=== PATIENT | male | born 1945 | race Caucasian/White ===

== ENCOUNTER 2017-04-02 19:22 | Emergency (ER) | payer MEDICARE, MEDICAID ==
--- NOTE | 2017-04-02 19:41 | ER Document Report ---
ED Medical Screen (RME) - General Chief Complaint: Leg Pain Stated Complaint: LEG PAIN Time Seen by Provider: 04/02/17 19:28 Mode of Arrival: Medic Information source: Patient Notes: 72-year-old male presents to ED via EMS for shortness of breath and increased swelling to both legs coarse lung sounds increase in pain for his chronic pain in his back. He is a alf patient. He states that he has a history of CHF but that is not listed on his diagnosis is he does have a history of chronic kidney disease COPD and chronic back pain. I have greeted and performed a rapid initial assessment of this patient. A comprehensive ED assessment and evaluation of the patient, analysis of test results and completion of medical decision making process will be conducted by an additional ED providers. - Related Data Allergies/Adverse Reactions: No Known Allergies Allergy (Unverified 04/02/17 19:37)
--- NOTE | 2017-04-02 20:17 | RADIOLOGY REPORT (SQ) ---
EXAM DESCRIPTION: CHEST PA/LAT COMPLETED DATE/TIME: 04/02/2017 8:05 pm REASON FOR STUDY: bilateral pedal edema COMPARISON: None. NUMBER OF VIEWS: Two views. TECHNIQUE: Frontal and lateral radiographic views of the chest acquired. LIMITATIONS: None. FINDINGS: LUNGS AND PLEURA: No opacities, masses or pneumothorax. No pleural effusion. Mildly incr eased interstitial markings. MEDIASTINUM AND HILAR STRUCTURES: No masses or contour abnormality. HEART AND VASCULAR STRUCTURES: Normal cardiac silhouette. Normal vasculature. BONES: No acute findings. HARDWARE: None in the chest. OTHER: Incidental note is made of a rounded metallic foreign body which localizes to the extrathoraci c right posterior lateral soft tissues. IMPRESSION: Given reported bilateral lower extremity edema, mildly increased interstitial markings m ay represent early CHF pattern despite normal cardiac silhouette. TECHNICAL DOCUMENTATION: JOB ID: [id number] [employer]- All Rights Reserved
[2017-04-02 20:43] LABS: ABSOLUTE BASOPHILS # (AUTO) 0.1 10^3/uL (0.0-0.2); ABSOLUTE EOSINOPHILS # (AUTO) 0.6 10^3/uL (0.0-0.6); ABSOLUTE LYMPHOCYTES (AUTO) 2.4 10^3/uL (0.5-4.7); ABSOLUTE MONOCYTES (AUTO) 1.1 10^3/uL (0.1-1.4); ABSOLUTE NEUT (AUTO) 3.8 10^3/uL (1.7-8.2); BASOPHILS % (AUTO) 1.1 % (0-2); HEMATOCRIT 36.4 % (37.9-51.0); HGB HCT DIFFERENCE -0.4; LYMPHOCYTES % (AUTO) 30.3 % (13-45); MEAN CORPUSCULAR HEMOGLOBIN 28.1 pg (27.0-33.4); MEAN CORPUSCULAR HGB CONC 32.9 g/dL (32.0-36.0); MEAN CORPUSCULAR VOLUME 85 fl (80-97); MONOCYTES % (AUTO) 14.1 % (3-13); RED BLOOD COUNT 4.26 10^6/uL (4.35-5.55); RED CELL DISTRIBUTION WIDTH 15.6 % (11.5-14.0); SEGMENTED NEUTROPHILS % (AUTO) 47.5 % (42-78); WHITE BLOOD COUNT 8.1 10^3/uL (4.0-10.5)
[2017-04-02 20:54] LABS: ALANINE AMINOTRANSFERASE 30 U/L (21-72); ALBUMIN 3.4 g/dL (3.5-5.0); ALKALINE PHOSPHATASE 65 U/L (38-126); ANION GAP 9 (5-19); ASPARTATE AMINO TRANSFERASE 21 U/L (17-59); BILIRUBIN,DIRECT 0.3 mg/dL (0.0-0.4); BILIRUBIN,TOTAL 0.4 mg/dL (0.2-1.3); BLOOD UREA NITROGEN 23 mg/dL (7-20); CALCIUM 8.8 mg/dL (8.4-10.2); CARBON DIOXIDE 23 mmol/L (22-30); CHLORIDE 110 mmol/L (98-107); CREATINE KINASE 370 U/L (55-170); CREATININE RESULT 1.81 mg/dL (0.52-1.25); GLUCOSE 99 mg/dL (75-110); POTASSIUM 4.8 mmol/L (3.6-5.0); SODIUM 142.2 mmol/L (137-145); TOTAL PROTEIN 6.4 g/dL (6.3-8.2)
[2017-04-02 20:55] LABS: APPEARANCE,URINE CLEAR; BILIRUBIN,URINE NEGATIVE (NEGATIVE); GLUCOSE, URINE NEGATIVE (NEGATIVE); KETONES,URINE NEGATIVE (NEGATIVE); LEUKOCYTE ESTERASE,URINE NEGATIVE (NEGATIVE); NITRITE,URINE NEGATIVE (NEGATIVE); PROTEIN,URINE 100 mg/dL (NEGATIVE); URINE SPECIFIC GRAVITY 1.019; UROBILINOGEN,URINE NEGATIVE mg/dL (<2.0)
[2017-04-02 21:02] LABS: CREATINE KINASE MB 2.51 ng/mL (<4.55)
[2017-04-02] MEDS ORDERED: IPRATROPIUM/ALBUTEROL 0.5-2.5 MG/3 ML AMPUL NEB ONE (21:46)
[2017-04-02] MEDS ORDERED: FUROSEMIDE INJ/PF 20 MG/2 ML SDV IV ONE (21:51)
[2017-04-02] MEDS ORDERED: LIDOCAINE 5% (700 MG) TRANSDERMAL ADH..PATCH TP ONE (21:52)
[2017-04-02] MEDS ORDERED: ACETAMINOPHEN 325 MG TABLET PO ONE (21:52)
--- NOTE | 2017-04-02 21:52 | ER Document Report ---
ED General - General Chief Complaint: Leg Pain Stated Complaint: LEG PAIN Time Seen by Provider: 04/02/17 19:28 Mode of Arrival: Medic Notes: Patient is a 72-year-old male with past medical history of hypertension or hyperlipidemia, morbid obesity who presents with concerns of 4-5 days of progressively worsening pain and swelling of his bilateral lower extremities. Notes that this is equal on both sides. Does describe a dull, constant, aching pain to the area. Nothing improves or worsens the pain. States he has had similar symptoms in the past but he has discontinued using compression stockings for the past several years. He has not seen his primary care doctor regarding today's concerns. He denies any orthopnea, shortness of breath or chest pain. Denies any fever or constitutional symptoms. - Related Data Allergies/Adverse Reactions: No Known Allergies Allergy (Unverified 04/02/17 19:37) Home Medications: Current Home Medications Acetaminophen [Non-Aspirin Pain Relief] 650 mg PO PRN PRN 04/02/17 [History] Albuterol Sulfate [Albuterol Sulfate 2.5mg/3 mL] 2.5 mg IH PRN PRN 04/02/17 [ History] Aspirin [Aspirin EC] 81 mg PO DAILY 04/02/17 [History] Atorvastatin Calcium 40 mg PO QHS 04/02/17 [History] Calcium Carbonate [Calcium Antacid] 500 mg PO Q4H PRN 04/02/17 [History] Divalproex Sodium [Depakote] 750 mg PO QHS 04/02/17 [History] Donepezil HCl [Donepezil HCl] 5 mg PO QHS 04/02/17 [History] Esomeprazole Magnesium 20 mg PO QAM 04/02/17 [History] Fluticasone/Salmeterol [Advair 250-50 Diskus] 1 puff IH BID 04/02/17 [History] Gabapentin [Gabapentin] 200 mg PO TID 04/02/17 [History] Lisinopril [Lisinopril] 10 mg PO DAILY 04/02/17 [History] Memantine HCl [Memantine HCl] 5 mg PO DAILY 04/02/17 [History] Tamsulosin HCl 0.4 mg PO QHS 04/02/17 [History] Tiotropium [place] [Spiriva Handihaler 18 mcg/dose (30 Dose)] 1 cap IH DAILY 05/12 [History] Past Medical History - General Information source: Patient - Social History Smoking Status: Current Every Day Smoker Chew tobacco use (# tins/day): No Frequency of alcohol use: None Drug Abuse: None Lives with: Spouse/Significant other Family History: Reviewed & Not Pertinent - Past Medical History Cardiac Medical History: Reports: Hx Congestive Heart Failure, Hx Hypercholesterolemia, Hx Hypertension Pulmonary Medical History: Reports: Hx COPD Renal/ Medical History: Reports: Hx End Stage Renal Disease GI Medical History: Reports: Hx Gastroesophageal Reflux Disease Review of Systems - Review of Systems Notes: Constitutional: Negative for fever. HENT: Negative for sore throat. Eyes: Negative for visual changes. Cardiovascular: Negative for chest pain. Respiratory: Negative for shortness of breath. Gastrointestinal: Negative for abdominal pain, vomiting or diarrhea. Genitourinary: Negative for dysuria. Musculoskeletal: Negative for back pain. Skin: Positive for bilateral lower extremity edema Neurological: Negative for headaches, weakness or numbness. 10 point ROS negative except as marked above and in HPI. Physical Exam - Vital signs Vitals: Temp Pulse Resp BP Pulse Ox 98.9 F 81 16 153/80 H 93 04/02/17 19:35 04/02/17 19:35 04/02/17 19:35 04/02/17 19:35 04/02/17 19:35 Interpretation: Hypertensive Notes: PHYSICAL EXAMINATION: GENERAL: Well-appearing, well-nourished and in no acute distress. HEAD: Atraumatic, normocephalic. EYES: Pupils equal round and reactive to light, extraocular movements intact, sclera anicteric, conjunctiva are normal. ENT: nares patent, oropharynx clear without exudates. Moist mucous membranes. NECK: Normal range of motion, supple without lymphadenopathy LUNGS: Breath sounds clear to auscultation bilaterally and equal. No wheezes rales or rhonchi. HEART: Regular rate and rhythm without murmurs ABDOMEN: Soft, nontender, normoactive bowel sounds. No guarding, no rebound. No masses appreciated. EXTREMITIES: Normal range of motion, 4+ pitting edema in the bilateral lower extremities is equal and symmetric. Associated erythema to the affected areas. NEUROLOGICAL: No focal neurological deficits. Moves all extremities spontaneously and on command. PSYCH: Normal mood, normal affect. SKIN: Warm, Dry, normal turgor, no rashes or lesions noted. Course - Re-evaluation Re-evalutation: 04/02/17 21:48 Patient presents with bilateral lower extremity edema and erythema consistent with stasis dermatitis that has been present for the past 2 weeks worsened today. He denies any shortness of breath, orthopnea or chest pain. Chest x- ray shows no significant pulmonary edema or cardiac enlargement. Patient reports a history of similar symptoms in the past. Laboratories are notable only for a mild creatinine elevation at 1.8 although I do not know patient's baseline does report a history of chronic kidney disease. Patient will be placed in compression stockings, given a single dose of Lasix, and encouraged to follow very closely with his primary care doctor regarding today's concerns. At this time will discharge with return precautions and follow-up recommendations. Verbal discharge instructions given a the bedside and opportunity for questions given. Medication warnings reviewed. Patient is in agreement with this plan and has verbalized understanding of return precautions and the need for primary care follow-up in the next 24-72 hours. - Vital Signs Vital signs: Temp Pulse Resp BP Pulse Ox 98.9 F 81 21 H 171/93 H 95 04/02/17 19:35 04/02/17 19:35 04/02/17 22:01 04/02/17 22:01 04/02/17 22:01 - Laboratory Result Diagrams: 04/02/17 20:25 04/02/17 20:25 Laboratory results interpreted by me: 04/02/17 04/02/17 04/02/17 20:25 20:25 20:40 RBC 4.26 L Hgb 12.0 L Hct 36.4 L RDW 15.6 H Monocytes % 14.1 H Eosinophils % 7.0 H Chloride 110 H BUN 23 H Creatinine 1.81 H Est GFR ( Amer) 45 L Est GFR (Non-Af Amer) 37 L Creatine Kinase 370 H Albumin 3.4 L Urine Protein 100 H - Diagnostic Test Radiology reviewed: Image reviewed, Reports reviewed Radiology results interpreted by me: 04/02/17 21:49 Chest x-ray: No cardiac enlargement or significant pulmonary edema - EKG Interpretation by Me Additional EKG results interpreted by me: 04/02/17 21:49 Normal sinus rhythm. Rate 78. No ST elevations or depressions. QTC is 465. Discharge - Discharge Clinical Impression: Stasis dermatitis Qualifiers: Laterality: bilateral Qualified Code(s): I87.2 - Venous insufficiency (chronic ) (peripheral) Condition: Good Disposition: HOME, SELF-CARE Additional Instructions: Please wear compression stockings on both your legs throughout the day to help reduce the swelling in your legs. Return if you develop worsening pain on one side, fever greater than 101F, vomiting, weakness, numbness or any other symptoms that are concerning to you. You need to follow-up with your primary care doctor regarding today's concerns and have a recheck of your labs to ensure that her kidney function, which was mildly abnormal today normalizes.
[2017-04-02 22:11] VITALS: BP 171/93
--- NOTE | 2017-04-03 08:03 | EKG REPORT ---
SEVERITY:- NORMAL ECG - SINUS RHYTHM : Confirmed by: Jerome Lyn MD 03-Apr-2017 08:03:11
== END 2017-04-02 22:46 | disposition home or self-care (01) ==
LOC: ER 19:22
DX: I87.2 Venous insufficiency (chronic) (peripheral) (principal); M79.604 Pain in right leg; M79.605 Pain in left leg; I12.0 Hypertensive chronic kidney disease with stage 5 chronic kidney disease or end stage renal disease; N18.6 End stage renal disease; R60.0 Localized edema; J44.9 Chronic obstructive pulmonary disease, unspecified; F17.200 Nicotine dependence, unspecified, uncomplicated
CPT/HCPCS: 93005; 94640; 99284; 36415; 82553; 82550; 85025; 80053; 81001; 83880; 71020; 93010; A9270 ×2; J7620

== ENCOUNTER 2017-04-20 12:01 | Inpatient (IN) | payer MEDICARE, MEDICAID ==
[2017-04-20 13:33] LABS: ABSOLUTE BASOPHILS # (AUTO) 0.1 10^3/uL (0.0-0.2); ABSOLUTE EOSINOPHILS # (AUTO) 0.4 10^3/uL (0.0-0.6); ABSOLUTE LYMPHOCYTES (AUTO) 1.8 10^3/uL (0.5-4.7); ABSOLUTE MONOCYTES (AUTO) 0.8 10^3/uL (0.1-1.4); ABSOLUTE NEUT (AUTO) 3.7 10^3/uL (1.7-8.2); BASOPHILS % (AUTO) 1.1 % (0-2); EOSINOPHILS % (AUTO) 5.9 % (0-6); HEMATOCRIT 36.9 % (37.9-51.0); HEMOGLOBIN 12.3 g/dL (13.5-17.0); LYMPHOCYTES % (AUTO) 26.5 % (13-45); MEAN CORPUSCULAR HGB CONC 33.5 g/dL (32.0-36.0); MEAN CORPUSCULAR VOLUME 84 fl (80-97); MONOCYTES % (AUTO) 12.1 % (3-13); RED BLOOD COUNT 4.41 10^6/uL (4.35-5.55); RED CELL DISTRIBUTION WIDTH 15.4 % (11.5-14.0); SEGMENTED NEUTROPHILS % (AUTO) 54.4 % (42-78); WHITE BLOOD COUNT 6.8 10^3/uL (4.0-10.5)
[2017-04-20 13:42] LABS: PARTIAL THROMBOPLASTIN TIME 29.9 SEC (23.5-35.8)
[2017-04-20 13:44] LABS: D-DIMER 1.13 ug/mL (0.00-0.50)
[2017-04-20 13:49] LABS: ALANINE AMINOTRANSFERASE 23 U/L (21-72); ALBUMIN 3.7 g/dL (3.5-5.0); ALKALINE PHOSPHATASE 71 U/L (38-126); ANION GAP 8 (5-19); ASPARTATE AMINO TRANSFERASE 20 U/L (17-59); BILIRUBIN,DIRECT 0.3 mg/dL (0.0-0.4); BILIRUBIN,TOTAL 0.3 mg/dL (0.2-1.3); BLOOD UREA NITROGEN 22 mg/dL (7-20); CARBON DIOXIDE 25 mmol/L (22-30); CHLORIDE 109 mmol/L (98-107); CREATININE RESULT 1.98 mg/dL (0.52-1.25); GLUCOSE 84 mg/dL (75-110); POTASSIUM 4.9 mmol/L (3.6-5.0); TOTAL PROTEIN 6.7 g/dL (6.3-8.2)
[2017-04-20] MEDS ORDERED: VANCOMYCIN HCL 0 MG in DEXTROSE 5%-WATER 250 ML IV NR (14:45)
[2017-04-20 15:00] LABS: APPEARANCE,URINE CLEAR; BILIRUBIN,URINE NEGATIVE (NEGATIVE); GLUCOSE, URINE NEGATIVE (NEGATIVE); KETONES,URINE NEGATIVE (NEGATIVE); LEUKOCYTE ESTERASE,URINE NEGATIVE (NEGATIVE); NITRITE,URINE NEGATIVE (NEGATIVE); PROTEIN,URINE 100 mg/dL (NEGATIVE); URINE SPECIFIC GRAVITY 1.013; UROBILINOGEN,URINE NEGATIVE mg/dL (<2.0)
[2017-04-20] MEDS ORDERED: NICOTINE 21 MG/24 HR PATCH.TD24 TD ONE (16:00)
[2017-04-20] MEDS: PIPERACILLIN SODIUM/TAZOBACTAM 3.375 GM in NORMAL SALINE 100 ML IV SCH ×2 (17:12→20:43)
[2017-04-20] MEDS: HEPARIN SOD (PORCINE) 5,000 UNIT/ML 1 ML SYRINGE SUBCUT SCH ×2 (17:13→22:08)
--- NOTE | 2017-04-20 18:09 | RADIOLOGY REPORT (SQ) ---
EXAM DESCRIPTION: VENOUS BILATERAL LOWER COMPLETED DATE/TIME: 04/20/2017 5:26 pm REASON FOR STUDY: CELLULITIS COMPARISON: None. TECHNIQUE: Dynamic and static matt scale and color images acquired of both lower extremity venous sy stems. Selected spectral images acquired with additional compression and augmentation maneuvers. Imag es stored on PACS. LIMITATIONS: None. FINDINGS: RIGHT LEG COMMON FEMORAL AND FEMORAL: Normal phasicity, compression and augmentation. No visualized echogenic m aterial on matt scale. No defects on color images. POPLITEAL: Normal compression and augmentation. No visualized echogenic material on matt scale. No de fects on color images. CALF VESSELS: Normal compression and augmentation. No visualized echogenic material on matt scale. No defects on color image. GSV AND SSV: Normal compression. No visualized echogenic material on matt scale. No defects on color images. ANY DEEP VENOUS INSUFFICIENCY: Not evaluated. ANY EVIDENCE OF POPLITEAL CYST: No. OTHER: No other significant finding. LEFT LEG COMMON FEMORAL AND FEMORAL: Normal phasicity, compression and augmentation. No visualized echogenic m aterial on matt scale. No defects on color images. POPLITEAL: Normal compression and augmentation. No visualized echogenic material on matt scale. No de fects on color images. CALF VESSELS: Normal compression and augmentation. No visualized echogenic material on matt scale. No defects on color images. GSV AND SSV: Normal compression. No visualized echogenic material on matt scale. No defects on color images. ANY DEEP VENOUS INSUFFICIENCY: Not evaluated. ANY EVIDENCE POPLITEAL CYST: No. OTHER: No other significant finding. IMPRESSION: NO EVIDENCE DVT OR SVT IN EITHER LEG. TECHNICAL DOCUMENTATION: JOB ID: [id number] [employer]- All Rights Reserved
[2017-04-20] MEDS: ACETAMINOPHEN 325 MG TABLET PO PRN (18:11)
[2017-04-20] MEDS: VANCOMYCIN HCL 1,250 MG in DEXTROSE 5%-WATER 250 ML IV SCH (18:46)
--- NOTE | 2017-04-20 19:17 | RADIOLOGY REPORT (SQ) ---
EXAM DESCRIPTION: U/S RETROPERITON LTD COMPLETED DATE/TIME: 04/20/2017 7:05 pm REASON FOR STUDY: PULMONARY HTN COMPARISON: None. TECHNIQUE: Dynamic and static grayscale images acquired of the kidneys and bladder and recorded on P ACS. Additional selected color Doppler and spectral images recorded. LIMITATIONS: Study is limited due to the patient's body habitus. FINDINGS: RIGHT KIDNEY: 8.1 cm in length. Normal echogenicity. No solid or suspicious masses. No hydronephrosis. No calcifications. LEFT KIDNEY: 8.9 cm in length. Normal echogenicity. No solid or suspicious masses. No hydronep hrosis. No calcifications. BLADDER: Bladder was not well evaluated due to the patient's body habitus and is non distended state. OTHER FINDINGS: No other significant finding. IMPRESSION: Somewhat limited study as noted above. No significant renal abnormalities were identifi ed. Other findings as noted above TECHNICAL DOCUMENTATION: JOB ID: [id number] [facility]- All Rights Reserved
[2017-04-20] MEDS: IPRATROPIUM/ALBUTEROL 0.5-2.5 MG/3 ML AMPUL NEB PRN (19:38)
[2017-04-20 20:25] LABS: URINE CREATININE 88.8 mg/dL (22-328); URINE PROTEIN 61.4 mg/dL (<12)
--- NOTE | 2017-04-20 20:29 | PDOC H&P ---
History of Present Illness Admission Date/PCP: 04/20/17 12:01 History of Present Illness: PRINCE PALMA is a 72 year old male, He is a resident of [facility] assisted living facility, he is new to our office he was seen in the office for the first time about 2-3 3 weeks ago when he came to establish with us, He came to the office today because of increasing swelling of both lower extremities with erythema extending from the feet to the inner thigh suspicious for ascending cellulitis. When he was seen in the office few weeks ago there was redness of the leg there was no involvement of the thigh at the time I suspected venostasis because he is overweight, in fact he is obese since the last time I saw him there has been progressive worsening of the redness suggesting ascending cellulitis of the lower extremities. He was admitted directly from the office into the hospital for management ,a stat venous Doppler of the lower extremity was done because of concern for deep vein thrombosis the venous Doppler was negative for DVT. A 2D echo was done , it showed preserved ejection fraction of the left ventricle, the right ventricular function was also normal Past Medical History Cardiac Medical History: Reports: Hyperlipidema, Hypertension Pulmonary Medical History: Reports: Chronic Obstructive Pulmonary Disease (COPD) Renal/ Medical History: Reports: Chronic Kidney Disease - Chronic kidney disease stage III GI Medical History: Reports: Gastroesophageal Reflux Disease Social History Smoking Status: Current Every Day Smoker Cigarettes Packs Per Day: 20 Number of Years Smokin Last Time Smoked: 04/20/17 Frequency of Alcohol Use: None Hx Prescription Drug Abuse: No Family History Family History: Reviewed & Not Pertinent Parental Family History Reviewed: Yes Children Family History Reviewed: Yes Sibling(s) Family History Reviewed.: Yes Medication/Allergy Home Medications: Acetaminophen [Tylenol 325 mg Tablet] 650 mg PO Q6HP PRN 04/20/17 Albuterol Sulfate [Albuterol Sulfate 2.5mg/3 mL] 2.5 mg IH Q6HP PRN 04/20/17 Aspirin [Ecotrin 81 mg EC Tablet] 81 mg PO DAILY 04/20/17 Atorvastatin Calcium [Lipitor 40 mg Tablet] 40 mg PO QHS 04/20/17 Calcium Carbonate [Tums Chewable 500 mg Tab.chew] 500 mg PO Q4HP PRN 04/20/17 Cetirizine HCl/Pseudoephedrine [Zyrtec-D 12 Hour Tablet] 1 tab.sr PO DAILYP PRN 04/20/17 Diclofenac Sodium [Voltaren] 100 gm TP QID 04/20/17 Divalproex Sodium 750 mg PO QHS 04/20/17 Docusate Sodium [Colace 100 mg Capsule] 200 mg PO DAILYP PRN 04/20/17 Donepezil HCl [Aricept] 10 mg PO QHS 04/20/17 Esomeprazole Magnesium [Nexium] 20 mg PO DAILY 04/20/17 Fluticasone/Salmeterol [Advair 250-50 Diskus 28 dose] 1 inh IH Q12H 04/20/17 Gabapentin [Neurontin 100 mg Capsule] 200 mg PO Q8 04/20/17 Hydroxyzine HCl [Atarax 50 mg Tablet] 50 mg PO Q6HP PRN 04/20/17 Lidocaine [Lidoderm 5% (700 mg) Transdermal Patch] 1 patch TP DAILY 04/20/17 Lisinopril [Prinivil 10 mg Tablet] 10 mg PO DAILY 04/20/17 Loperamide HCl [Loperamide] 2 mg PO QIDP PRN 04/20/17 Memantine HCl [Namenda] 5 mg PO DAILY 04/20/17 Sennosides/Docusate Sodium [Senna-S Tablet] 1 each PO BIDP PRN 04/20/17 Tamsulosin HCl [Flomax 0.4 mg Cap.sr] 0.4 mg PO DAILY 04/20/17 Tiotropium [place] [Spiriva Handihaler 18 mcg/dose (30 Dose)] 1 cap IH DAILY Tramadol HCl [Ultram 50 mg Tablet] 50 mg PO Q6HP PRN 04/20/17 Allergies/Adverse Reactions: No Known Allergies Allergy (Unverified 04/02/17 19:37) Review of Systems Constitutional: PRESENT: headache(s) Eyes: ABSENT: visual disturbances Ears: ABSENT: hearing changes Cardiovascular: PRESENT: edema Respiratory: PRESENT: dyspnea Gastrointestinal: ABSENT: as per HPI, abdominal pain, bloating, coffee ground emesis, constipation, diarrhea, dysphagia, heartburn, hematemesis, hematochezia , melena, nausea, vomiting, other Genitourinary: ABSENT: dysuria, hematuria Musculoskeletal: PRESENT: back pain Integumentary: ABSENT: rash, wounds Neurological: PRESENT: abnormal gait, frequent falls Endocrine: ABSENT: cold intolerance, heat intolerance, menstrual abnormalities, polydipsia, polyuria Hematologic/Lymphatic: ABSENT: easy bleeding, easy bruising, lymphadenopathy Physical Exam Vital Signs: Temp Pulse Resp BP Pulse Ox 97.7 F 88 18 153/85 H 97 04/20/17 12:20 04/20/17 19:54 04/20/17 19:54 04/20/17 12:20 04/20/17 19:54 Intake & Output 04/19/17 04/20/17 04/21/17 06:59 06:59 06:59 Intake Total 510 Output Total 500 Balance 10 Weight 98.4 kg General appearance: PRESENT: mild distress Head exam: PRESENT: atraumatic, normocephalic Eye exam: PRESENT: PERRLA Mouth exam: PRESENT: moist, tongue midline Neck exam: PRESENT: full ROM Respiratory exam: PRESENT: wheezes Cardiovascular exam: PRESENT: +S1, +S2 Vascular exam: PRESENT: normal capillary refill GI/Abdominal exam: PRESENT: normal bowel sounds, soft Rectal exam: PRESENT: deferred Extremities exam: PRESENT: pedal edema, other - There is swelling of both lower extremities extending from the feet to the inner thigh with associated erythema suggestive of cellulitis Neurological exam: PRESENT: alert, CN II-XII grossly intact Psychiatric exam: PRESENT: appropriate affect, normal mood Skin exam: PRESENT: dry, intact, warm Results Laboratory Results: 04/20/17 13:22 04/20/17 13:22 04/20/17 04/20/17 04/20/17 13:22 13:22 14:21 WBC 6.8 RBC 4.41 Hgb 12.3 L Hct 36.9 L MCV 84 MCH 28.0 MCHC 33.5 RDW 15.4 H Plt Count 213 Seg Neutrophils % 54.4 Lymphocytes % 26.5 Monocytes % 12.1 Eosinophils % 5.9 Basophils % 1.1 Absolute Neutrophils 3.7 Absolute Lymphocytes 1.8 Absolute Monocytes 0.8 Absolute Eosinophils 0.4 Absolute Basophils 0.1 Sodium 142.0 Potassium 4.9 Chloride 109 H Carbon Dioxide 25 Anion Gap 8 BUN 22 H Creatinine 1.98 H Est GFR ( Amer) 40 L Est GFR (Non-Af Amer) 33 L Glucose 84 Calcium 9.0 Total Bilirubin 0.3 AST 20 ALT 23 Alkaline Phosphatase 71 Total Protein 6.7 Albumin 3.7 Urine Color YELLOW Urine Appearance CLEAR Urine pH 7.0 Ur Specific [place] 1.013 Urine Protein 100 H Urine Glucose (UA) NEGATIVE Urine Ketones NEGATIVE Urine Blood NEGATIVE Urine Nitrite NEGATIVE Ur Leukocyte Esterase NEGATIVE Urine WBC (Auto) 0 Impressions: Renal Ultrasound 04/20/17 00:00 IMPRESSION: Somewhat limited study as noted above. No significant renal abnormalities were identified. Other findings as noted above Venous Doppler Study 04/20/17 00:00 IMPRESSION: NO EVIDENCE DVT OR SVT IN EITHER LEG. Assessment & Plan - Diagnosis (1) Cellulitis of both lower extremities Is this a current diagnosis for this admission?: YesPlan: He be treated with IV antibiotic to cover MRSA, gram-negative organisms, he is a resident of assisted living facility, health care facility (2) COPD with acute exacerbation Plan: He will be treated with bronchodilators, he may need intravenous Solu-Medrol if there is no improvement in 24 hours
[2017-04-20] MEDS ORDERED: FLUTICASONE/SALMETEROL DISKUS 250-50 MCG/DOSE IH SCH (20:30)
[2017-04-20] MEDS ORDERED: (PENDING PHARMACY ID) (Esomeprazole Magnesium [Nexium] 20 MG) PO SCH (20:30)
[2017-04-20] MEDS ORDERED: ASPIRIN 81 MG TABLET, ENT COATED PO SCH (21:00)
[2017-04-20] MEDS ORDERED: VALPROIC ACID 750 MG PO SCH (22:00)
[2017-04-20] MEDS: ATORVASTATIN CALCIUM 40 MG TABLET PO SCH (22:08)
[2017-04-20] MEDS: DIVALPROEX SODIUM 250 MG TABLET.DR PO SCH (22:08)
[2017-04-20] MEDS: FLUTICASONE/SALMETEROL DISKUS 250-50 MCG/DOSE IH SCH (22:12)
[2017-04-21] MEDS: ACETAMINOPHEN 325 MG TABLET PO PRN ×4 (00:43→20:09)
[2017-04-21] MEDS: PIPERACILLIN SODIUM/TAZOBACTAM 3.375 GM in NORMAL SALINE 100 ML IV SCH ×4 (02:04→21:19)
[2017-04-21] MEDS: HEPARIN SOD (PORCINE) 5,000 UNIT/ML 1 ML SYRINGE SUBCUT SCH ×3 (05:21→21:19)
[2017-04-21] MEDS: IPRATROPIUM/ALBUTEROL 0.5-2.5 MG/3 ML AMPUL NEB PRN ×3 (06:44→20:24)
[2017-04-21] MEDS: LANSOPRAZOLE 15 MG TAB.RAP.DR PO SCH (08:04)
[2017-04-21] MEDS ORDERED: ACETAMINOPHEN 325 MG TABLET PO PRN (08:44)
[2017-04-21] MEDS ORDERED: [UNRECOGNIZED DRUG - OTHER] PO PRN (08:44)
[2017-04-21] MEDS ORDERED: PSEUDOEPHEDRINE PO PRN (08:44)
[2017-04-21] MEDS ORDERED: SENNOSIDES/DOCUSATE 8.6-50 MG 1 EACH TABLET PO PRN (08:44)
[2017-04-21] MEDS ORDERED: CETIRIZINE HCL PO PRN (08:44)
[2017-04-21] MEDS ORDERED: DOCUSATE SODIUM 100 MG CAPSULE PO PRN (08:44)
[2017-04-21] MEDS ORDERED: LOPERAMIDE HCL 2 MG CAPSULE PO PRN (08:44)
[2017-04-21] MEDS ORDERED: HYDROXYZINE HCL 10 MG TABLET PO PRN (08:44)
[2017-04-21] MEDS ORDERED: LORATADINE/PSEUDOEPHEDRINE SUL 10-240 MG TAB.SR.24H PO PRN (08:51)
--- NOTE | 2017-04-21 09:18 | XCELERA REPORT ---
[address] [address] Transthoracic Echocardiogram Report Name: PRINCE PALMA Age: 72 yrs Gender: Male : 1945 Patient Status: Inpatient Patient Location: [id number]\427\[id number]\A Study Date: 04/20/2017 02:16 PM Height: 70 in Weight: 216 lb BSA: 2.2 m2 Procedure: A complete two-dimensional transthoracic echocardiogram was performed (2D, M-mode, spectral and color flow Doppler). The study was technically adequate with some images being suboptimal in quality. Reason For Study: PULMONARY HTN Ordering Physician: JONATHAN WHITESIDE Performed By: Kevin Vidal Interpretation Summary The left ventricular ejection fraction is normal. Doppler measurements suggest pseudonormalized left ventricular relaxation, which is associated with grade II/IV or mild to moderate diastolic dysfunction There is mild concentric left ventricular hypertrophy. The left ventricle is grossly normal size. Wall motion cannot be accurately commented on, but no definite regional wall motion abnormalities noted. The right ventricular systolic function is normal. The right atrium is normal in size The left atrial size is normal. There is a trace amount of mitral regurgitation There is no mitral valve stenosis. No aortic regurgitation is present. There is no aortic valve stenosis There is a mild amount of tricuspid regurgitation There is mild to moderate pulmonary hypertension by echo Right ventricular systolic pressure is estimated to be elevated at 40- 50mmHg. The aortic root is not well visualized but is probably normal size. The inferior vena cava appeared normal and decreased > 50% with respiration (RAP 5-10 mmHg) There is no pericardial effusion. MMode/2D Measurements \T\ Calculations RVDd: 2.7 cm LVIDd: 4.9 cm FS: 31.1 % Ao root diam: 3.9 cm IVSd: 1.1 cm LVIDs: 3.4 cm EDV(Teich): 113.0 ml LVPWd: 1.1 cm ESV(Teich): 46.7 ml Ao root area: 12.1 cm2 EF(Teich): 58.7 % Doppler Measurements \T\ Calculations MV E max jose luis: MV dec slope: Ao V2 max: LV V1 max P.1 cm/sec 139.9 cm/sec 4.1 mmHg MV A max jose luis: 307.7 cm/sec2 Ao max PG: LV V1 max: 78.6 cm/sec MV dec time: 7.8 mmHg 101.1 cm/sec MV E/A: 0.84 0.21 sec PA V2 max: PI end-d jose luis: TR max jose luis: RAP systole: 99.4 cm/sec 112.0 cm/sec 296.5 cm/sec 5.0 mmHg PA max PG: TR max P.9 mmHg 35.2 mmHg RVSP(TR): 40.2 mmHg Left Ventricle The left ventricle is grossly normal size. There is mild concentric left ventricular hypertrophy. The left ventricular ejection fraction is normal. Doppler measurements suggest pseudonormalized left ventricular relaxation, which is associated with grade II/IV or mild to moderate diastolic dysfunction. Wall motion cannot be accurately commented on, but no definite regional wall motion abnormalities noted. Right Ventricle The right ventricle is grossly normal size. There is normal right ventricular wall thickness. The right ventricular systolic function is normal. Atria The right atrium is normal in size. The left atrial size is normal. Interarterial septum not well visualized and not well dopplered. Cannot comment on ASD/PFO presence. Mitral Valve The mitral valve is grossly normal. There is no mitral valve stenosis. There is a trace amount of mitral regurgitation. Aortic Valve The aortic valve is sclerotic, but shows no functional abnormality. There is no aortic valve stenosis. No aortic regurgitation is present. Tricuspid Valve The tricuspid valve is not well visualized, but is grossly normal. There is no tricuspid stenosis. There is a mild amount of tricuspid regurgitation. There is mild to moderate pulmonary hypertension by echo. Right ventricular systolic pressure is estimated to be elevated at 40-50mmHg. Pulmonic Valve The pulmonic valve is not well visualized. Great Vessels The aortic root is not well visualized but is probably normal size. The inferior vena cava appeared normal and decreased > 50% with respiration (RAP 5-10 mmHg). Effusions There is no pericardial effusion. : JONATHAN WHITESIDE > Belén Kohli
[2017-04-21] MEDS: MEMANTINE HCL 10 MG TABLET PO SCH (09:32)
[2017-04-21] MEDS: ASPIRIN 81 MG TABLET, ENT COATED PO SCH (09:34)
[2017-04-21] MEDS: TAMSULOSIN HCL 0.4 MG CAP.SR.24H PO SCH (09:34)
[2017-04-21] MEDS: LISINOPRIL 10 MG TABLET PO SCH (09:35)
[2017-04-21] MEDS: NICOTINE 21 MG/24 HR PATCH.TD24 TD SCH (09:36)
[2017-04-21] MEDS: TRAMADOL HCL 50 MG TABLET PO PRN ×2 (09:36→18:25)
[2017-04-21] MEDS: TIOTROPIUM BROMIDE DPI 5 CAP/KIT (18 MCG/CAP) IH SCH (09:37)
[2017-04-21] MEDS: FLUTICASONE/SALMETEROL DISKUS 250-50 MCG/DOSE IH SCH ×2 (09:37→21:19)
[2017-04-21] MEDS: LIDOCAINE 5% (700 MG) TRANSDERMAL ADH..PATCH TP SCH (09:38)
[2017-04-21] MEDS ORDERED: (PENDING PHARMACY ID) (Diclofenac Sodium [Voltaren] 100 GM) TP SCH (10:00)
[2017-04-21] MEDS ORDERED: HYDROXYZINE PAMOATE 50 MG CAPSULE PO PRN (10:14)
--- NOTE | 2017-04-21 11:16 | RADIOLOGY REPORT (SQ) ---
EXAM DESCRIPTION: MRI LUMBAR SPINE WITHOUT COMPLETED DATE/TIME: 04/21/2017 10:57 am REASON FOR STUDY: lower back pain COMPARISON: None. TECHNIQUE: Sagittal and Axial imaging includes T1, T2, STIR and gradient echo sequences. Coronal T2/ HASTE imaging. LIMITATIONS: Motion. FINDINGS: VISUALIZED UPPER ABDOMEN: Limited evaluation. No acute or suspicious findings suggested. SEGMENTATION: No transitional anatomy. The lowest well-developed disc space is labeled L5-S1. ALIGNMENT: Moderate convex right scoliosis. VERTEBRAE: Intact. BONE MARROW: No significant marrow abnormality. DISC SIGNAL: Desiccation multiple levels. POSTERIOR ELEMENTS: Intact. HARDWARE: None in the spine. CORD AND CONUS: Normal in size and signal intensity. Conus at the appropriate level. SOFT TISSUES: No aortic aneurysm seen. No bulky retroperitoneal adenopathy or mass. No paraspinal mas s or fluid. L1-L2: Chronic endplate change. Ventral impression on the thecal sac due to disc osteophyte complex. Mild neural foraminal narrowing bilaterally. L2-L3: Ventral impression on the thecal sac due to disc osteophyte complex. L3-L4: Chronic endplate change. Ventral nerve root contact due to disc osteophyte complex. Facet ar thropathy. Moderate right and mild left neural foraminal narrowing. L4-L5: Chronic endplate change. Ventral nerve root contact due to disc osteophyte complex. Lateral recess stenosis. Facet arthropathy. Mild neural foraminal narrowing. L5-S1: Chronic endplate change. Ventral impression on the thecal sac due to disc osteophyte complex. Facet arthropathy. Mild neural foraminal narrowing bilaterally. LOWER THORACIC: Incompletely imaged. No stenosis seen. SACRUM: Visualized upper sacrum intact. OTHER: No other significant findings. IMPRESSION: Spondylosis and scoliosis. Mild spinal stenosis and lateral recess stenosis at multiple levels. TECHNICAL DOCUMENTATION: JOB ID: [id number]- All Rights Reserved
[2017-04-21] MEDS: GABAPENTIN 100 MG CAPSULE PO SCH ×2 (13:52→21:19)
[2017-04-21] MEDS: CALCIUM CARBONATE 500 MG TAB.CHEW PO PRN (14:19)
[2017-04-21 18:11] LABS: ABSOLUTE BASOPHILS # (AUTO) 0.1 10^3/uL (0.0-0.2); ABSOLUTE EOSINOPHILS # (AUTO) 0.4 10^3/uL (0.0-0.6); ABSOLUTE LYMPHOCYTES (AUTO) 1.9 10^3/uL (0.5-4.7); BASOPHILS % (AUTO) 1.1 % (0-2); EOSINOPHILS % (AUTO) 5.7 % (0-6); HEMATOCRIT 37.8 % (37.9-51.0); HEMOGLOBIN 12.6 g/dL (13.5-17.0); LYMPHOCYTES % (AUTO) 26.1 % (13-45); MEAN CORPUSCULAR HEMOGLOBIN 27.8 pg (27.0-33.4); MEAN CORPUSCULAR HGB CONC 33.3 g/dL (32.0-36.0); MEAN CORPUSCULAR VOLUME 84 fl (80-97); MONOCYTES % (AUTO) 13.5 % (3-13); RED BLOOD COUNT 4.53 10^6/uL (4.35-5.55); SEGMENTED NEUTROPHILS % (AUTO) 53.6 % (42-78); WHITE BLOOD COUNT 7.4 10^3/uL (4.0-10.5)
[2017-04-21] MEDS: VANCOMYCIN HCL 1,250 MG in DEXTROSE 5%-WATER 250 ML IV SCH (18:15)
[2017-04-21 18:29] LABS: ALANINE AMINOTRANSFERASE 22 U/L (21-72); ALBUMIN 3.8 g/dL (3.5-5.0); ALKALINE PHOSPHATASE 70 U/L (38-126); ANION GAP 12 (5-19); ASPARTATE AMINO TRANSFERASE 21 U/L (17-59); BILIRUBIN,DIRECT 0.3 mg/dL (0.0-0.4); BILIRUBIN,TOTAL 0.4 mg/dL (0.2-1.3); BLOOD UREA NITROGEN 21 mg/dL (7-20); CALCIUM 8.9 mg/dL (8.4-10.2); CARBON DIOXIDE 22 mmol/L (22-30); CHLORIDE 105 mmol/L (98-107); GLUCOSE 99 mg/dL (75-110); POTASSIUM 4.2 mmol/L (3.6-5.0); SODIUM 138.6 mmol/L (137-145); TOTAL PROTEIN 6.9 g/dL (6.3-8.2)
--- NOTE | 2017-04-21 20:12 | PDOC PROGRESS REPORT ---
Subjective Progress Note for:: 04/21/17 Subjective:: Patient was admitted yesterday for evaluation and management of severe extensive cellulitis affecting both lower extremities, lower extremity edema and acute COPD exacerbation. He was seen today by the bedside he continues to wheeze despite 24 hours of active bronchodilators treatment, Solu-Medrol will be added to her regimen. MRI of the lumbar spine was done there is no significant spinal stenosis that was found. Physical Exam Vital Signs: Temp Pulse Resp BP Pulse Ox 97.6 F 97 16 164/83 H 95 04/21/17 16:00 04/21/17 19:00 04/21/17 16:00 04/21/17 16:00 04/21/17 16:00 Intake & Output 04/20/17 04/21/17 04/22/17 06:59 06:59 06:59 Intake Total 1510 800 Output Total 1600 1000 Balance -90 -200 Weight 98.4 kg General appearance: PRESENT: mild distress Eye exam: PRESENT: PERRLA Respiratory exam: PRESENT: wheezes Cardiovascular exam: PRESENT: +S1, +S2 GI/Abdominal exam: PRESENT: soft Extremities exam: PRESENT: pedal edema, other - There is cellulitis of both lower extremities Neurological exam: PRESENT: alert Results Laboratory Results: 04/21/17 17:48 04/21/17 17:48 04/21/17 04/21/17 04/21/17 06:20 17:48 17:48 WBC 7.4 RBC 4.53 Hgb 12.6 L Hct 37.8 L MCV 84 MCH 27.8 MCHC 33.3 RDW 15.0 H Plt Count 220 Seg Neutrophils % 53.6 Lymphocytes % 26.1 Monocytes % 13.5 H Eosinophils % 5.7 Basophils % 1.1 Absolute Neutrophils 4.0 Absolute Lymphocytes 1.9 Absolute Monocytes 1.0 Absolute Eosinophils 0.4 Absolute Basophils 0.1 Sodium 138.6 Potassium 4.2 Chloride 105 Carbon Dioxide 22 Anion Gap 12 BUN 21 H Creatinine 1.80 H Est GFR ( Amer) 45 L Est GFR (Non-Af Amer) 37 L Glucose 99 Calcium 8.9 Total Bilirubin 0.4 AST 21 ALT 22 Alkaline Phosphatase 70 Total Protein 6.9 Albumin 3.8 Stool Occult Blood NEGATIVE Impressions: Renal Ultrasound 04/20/17 00:00 IMPRESSION: Somewhat limited study as noted above. No significant renal abnormalities were identified. Other findings as noted above Venous Doppler Study 04/20/17 00:00 IMPRESSION: NO EVIDENCE DVT OR SVT IN EITHER LEG. Lumbar Spine MRI 04/21/17 00:00 IMPRESSION: Spondylosis and scoliosis. Mild spinal stenosis and lateral recess stenosis at multiple levels. Assessment & Plan - Diagnosis (1) Cellulitis of both lower extremities Is this a current diagnosis for this admission?: YesPlan: Continue IV antibiotic (2) COPD with acute exacerbation Is this a current diagnosis for this admission?: YesPlan: Start IV Solu-Medrol, continue bronchodilators (3) Chronic kidney disease, stage III (moderate) Is this a current diagnosis for this admission?: Yes (4) Lower extremity edema Is this a current diagnosis for this admission?: YesPlan: Start furosemide infusion
[2017-04-21] MEDS: METHYLPREDNISOLONE INJ 125 MG/2 ML SDV IV SCH (21:19)
[2017-04-21] MEDS: DIVALPROEX SODIUM 250 MG TABLET.DR PO SCH (21:19)
[2017-04-21] MEDS: DONEPEZIL HCL 5 MG TABLET PO SCH (21:19)
[2017-04-21] MEDS: ATORVASTATIN CALCIUM 40 MG TABLET PO SCH (21:20)
[2017-04-21] MEDS: PHARMACY COMMUNICATION ORDER MC SCH (21:42)
[2017-04-21] MEDS ORDERED: DIVALPROEX SODIUM 250 MG TABLET.DR PO SCH (22:00)
[2017-04-21] MEDS: NORMAL SALINE 250 ML with FUROSEMIDE 250 MG IV PRN ×2 (22:09)
[2017-04-21] MEDS: ALBUTEROL SULFATE 0.083% NEB 2.5 MG/3 ML AMPUL NEB PRN (23:36)
[2017-04-22] MEDS: PIPERACILLIN SODIUM/TAZOBACTAM 3.375 GM in NORMAL SALINE 100 ML IV SCH ×4 (02:08→20:36)
[2017-04-22] MEDS: TRAMADOL HCL 50 MG TABLET PO PRN ×4 (02:08→20:36)
[2017-04-22] MEDS: CALCIUM CARBONATE 500 MG TAB.CHEW PO PRN ×2 (02:59→18:28)
[2017-04-22] MEDS: ACETAMINOPHEN 325 MG TABLET PO PRN ×3 (03:03→18:29)
[2017-04-22 04:37] LABS: HEMATOCRIT 38.9 % (37.9-51.0); HEMOGLOBIN 13.1 g/dL (13.5-17.0); HGB HCT DIFFERENCE 0.4; MEAN CORPUSCULAR HEMOGLOBIN 27.9 pg (27.0-33.4); MEAN CORPUSCULAR HGB CONC 33.5 g/dL (32.0-36.0); MEAN CORPUSCULAR VOLUME 83 fl (80-97); RED BLOOD COUNT 4.67 10^6/uL (4.35-5.55); RED CELL DISTRIBUTION WIDTH 15.3 % (11.5-14.0); WHITE BLOOD COUNT 7.4 10^3/uL (4.0-10.5)
[2017-04-22 04:54] LABS: ALANINE AMINOTRANSFERASE 23 U/L (21-72); ALBUMIN 4.1 g/dL (3.5-5.0); ALKALINE PHOSPHATASE 73 U/L (38-126); ANION GAP 19 (5-19); ASPARTATE AMINO TRANSFERASE 24 U/L (17-59); BILIRUBIN,DIRECT 0.3 mg/dL (0.0-0.4); BILIRUBIN,TOTAL 0.5 mg/dL (0.2-1.3); BLOOD UREA NITROGEN 22 mg/dL (7-20); CALCIUM 9.2 mg/dL (8.4-10.2); CARBON DIOXIDE 18 mmol/L (22-30); CHLORIDE 103 mmol/L (98-107); CREATININE RESULT 2.05 mg/dL (0.52-1.25); GLUCOSE 185 mg/dL (75-110); POTASSIUM 4.5 mmol/L (3.6-5.0); SODIUM 139.9 mmol/L (137-145); TOTAL PROTEIN 7.2 g/dL (6.3-8.2)
[2017-04-22] MEDS: GABAPENTIN 100 MG CAPSULE PO SCH ×3 (05:20→21:36)
[2017-04-22] MEDS: METHYLPREDNISOLONE INJ 125 MG/2 ML SDV IV SCH ×3 (05:20→21:35)
[2017-04-22] MEDS: HEPARIN SOD (PORCINE) 5,000 UNIT/ML 1 ML SYRINGE SUBCUT SCH ×3 (05:20→21:35)
[2017-04-22 05:46] LABS: APPEARANCE,URINE CLEAR; BILIRUBIN,URINE NEGATIVE (NEGATIVE); GLUCOSE, URINE NEGATIVE (NEGATIVE); KETONES,URINE NEGATIVE (NEGATIVE); LEUKOCYTE ESTERASE,URINE NEGATIVE (NEGATIVE); NITRITE,URINE NEGATIVE (NEGATIVE); PROTEIN,URINE 30 mg/dL (NEGATIVE); URINE SPECIFIC GRAVITY 1.004; UROBILINOGEN,URINE NEGATIVE mg/dL (<2.0)
[2017-04-22] MEDS: LANSOPRAZOLE 15 MG TAB.RAP.DR PO SCH (07:53)
[2017-04-22] MEDS: LIDOCAINE 5% (700 MG) TRANSDERMAL ADH..PATCH TP SCH (09:47)
[2017-04-22] MEDS: TIOTROPIUM BROMIDE DPI 5 CAP/KIT (18 MCG/CAP) IH SCH (09:47)
[2017-04-22] MEDS: LISINOPRIL 10 MG TABLET PO SCH (09:48)
[2017-04-22] MEDS: TAMSULOSIN HCL 0.4 MG CAP.SR.24H PO SCH (09:48)
[2017-04-22] MEDS: MEMANTINE HCL 10 MG TABLET PO SCH (09:48)
[2017-04-22] MEDS: ASPIRIN 81 MG TABLET, ENT COATED PO SCH (09:49)
[2017-04-22] MEDS: FLUTICASONE/SALMETEROL DISKUS 250-50 MCG/DOSE IH SCH ×2 (09:50→21:59)
[2017-04-22] MEDS: NICOTINE 21 MG/24 HR PATCH.TD24 TD SCH (09:50)
[2017-04-22] MEDS: ALBUTEROL SULFATE 0.083% NEB 2.5 MG/3 ML AMPUL NEB PRN (10:02)
[2017-04-22] MEDS: IPRATROPIUM/ALBUTEROL 0.5-2.5 MG/3 ML AMPUL NEB PRN (16:09)
[2017-04-22] MEDS: VANCOMYCIN HCL 1,250 MG in DEXTROSE 5%-WATER 250 ML IV SCH (17:04)
[2017-04-22] MEDS ORDERED: ONDANSETRON HCL INJ/PF 4 MG/2 ML SDV IV PRN (20:35)
--- NOTE | 2017-04-22 21:25 | PDOC TRANSFER SUMMARY ---
General - Admit/Disc Date/PCP Admission Date/Primary Care Provider: 04/20/17 12:01 Discharge Date: 04/22/17 - Discharge Diagnosis (1) Cellulitis of both lower extremities Is this a current diagnosis for this admission?: Yes (2) COPD with acute exacerbation Is this a current diagnosis for this admission?: Yes (3) Chronic kidney disease, stage III (moderate) Is this a current diagnosis for this admission?: Yes (4) Lower extremity edema Is this a current diagnosis for this admission?: Yes - Additional Information Home Medications: Acetaminophen [Tylenol 325 mg Tablet] 650 mg PO Q6HP PRN 04/20/17 Albuterol Sulfate [Albuterol Sulfate 2.5mg/3 mL] 2.5 mg IH Q6HP PRN 04/20/17 Aspirin [Ecotrin 81 mg EC Tablet] 81 mg PO DAILY 04/20/17 Atorvastatin Calcium [Lipitor 40 mg Tablet] 40 mg PO QHS 04/20/17 Calcium Carbonate [Tums Chewable 500 mg Tab.chew] 500 mg PO Q4HP PRN 04/20/17 Cetirizine HCl/Pseudoephedrine [Zyrtec-D 12 Hour Tablet] 1 tab.sr PO DAILYP PRN 04/20/17 Diclofenac Sodium [Voltaren] 100 gm TP QID 04/20/17 Divalproex Sodium 750 mg PO QHS 04/20/17 Docusate Sodium [Colace 100 mg Capsule] 200 mg PO DAILYP PRN 04/20/17 Donepezil HCl [Aricept] 10 mg PO QHS 04/20/17 Esomeprazole Magnesium [Nexium] 20 mg PO DAILY 04/20/17 Fluticasone/Salmeterol [Advair 250-50 Diskus 28 dose] 1 inh IH Q12H 04/20/17 Gabapentin [Neurontin 100 mg Capsule] 200 mg PO Q8 04/20/17 Hydroxyzine HCl [Atarax 50 mg Tablet] 50 mg PO Q6HP PRN 04/20/17 Lidocaine [Lidoderm 5% (700 mg) Transdermal Patch] 1 patch TP DAILY 04/20/17 Lisinopril [Prinivil 10 mg Tablet] 10 mg PO DAILY 04/20/17 Loperamide HCl [Loperamide] 2 mg PO QIDP PRN 04/20/17 Memantine HCl [Namenda] 5 mg PO DAILY 04/20/17 Sennosides/Docusate Sodium [Senna-S Tablet] 1 each PO BIDP PRN 04/20/17 Tamsulosin HCl [Flomax 0.4 mg Cap.sr] 0.4 mg PO DAILY 04/20/17 Tiotropium Higgins [Spiriva Handihaler 18 mcg/dose (30 Dose)] 1 cap IH DAILY Clindamycin HCl 300 mg PO Q8H #21 capsule 04/22/17 Fluticasone/Salmeterol [Advair 250-50 Diskus 14 Dose/Diskus] 1 inh IH Q12 #0 inhaler 04/22/17 History of Present Illness Admission Date/PCP: 04/20/17 12:01 History of Present Illness: PRINCE PALMA is a 72 year old male, He is a resident of [facility], he is new to our office he was seen in the office for the first time about 2-3 3 weeks ago when he came to establish with us, He came to the office today because of increasing swelling of both lower extremities with erythema extending from the feet to the inner thigh suspicious for ascending cellulitis. When he was seen in the office few weeks ago there was redness of the leg there was no involvement of the thigh at the time I suspected venostasis because he is overweight, in fact he is obese since the last time I saw him there has been progressive worsening of the redness suggesting ascending cellulitis of the lower extremities. He was admitted directly from the office into the hospital for management ,a stat venous Doppler of the lower extremity was done because of concern for deep vein thrombosis the venous Doppler was negative for DVT. A 2D echo was done , it showed preserved ejection fraction of the left ventricle, the right ventricular function was also normal Hospital Course Hospital Course: Patient was admitted for the management of extensive cellulitis of both legs, COPD exacerbation, fluid retention, he was treated with IV antibiotic, Zosyn and vancomycin, Solu-Medrol for his COPD and also Lasix drip there was significant improvement in patient's symptoms he wants to go home today. I thought he needed to stay through the weekend up until Tuesday but patient refused. He is from assisted living facility to be transferred back to continue his medication Physical Exam Vital Signs: Temp Pulse Resp BP Pulse Ox 98.0 F 106 H 20 141/77 H 93 04/22/17 16:06 04/22/17 19:00 04/22/17 16:09 04/22/17 16:06 04/22/17 16:09 Intake & Output 04/21/17 04/22/17 04/23/17 06:59 06:59 06:59 Intake Total 1510 3339 1328 Output Total 1600 4000 490 Balance -90 -661 838 Weight 98.4 kg 98.4 kg General appearance: PRESENT: no acute distress Eye exam: PRESENT: PERRLA Respiratory exam: PRESENT: clear to auscultation mariia Cardiovascular exam: PRESENT: +S1, +S2 GI/Abdominal exam: PRESENT: soft Neurological exam: PRESENT: alert, CN II-XII grossly intact Results Laboratory Results: 04/22/17 04:01 04/22/17 04:01 04/22/17 04/22/17 04/22/17 04:01 04:01 05:25 WBC 7.4 RBC 4.67 Hgb 13.1 L Hct 38.9 MCV 83 MCH 27.9 MCHC 33.5 RDW 15.3 H Plt Count 206 Sodium 139.9 Potassium 4.5 Chloride 103 Carbon Dioxide 18 L Anion Gap 19 BUN 22 H Creatinine 2.05 H Est GFR ( Amer) 39 L Est GFR (Non-Af Amer) 32 L Glucose 185 H Calcium 9.2 Total Bilirubin 0.5 AST 24 ALT 23 Alkaline Phosphatase 73 Total Protein 7.2 Albumin 4.1 Urine Color COLORLESS Urine Appearance CLEAR Urine pH 5.0 Ur Specific Buckner 1.004 Urine Protein 30 H Urine Glucose (UA) NEGATIVE Urine Ketones NEGATIVE Urine Blood NEGATIVE Urine Nitrite NEGATIVE Ur Leukocyte Esterase NEGATIVE Urine RBC (Auto) 0 04/20/17 14:21 Clean Catch Midstream Urine Culture - Final Mixed Urogenital Chyna Impressions: Renal Ultrasound 04/20/17 00:00 IMPRESSION: Somewhat limited study as noted above. No significant renal abnormalities were identified. Other findings as noted above Venous Doppler Study 04/20/17 00:00 IMPRESSION: NO EVIDENCE DVT OR SVT IN EITHER LEG. Lumbar Spine MRI 04/21/17 00:00 IMPRESSION: Spondylosis and scoliosis. Mild spinal stenosis and lateral recess stenosis at multiple levels.
[2017-04-22] MEDS: ATORVASTATIN CALCIUM 40 MG TABLET PO SCH (21:35)
[2017-04-22] MEDS: DONEPEZIL HCL 5 MG TABLET PO SCH (21:35)
[2017-04-22] MEDS: DIVALPROEX SODIUM 250 MG TABLET.DR PO SCH (21:36)
[2017-04-22] MEDS: PHARMACY COMMUNICATION ORDER MC SCH (23:15)
[2017-04-23] MEDS: PIPERACILLIN SODIUM/TAZOBACTAM 3.375 GM in NORMAL SALINE 100 ML IV SCH ×2 (02:06→08:54)
[2017-04-23] MEDS: ACETAMINOPHEN 325 MG TABLET PO PRN ×2 (02:07→07:55)
[2017-04-23] MEDS: HEPARIN SOD (PORCINE) 5,000 UNIT/ML 1 ML SYRINGE SUBCUT SCH (05:19)
[2017-04-23] MEDS: CALCIUM CARBONATE 500 MG TAB.CHEW PO PRN (05:19)
[2017-04-23] MEDS: GABAPENTIN 100 MG CAPSULE PO SCH (05:19)
[2017-04-23] MEDS: TRAMADOL HCL 50 MG TABLET PO PRN ×2 (05:19→11:23)
[2017-04-23] MEDS: METHYLPREDNISOLONE INJ 125 MG/2 ML SDV IV SCH (05:19)
[2017-04-23] MEDS: NORMAL SALINE 250 ML with FUROSEMIDE 250 MG IV PRN ×2 (05:50)
[2017-04-23] MEDS: LANSOPRAZOLE 15 MG TAB.RAP.DR PO SCH (07:55)
[2017-04-23] MEDS: MEMANTINE HCL 10 MG TABLET PO SCH (09:37)
[2017-04-23] MEDS: ASPIRIN 81 MG TABLET, ENT COATED PO SCH (09:37)
[2017-04-23] MEDS: LISINOPRIL 10 MG TABLET PO SCH (09:38)
[2017-04-23] MEDS: TIOTROPIUM BROMIDE DPI 5 CAP/KIT (18 MCG/CAP) IH SCH (09:39)
[2017-04-23] MEDS: TAMSULOSIN HCL 0.4 MG CAP.SR.24H PO SCH (09:39)
[2017-04-23] MEDS: FLUTICASONE/SALMETEROL DISKUS 250-50 MCG/DOSE IH SCH (09:40)
[2017-04-23] MEDS: LIDOCAINE 5% (700 MG) TRANSDERMAL ADH..PATCH TP SCH (09:41)
[2017-04-23] MEDS: NICOTINE 21 MG/24 HR PATCH.TD24 TD SCH (09:45)
[2017-04-23] MEDS: IPRATROPIUM/ALBUTEROL 0.5-2.5 MG/3 ML AMPUL NEB PRN (11:32)
[2017-04-23 11:48] VITALS: BP 138/78
== END 2017-04-23 13:52 | disposition home health service (06) | DRG 191 ==
LOC: 4S 12:01
PROVIDERS: ADMIT Internal Medicine; ATTEND Internal Medicine
DX: J44.1 Chronic obstructive pulmonary disease with (acute) exacerbation (principal); L03.116 Cellulitis of left lower limb; L03.115 Cellulitis of right lower limb; I12.9 Hypertensive chronic kidney disease with stage 1 through stage 4 chronic kidney disease, or unspecified chronic kidney disease; N18.3 Chronic kidney disease, stage 3 (moderate); F17.210 Nicotine dependence, cigarettes, uncomplicated; E78.5 Hyperlipidemia, unspecified; K21.9 Gastro-esophageal reflux disease without esophagitis; Z79.82 Long term (current) use of aspirin; Z79.899 Other long term (current) drug therapy
CPT/HCPCS: 36415; 72148; 76775; 80048; 80053; 80076; 81001; 82272; 82570; 84156; 85025; 85027; 85379; 85610; 85730; 87040; 87086; 93306; 93970; 94640; J1644; J1940; J2405; J2543; J2930; J3370; J3490; J7050; J7060; J7620

== ENCOUNTER 2017-05-11 00:22 | Emergency (ER) | payer MEDICARE, MEDICAID ==
--- NOTE | 2017-05-11 00:36 | ER Document Report ---
ED Extremity Problem, Lower - General Chief Complaint: Leg Pain Stated Complaint: LEG SWELLING Time Seen by Provider: 05/11/17 00:27 Notes: Patient is a 72 year old male who presents to the ED complaining of lower extremity swelling and pain that has been present since the beginning of March. He was admitted and treated for bilateral lower extremity cellulitis to above the knee 2/2 venous stasis on 04/20/2017. He received IV abx, Lasix and then was transferred back to [facility] per the patients request. He states his swelling and redness has become worse over the past 7 days with associated itching. Denies fevers, chills, drainage. 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 IN LAST 30 DAYS: No - Related Data Allergies/Adverse Reactions: No Known Allergies Allergy (Unverified 04/02/17 19:37) Past Medical History - Social History Smoking Status: Current Every Day Smoker Family History: Reviewed & Not Pertinent - Past Medical History Cardiac Medical History: Reports: Hx Hypercholesterolemia, Hx Hypertension Pulmonary Medical History: Reports: Hx COPD GI Medical History: Reports: Hx Gastroesophageal Reflux Disease Review of Systems - Review of Systems Constitutional: No symptoms reported Cardiovascular: No symptoms reported Respiratory: No symptoms reported Gastrointestinal: No symptoms reported Skin: See HPI -: Yes All other systems reviewed and negative Physical Exam - Vital signs Vitals: Temp Pulse Resp BP Pulse Ox 97.7 F 85 18 172/78 H 94 05/11/17 00:34 05/11/17 00:34 05/11/17 00:34 05/11/17 00:34 05/11/17 00:34 - Notes Notes: PHYSICAL EXAM GENERAL: Alert, interacts well. HEAD: Normocephalic, atraumatic. EYES: Pupils equal, round, and reactive to light. Extraocular movements intact. ENT: Oral mucosa moist, tongue midline. NECK: Full range of motion. Supple. Trachea midline. LUNGS: Clear to auscultation bilaterally, no wheezes, rales, or rhonchi. No respiratory distress. HEART: Regular rate and rhythm. No murmurs, gallops, or rubs. ABDOMEN: Soft, nondistended, nontender. No guarding, rebound, or rigidity.. Bowel sounds present in all 4 quadrants. EXTREMITIES: Moves all 4 extremities spontaneously. 3+ pitting edema bilaterally with tenderness to palpation, radial and dorsalis pedis pulses 2/4 bilaterally. No cyanosis. NEUROLOGICAL: Alert and oriented x4. Normal speech. PSYCH: Normal affect, normal mood. SKIN: Warm, dry, normal turgor. Erythema circumferential b/l LE's to middle of both lower legs Course - Re-evaluation Re-evalutation: 05/11/17 02:30 Patient presents with bilateral lower extremity edema and erythema consistent with stasis dermatitis that has been present for the past 6 weeks and has been stable. He denies any shortness of breath, orthopnea or chest pain. Chest x- ray shows no significant pulmonary edema or cardiac enlargement. Patient reports a history of similar symptoms in the past. Laboratories are notable only for a mild creatinine elevation at 1.92 which appears to be consistent with patients history of chronic kidney disease. Patient will be placed in compression stockings, and encouraged to follow very closely with his primary care doctor regarding today's concerns. At this time will discharge with return precautions and follow-up recommendations. Verbal discharge instructions given a the bedside and opportunity for questions given. Medication warnings reviewed. Patient is in agreement with this plan and has verbalized understanding of return precautions and the need for primary care follow-up in the next 24-72 hours. - Vital Signs Vital signs: Temp Pulse Resp BP Pulse Ox 97.7 F 85 18 128/117 H 97 05/11/17 00:34 05/11/17 00:34 05/11/17 00:34 05/11/17 03:01 05/11/17 02:55 - Laboratory Result Diagrams: 05/11/17 01:10 05/11/17 01:10 Laboratory results interpreted by me: 05/11/17 05/11/17 01:10 01:10 RBC 4.24 L Hgb 11.8 L Hct 36.0 L RDW 15.3 H Monocytes % 13.9 H Eosinophils % 6.5 H Chloride 111 H Carbon Dioxide 21 L Creatinine 1.92 H Est GFR ( Amer) 42 L Est GFR (Non-Af Amer) 35 L Glucose 115 H Creatine Kinase 321 H Discharge - Discharge Clinical Impression: Cellulitis of both lower extremities, Lower extremity edema Condition: Good Disposition: HOME, SELF-CARE Additional Instructions: Please wear compression stockings on both your legs throughout the day to help reduce the swelling in your legs. Return if you develop worsening pain on one side, fever greater than 101F, vomiting, weakness, numbness or any other symptoms that are concerning to you. You need to follow-up with your primary care doctor regarding today's concerns and have a recheck of your labs to ensure that your kidney function, which was mildly abnormal today normalizes. Prescriptions: Clindamycin HCl 450 mg PO TID 10 Days Forms: Smoking Cessation Education Referrals: JONATHAN WHITESIDE MD [ACTIVE STAFF] - Follow up in 3-5 days (Please call Dr. Whiteside's office to set up an appointment with one of his partners for a follow up visit)
[2017-05-11 01:30] LABS: ABSOLUTE BASOPHILS # (AUTO) 0.1 10^3/uL (0.0-0.2); ABSOLUTE EOSINOPHILS # (AUTO) 0.5 10^3/uL (0.0-0.6); ABSOLUTE LYMPHOCYTES (AUTO) 2.1 10^3/uL (0.5-4.7); ABSOLUTE NEUT (AUTO) 3.7 10^3/uL (1.7-8.2); BASOPHILS % (AUTO) 1.1 % (0-2); EOSINOPHILS % (AUTO) 6.5 % (0-6); HEMOGLOBIN 11.8 g/dL (13.5-17.0); HGB HCT DIFFERENCE -0.6; LYMPHOCYTES % (AUTO) 28.9 % (13-45); MEAN CORPUSCULAR HEMOGLOBIN 27.7 pg (27.0-33.4); MEAN CORPUSCULAR HGB CONC 32.7 g/dL (32.0-36.0); MEAN CORPUSCULAR VOLUME 85 fl (80-97); MONOCYTES % (AUTO) 13.9 % (3-13); RED BLOOD COUNT 4.24 10^6/uL (4.35-5.55); RED CELL DISTRIBUTION WIDTH 15.3 % (11.5-14.0); SEGMENTED NEUTROPHILS % (AUTO) 49.6 % (42-78); WHITE BLOOD COUNT 7.4 10^3/uL (4.0-10.5)
[2017-05-11 02:08] LABS: ALANINE AMINOTRANSFERASE 26 U/L (21-72); ALBUMIN 3.7 g/dL (3.5-5.0); ALKALINE PHOSPHATASE 66 U/L (38-126); ANION GAP 10 (5-19); ASPARTATE AMINO TRANSFERASE 20 U/L (17-59); BILIRUBIN,DIRECT 0.4 mg/dL (0.0-0.4); BILIRUBIN,TOTAL 0.4 mg/dL (0.2-1.3); BLOOD UREA NITROGEN 19 mg/dL (7-20); CALCIUM 9.2 mg/dL (8.4-10.2); CARBON DIOXIDE 21 mmol/L (22-30); CHLORIDE 111 mmol/L (98-107); CREATINE KINASE 321 U/L (55-170); CREATININE RESULT 1.92 mg/dL (0.52-1.25); GLUCOSE 115 mg/dL (75-110); POTASSIUM 4.5 mmol/L (3.6-5.0); SODIUM 142.2 mmol/L (137-145); TOTAL PROTEIN 6.6 g/dL (6.3-8.2)
[2017-05-11 02:21] LABS: CREATINE KINASE MB 2.67 ng/mL (<4.55); TROPONIN I < 0.012 ng/mL
[2017-05-11] MEDS ORDERED: IPRATROPIUM/ALBUTEROL 0.5-2.5 MG/3 ML AMPUL NEB ONE (02:31)
[2017-05-11] MEDS ORDERED: CLINDAMYCIN HCL 150 MG CAPSULE PO ONE (02:32)
--- NOTE | 2017-05-11 02:39 | RADIOLOGY REPORT (SQ) ---
EXAM DESCRIPTION: CHEST SINGLE VIEW COMPLETED DATE/TIME: 05/11/2017 2:16 am REASON FOR STUDY: wheezing, COPD COMPARISON: 04/02/2017. EXAM PARAMETERS: NUMBER OF VIEWS: One view. TECHNIQUE: Single frontal radiographic view of the chest acquired. RADIATION DOSE: NA LIMITATIONS: None. FINDINGS: LUNGS AND PLEURA: Mild interstitial markings. Mild hyperinflation. MEDIASTINUM AND HILAR STRUCTURES: Opacity overlying the lower mediastinum may indicate a with moderat e hiatal hernia ; cannot exclude other neoplasm. Contour normal. HEART AND VASCULAR STRUCTURES: Heart normal in size. Normal vasculature. BONES: No acute findings. HARDWARE: None in the chest. OTHER: No other significant finding. IMPRESSION: 1. Likely moderate hiatal hernia ; cannot exclude other neoplasm. Recommend further ev aluation with contrast CT of the chest. 2. No acute cardiopulmonary findings. TECHNICAL DOCUMENTATION: JOB ID: [id number]
[2017-05-11] MEDS ORDERED: ACETAMINOPHEN 325 MG TABLET PO ONE (02:41)
[2017-05-11 03:03] VITALS: BP 128/117
--- NOTE | 2017-05-11 08:16 | EKG REPORT ---
SEVERITY:- NORMAL ECG - SINUS RHYTHM : Confirmed by: Jerome Lyn MD 11-May-2017 08:16:21
== END 2017-05-11 03:18 | disposition home or self-care (01) ==
LOC: ER 00:22
DX: L03.116 Cellulitis of left lower limb (principal); L03.115 Cellulitis of right lower limb; R60.0 Localized edema; I10 Essential (primary) hypertension; J44.9 Chronic obstructive pulmonary disease, unspecified; F17.200 Nicotine dependence, unspecified, uncomplicated
CPT/HCPCS: 93005; 94640; 99284; 36415; 82553; 82550; 85025; 80053; 84484; 83880; 71010; 93010; A9270 ×3; J7620

== ENCOUNTER 2017-06-05 09:41 | Inpatient (IN) | payer MEDICARE, MEDICAID ==
[2017-06-05 10:07] LABS: ABSOLUTE BASOPHILS # (AUTO) 0.1 10^3/uL (0.0-0.2); ABSOLUTE EOSINOPHILS # (AUTO) 0.5 10^3/uL (0.0-0.6); ABSOLUTE LYMPHOCYTES (AUTO) 1.6 10^3/uL (0.5-4.7); ABSOLUTE MONOCYTES (AUTO) 1.4 10^3/uL (0.1-1.4); BASOPHILS % (AUTO) 0.9 % (0-2); EOSINOPHILS % (AUTO) 6.2 % (0-6); HEMATOCRIT 32.1 % (37.9-51.0); HEMOGLOBIN 10.7 g/dL (13.5-17.0); LYMPHOCYTES % (AUTO) 20.8 % (13-45); MEAN CORPUSCULAR HEMOGLOBIN 28.9 pg (27.0-33.4); MEAN CORPUSCULAR HGB CONC 33.5 g/dL (32.0-36.0); MEAN CORPUSCULAR VOLUME 86 fl (80-97); MONOCYTES % (AUTO) 18.7 % (3-13); RED BLOOD COUNT 3.72 10^6/uL (4.35-5.55); RED CELL DISTRIBUTION WIDTH 15.7 % (11.5-14.0); SEGMENTED NEUTROPHILS % (AUTO) 53.4 % (42-78); WHITE BLOOD COUNT 7.6 10^3/uL (4.0-10.5)
[2017-06-05 10:22] LABS: ALANINE AMINOTRANSFERASE 21 U/L (21-72); ALBUMIN 3.3 g/dL (3.5-5.0); ALKALINE PHOSPHATASE 53 U/L (38-126); ANION GAP 12 (5-19); ASPARTATE AMINO TRANSFERASE 31 U/L (17-59); BILIRUBIN,DIRECT 0.5 mg/dL (0.0-0.4); BILIRUBIN,TOTAL 0.7 mg/dL (0.2-1.3); BLOOD UREA NITROGEN 17 mg/dL (7-20); CALCIUM 8.6 mg/dL (8.4-10.2); CARBON DIOXIDE 22 mmol/L (22-30); CHLORIDE 109 mmol/L (98-107); CREATINE KINASE 566 U/L (55-170); CREATININE RESULT 1.97 mg/dL (0.52-1.25); GLUCOSE 115 mg/dL (75-110); LIPASE 64.1 U/L (23-300); MAGNESIUM 1.9 mg/dL (1.6-2.3); POTASSIUM 4.7 mmol/L (3.6-5.0); SODIUM 142.6 mmol/L (137-145); TOTAL PROTEIN 6.1 g/dL (6.3-8.2)
[2017-06-05 10:33] LABS: CREATINE KINASE MB 3.13 ng/mL (<4.55)
[2017-06-05 10:34] LABS: TROPONIN I < 0.012 ng/mL
--- NOTE | 2017-06-05 10:39 | RADIOLOGY REPORT (SQ) ---
EXAM DESCRIPTION: CHEST SINGLE VIEW COMPLETED DATE/TIME: 06/05/2017 10:16 am REASON FOR STUDY: sob COMPARISON: 05/11/2017. NUMBER OF VIEWS: One view. TECHNIQUE: Single frontal radiographic view of the chest acquired. LIMITATIONS: None. FINDINGS: LUNGS AND PLEURA: Suspect mild interstitial disease and scarring. Similar appearance to p rior without developing acute infiltrate, nodules or masses. No significant pleural effusion. Proba ble COPD. MEDIASTINUM AND HILAR STRUCTURES: Grossly stable contours. Presumed hiatal hernia. HEART AND VASCULAR STRUCTURES: Normal heart size. Doubt acute failure. BONES: Osteopenic. Likely chronic posterior right rib fractures. HARDWARE: None in the chest. OTHER: No other significant finding. IMPRESSION: 1. No acute findings are suggested. Probable chronic right rib fractures. Other change s as above. TECHNICAL DOCUMENTATION: JOB ID: [id number] [employer]- All Rights Reserved
[2017-06-05] MEDS ORDERED: MAGNESIUM SULFATE/D5W 1 GM/100 ML RTUPB IV ONE (11:26)
[2017-06-05] MEDS ORDERED: ALBUTEROL SULFATE 0.083% NEB 2.5 MG/3 ML AMPUL NEB ONE (11:26)
[2017-06-05] MEDS ORDERED: IPRATROPIUM/ALBUTEROL 0.5-2.5 MG/3 ML AMPUL NEB ONE (11:26)
[2017-06-05] MEDS ORDERED: DOXYCYCLINE HYCLATE INJ 100 MG VIAL IV ONE (11:26)
--- NOTE | 2017-06-05 13:13 | ER Document Report ---
ED General - General Chief Complaint: Shortness Of Breath Stated Complaint: RESPIRATORY DISTRESS Time Seen by Provider: 06/05/17 09:48 TRAVEL OUTSIDE OF THE [place] IN LAST 30 DAYS: No - HPI Patient complains to provider of: Difficulty breathing Notes: Patient coming in today from local [facility] for shortness of breath. Patient has history of COPD patient was recently treated for bilateral cellulitis. Patient states his cellulitis has improved and his breathing had improved values on antibiotics however once he stopped the antibiotics for cellulitis to negative breathing worsen patient does state he is now having green sputum. Upon EMS evaluation patient was found to be slightly hypoxic breathing treatment was given along with Solu-Medrol patient no longer requiring oxygen upon his initial evaluation here. Patient states no chest pain no fevers no chills no diarrhea nausea and vomiting. Patient denies any abdominal pain. - Related Data Allergies/Adverse Reactions: No Known Allergies Allergy (Verified 06/05/17 10:03) Past Medical History - Social History Smoking Status: Current Every Day Smoker Family History: Reviewed & Not Pertinent - Past Medical History Cardiac Medical History: Reports: Hx Hypercholesterolemia, Hx Hypertension Pulmonary Medical History: Reports: Hx Asthma, Hx COPD GI Medical History: Reports: Hx Gastroesophageal Reflux Disease Musculoskeltal Medical History: Reports Hx Arthritis Review of Systems - Review of Systems Constitutional: No symptoms reported EENT: No symptoms reported Cardiovascular: No symptoms reported Respiratory: Short of breath, Wheezing Gastrointestinal: No symptoms reported Genitourinary: No symptoms reported Male Genitourinary: No symptoms reported Musculoskeletal: No symptoms reported Skin: No symptoms reported Hematologic/Lymphatic: No symptoms reported Neurological/Psychological: No symptoms reported -: Yes All other systems reviewed and negative Physical Exam - Vital signs Vitals: Temp Pulse Resp BP Pulse Ox 98.3 F 90 20 132/80 H 94 06/05/17 09:57 06/05/17 09:57 06/05/17 09:57 06/05/17 09:57 06/05/17 09:57 Interpretation: Normal - General General appearance: Appears well, Alert - HEENT Head: Normocephalic, Atraumatic Eyes: Normal Pupils: PERRL - Respiratory Respiratory status: No respiratory distress Chest status: Nontender Breath sounds: Rhonchi, Wheezing Chest palpation: Normal - Cardiovascular Rhythm: Regular Heart sounds: Normal auscultation Murmur: No - Abdominal Inspection: Normal Distension: No distension Bowel sounds: Normal Tenderness: Nontender Organomegaly: No organomegaly - Back Back: Normal, Nontender - Extremities General upper extremity: Normal inspection, Nontender, Normal color, Normal ROM , Normal temperature General lower extremity: Normal inspection, Nontender, Normal color, Normal ROM , Normal temperature, Normal weight bearing, Other - Bilateral swelling to the lower legs with chronic venous stasis changes. No: Amy's sign - Neurological Neuro grossly intact: Yes Cognition: Normal Orientation: AAOx4 Martina Coma Scale Eye Opening: Spontaneous Martina Coma Scale Verbal: Oriented Martina Coma Scale Motor: Obeys Commands Martina Coma Scale Total: 15 Speech: Normal Motor strength normal: LUE, RUE, LLE, RLE Sensory: Normal - Psychological Associated symptoms: Normal affect, Normal mood - Skin Skin Temperature: Warm Skin Moisture: Dry Skin Color: Normal Course - Re-evaluation Re-evalutation: 06/05/17 14:12 Patient coming in for evaluation of shortness of breath. Patient did become hypoxic with an SPO2 in the lower 80s 83-84 while resting patient was given more bronchodilators and magnesium however still were required oxygen. Otherwise laboratory studies not show any significant pathology patient has chronic renal insufficiency. Patient was started on doxycycline due to the sputum change will admit the patient to his PCP Dr. Cronin to the [facility]. - Vital Signs Vital signs: Temp Pulse Resp BP Pulse Ox 98.3 F 90 20 132/80 H 94 06/05/17 09:57 06/05/17 09:57 06/05/17 09:57 06/05/17 09:57 06/05/17 09:57 - Laboratory Result Diagrams: 06/05/17 09:50 06/05/17 09:50 Laboratory results interpreted by me: 06/05/17 06/05/17 09:50 09:50 RBC 3.72 L Hgb 10.7 L Hct 32.1 L RDW 15.7 H Monocytes % 18.7 H Eosinophils % 6.2 H Chloride 109 H Creatinine 1.97 H Est GFR ( Amer) 41 L Est GFR (Non-Af Amer) 34 L Glucose 115 H Direct Bilirubin 0.5 H Creatine Kinase 566 H Total Protein 6.1 L Albumin 3.3 L Discharge - Discharge Clinical Impression: COPD with acute exacerbation, Hypoxia Condition: Good Disposition: ADMITTED INPATIENT Admitting Provider: Roseanne Unit Admitted: HANY
[2017-06-05] MEDS ORDERED: ALBUTEROL SULFATE HFA (90 MCG/PUFF) 8 GM MDI (1 MDI/ER DISP) IH PRN (15:58)
[2017-06-05] MEDS ORDERED: NA PHOS,M-B/NA PHOS,DI-BA (ADULT) 133 ML ENEMA PR PRN (15:58)
[2017-06-05] MEDS ORDERED: DOCUSATE SODIUM 100 MG CAPSULE PO PRN (15:58)
[2017-06-05] MEDS ORDERED: LOPERAMIDE HCL 2 MG CAPSULE PO PRN (15:58)
[2017-06-05] MEDS ORDERED: (PENDING PHARMACY ID) (Sennosides [Senokot] 17.2 MG) PO PRN (15:58)
[2017-06-05] MEDS ORDERED: MAGNESIUM HYDROXIDE SUSP 30 ML UDCUP PO PRN (15:58)
[2017-06-05] MEDS ORDERED: CETIRIZINE HCL PO PRN (15:58)
[2017-06-05] MEDS ORDERED: PSEUDOEPHEDRINE PO PRN (15:58)
[2017-06-05] MEDS ORDERED: ASPIRIN 81 MG TABLET, ENT COATED PO SCH (16:00)
[2017-06-05] MEDS ORDERED: (PENDING PHARMACY ID) (Esomeprazole Magnesium [Nexium] 20 MG) PO SCH (16:00)
--- NOTE | 2017-06-05 16:03 | EKG REPORT ---
SEVERITY:- ABNORMAL ECG - SINUS RHYTHM MULTIPLE VENTRICULAR PREMATURE COMPLEXES BORDERLINE PROLONGED QT INTERVAL : Confirmed by: Jerome Lyn MD 05-Jun-2017 16:02:33
--- NOTE | 2017-06-05 16:03 | EKG REPORT ---
SEVERITY:- NORMAL ECG - SINUS RHYTHM : Confirmed by: Jerome Lyn MD 05-Jun-2017 16:02:42
[2017-06-05] MEDS ORDERED: CALCIUM CARBONATE 250 MG/VITAMIN D3 125 UNIT TABLET PO PRN ×2 (16:43→16:45)
[2017-06-05] MEDS ORDERED: HYDROXYZINE PAMOATE 25 MG CAPSULE PO PRN (16:45)
[2017-06-05] MEDS ORDERED: LISINOPRIL 10 MG TABLET PO ONE (17:00)
[2017-06-05] MEDS: OXYCODONE-ACETAMINOPHEN 5-325 MG TABLET PO PRN ×2 (17:24→21:51)
[2017-06-05] MEDS: LEVOFLOXACIN 750 MG/D5W RTU 750 MG/150 ML RTUPB IV SCH (17:25)
[2017-06-05] MEDS: TAMSULOSIN HCL 0.4 MG CAP.SR.24H PO SCH (17:25)
[2017-06-05] MEDS: GABAPENTIN 300 MG CAPSULE PO SCH (17:25)
[2017-06-05] MEDS: ALBUTEROL SULFATE HFA (90 MCG/PUFF) 200 PUFF/8.5 GM MDI IH PRN (18:00)
[2017-06-05] MEDS: ALBUTEROL SULFATE 0.083% NEB 2.5 MG/3 ML AMPUL NEB PRN ×2 (18:13→23:20)
[2017-06-05] MEDS ORDERED: LANSOPRAZOLE 15 MG TAB.RAP.DR PO ONE (18:30)
[2017-06-05] MEDS: ATORVASTATIN CALCIUM 40 MG TABLET PO SCH (21:52)
[2017-06-05] MEDS: DONEPEZIL HCL 5 MG TABLET PO SCH (21:52)
[2017-06-05] MEDS: DIVALPROEX SODIUM 250 MG TAB.SR.24H PO SCH (22:00)
[2017-06-05] MEDS ORDERED: FLUTICASONE/SALMETEROL DISKUS 250-50 MCG/DOSE IH ONE (23:16)
[2017-06-05] MEDS: FLUTICASONE/SALMETEROL DISKUS 250-50 MCG/DOSE IH SCH (23:19)
[2017-06-06] MEDS: GABAPENTIN 300 MG CAPSULE PO SCH ×4 (00:17→17:42)
[2017-06-06] MEDS: OXYCODONE-ACETAMINOPHEN 5-325 MG TABLET PO PRN ×3 (04:43→21:59)
[2017-06-06] MEDS ORDERED: ALBUTEROL SULFATE HFA (90 MCG/PUFF) 200 PUFF/8.5 GM MDI IH ONE (04:57)
[2017-06-06] MEDS: ALBUTEROL SULFATE 0.083% NEB 2.5 MG/3 ML AMPUL NEB PRN ×4 (06:00→19:08)
[2017-06-06] MEDS ORDERED: CALCIUM CARBONATE 500 MG TAB.CHEW PO PRN (07:45)
[2017-06-06] MEDS ORDERED: LORATADINE/PSEUDOEPHEDRINE SUL 10-240 MG TAB.SR.24H PO PRN (07:48)
[2017-06-06] MEDS ORDERED: SENNOSIDES/DOCUSATE 8.6-50 MG 1 EACH TABLET PO PRN (07:51)
[2017-06-06] MEDS: FLUTICASONE/SALMETEROL DISKUS 250-50 MCG/DOSE IH SCH ×2 (09:26→21:58)
[2017-06-06] MEDS: TIOTROPIUM BROMIDE DPI 5 CAP/KIT (18 MCG/CAP) IH SCH (09:26)
[2017-06-06] MEDS: LANSOPRAZOLE 15 MG TAB.RAP.DR PO SCH (09:30)
[2017-06-06] MEDS: ALBUTEROL SULFATE HFA (90 MCG/PUFF) 200 PUFF/8.5 GM MDI IH PRN (09:30)
[2017-06-06] MEDS: ASPIRIN 81 MG TABLET, ENT COATED PO SCH (09:31)
[2017-06-06] MEDS: MEMANTINE HCL 10 MG TABLET PO SCH (09:31)
[2017-06-06] MEDS: ACETAMINOPHEN 325 MG TABLET PO PRN ×2 (09:32→15:58)
[2017-06-06] MEDS: LISINOPRIL 10 MG TABLET PO SCH (09:34)
--- NOTE | 2017-06-06 12:14 | Physician Advisory Note ---
Physician Advisor ProgressNote .: Pursuant to the plan for [facility], I have reviewed the medical record for this patient. Physician Advisor Statement: H&P not yet available. Please consider documenting, if you agree: 1. ? "Acute exacerbation of COPD with suspected Acute Bronchitis"? - or what is being tx'd by Levaquin? 2. ? "Acute Hypoxemic Respiratory Failure with ____" (signs/sx: any labored breathing or accessory muscle use initially? ...) - Has attending ordered O2 & O2 monitoring? (If given by nurses without order, it doesn't count.) Sputum cx ? 3. Medical necessity: "Patient is not yet back to baseline respiratory status ", or "I am concerned about ", ... - Need to explicitly state why pt can' t leave hospital on 06/06 & just f/u in office. This is especially true when H& P was not done on day pt came in - notes on 06/06 must therefore clearly document the reasons for 06/05's night as well as 06/06 night. Status: 72yo [employer] pt w/CKD stage 3, COPD - not requiring O2 at baseline so no chronic hypoxemic resp failure, mild Interstitial Lung Dz/scarring of lungs, ongoing tobacco abuse, usually on nebs q4h at SNF (per triage note), with HTN, HLD, recent BLE cellulitis tx'd with abx - presented with SOB worse than baseline, cough productive of greenish sputum, hypoxemia for EMS (who gave neb & Solumedrol), improved enough to not need O2 on arrival but then again showed hypoxemia as low as 83% with rhonchi & wheezing , needing more O2, bronchodilator tx.s, IV doxy & IV Mag in ED. Attending ordered Albuterol nebs q6h prn on 06/05, but on 06/06 AM, changed this to q4h prn - which indicates a strong likelihood that pt is not adequately improved & needs ongoing, more aggressive, tx in hospital with close monitoring . He continues IV Levaquin, Spiriva, & Advair. O2 sats as low as 91% on 2L (P/F ratio of 214) on 06/05, and still as low as 93% on 3L O2 on 06/06 (P/F ratio 213) in this patient who doesn't need O2 at baseline. Still with recurrent tachycardia as high as 109 and tachypnea 22 after 1 night of aggressive care in hospital. Appropriate for Inpt status with clear documentation of issues above. Thanks! CK
--- NOTE | 2017-06-06 17:29 | PDOC H&P ---
History of Present Illness Admission Date/PCP: 06/05/17 15:58 History of Present Illness: PRINCE PALMA is a 72 year old male, he has a history of very severe chronic obstructive pulmonary disease, chronic venous hypertension of both lower extremities he was transferred from [facility] assisted living facility to the emergency room for the evaluation of respiratory distress. Patient is a recalcitrant smoker, he continues to smoke cigarettes despite very severe chronic obstructive lung disease he was recently admitted in this hospital about 2 months ago which was 04/20/2017, a 2D echo was done at the time ,it showed pulmonary hypertension and grade 2 diastolic dysfunction of left ventricle. In the emergency room he was evaluated, he was managed with bronchodilators, steroids Solu-Medrol and oxygen nasal cannula despite this intervention patient remains symptomatic and in distress with flaring of the nares ,the emergency room physician wanted him admitted for the management of acute hypoxemic respiratory failure due to COPD exacerbation. Past Medical History Cardiac Medical History: Reports: Hyperlipidema, Hypertension Pulmonary Medical History: Reports: Asthma, Chronic Obstructive Pulmonary Disease (COPD) GI Medical History: Reports: Gastroesophageal Reflux Disease Musculoskeltal Medical History: Reports: Arthritis Social History Smoking Status: Current Every Day Smoker Cigarettes Packs Per Day: 1 Frequency of Alcohol Use: None Hx Recreational Drug Use: No Drugs: None Hx Prescription Drug Abuse: No Family History Family History: Reviewed & Not Pertinent Parental Family History Reviewed: Yes Children Family History Reviewed: Yes Sibling(s) Family History Reviewed.: Yes Medication/Allergy Home Medications: Acetaminophen [Tylenol] 650 mg PO Q6HP PRN 06/05/17 Albuterol Sulfate [Ventolin 0.083% Neb 2.5 mg/3 ml Ampul] 1 vial NEB Q6HP PRN Albuterol Sulfate [Ventolin Hfa] 2 puff IH Q4HP PRN 06/05/17 Aspirin [Aspirin EC] 81 mg PO DAILY 06/05/17 Atorvastatin Calcium [Lipitor 40 mg Tablet] 40 mg PO QHS 06/05/17 Calcium Carbonate/Vitamin D3 [Calcium 500 mg Chewable Tablet] 500 mg PO Q4HP PRN 06/05/17 Cetirizine HCl/Pseudoephedrine [Zyrtec-D Tablet] 1 each PO DAILYP PRN 06/05/17 Divalproex Sodium [Depakote Er 250 Mg Tablet] 750 mg PO QHS 06/05/17 Docusate Sodium [Colace 100 mg Capsule] 200 mg PO DAILYP PRN 06/05/17 Donepezil HCl [Aricept 5 mg Tablet] 5 mg PO QHS 06/05/17 Esomeprazole Magnesium [Nexium] 20 mg PO DAILY 06/05/17 Fluticasone/Salmeterol [Advair 250-50 Diskus 14 Dose/Diskus] 1 puff IH Q12 06/05 Gabapentin [Neurontin 300 mg Capsule] 300 mg PO Q6 06/05/17 Hydroxyzine HCl [Atarax 50 mg Tablet] 50 mg PO Q6HP PRN 06/05/17 Lisinopril [Prinivil 10 mg Tablet] 10 mg PO DAILY 06/05/17 Loperamide HCl [Loperamide] 2 mg PO Q4HP PRN 06/05/17 Magnesium Hydroxide [Milk of Magnesia 30 ml Udcup] 30 ml PO DAILYP PRN 06/05/17 Memantine HCl [Namenda] 5 mg PO DAILY 06/05/17 Na Phos,M-B/Na Phos,Di-Ba [Fleet Enema (Adult) 133 ml] [address] DAILYP PRN Oxycodone HCl/Acetaminophen [Percocet 5-325 mg Tablet] 1 tab PO Q4HP PRN Sennosides [Senokotxtra] 17.2 mg PO BIDP PRN 06/05/17 Tamsulosin HCl [Flomax] 0.4 mg PO DAILY 06/05/17 Tiotropium [place] [Spiriva Handihaler 5 Cap/Kit (18 Mcg/Cap)] 1 cap IH DAILY Allergies/Adverse Reactions: No Known Allergies Allergy (Verified 06/05/17 10:03) Review of Systems Constitutional: PRESENT: fatigue Eyes: ABSENT: visual disturbances Ears: ABSENT: hearing changes Cardiovascular: ABSENT: chest pain, dyspnea on exertion, edema, orthropnea, palpitations Respiratory: PRESENT: cough, dyspnea, sputum Gastrointestinal: ABSENT: abdominal pain, constipation, diarrhea, hematemesis, hematochezia, nausea, vomiting Genitourinary: ABSENT: dysuria, hematuria Musculoskeletal: ABSENT: joint swelling Integumentary: ABSENT: rash, wounds Neurological: ABSENT: abnormal gait, abnormal speech, confusion, dizziness, focal weakness, syncope Psychiatric: ABSENT: anxiety, depression, homidical ideation, suicidal ideation Endocrine: ABSENT: cold intolerance, heat intolerance, menstrual abnormalities, polydipsia, polyuria Hematologic/Lymphatic: ABSENT: easy bleeding, easy bruising, lymphadenopathy Physical Exam Vital Signs: Temp Pulse Resp BP Pulse Ox 98.2 F 96 22 H 150/87 H 98 06/06/17 15:53 06/06/17 15:53 06/06/17 15:53 06/06/17 15:53 06/06/17 15:53 Intake & Output 06/05/17 06/06/17 06/07/17 06:59 06:59 06:59 Intake Total 967 Output Total 700 Balance 267 Weight 103.9 kg General appearance: PRESENT: severe distress Head exam: PRESENT: atraumatic, normocephalic Eye exam: PRESENT: PERRLA Neck exam: PRESENT: full ROM Respiratory exam: PRESENT: wheezes Cardiovascular exam: PRESENT: RRR, +S1, +S2 Vascular exam: PRESENT: normal capillary refill GI/Abdominal exam: PRESENT: normal bowel sounds, soft Rectal exam: PRESENT: deferred Extremities exam: PRESENT: other - Bilateral lower extremity swelling with inflammation Neurological exam: PRESENT: alert, awake, oriented to person, oriented to place , oriented to time, oriented to situation, CN II-XII grossly intact Psychiatric exam: PRESENT: appropriate affect, normal mood Skin exam: PRESENT: dry, intact, warm Results Impressions: Chest X-Ray 06/05/17 09:53 IMPRESSION: 1. No acute findings are suggested. Probable chronic right rib fractures. Other changes as above. Assessment & Plan - Diagnosis (1) Acute hypoxemic respiratory failure Is this a current diagnosis for this admission?: Yes Plan: Patient is not presently requiring noninvasive positive pressure ventilation, is able to maintain adequate oxygenation on nasal cannula 3 L (2) COPD with acute exacerbation Is this a current diagnosis for this admission?: Yes Plan: Start patient on intravenous Solu-Medrol, antibiotic, bronchodilators (3) Chronic kidney disease, stage III (moderate) Is this a current diagnosis for this admission?: Yes (4) Chronic diastolic (congestive) heart failure Is this a current diagnosis for this admission?: Yes (5) Chronic venous hypertension (idiopathic) with inflammation of bilateral lower extremity Is this a current diagnosis for this admission?: Yes Plan: Patient may need a Unna boot consultation will be requested from surgery
[2017-06-06] MEDS: TAMSULOSIN HCL 0.4 MG CAP.SR.24H PO SCH (17:42)
--- NOTE | 2017-06-06 17:44 | PDOC PROGRESS REPORT ---
Subjective Progress Note for:: 06/06/17 Subjective:: Patient was seen by the bedside he continues to require bronchodilators very frequently every 2-3 hours still very short of breath, he was admitted yesterday for evaluation of respiratory distress due to acute COPD exacerbation. Patient is not safe at this time for discharge ,he will need to continue IV Solu-Medrol for 3 days continuously without interruption. Physical Exam Vital Signs: Temp Pulse Resp BP Pulse Ox 98.2 F 96 22 H 150/87 H 98 06/06/17 15:53 06/06/17 15:53 06/06/17 15:53 06/06/17 15:53 06/06/17 15:53 Intake & Output 06/05/17 06/06/17 06/07/17 06:59 06:59 06:59 Intake Total 967 Output Total 700 Balance 267 Weight 103.9 kg General appearance: PRESENT: severe distress Head exam: PRESENT: atraumatic, normocephalic Eye exam: PRESENT: PERRLA Ear exam: PRESENT: normal external ear exam Respiratory exam: PRESENT: wheezes Cardiovascular exam: PRESENT: +S1, +S2 Vascular exam: PRESENT: normal capillary refill GI/Abdominal exam: PRESENT: soft Rectal exam: PRESENT: deferred Extremities exam: PRESENT: joint swelling, other - lower extremity swelling with redness Neurological exam: PRESENT: alert, CN II-XII grossly intact Psychiatric exam: PRESENT: appropriate affect, normal mood Skin exam: PRESENT: dry, intact, warm Results Impressions: Chest X-Ray 06/05/17 09:53 IMPRESSION: 1. No acute findings are suggested. Probable chronic right rib fractures. Other changes as above. Assessment & Plan - Diagnosis (1) Acute hypoxemic respiratory failure Is this a current diagnosis for this admission?: Yes (2) COPD with acute exacerbation Is this a current diagnosis for this admission?: Yes Plan: Continue IV antibiotic and Solu-Medrol (3) Chronic kidney disease, stage III (moderate) Is this a current diagnosis for this admission?: Yes (4) Chronic diastolic (congestive) heart failure Is this a current diagnosis for this admission?: Yes (5) Chronic venous hypertension (idiopathic) with inflammation of bilateral lower extremity Is this a current diagnosis for this admission?: Yes
[2017-06-06] MEDS: DIVALPROEX SODIUM 250 MG TAB.SR.24H PO SCH (21:58)
[2017-06-06] MEDS: ATORVASTATIN CALCIUM 40 MG TABLET PO SCH (21:59)
[2017-06-06] MEDS: DONEPEZIL HCL 5 MG TABLET PO SCH (21:59)
[2017-06-07] MEDS: GABAPENTIN 300 MG CAPSULE PO SCH ×4 (00:31→18:52)
[2017-06-07] MEDS: ALBUTEROL SULFATE 0.083% NEB 2.5 MG/3 ML AMPUL NEB PRN ×6 (01:46→21:36)
[2017-06-07] MEDS: ACETAMINOPHEN 325 MG TABLET PO PRN ×2 (03:06→21:44)
[2017-06-07] MEDS: HYDROXYZINE PAMOATE 50 MG CAPSULE PO PRN ×2 (03:11→20:39)
[2017-06-07] MEDS: OXYCODONE-ACETAMINOPHEN 5-325 MG TABLET PO PRN ×3 (07:01→20:38)
[2017-06-07] MEDS: LANSOPRAZOLE 15 MG TAB.RAP.DR PO SCH (10:16)
[2017-06-07] MEDS: LISINOPRIL 10 MG TABLET PO SCH (10:17)
[2017-06-07] MEDS: ASPIRIN 81 MG TABLET, ENT COATED PO SCH (10:17)
[2017-06-07] MEDS: FLUTICASONE/SALMETEROL DISKUS 250-50 MCG/DOSE IH SCH ×2 (10:17→21:44)
[2017-06-07] MEDS: MEMANTINE HCL 10 MG TABLET PO SCH (10:18)
[2017-06-07] MEDS: TIOTROPIUM BROMIDE DPI 5 CAP/KIT (18 MCG/CAP) IH SCH (10:21)
[2017-06-07 13:02] LABS: ABSOLUTE EOSINOPHILS # (AUTO) 0.3 10^3/uL (0.0-0.6); ABSOLUTE LYMPHOCYTES (AUTO) 1.8 10^3/uL (0.5-4.7); ABSOLUTE MONOCYTES (AUTO) 1.1 10^3/uL (0.1-1.4); ABSOLUTE NEUT (AUTO) 3.9 10^3/uL (1.7-8.2); BASOPHILS % (AUTO) 0.6 % (0-2); EOSINOPHILS % (AUTO) 3.9 % (0-6); HEMATOCRIT 33.3 % (37.9-51.0); HEMOGLOBIN 10.9 g/dL (13.5-17.0); HGB HCT DIFFERENCE -0.6; LYMPHOCYTES % (AUTO) 25.1 % (13-45); MEAN CORPUSCULAR HEMOGLOBIN 28.1 pg (27.0-33.4); MEAN CORPUSCULAR HGB CONC 32.7 g/dL (32.0-36.0); MEAN CORPUSCULAR VOLUME 86 fl (80-97); MONOCYTES % (AUTO) 14.9 % (3-13); RED BLOOD COUNT 3.88 10^6/uL (4.35-5.55); SEGMENTED NEUTROPHILS % (AUTO) 55.5 % (42-78); WHITE BLOOD COUNT 7.1 10^3/uL (4.0-10.5)
[2017-06-07 13:22] LABS: ALANINE AMINOTRANSFERASE 24 U/L (21-72); ALBUMIN 3.4 g/dL (3.5-5.0); ALKALINE PHOSPHATASE 57 U/L (38-126); ANION GAP 9 (5-19); ASPARTATE AMINO TRANSFERASE 23 U/L (17-59); BILIRUBIN,DIRECT 0.3 mg/dL (0.0-0.4); BILIRUBIN,TOTAL 0.3 mg/dL (0.2-1.3); BLOOD UREA NITROGEN 30 mg/dL (7-20); CALCIUM 9.2 mg/dL (8.4-10.2); CARBON DIOXIDE 28 mmol/L (22-30); CHLORIDE 104 mmol/L (98-107); CREATININE RESULT 1.69 mg/dL (0.52-1.25); GLUCOSE 106 mg/dL (75-110); POTASSIUM 4.7 mmol/L (3.6-5.0); SODIUM 140.7 mmol/L (137-145); TOTAL PROTEIN 6.1 g/dL (6.3-8.2)
[2017-06-07] MEDS: TAMSULOSIN HCL 0.4 MG CAP.SR.24H PO SCH (18:52)
[2017-06-07] MEDS: METHYLPREDNISOLONE INJ 125 MG/2 ML SDV IV SCH (18:52)
[2017-06-07] MEDS: LEVOFLOXACIN 750 MG/D5W RTU 750 MG/150 ML RTUPB IV SCH (18:53)
--- NOTE | 2017-06-07 20:07 | PDOC PROGRESS REPORT ---
Subjective Progress Note for:: 06/07/17 Subjective:: Patient continues to be short of breath, he is wheezing, Physical Exam Vital Signs: Temp Pulse Resp BP Pulse Ox 97.8 F 89 20 164/68 H 96 06/07/17 16:04 06/07/17 17:04 06/07/17 17:04 06/07/17 16:04 06/07/17 16:04 Intake & Output 06/06/17 06/07/17 06/08/17 06:59 06:59 06:59 Intake Total 967 2141 1821 Output Total 700 1775 300 Balance 705 600 5151 Weight 103.9 kg 107.1 kg General appearance: PRESENT: severe distress Eye exam: PRESENT: PERRLA Respiratory exam: PRESENT: wheezes Cardiovascular exam: PRESENT: +S1, +S2 GI/Abdominal exam: PRESENT: soft Extremities exam: PRESENT: other - There is lower extremity edema Neurological exam: PRESENT: alert Results Laboratory Results: 06/07/17 12:52 06/07/17 12:52 06/07/17 06/07/17 12:52 12:52 WBC 7.1 RBC 3.88 L Hgb 10.9 L Hct 33.3 L MCV 86 MCH 28.1 MCHC 32.7 RDW 16.0 H Plt Count 244 Seg Neutrophils % 55.5 Lymphocytes % 25.1 Monocytes % 14.9 H Eosinophils % 3.9 Basophils % 0.6 Absolute Neutrophils 3.9 Absolute Lymphocytes 1.8 Absolute Monocytes 1.1 Absolute Eosinophils 0.3 Absolute Basophils 0.0 Sodium 140.7 Potassium 4.7 Chloride 104 Carbon Dioxide 28 Anion Gap 9 BUN 30 H Creatinine 1.69 H Est GFR ( Amer) 49 L Est GFR (Non-Af Amer) 40 L Glucose 106 Calcium 9.2 Total Bilirubin 0.3 AST 23 ALT 24 Alkaline Phosphatase 57 Total Protein 6.1 L Albumin 3.4 L Impressions: Chest X-Ray 06/05/17 09:53 IMPRESSION: 1. No acute findings are suggested. Probable chronic right rib fractures. Other changes as above. Assessment & Plan - Diagnosis (1) Acute hypoxemic respiratory failure Is this a current diagnosis for this admission?: Yes (2) COPD with acute exacerbation Is this a current diagnosis for this admission?: Yes Plan: Continue Solu-Medrol 125 IV every 8 hours (3) Chronic kidney disease, stage III (moderate) Is this a current diagnosis for this admission?: Yes (4) Chronic diastolic (congestive) heart failure Is this a current diagnosis for this admission?: Yes (5) Chronic venous hypertension (idiopathic) with inflammation of bilateral lower extremity Is this a current diagnosis for this admission?: Yes
[2017-06-07] MEDS: DONEPEZIL HCL 5 MG TABLET PO SCH (21:44)
[2017-06-07] MEDS: DIVALPROEX SODIUM 250 MG TAB.SR.24H PO SCH (21:44)
[2017-06-07] MEDS: ATORVASTATIN CALCIUM 40 MG TABLET PO SCH (21:44)
[2017-06-08] MEDS: GABAPENTIN 300 MG CAPSULE PO SCH ×5 (00:31→23:54)
[2017-06-08] MEDS: METHYLPREDNISOLONE INJ 125 MG/2 ML SDV IV SCH ×3 (01:53→19:06)
[2017-06-08] MEDS: LANSOPRAZOLE 15 MG TAB.RAP.DR PO SCH (07:52)
[2017-06-08] MEDS: ALBUTEROL SULFATE 0.083% NEB 2.5 MG/3 ML AMPUL NEB PRN ×4 (08:07→19:55)
[2017-06-08] MEDS: FLUTICASONE/SALMETEROL DISKUS 250-50 MCG/DOSE IH SCH ×2 (10:21→21:33)
[2017-06-08] MEDS: ASPIRIN 81 MG TABLET, ENT COATED PO SCH (10:21)
[2017-06-08] MEDS: LISINOPRIL 10 MG TABLET PO SCH (10:22)
[2017-06-08] MEDS: MEMANTINE HCL 10 MG TABLET PO SCH (10:23)
[2017-06-08] MEDS: ACETAMINOPHEN 325 MG TABLET PO PRN ×3 (10:24→23:55)
[2017-06-08] MEDS: TIOTROPIUM BROMIDE DPI 5 CAP/KIT (18 MCG/CAP) IH SCH (10:24)
[2017-06-08] MEDS ORDERED: ENOXAPARIN SODIUM INJ 40 MG/0.4 ML DISP.SYRIN SUBCUT ONE (14:30)
[2017-06-08 15:26] LABS: PARTIAL THROMBOPLASTIN TIME 28.6 SEC (23.5-35.8); PROTHROMBIN TIME 13.7 SEC (11.4-15.4)
[2017-06-08 15:29] LABS: HEMATOCRIT 33.1 % (37.9-51.0); HEMOGLOBIN 11.3 g/dL (13.5-17.0); HGB HCT DIFFERENCE 0.8; MEAN CORPUSCULAR HEMOGLOBIN 28.4 pg (27.0-33.4); MEAN CORPUSCULAR HGB CONC 34.1 g/dL (32.0-36.0); MEAN CORPUSCULAR VOLUME 83 fl (80-97); RED BLOOD COUNT 3.98 10^6/uL (4.35-5.55); RED CELL DISTRIBUTION WIDTH 15.4 % (11.5-14.0); WHITE BLOOD COUNT 10.8 10^3/uL (4.0-10.5)
[2017-06-08 15:46] LABS: CREATININE RESULT 1.67 mg/dL (0.52-1.25)
--- NOTE | 2017-06-08 17:41 | PDOC PROGRESS REPORT ---
Subjective Progress Note for:: 06/08/17 Subjective:: Patient was seen by the bedside he is improving on the IV Solu-Medrol, he has less wheezing on auscultation of his chest. Physical Exam Vital Signs: Temp Pulse Resp BP Pulse Ox 98.2 F 79 16 157/82 H 97 06/08/17 15:26 06/08/17 15:47 06/08/17 15:47 06/08/17 15:26 06/08/17 15:47 Intake & Output 06/07/17 06/08/17 06/09/17 06:59 06:59 06:59 Intake Total 2141 3459 Output Total 1775 2500 Balance 366 959 Weight 107.1 kg General appearance: PRESENT: mild distress Eye exam: PRESENT: PERRLA Respiratory exam: PRESENT: wheezes Cardiovascular exam: PRESENT: +S1, +S2 GI/Abdominal exam: PRESENT: soft Neurological exam: PRESENT: alert Results Laboratory Results: 06/08/17 15:01 06/08/17 15:01 06/08/17 06/08/17 15:01 15:01 WBC 10.8 H RBC 3.98 L Hgb 11.3 L Hct 33.1 L MCV 83 MCH 28.4 MCHC 34.1 RDW 15.4 H Plt Count 248 Creatinine 1.67 H Est GFR ( Amer) 49 L Est GFR (Non-Af Amer) 41 L Impressions: Chest X-Ray 06/05/17 09:53 IMPRESSION: 1. No acute findings are suggested. Probable chronic right rib fractures. Other changes as above. Assessment & Plan - Diagnosis (1) Acute hypoxemic respiratory failure Is this a current diagnosis for this admission?: Yes (2) COPD with acute exacerbation Is this a current diagnosis for this admission?: Yes (3) Chronic kidney disease, stage III (moderate) Is this a current diagnosis for this admission?: Yes (4) Chronic diastolic (congestive) heart failure Is this a current diagnosis for this admission?: Yes (5) Chronic venous hypertension (idiopathic) with inflammation of bilateral lower extremity Is this a current diagnosis for this admission?: Yes - Plan Summary Plan Summary: He will continue IV Solu-Medrol bronchodilators antibiotic
[2017-06-08] MEDS ORDERED: FUROSEMIDE INJ/PF 40 MG/4 ML SDV IV ONE (19:00)
[2017-06-08] MEDS: TAMSULOSIN HCL 0.4 MG CAP.SR.24H PO SCH (19:06)
[2017-06-08] MEDS: OXYCODONE-ACETAMINOPHEN 5-325 MG TABLET PO PRN (20:44)
[2017-06-08] MEDS: DONEPEZIL HCL 5 MG TABLET PO SCH (21:32)
[2017-06-08] MEDS: HYDROXYZINE PAMOATE 50 MG CAPSULE PO PRN (21:32)
[2017-06-08] MEDS: ATORVASTATIN CALCIUM 40 MG TABLET PO SCH (21:32)
[2017-06-08] MEDS: DIVALPROEX SODIUM 250 MG TAB.SR.24H PO SCH (21:32)
[2017-06-09] MEDS: OXYCODONE-ACETAMINOPHEN 5-325 MG TABLET PO PRN ×5 (01:57→22:02)
[2017-06-09] MEDS: METHYLPREDNISOLONE INJ 125 MG/2 ML SDV IV SCH ×3 (01:57→18:05)
[2017-06-09] MEDS: ALBUTEROL SULFATE 0.083% NEB 2.5 MG/3 ML AMPUL NEB PRN ×4 (03:44→23:09)
[2017-06-09] MEDS: GABAPENTIN 300 MG CAPSULE PO SCH ×3 (05:57→18:05)
[2017-06-09] MEDS: HYDROXYZINE PAMOATE 50 MG CAPSULE PO PRN ×2 (05:57→22:12)
[2017-06-09] MEDS: ACETAMINOPHEN 325 MG TABLET PO PRN (05:57)
[2017-06-09 09:08] LABS: ABSOLUTE LYMPHOCYTES (AUTO) 1.4 10^3/uL (0.5-4.7); ABSOLUTE MONOCYTES (AUTO) 1.1 10^3/uL (0.1-1.4); ABSOLUTE NEUT (AUTO) 11.6 10^3/uL (1.7-8.2); BASOPHILS % (AUTO) 0.1 % (0-2); HEMATOCRIT 35.6 % (37.9-51.0); HEMOGLOBIN 11.8 g/dL (13.5-17.0); HGB HCT DIFFERENCE -0.2; LYMPHOCYTES % (AUTO) 9.9 % (13-45); MEAN CORPUSCULAR HEMOGLOBIN 27.8 pg (27.0-33.4); MEAN CORPUSCULAR HGB CONC 33.2 g/dL (32.0-36.0); MEAN CORPUSCULAR VOLUME 84 fl (80-97); MONOCYTES % (AUTO) 7.5 % (3-13); RED BLOOD COUNT 4.26 10^6/uL (4.35-5.55); RED CELL DISTRIBUTION WIDTH 15.6 % (11.5-14.0); SEGMENTED NEUTROPHILS % (AUTO) 82.5 % (42-78)
[2017-06-09 09:31] LABS: ALANINE AMINOTRANSFERASE 19 U/L (21-72); ALKALINE PHOSPHATASE 63 U/L (38-126); ANION GAP 15 (5-19); ASPARTATE AMINO TRANSFERASE 19 U/L (17-59); BILIRUBIN,DIRECT 0.4 mg/dL (0.0-0.4); BILIRUBIN,TOTAL 0.4 mg/dL (0.2-1.3); BLOOD UREA NITROGEN 38 mg/dL (7-20); CALCIUM 9.6 mg/dL (8.4-10.2); CARBON DIOXIDE 25 mmol/L (22-30); CHLORIDE 100 mmol/L (98-107); CREATININE RESULT 1.71 mg/dL (0.52-1.25); GLUCOSE 224 mg/dL (75-110); POTASSIUM 4.5 mmol/L (3.6-5.0); SODIUM 139.7 mmol/L (137-145); TOTAL PROTEIN 6.9 g/dL (6.3-8.2)
[2017-06-09] MEDS: MEMANTINE HCL 10 MG TABLET PO SCH (11:34)
[2017-06-09] MEDS: ENOXAPARIN SODIUM INJ 40 MG/0.4 ML DISP.SYRIN SUBCUT SCH (11:34)
[2017-06-09] MEDS: LANSOPRAZOLE 15 MG TAB.RAP.DR PO SCH (11:35)
[2017-06-09] MEDS: ASPIRIN 81 MG TABLET, ENT COATED PO SCH (11:35)
[2017-06-09] MEDS: LISINOPRIL 10 MG TABLET PO SCH (11:35)
[2017-06-09] MEDS: FLUTICASONE/SALMETEROL DISKUS 250-50 MCG/DOSE IH SCH ×2 (11:36→22:03)
[2017-06-09] MEDS: TIOTROPIUM BROMIDE DPI 5 CAP/KIT (18 MCG/CAP) IH SCH (11:36)
[2017-06-09] MEDS ORDERED: LEVOFLOXACIN 750 MG TABLET PO SCH (18:00)
[2017-06-09] MEDS: TAMSULOSIN HCL 0.4 MG CAP.SR.24H PO SCH (18:05)
--- NOTE | 2017-06-09 20:25 | PDOC PROGRESS REPORT ---
Subjective Progress Note for:: 06/09/17 Subjective:: Patient was seen by the bedside, there is improvement in his symptoms, or fully to be discharged home tomorrow Physical Exam Vital Signs: Temp Pulse Resp BP Pulse Ox 98.9 F 81 18 167/87 H 90 L 06/09/17 20:06 06/09/17 20:06 06/09/17 20:06 06/09/17 20:06 06/09/17 20:06 Intake & Output 06/08/17 06/09/17 06/10/17 06:59 06:59 06:59 Intake Total 3459 2568 1710 Output Total 2500 3950 2200 Balance 025 -2928 -598 Weight 107.1 kg General appearance: PRESENT: no acute distress Head exam: PRESENT: atraumatic, normocephalic Eye exam: PRESENT: conjunctiva pink, EOMI, PERRLA Neck exam: PRESENT: full ROM Respiratory exam: PRESENT: rhonchi Cardiovascular exam: PRESENT: RRR, +S1, +S2 Vascular exam: PRESENT: normal capillary refill GI/Abdominal exam: PRESENT: normal bowel sounds, soft Rectal exam: PRESENT: deferred Neurological exam: PRESENT: alert, awake, oriented to person, oriented to place , oriented to time, oriented to situation, CN II-XII grossly intact Psychiatric exam: PRESENT: appropriate affect, normal mood Skin exam: PRESENT: dry, intact, warm Results Laboratory Results: 06/09/17 08:33 06/09/17 08:33 06/09/17 06/09/17 08:33 08:33 WBC 14.0 H RBC 4.26 L Hgb 11.8 L Hct 35.6 L MCV 84 MCH 27.8 MCHC 33.2 RDW 15.6 H Plt Count 287 Seg Neutrophils % 82.5 H Lymphocytes % 9.9 L Monocytes % 7.5 Eosinophils % 0.0 Basophils % 0.1 Absolute Neutrophils 11.6 H Absolute Lymphocytes 1.4 Absolute Monocytes 1.1 Absolute Eosinophils 0.0 Absolute Basophils 0.0 Sodium 139.7 Potassium 4.5 Chloride 100 Carbon Dioxide 25 Anion Gap 15 BUN 38 H Creatinine 1.71 H Est GFR ( Amer) 48 L Est GFR (Non-Af Amer) 40 L Glucose 224 H Calcium 9.6 Total Bilirubin 0.4 AST 19 ALT 19 L Alkaline Phosphatase 63 Total Protein 6.9 Albumin 4.0 Impressions: Chest X-Ray 06/05/17 09:53 IMPRESSION: 1. No acute findings are suggested. Probable chronic right rib fractures. Other changes as above. Assessment & Plan - Diagnosis (1) Acute hypoxemic respiratory failure Is this a current diagnosis for this admission?: Yes (2) COPD with acute exacerbation Is this a current diagnosis for this admission?: Yes (3) Chronic kidney disease, stage III (moderate) Is this a current diagnosis for this admission?: Yes (4) Chronic diastolic (congestive) heart failure Is this a current diagnosis for this admission?: Yes (5) Chronic venous hypertension (idiopathic) with inflammation of bilateral lower extremity Is this a current diagnosis for this admission?: Yes
[2017-06-09] MEDS: DIVALPROEX SODIUM 250 MG TAB.SR.24H PO SCH (22:02)
[2017-06-09] MEDS: DONEPEZIL HCL 5 MG TABLET PO SCH (22:02)
[2017-06-09] MEDS: ATORVASTATIN CALCIUM 40 MG TABLET PO SCH (22:02)
[2017-06-10] MEDS: ACETAMINOPHEN 325 MG TABLET PO PRN ×3 (00:04→13:30)
[2017-06-10] MEDS: GABAPENTIN 300 MG CAPSULE PO SCH ×4 (00:04→17:15)
[2017-06-10] MEDS: METHYLPREDNISOLONE INJ 125 MG/2 ML SDV IV SCH ×3 (03:11→17:16)
[2017-06-10] MEDS: ALBUTEROL SULFATE 0.083% NEB 2.5 MG/3 ML AMPUL NEB PRN ×2 (06:13→17:56)
[2017-06-10] MEDS: ENOXAPARIN SODIUM INJ 40 MG/0.4 ML DISP.SYRIN SUBCUT SCH (09:10)
[2017-06-10] MEDS: LANSOPRAZOLE 15 MG TAB.RAP.DR PO SCH (09:10)
[2017-06-10] MEDS: ASPIRIN 81 MG TABLET, ENT COATED PO SCH (09:11)
[2017-06-10] MEDS: LISINOPRIL 10 MG TABLET PO SCH (09:11)
[2017-06-10] MEDS: MEMANTINE HCL 10 MG TABLET PO SCH (09:12)
[2017-06-10] MEDS: TIOTROPIUM BROMIDE DPI 5 CAP/KIT (18 MCG/CAP) IH SCH (09:12)
[2017-06-10] MEDS: FLUTICASONE/SALMETEROL DISKUS 250-50 MCG/DOSE IH SCH (09:12)
[2017-06-10] MEDS: OXYCODONE-ACETAMINOPHEN 5-325 MG TABLET PO PRN ×2 (09:25→15:29)
[2017-06-10] MEDS: TAMSULOSIN HCL 0.4 MG CAP.SR.24H PO SCH (17:16)
[2017-06-10 18:16] VITALS: BP 156/80
--- NOTE | 2017-06-10 18:24 | PDOC TRANSFER SUMMARY ---
General - Admit/Disc Date/PCP Admission Date/Primary Care Provider: 06/05/17 15:58 Discharge Date: 06/10/17 - Discharge Diagnosis (1) Acute hypoxemic respiratory failure Is this a current diagnosis for this admission?: Yes (2) COPD with acute exacerbation Is this a current diagnosis for this admission?: Yes (3) Chronic kidney disease, stage III (moderate) Is this a current diagnosis for this admission?: Yes (4) Chronic diastolic (congestive) heart failure Is this a current diagnosis for this admission?: Yes (5) Chronic venous hypertension (idiopathic) with inflammation of bilateral lower extremity Is this a current diagnosis for this admission?: Yes - Additional Information Discharge Diet: Cardiac Discharge Activity: Activity As Tolerated Home Medications: Cetirizine HCl/Pseudoephedrine [Zyrtec-D Tablet] 1 each PO DAILYP PRN 06/05/17 Docusate Sodium [Colace 100 mg Capsule] 200 mg PO DAILYP PRN 06/05/17 RX: Acetaminophen [Tylenol] 650 mg PO Q6HP PRN 06/05/17 RX: Albuterol Sulfate [Ventolin 0.083% Neb 2.5 mg/3 mL Ampul] 1 vial NEB Q6HP PRN 06/05/17 RX: Albuterol Sulfate [Ventolin Hfa] 2 puff IH Q4HP PRN 06/05/17 RX: Aspirin [Aspirin EC] 81 mg PO DAILY 06/05/17 RX: Atorvastatin Calcium [Lipitor 40 mg Tablet] 40 mg PO QHS 06/05/17 RX: Calcium Carbonate/Vitamin D3 [Calcium 500 mg Chewable Tablet] 500 mg PO Q4HP PRN 06/05/17 RX: Divalproex Sodium [Depakote ER 250 mg Tablet] 750 mg PO QHS 06/05/17 RX: Donepezil HCl [Aricept 5 mg Tablet] 5 mg PO QHS 06/05/17 RX: Esomeprazole Magnesium [Nexium] 20 mg PO DAILY 06/05/17 RX: Fluticasone/Salmeterol [Advair 250-50 Diskus 14 Dose/Diskus] 1 puff IH Q12 06/05/17 RX: Hydroxyzine HCl [Atarax 50 mg Tablet] 50 mg PO Q6HP PRN 06/05/17 RX: Lisinopril [Prinivil 10 mg Tablet] 10 mg PO DAILY 06/05/17 RX: Loperamide HCl [Loperamide] 2 mg PO Q4HP PRN 06/05/17 RX: Magnesium Hydroxide [Milk of Magnesia 30 ml Udcup] 30 ml PO DAILYP PRN 06/05 RX: Memantine HCl [Namenda] 5 mg PO DAILY 06/05/17 RX: Na Phos,M-B/Na Phos,Di-Ba [Fleet Enema (Adult) 133 ml] 1 applic SD DAILYP PRN 06/05/17 RX: Oxycodone HCl/Acetaminophen [Percocet 5-325 mg Tablet] 1 tab PO Q4HP PRN 07/12 RX: Sennosides [Senokot] 17.2 mg PO BIDP PRN 06/05/17 RX: Tamsulosin HCl [Flomax] 0.4 mg PO DAILY 06/05/17 RX: Tiotropium [place] [Spiriva Handihaler 5 Cap/Kit (18 Mcg/Cap)] 1 cap IH DAILY 06/05/17 RX: Prednisone 20 mg PO DAILY #40 tablet 06/10/17 History of Present Illness Admission Date/PCP: 06/05/17 15:58 History of Present Illness: PRINCE PALMA is a 72 year old male, he has a history of very severe chronic obstructive pulmonary disease, chronic venous hypertension of both lower extremities he was transferred from [facility] assisted [facility] to the emergency room for the evaluation of respiratory distress. Patient is a recalcitrant smoker, he continues to smoke cigarettes despite very severe chronic obstructive lung disease he was recently admitted in this hospital about 2 months ago which was 04/20/2017, a 2D echo was done at the time ,it showed pulmonary hypertension and grade 2 diastolic dysfunction of left ventricle. In the emergency room he was evaluated, he was managed with bronchodilators, steroids Solu-Medrol and oxygen nasal cannula despite this intervention patient remains symptomatic and in distress with flaring of the nares ,the emergency room physician wanted him admitted for the management of acute hypoxemic respiratory failure due to COPD exacerbation. Hospital Course Hospital Course: Patient was admitted for the management of acute COPD exacerbation, he was treated with intravenous Solu-Medrol, bronchodilators, IV antibiotic. He also had chronic venous hypertension of the lower extremities due to pulmonary hypertension, acute kidney injury secondary to prerenal dehydration. The chronic venous hypertension of the lower extremity was treated with compression stockings, he was also seen by the surgeon to be considered for Unaboot placement, outpatient was recommended for that. The acute kidney injury was treated with fluids with improvement in kidney function. Patient is improved significantly, he was to be discharged back to the restroom today. He was advised to stop the gabapentin because that could be contributing to the lower extremity swelling. Physical Exam Vital Signs: Temp Pulse Resp BP Pulse Ox 97.8 F 80 18 156/80 H 93 06/10/17 18:09 06/10/17 18:09 06/10/17 18:09 06/10/17 18:09 06/10/17 18:09 Intake & Output 06/09/17 06/10/17 06/11/17 06:59 06:59 06:59 Intake Total 2568 2430 910 Output Total 3950 3700 1200 Balance -1382 -1270 -290 Weight 103.5 kg General appearance: PRESENT: no acute distress, well-developed, well-nourished Head exam: PRESENT: atraumatic, normocephalic Eye exam: PRESENT: conjunctiva pink, EOMI, PERRLA Ear exam: PRESENT: normal external ear exam Mouth exam: PRESENT: moist, tongue midline Respiratory exam: PRESENT: clear to auscultation mariia Cardiovascular exam: PRESENT: RRR, +S1, +S2 Vascular exam: PRESENT: normal capillary refill GI/Abdominal exam: PRESENT: normal bowel sounds, soft Rectal exam: PRESENT: deferred Extremities exam: PRESENT: full ROM Neurological exam: PRESENT: alert, awake, oriented to person, oriented to place , oriented to time, oriented to situation, CN II-XII grossly intact Psychiatric exam: PRESENT: appropriate affect, normal mood Skin exam: PRESENT: dry, intact, warm Results Laboratory Results: 06/09/17 08:33 06/09/17 08:33 Impressions: Chest X-Ray 06/05/17 09:53 IMPRESSION: 1. No acute findings are suggested. Probable chronic right rib fractures. Other changes as above.
== END 2017-06-10 19:42 | DRG 189 ==
LOC: ER 09:41 → EH 13:20 → UNDOADMIN 13:20 → 3N 14:48 → EH 14:48 → 3N 15:58
PROVIDERS: ADMIT Internal Medicine; ATTEND Internal Medicine
DX: J96.01 Acute respiratory failure with hypoxia (principal); J44.1 Chronic obstructive pulmonary disease with (acute) exacerbation; I13.0 Hypertensive heart and chronic kidney disease with heart failure and stage 1 through stage 4 chronic kidney disease, or unspecified chronic kidney disease; I50.32 Chronic diastolic (congestive) heart failure; N17.9 Acute kidney failure, unspecified; N18.3 Chronic kidney disease, stage 3 (moderate); E86.0 Dehydration; I87.323 Chronic venous hypertension (idiopathic) with inflammation of bilateral lower extremity; Z66 Do not resuscitate; E78.5 Hyperlipidemia, unspecified; K21.9 Gastro-esophageal reflux disease without esophagitis; M19.90 Unspecified osteoarthritis, unspecified site; F17.210 Nicotine dependence, cigarettes, uncomplicated; Z79.82 Long term (current) use of aspirin; Z79.899 Other long term (current) drug therapy
CPT/HCPCS: 36415; 71010; 80053; 82550; 82553; 82565; 83690; 83735; 84484; 85025; 85027; 85610; 85730; 87040; 93005; 93010; 94640; 96365; 96368; 99285; J1650; J1940; J1956; J2930; J3475; J3490; J7620

== ENCOUNTER 2017-07-26 03:47 | Inpatient (IN) | payer MEDICARE, MEDICAID ==
--- NOTE | 2017-07-26 03:56 | ER Document Report ---
ED General - General Stated Complaint: BREATHING DIFFICULTY Time Seen by Provider: 07/26/17 03:53 Notes: Patient is a 72-year-old male who presents with complaint of difficulty breathing. Started approximately an hour prior to arrival. He does have history of COPD. He also has increased edema in his lower extremities which she says has been worsening. When asked him if he supposed to take fluid pills he says "I do not know". Patient denies any chest pain. No fevers. He quit smoking 2 weeks ago. No vomiting. In the ambulance patient received a DuoNeb treatment. He received Solu-Medrol. He has no other complaints at this time. TRAVEL OUTSIDE OF THE [place] IN LAST 30 DAYS: No - Related Data Allergies/Adverse Reactions: No Known Allergies Allergy (Verified 06/05/17 10:03) Past Medical History - Social History Smoking Status: Former Smoker Frequency of alcohol use: None Drug Abuse: None Family History: Reviewed & Not Pertinent - Past Medical History Cardiac Medical History: Reports: Hx Hypercholesterolemia, Hx Hypertension Pulmonary Medical History: Reports: Hx Asthma, Hx COPD GI Medical History: Reports: Hx Gastroesophageal Reflux Disease Musculoskeltal Medical History: Reports Hx Arthritis Review of Systems - Review of Systems Notes: My Normal Review Basic REVIEW OF SYSTEMS: CONSTITUTIONAL : Denies fever, chills, or sweats. Denies recent illness. EENT: Denies eye, ear, throat, or mouth pain or symptoms. Denies nasal or sinus congestion. CARDIOVASCULAR: Denies chest pain. RESPIRATORY: Difficulty breathing. GASTROINTESTINAL: Denies abdominal pain. Denies nausea, vomiting, or diarrhea. Denies constipation. Last BM: MUSCULOSKELETAL: Worsening lower extremity edema. SKIN: Denies rash or skin lesions. NEUROLOGICAL: Denies altered mental status or loss of consciousness. Denies headache. Denies weakness or paralysis or loss of use of either side. Denies problems with gait or speech. Denies sensory or motor loss. ALL OTHER SYSTEMS REVIEWED AND NEGATIVE. Physical Exam - Vital signs Vitals: Resp 27 H 07/26/17 03:58 - Notes Notes: General Appearance: Well nourished, alert, cooperative, mild to moderate acute distress, no obvious discomfort. Vitals: reviewed, See vital signs table. Head: no swelling or tenderness to the head Eyes: PERRL, EOMI, Conjuctiva clear Mouth: No decreasd moisture Neck: Supple, no neck tenderness, No thyromegaly Lungs: He is wheezing, No rales, No rhonci, No accessory muscle use, fair air exchange bilaterally. Heart: Normal rate, Regular rythm, No murmur, no rub Abdomen: Normal BS, soft, No rigidity, No abdominal tenderness, No guarding, no rebound, no abdominal masses, no organomegaly Extremities: strength 5/5 in all extremities, good pulses in all extremities, no swelling or tenderness in the extremities, 3+ bilateral lower extremity edema. Skin: warm, dry, appropriate color, no rash Neuro: speech clear, oriented x 3, normal affect, responds appropriately to questions. Course - Re-evaluation Re-evalutation: 07/26/17 05:56 Patient still has some wheezing. He was having appear to be some worsening difficulty breathing therefore place him on BiPAP. He looks more comfortable on BiPAP. He has received some with instruments through the BiPAP. Due to his requirement of BiPAP and multiple breathing treatments feel it is appropriate to admit him to the hospital. I have called Dr. Cronin left a message and I am awaiting to hear back. 07/26/17 06:30 Patient continues to have some desaturations into the upper 80s when I try to take him off oxygen. He is doing better on the BiPAP. He still has some wheezing. He is received multiple breathing treatments. I did speak with Dr. Cronin who agrees to admit the patient. - Vital Signs Vital signs: Temp Pulse Resp BP Pulse Ox 21 H 94 07/26/17 05:00 07/26/17 05:00 - Laboratory Result Diagrams: 07/26/17 04:08 07/26/17 04:08 Laboratory results interpreted by me: 07/26/17 07/26/17 04:08 04:08 RBC 4.09 L Hgb 11.6 L Hct 34.6 L RDW 16.4 H Monocytes % 13.5 H Creatinine 2.01 H Est GFR ( Amer) 40 L Est GFR (Non-Af Amer) 33 L Creatine Kinase 617 H - EKG Interpretation by Me Additional EKG results interpreted by me: 07/26/17 05:41 EKG is reviewed and interpreted by me. EKG shows normal sinus rhythm with a rate of [address] segment elevation or depression. No ischemic T-wave inversions. CO interval, QRS duration, QTc intervals are within normal range. No old EKG available for comparison. Discharge - Discharge Clinical Impression: Hypoxemia, Wheezing Condition: Stable Disposition: ADMITTED OBSERVATION Admitting Provider: [facility] Admitted: Telemetry
[2017-07-26] MEDS ORDERED: ALBUTEROL SULFATE 0.083% NEB 2.5 MG/3 ML AMPUL NEB ONE (03:57)
[2017-07-26] MEDS ORDERED: MAGNESIUM SULFATE/D5W 1 GM/100 ML RTUPB IV SCH (04:00)
[2017-07-26 04:21] LABS: ABSOLUTE BASOPHILS # (AUTO) 0.1 10^3/uL (0.0-0.2); ABSOLUTE EOSINOPHILS # (AUTO) 0.5 10^3/uL (0.0-0.6); ABSOLUTE LYMPHOCYTES (AUTO) 2.4 10^3/uL (0.5-4.7); ABSOLUTE MONOCYTES (AUTO) 1.1 10^3/uL (0.1-1.4); ABSOLUTE NEUT (AUTO) 4.1 10^3/uL (1.7-8.2); BASOPHILS % (AUTO) 0.9 % (0-2); EOSINOPHILS % (AUTO) 5.8 % (0-6); HEMATOCRIT 34.6 % (37.9-51.0); HEMOGLOBIN 11.6 g/dL (13.5-17.0); HGB HCT DIFFERENCE 0.2; LYMPHOCYTES % (AUTO) 29.7 % (13-45); MEAN CORPUSCULAR HEMOGLOBIN 28.3 pg (27.0-33.4); MEAN CORPUSCULAR HGB CONC 33.5 g/dL (32.0-36.0); MEAN CORPUSCULAR VOLUME 85 fl (80-97); MONOCYTES % (AUTO) 13.5 % (3-13); RED BLOOD COUNT 4.09 10^6/uL (4.35-5.55); RED CELL DISTRIBUTION WIDTH 16.4 % (11.5-14.0); SEGMENTED NEUTROPHILS % (AUTO) 50.1 % (42-78); WHITE BLOOD COUNT 8.1 10^3/uL (4.0-10.5)
[2017-07-26 04:34] LABS: ALANINE AMINOTRANSFERASE 34 U/L (21-72); ALBUMIN 3.8 g/dL (3.5-5.0); ALKALINE PHOSPHATASE 60 U/L (38-126); ANION GAP 14 (5-19); ASPARTATE AMINO TRANSFERASE 27 U/L (17-59); BILIRUBIN,DIRECT 0.4 mg/dL (0.0-0.4); BILIRUBIN,TOTAL 0.8 mg/dL (0.2-1.3); BLOOD UREA NITROGEN 17 mg/dL (7-20); CALCIUM 9.8 mg/dL (8.4-10.2); CARBON DIOXIDE 24 mmol/L (22-30); CHLORIDE 103 mmol/L (98-107); CREATINE KINASE 617 U/L (55-170); CREATININE RESULT 2.01 mg/dL (0.52-1.25); GLUCOSE 100 mg/dL (75-110); POTASSIUM 4.3 mmol/L (3.6-5.0); SODIUM 141.3 mmol/L (137-145); TOTAL PROTEIN 6.5 g/dL (6.3-8.2)
--- NOTE | 2017-07-26 04:37 | RADIOLOGY REPORT (SQ) ---
EXAM DESCRIPTION: CHEST SINGLE VIEW COMPLETED DATE/TIME: 07/26/2017 4:13 am REASON FOR STUDY: dyspnea COMPARISON: 06/05/2017 EXAM PARAMETERS: NUMBER OF VIEWS: One view. TECHNIQUE: Single frontal radiographic view of the chest acquired. RADIATION DOSE: NA LIMITATIONS: None. FINDINGS: LUNGS AND PLEURA: No opacities, masses or pneumothorax. No pleural effusion. Chronic pleu ral plaquing. MEDIASTINUM AND HILAR STRUCTURES: No masses. Contour normal. HEART AND VASCULAR STRUCTURES: Heart normal in size. Normal vasculature. BONES: No acute findings. HARDWARE: None in the chest. OTHER: No other significant finding. IMPRESSION: NO ACUTE RADIOGRAPHIC FINDING IN THE CHEST. TECHNICAL DOCUMENTATION: JOB ID: [id number]
[2017-07-26 04:54] LABS: CREATINE KINASE MB 3.78 ng/mL (<4.55); TROPONIN I 0.015 ng/mL
[2017-07-26] MEDS ORDERED: CYCLOBENZAPRINE HCL 10 MG TABLET PO ONE (05:36)
[2017-07-26] MEDS ORDERED: OXYCODONE-ACETAMINOPHEN 5-325 MG TABLET PO ONE (05:37)
[2017-07-26 06:01] LABS: VENOUS BLOOD BASE EXCESS -0.6 mmol/L; VENOUS BLOOD HCO3 24.4 mmol/L (20-32); VENOUS BLOOD PCO2 41.4 mmHg (35-63); VENOUS BLOOD PH 7.39 (7.30-7.42)
--- NOTE | 2017-07-26 09:01 | Physician Advisory Note ---
Physician Advisor ProgressNote .: [facility] I have reviewed the medical record for this patient. Physician Advisor Statement: Please consider documenting, if you agree: 1. "Acute Hypoxemic Respiratory Failure, evidenced by labored breathing for initial ED nurse assessment & mild-mod acute distress for ED dr, tachypnea & tachycardia, sats into the 80s off O2 in ED despite Bipap" (Need to give supporting evidence for this dx when making it, such as above, because it is sometimes "over-called", & is a target for payer denials.) 2. ? "Acute Renal Failure" - if baseline Cr is 1.69 ... Addendum 07/27: 3. Medical necessity: "On 10/06, pt still persistently tachypneic, often tachycardic, still requiring O2 [sat as low as 92% on 3L], not back to baseline respiratory status." -> Appropriate for Inpatient status, if attending agrees. (see below for discussion) Status: [employer] pt, reasonable to start as Obs, given he has only just arrived a few hrs ago at time of 07/26 review, has few chronic co-morbidities, & could potentially have a quick response to tx through the day today. Addendum 07/27: Pt is still tachycardic/tachypneic/requiring O2/not back to baseline respiratory status, at age 72 with Acute Resp Failure, despite continued Solumedrol, Advair, & nebs PRN being required about every 4hrs, still needing BIpap at times. HIgh risk for acute respiratory decompensation if not kept in hospital with aggressive care & close monitoring. If attending agrees, please consider documenting ongoing concerns such as above example and changing to Inpt status. CK
[2017-07-26] MEDS ORDERED: PSEUDOEPHEDRINE PO PRN (10:17)
[2017-07-26] MEDS ORDERED: (PENDING PHARMACY ID) (Acetaminophen [Pain Relief] 650 MG) PO PRN (10:17)
[2017-07-26] MEDS ORDERED: CETIRIZINE HCL PO PRN (10:17)
[2017-07-26] MEDS ORDERED: ALBUTEROL SULFATE HFA (90 MCG/PUFF) 8 GM MDI (1 MDI/ER DISP) IH PRN (10:17)
[2017-07-26] MEDS ORDERED: [UNRECOGNIZED DRUG - OTHER] PO PRN (10:17)
[2017-07-26] MEDS ORDERED: (PENDING PHARMACY ID) (Oxycodone Hcl/Acetaminophen [Oxycodon-Acetaminophen 7.5-325] 1 EACH PO PRN (10:17)
[2017-07-26] MEDS ORDERED: VITAMIN D3 PO PRN (10:17)
[2017-07-26] MEDS ORDERED: [UNRECOGNIZED DRUG - OTHER] PO PRN (10:17)
[2017-07-26] MEDS ORDERED: MAGNESIUM HYDROXIDE SUSP 30 ML UDCUP PO PRN (10:17)
[2017-07-26] MEDS ORDERED: CALCIUM CARBONATE PO PRN (10:17)
[2017-07-26] MEDS ORDERED: DOCUSATE SODIUM 100 MG CAPSULE PO PRN (10:17)
[2017-07-26] MEDS ORDERED: CETIRIZINE 5 MG TABLET PO PRN (11:07)
[2017-07-26] MEDS ORDERED: PSEUDOEPHEDRINE HCL 30 MG TABLET PO PRN (11:07)
[2017-07-26] MEDS: ALBUTEROL SULFATE 0.083% NEB 2.5 MG/3 ML AMPUL NEB PRN ×3 (11:47→22:23)
[2017-07-26] MEDS ORDERED: LISINOPRIL 10 MG TABLET PO ONE (12:00)
[2017-07-26] MEDS ORDERED: MEMANTINE HCL 10 MG TABLET PO ONE (12:00)
[2017-07-26] MEDS ORDERED: TAMSULOSIN HCL 0.4 MG CAP.SR.24H PO ONE (12:00)
[2017-07-26] MEDS ORDERED: LANSOPRAZOLE 15 MG TAB.RAP.DR PO ONE (12:00)
[2017-07-26] MEDS ORDERED: ASPIRIN 81 MG TABLET, ENT COATED PO ONE (12:00)
[2017-07-26] MEDS: OXYCODONE-ACETAMINOPHEN 5-325 MG TABLET PO PRN ×2 (12:05→20:06)
[2017-07-26] MEDS: HYDROXYZINE PAMOATE 50 MG CAPSULE PO PRN (17:10)
[2017-07-26] MEDS: ACETAMINOPHEN 325 MG TABLET PO PRN (17:50)
[2017-07-26 19:23] LABS: ARTERIAL BLOOD BASE EXCESS -0.3 mmol/L; ARTERIAL BLOOD O2 SATURATION 95.8 % (94-98)
[2017-07-26 19:26] LABS: HEMATOCRIT 32.7 % (37.9-51.0); HEMOGLOBIN 11.1 g/dL (13.5-17.0); HGB HCT DIFFERENCE 0.6; MEAN CORPUSCULAR HEMOGLOBIN 28.1 pg (27.0-33.4); MEAN CORPUSCULAR HGB CONC 33.9 g/dL (32.0-36.0); MEAN CORPUSCULAR VOLUME 83 fl (80-97); RED BLOOD COUNT 3.94 10^6/uL (4.35-5.55); RED CELL DISTRIBUTION WIDTH 16.2 % (11.5-14.0); WHITE BLOOD COUNT 7.1 10^3/uL (4.0-10.5)
[2017-07-26] MEDS ORDERED: METHYLPREDNISOLONE INJ 125 MG/2 ML SDV IV ONE (19:30)
[2017-07-26] MEDS ORDERED: ENOXAPARIN SODIUM INJ 40 MG/0.4 ML DISP.SYRIN SUBCUT ONE (19:30)
[2017-07-26 19:33] LABS: PROTHROMBIN TIME 13.7 SEC (11.4-15.4)
[2017-07-26 19:34] LABS: PARTIAL THROMBOPLASTIN TIME 34.9 SEC (23.5-35.8)
[2017-07-26 19:52] LABS: CREATININE RESULT 2.06 mg/dL (0.52-1.25)
[2017-07-26] MEDS: DONEPEZIL HCL 5 MG TABLET PO SCH (22:44)
[2017-07-26] MEDS: DIVALPROEX SODIUM 250 MG TAB.SR.24H PO SCH (22:45)
[2017-07-26] MEDS: ATORVASTATIN CALCIUM 40 MG TABLET PO SCH (22:45)
[2017-07-26] MEDS: FLUTICASONE/SALMETEROL DISKUS 250-50 MCG/DOSE IH SCH (22:46)
[2017-07-27] MEDS: METHYLPREDNISOLONE INJ 125 MG/2 ML SDV IV SCH ×3 (01:41→17:28)
[2017-07-27] MEDS: ACETAMINOPHEN 325 MG TABLET PO PRN ×3 (02:24→18:22)
[2017-07-27] MEDS: ALBUTEROL SULFATE 0.083% NEB 2.5 MG/3 ML AMPUL NEB PRN ×6 (02:29→23:59)
[2017-07-27] MEDS: LANSOPRAZOLE 15 MG TAB.RAP.DR PO SCH (05:56)
[2017-07-27] MEDS: OXYCODONE-ACETAMINOPHEN 5-325 MG TABLET PO PRN ×3 (07:41→20:11)
[2017-07-27] MEDS: ENOXAPARIN SODIUM INJ 40 MG/0.4 ML DISP.SYRIN SUBCUT SCH (09:28)
[2017-07-27] MEDS: HYDROXYZINE PAMOATE 50 MG CAPSULE PO PRN ×2 (09:28→16:44)
[2017-07-27] MEDS: TAMSULOSIN HCL 0.4 MG CAP.SR.24H PO SCH (09:29)
[2017-07-27] MEDS: MEMANTINE HCL 10 MG TABLET PO SCH (09:29)
[2017-07-27] MEDS: OXYCODONE HCL IR 5 MG TABLET PO PRN ×3 (09:29→20:10)
[2017-07-27] MEDS: ASPIRIN 81 MG TABLET, ENT COATED PO SCH (09:29)
[2017-07-27] MEDS: TIOTROPIUM BROMIDE DPI 5 CAP/KIT (18 MCG/CAP) IH SCH (09:30)
[2017-07-27] MEDS: FLUTICASONE/SALMETEROL DISKUS 250-50 MCG/DOSE IH SCH ×2 (09:30→22:35)
[2017-07-27] MEDS: LISINOPRIL 10 MG TABLET PO SCH (09:31)
[2017-07-27] MEDS ORDERED: (PENDING PHARMACY ID) (Esomeprazole Magnesium [Nexium] 20 MG) PO SCH (10:00)
[2017-07-27] MEDS ORDERED: (PENDING PHARMACY ID) (Memantine Hcl [Namenda] 5 MG) PO SCH (10:00)
--- NOTE | 2017-07-27 15:40 | PDOC H&P ---
History of Present Illness Admission Date/PCP: 07/26/17 10:10 History of Present Illness: PRINCE PALMA is a 72 year old male, he has a history of chronic obstructive pulmonary disease, chronic kidney disease state that he, tobacco abuse, chronic venous hypertension of the lower extremities bilaterally, he came to the emergency room because of shortness of breath, wheezing. In the emergency room he was evaluated, he was found to be in respiratory distress, he was using accessory muscles of respiration to breathe, there was flaring of the nares, he was aggressively treated in the emergency room without resolution of his symptoms. The emergency room physician stated that patient was impending respiratory failure, in the emergency room he also had noninvasive positive pressure ventilation with BiPAP, hospital admission was advised by the ED physician. Patient is well-known to me, he is a resident of assisted living facility at [facility] in [facility]. He continues to smoke cigarettes despite very severe COPD, pulmonary hypertension with chronic venous hypertension of both lower extremities he also have chronic kidney disease stage III he was counseled on multiple times on the need for complete smoking cessation but he continues to smoke anyway. He was seen on the medical floor definitely is doing severe distress, is able to maintain adequate pH despite obvious respiratory distress. Past Medical History Cardiac Medical History: Reports: Hyperlipidema, Hypertension Pulmonary Medical History: Reports: Chronic Obstructive Pulmonary Disease (COPD) Renal/ Medical History: Reports: Other - Chronic kidney disease stage III GI Medical History: Reports: Gastroesophageal Reflux Disease Musculoskeltal Medical History: Reports: Arthritis Psychiatric Medical History: Reports: Depression Social History Smoking Status: Current Every Day Smoker Frequency of Alcohol Use: None Hx Recreational Drug Use: No Drugs: None Hx Prescription Drug Abuse: No - Advance Directive Resuscitation Status: Full Code Family History Family History: Reviewed & Not Pertinent Parental Family History Reviewed: Yes Children Family History Reviewed: Yes Sibling(s) Family History Reviewed.: Yes Medication/Allergy Home Medications: Acetaminophen [Pain Relief] 650 mg PO Q6HP PRN 07/26/17 Albuterol Sulfate [Ventolin 0.083% Neb 2.5 mg/3 ml Ampul] 1 vial NEB Q6HP PRN Albuterol Sulfate [Ventolin Hfa] 2 puff IH Q4HP PRN 07/26/17 Aspirin [Aspirin EC] 81 mg PO DAILY 07/26/17 Atorvastatin Calcium [Lipitor 40 mg Tablet] 40 mg PO QHS 07/26/17 Calcium Carbonate/Vitamin D3 [Calcium 500 mg Chewable Tablet] 500 mg PO Q4HP PRN 07/26/17 Cetirizine HCl/Pseudoephedrine [Cetirizine-Pse ER 5-120 mg Tab] 1 each PO DAILYP PRN 07/26/17 Divalproex Sodium [Divalproex Sodium ER] 750 mg PO QHS 07/26/17 Docusate Sodium [Colace 100 mg Capsule] 200 mg PO DAILYP PRN 07/26/17 Donepezil HCl [Aricept 5 mg Tablet] 5 mg PO QHS 07/26/17 Esomeprazole Magnesium [Nexium] 20 mg PO DAILY 07/26/17 Fluticasone/Salmeterol [Advair 250-50 Diskus 28 dose] 1 puff IH Q12 07/26/17 Hydroxyzine HCl [Atarax 50 mg Tablet] 50 mg PO Q6HP PRN 07/26/17 Lisinopril [Prinivil 10 mg Tablet] 10 mg PO DAILY 07/26/17 Magnesium Hydroxide [Milk of Magnesia 30 ml Udcup] 30 ml PO DAILYP PRN 07/26/17 Memantine HCl [Namenda] 5 mg PO DAILY 07/26/17 Oxycodone HCl/Acetaminophen [Oxycodon-Acetaminophen 7.5-325] 1 each PO Q4HP PRN 07/26/17 Tamsulosin HCl [Flomax 0.4 mg Cap.sr] 0.4 mg PO DAILY 07/26/17 Tiotropium [place] [Spiriva Handihaler 5 Cap/Kit (18 Mcg/Cap)] 1 cap IH DAILY Zolpidem Tartrate [Ambien 5 mg Tablet] 5 mg PO HSP PRN 07/26/17 Allergies/Adverse Reactions: No Known Allergies Allergy (Verified 06/05/17 10:03) Review of Systems Constitutional: PRESENT: fatigue Eyes: ABSENT: visual disturbances Ears: ABSENT: hearing changes Cardiovascular: ABSENT: chest pain, dyspnea on exertion, edema, orthropnea, palpitations Respiratory: PRESENT: cough, dyspnea Gastrointestinal: ABSENT: abdominal pain, constipation, diarrhea, hematemesis, hematochezia, nausea, vomiting Genitourinary: ABSENT: dysuria, hematuria Musculoskeletal: ABSENT: joint swelling Integumentary: ABSENT: rash, wounds Neurological: ABSENT: abnormal gait, abnormal speech, confusion, dizziness, focal weakness, syncope Psychiatric: ABSENT: anxiety, depression, homidical ideation, suicidal ideation Endocrine: ABSENT: cold intolerance, heat intolerance, menstrual abnormalities, polydipsia, polyuria Hematologic/Lymphatic: ABSENT: easy bleeding, easy bruising, lymphadenopathy Physical Exam Vital Signs: Temp Pulse Resp BP Pulse Ox 97.7 F 84 26 H 147/79 H 93 07/27/17 11:26 07/27/17 14:00 07/27/17 11:57 07/27/17 11:26 07/27/17 11:57 Intake & Output 07/26/17 07/27/17 07/28/17 06:59 06:59 06:59 Intake Total 638 Output Total 2200 Balance -1562 Weight 104.3 kg General appearance: PRESENT: severe distress Head exam: PRESENT: atraumatic, normocephalic Eye exam: PRESENT: conjunctiva pink, EOMI, PERRLA Ear exam: PRESENT: normal external ear exam Mouth exam: PRESENT: moist, tongue midline Neck exam: PRESENT: full ROM Respiratory exam: PRESENT: accessory muscle use, prolonged expiratory phas, retraction, tachypnea, wheezes Cardiovascular exam: PRESENT: RRR, +S1, +S2 Pulses: PRESENT: normal dorsalis pedis pul, +2 pedal pulses bilateral Vascular exam: PRESENT: other - Chronic venous hypertension of the lower extremities GI/Abdominal exam: PRESENT: normal bowel sounds, soft Rectal exam: PRESENT: deferred Extremities exam: PRESENT: pedal edema Neurological exam: PRESENT: alert Skin exam: PRESENT: dry, intact, warm. ABSENT: cyanosis, rash Results Laboratory Results: 07/26/17 19:15 07/26/17 19:15 07/26/17 07/26/17 07/26/17 19:10 19:15 19:15 WBC 7.1 RBC 3.94 L Hgb 11.1 L Hct 32.7 L MCV 83 MCH 28.1 MCHC 33.9 RDW 16.2 H Plt Count 158 Carbonic Acid 1.18 HCO3/H2CO3 Ratio 20:1 ABG pH 7.41 ABG pCO2 39.2 ABG pO2 79.2 L ABG HCO3 24.2 ABG O2 Saturation 95.8 ABG Base Excess -0.3 FiO2 3L Creatinine 2.06 H Est GFR ( Amer) 39 L Est GFR (Non-Af Amer) 32 L Impressions: Chest X-Ray 07/26/17 03:53 IMPRESSION: NO ACUTE RADIOGRAPHIC FINDING IN THE CHEST. Assessment & Plan - Diagnosis (1) Acute hypoxemic respiratory failure Is this a current diagnosis for this admission?: Yes Plan: Continue noninvasive positive pressure ventilation with BiPAP, nasal cannula oxygen (2) COPD with acute exacerbation Is this a current diagnosis for this admission?: Yes Plan: Patient admitted for management of COPD, start patient on Solu-Medrol, DuoNeb every 2 hours (3) Chronic venous hypertension (idiopathic) with inflammation of bilateral lower extremity Is this a current diagnosis for this admission?: Yes Plan: Apply Unna boots to both extremities
[2017-07-27 15:57] LABS: APPEARANCE,URINE CLEAR; BILIRUBIN,URINE NEGATIVE (NEGATIVE); GLUCOSE, URINE 50 mg/dL (NEGATIVE); KETONES,URINE NEGATIVE (NEGATIVE); LEUKOCYTE ESTERASE,URINE NEGATIVE (NEGATIVE); NITRITE,URINE NEGATIVE (NEGATIVE); PROTEIN,URINE 100 mg/dL (NEGATIVE); URINE SPECIFIC GRAVITY 1.008; UROBILINOGEN,URINE NEGATIVE mg/dL (<2.0)
--- NOTE | 2017-07-27 17:15 | PDOC PROGRESS REPORT ---
Subjective Progress Note for:: 07/27/17 Subjective:: He continues to require noninvasive positive pressure ventilation, BiPAP Physical Exam Vital Signs: Temp Pulse Resp BP Pulse Ox 97.4 F 87 20 143/76 H 96 07/27/17 16:00 07/27/17 16:00 07/27/17 16:00 07/27/17 16:00 07/27/17 16:00 Intake & Output 07/26/17 07/27/17 07/28/17 06:59 06:59 06:59 Intake Total 638 Output Total 2200 Balance -1562 Weight 104.3 kg General appearance: PRESENT: severe distress Eye exam: ABSENT: scleral icterus Neck exam: PRESENT: full ROM Respiratory exam: PRESENT: wheezes Cardiovascular exam: PRESENT: +S1, +S2 Vascular exam: PRESENT: normal capillary refill GI/Abdominal exam: PRESENT: soft Rectal exam: PRESENT: deferred Neurological exam: PRESENT: alert, CN II-XII grossly intact. ABSENT: motor sensory deficit Psychiatric exam: ABSENT: homicidal ideation, suicidal ideation Skin exam: PRESENT: dry, intact, warm. ABSENT: cyanosis, rash Results Laboratory Results: 07/26/17 19:15 07/26/17 19:15 07/26/17 07/26/17 07/26/17 19:10 19:15 19:15 WBC 7.1 RBC 3.94 L Hgb 11.1 L Hct 32.7 L MCV 83 MCH 28.1 MCHC 33.9 RDW 16.2 H Plt Count 158 Carbonic Acid 1.18 HCO3/H2CO3 Ratio 20:1 ABG pH 7.41 ABG pCO2 39.2 ABG pO2 79.2 L ABG HCO3 24.2 ABG O2 Saturation 95.8 ABG Base Excess -0.3 FiO2 3L Creatinine 2.06 H Est GFR ( Amer) 39 L Est GFR (Non-Af Amer) 32 L Urine Color Urine Appearance Urine pH Ur Specific [place] Urine Protein Urine Glucose (UA) Urine Ketones Urine Blood Urine Nitrite Ur Leukocyte Esterase Urine WBC (Auto) Urine RBC (Auto) 07/27/17 15:40 WBC RBC Hgb Hct MCV MCH MCHC RDW Plt Count Carbonic Acid HCO3/H2CO3 Ratio ABG pH ABG pCO2 ABG pO2 ABG HCO3 ABG O2 Saturation ABG Base Excess FiO2 Creatinine Est GFR ( Amer) Est GFR (Non-Af Amer) Urine Color STRAW Urine Appearance CLEAR Urine pH 7.0 Ur Specific [place] 1.008 Urine Protein 100 H Urine Glucose (UA) 50 H Urine Ketones NEGATIVE Urine Blood NEGATIVE Urine Nitrite NEGATIVE Ur Leukocyte Esterase NEGATIVE Urine WBC (Auto) 0 Urine RBC (Auto) 0 Impressions: Chest X-Ray 07/26/17 03:53 IMPRESSION: NO ACUTE RADIOGRAPHIC FINDING IN THE CHEST. Assessment & Plan - Diagnosis (1) Acute hypoxemic respiratory failure Is this a current diagnosis for this admission?: Yes Plan: Continue BiPAP (2) COPD with acute exacerbation Is this a current diagnosis for this admission?: Yes Plan: Continue IV Solu-Medrol, bronchodilators (3) Chronic venous hypertension (idiopathic) with inflammation of bilateral lower extremity Is this a current diagnosis for this admission?: Yes
[2017-07-27] MEDS: CALCIUM CARBONATE 500 MG TAB.CHEW PO PRN (18:15)
[2017-07-27] MEDS: ATORVASTATIN CALCIUM 40 MG TABLET PO SCH (22:34)
[2017-07-27] MEDS: ZOLPIDEM TARTRATE 5 MG TABLET PO PRN (22:34)
[2017-07-27] MEDS: DONEPEZIL HCL 5 MG TABLET PO SCH (22:34)
[2017-07-27] MEDS: DIVALPROEX SODIUM 250 MG TAB.SR.24H PO SCH (22:35)
[2017-07-28] MEDS: HYDROXYZINE PAMOATE 50 MG CAPSULE PO PRN ×3 (00:27→17:11)
[2017-07-28] MEDS: METHYLPREDNISOLONE INJ 125 MG/2 ML SDV IV SCH ×3 (02:25→17:03)
[2017-07-28] MEDS: ALBUTEROL SULFATE 0.083% NEB 2.5 MG/3 ML AMPUL NEB PRN ×5 (04:58→20:12)
[2017-07-28] MEDS: OXYCODONE HCL IR 5 MG TABLET PO PRN ×4 (04:59→20:31)
[2017-07-28] MEDS: LANSOPRAZOLE 15 MG TAB.RAP.DR PO SCH (05:00)
[2017-07-28] MEDS: OXYCODONE-ACETAMINOPHEN 5-325 MG TABLET PO PRN ×4 (05:00→20:32)
[2017-07-28] MEDS: ASPIRIN 81 MG TABLET, ENT COATED PO SCH (09:35)
[2017-07-28] MEDS: TAMSULOSIN HCL 0.4 MG CAP.SR.24H PO SCH (09:35)
[2017-07-28] MEDS: LISINOPRIL 10 MG TABLET PO SCH (09:36)
[2017-07-28] MEDS: MEMANTINE HCL 10 MG TABLET PO SCH (09:36)
[2017-07-28] MEDS: ENOXAPARIN SODIUM INJ 40 MG/0.4 ML DISP.SYRIN SUBCUT SCH (09:37)
[2017-07-28] MEDS: FLUTICASONE/SALMETEROL DISKUS 250-50 MCG/DOSE IH SCH ×2 (09:39→21:18)
[2017-07-28] MEDS: TIOTROPIUM BROMIDE DPI 5 CAP/KIT (18 MCG/CAP) IH SCH (09:39)
[2017-07-28] MEDS: ACETAMINOPHEN 325 MG TABLET PO PRN (16:20)
[2017-07-28] MEDS: CALCIUM CARBONATE 500 MG TAB.CHEW PO PRN (17:15)
--- NOTE | 2017-07-28 17:40 | PDOC PROGRESS REPORT ---
Subjective Progress Note for:: 07/28/17 Subjective:: He was seen by the bedside he continues to require noninvasive positive pressure ventilation Physical Exam Vital Signs: Temp Pulse Resp BP Pulse Ox 97.8 F 88 22 H 145/85 H 96 07/28/17 15:25 07/28/17 15:54 07/28/17 15:54 07/28/17 15:25 07/28/17 15:54 Intake & Output 07/27/17 07/28/17 07/29/17 06:59 06:59 06:59 Intake Total 1728 870 Output Total 1400 Balance 328 870 Weight 103.6 kg General appearance: PRESENT: no acute distress Head exam: PRESENT: atraumatic, normocephalic Eye exam: PRESENT: PERRLA. ABSENT: scleral icterus Neck exam: PRESENT: full ROM Respiratory exam: PRESENT: wheezes Cardiovascular exam: PRESENT: RRR, +S1, +S2 GI/Abdominal exam: PRESENT: soft Rectal exam: PRESENT: deferred Neurological exam: PRESENT: alert Psychiatric exam: PRESENT: appropriate affect, normal mood Skin exam: PRESENT: dry, intact, warm Results Impressions: Chest X-Ray 07/26/17 03:53 IMPRESSION: NO ACUTE RADIOGRAPHIC FINDING IN THE CHEST. Assessment & Plan - Diagnosis (1) Acute hypoxemic respiratory failure Is this a current diagnosis for this admission?: Yes (2) COPD with acute exacerbation Is this a current diagnosis for this admission?: Yes (3) Chronic venous hypertension (idiopathic) with inflammation of bilateral lower extremity Is this a current diagnosis for this admission?: Yes - Plan Summary Plan Summary: Continue present treatment
[2017-07-28 17:58] LABS: ABSOLUTE LYMPHOCYTES (AUTO) 0.7 10^3/uL (0.5-4.7); ABSOLUTE MONOCYTES (AUTO) 0.6 10^3/uL (0.1-1.4); ABSOLUTE NEUT (AUTO) 8.3 10^3/uL (1.7-8.2); HEMATOCRIT 32.6 % (37.9-51.0); HEMOGLOBIN 11.1 g/dL (13.5-17.0); HGB HCT DIFFERENCE 0.7; LYMPHOCYTES % (AUTO) 7.6 % (13-45); MEAN CORPUSCULAR HEMOGLOBIN 28.4 pg (27.0-33.4); MEAN CORPUSCULAR HGB CONC 33.9 g/dL (32.0-36.0); MEAN CORPUSCULAR VOLUME 84 fl (80-97); MONOCYTES % (AUTO) 5.9 % (3-13); RED CELL DISTRIBUTION WIDTH 16.2 % (11.5-14.0); SEGMENTED NEUTROPHILS % (AUTO) 86.5 % (42-78); WHITE BLOOD COUNT 9.6 10^3/uL (4.0-10.5)
[2017-07-28 18:15] LABS: ALANINE AMINOTRANSFERASE 28 U/L (21-72); ALBUMIN 3.6 g/dL (3.5-5.0); ALKALINE PHOSPHATASE 53 U/L (38-126); ANION GAP 14 (5-19); ASPARTATE AMINO TRANSFERASE 18 U/L (17-59); BILIRUBIN,DIRECT 0.2 mg/dL (0.0-0.4); BILIRUBIN,TOTAL 0.3 mg/dL (0.2-1.3); BLOOD UREA NITROGEN 29 mg/dL (7-20); CALCIUM 8.8 mg/dL (8.4-10.2); CARBON DIOXIDE 24 mmol/L (22-30); CHLORIDE 103 mmol/L (98-107); CREATININE RESULT 1.69 mg/dL (0.52-1.25); GLUCOSE 226 mg/dL (75-110); POTASSIUM 4.5 mmol/L (3.6-5.0); SODIUM 141.2 mmol/L (137-145); TOTAL PROTEIN 6.1 g/dL (6.3-8.2)
[2017-07-28] MEDS: DONEPEZIL HCL 5 MG TABLET PO SCH (21:19)
[2017-07-28] MEDS: ATORVASTATIN CALCIUM 40 MG TABLET PO SCH (21:19)
[2017-07-28] MEDS: DIVALPROEX SODIUM 250 MG TAB.SR.24H PO SCH (21:20)
[2017-07-29] MEDS: ALBUTEROL SULFATE 0.083% NEB 2.5 MG/3 ML AMPUL NEB PRN ×6 (00:34→23:27)
[2017-07-29] MEDS: ACETAMINOPHEN 325 MG TABLET PO PRN (00:36)
[2017-07-29] MEDS: OXYCODONE-ACETAMINOPHEN 5-325 MG TABLET PO PRN ×4 (00:37→21:48)
[2017-07-29] MEDS: OXYCODONE HCL IR 5 MG TABLET PO PRN ×4 (00:37→21:50)
[2017-07-29] MEDS: ZOLPIDEM TARTRATE 5 MG TABLET PO PRN ×2 (00:38→21:51)
[2017-07-29] MEDS: METHYLPREDNISOLONE INJ 125 MG/2 ML SDV IV SCH ×3 (01:45→17:56)
[2017-07-29] MEDS: LANSOPRAZOLE 15 MG TAB.RAP.DR PO SCH (06:01)
[2017-07-29 06:32] LABS: ABSOLUTE LYMPHOCYTES (AUTO) 0.8 10^3/uL (0.5-4.7); ABSOLUTE MONOCYTES (AUTO) 0.5 10^3/uL (0.1-1.4); ABSOLUTE NEUT (AUTO) 6.6 10^3/uL (1.7-8.2); BASOPHILS % (AUTO) 0.1 % (0-2); EOSINOPHILS % (AUTO) 0.1 % (0-6); HEMATOCRIT 32.2 % (37.9-51.0); HGB HCT DIFFERENCE 0.8; LYMPHOCYTES % (AUTO) 9.8 % (13-45); MEAN CORPUSCULAR HEMOGLOBIN 28.5 pg (27.0-33.4); MEAN CORPUSCULAR HGB CONC 34.2 g/dL (32.0-36.0); MEAN CORPUSCULAR VOLUME 84 fl (80-97); MONOCYTES % (AUTO) 6.5 % (3-13); RED BLOOD COUNT 3.86 10^6/uL (4.35-5.55); SEGMENTED NEUTROPHILS % (AUTO) 83.5 % (42-78); WHITE BLOOD COUNT 7.9 10^3/uL (4.0-10.5)
[2017-07-29 06:53] LABS: ALANINE AMINOTRANSFERASE 27 U/L (21-72); ALBUMIN 3.5 g/dL (3.5-5.0); ALKALINE PHOSPHATASE 48 U/L (38-126); ANION GAP 14 (5-19); ASPARTATE AMINO TRANSFERASE 17 U/L (17-59); BILIRUBIN,DIRECT 0.3 mg/dL (0.0-0.4); BILIRUBIN,TOTAL 0.4 mg/dL (0.2-1.3); BLOOD UREA NITROGEN 33 mg/dL (7-20); CALCIUM 8.8 mg/dL (8.4-10.2); CARBON DIOXIDE 25 mmol/L (22-30); CHLORIDE 103 mmol/L (98-107); CREATININE RESULT 1.66 mg/dL (0.52-1.25); GLUCOSE 162 mg/dL (75-110); POTASSIUM 4.9 mmol/L (3.6-5.0); SODIUM 141.7 mmol/L (137-145); TOTAL PROTEIN 6.1 g/dL (6.3-8.2)
[2017-07-29] MEDS: MEMANTINE HCL 10 MG TABLET PO SCH (09:30)
[2017-07-29] MEDS: LISINOPRIL 10 MG TABLET PO SCH (09:31)
[2017-07-29] MEDS: TAMSULOSIN HCL 0.4 MG CAP.SR.24H PO SCH (09:31)
[2017-07-29] MEDS: ASPIRIN 81 MG TABLET, ENT COATED PO SCH (09:31)
[2017-07-29] MEDS: FLUTICASONE/SALMETEROL DISKUS 250-50 MCG/DOSE IH SCH ×2 (09:32→21:49)
[2017-07-29] MEDS: ENOXAPARIN SODIUM INJ 40 MG/0.4 ML DISP.SYRIN SUBCUT SCH (09:32)
[2017-07-29] MEDS: TIOTROPIUM BROMIDE DPI 5 CAP/KIT (18 MCG/CAP) IH SCH (09:33)
[2017-07-29] MEDS: HYDROXYZINE PAMOATE 50 MG CAPSULE PO PRN ×2 (15:48→21:51)
[2017-07-29] MEDS: CALCIUM CARBONATE 500 MG TAB.CHEW PO PRN (15:54)
--- NOTE | 2017-07-29 19:35 | PDOC PROGRESS REPORT ---
Subjective Progress Note for:: 07/29/17 Subjective:: Patient seen by the bedside improving on Solu-Medrol Physical Exam Vital Signs: Temp Pulse Resp BP Pulse Ox 97.9 F 73 20 147/89 H 96 07/29/17 16:00 07/29/17 19:00 07/29/17 16:00 07/29/17 16:00 07/29/17 16:00 Intake & Output 07/28/17 07/29/17 07/30/17 06:59 06:59 06:59 Intake Total 1728 1525 750 Output Total 1400 860 875 Balance 328 665 -125 Weight 103.6 kg General appearance: PRESENT: mild distress Head exam: PRESENT: atraumatic, normocephalic Eye exam: PRESENT: PERRLA. ABSENT: scleral icterus Ear exam: PRESENT: normal external ear exam Mouth exam: PRESENT: moist, tongue midline Neck exam: PRESENT: full ROM Respiratory exam: PRESENT: wheezes Cardiovascular exam: PRESENT: RRR, +S1, +S2 Vascular exam: PRESENT: normal capillary refill GI/Abdominal exam: PRESENT: soft Rectal exam: PRESENT: deferred Neurological exam: PRESENT: alert. ABSENT: motor sensory deficit Psychiatric exam: PRESENT: appropriate affect, normal mood. ABSENT: homicidal ideation, suicidal ideation Skin exam: PRESENT: dry, intact, warm. ABSENT: cyanosis, rash Results Laboratory Results: 07/29/17 05:47 07/29/17 05:47 07/29/17 07/29/17 05:47 05:47 WBC 7.9 RBC 3.86 L Hgb 11.0 L Hct 32.2 L MCV 84 MCH 28.5 MCHC 34.2 RDW 16.0 H Plt Count 174 Seg Neutrophils % 83.5 H Lymphocytes % 9.8 L Monocytes % 6.5 Eosinophils % 0.1 Basophils % 0.1 Absolute Neutrophils 6.6 Absolute Lymphocytes 0.8 Absolute Monocytes 0.5 Absolute Eosinophils 0.0 Absolute Basophils 0.0 Sodium 141.7 Potassium 4.9 Chloride 103 Carbon Dioxide 25 Anion Gap 14 BUN 33 H Creatinine 1.66 H Est GFR ( Amer) 50 L Est GFR (Non-Af Amer) 41 L Glucose 162 H Calcium 8.8 Total Bilirubin 0.4 AST 17 ALT 27 Alkaline Phosphatase 48 Total Protein 6.1 L Albumin 3.5 Impressions: Chest X-Ray 07/26/17 03:53 IMPRESSION: NO ACUTE RADIOGRAPHIC FINDING IN THE CHEST. Assessment & Plan - Diagnosis (1) Acute hypoxemic respiratory failure Is this a current diagnosis for this admission?: Yes (2) COPD with acute exacerbation Is this a current diagnosis for this admission?: Yes Plan: Reduce dose of Solu-Medrol 60 mg IV every 8 (3) Chronic venous hypertension (idiopathic) with inflammation of bilateral lower extremity Is this a current diagnosis for this admission?: Yes
[2017-07-29] MEDS: ATORVASTATIN CALCIUM 40 MG TABLET PO SCH (21:48)
[2017-07-29] MEDS: DONEPEZIL HCL 5 MG TABLET PO SCH (21:49)
[2017-07-29] MEDS: DIVALPROEX SODIUM 250 MG TAB.SR.24H PO SCH (21:50)
[2017-07-30] MEDS: METHYLPREDNISOLONE INJ 125 MG/2 ML SDV IV SCH ×3 (01:24→17:19)
[2017-07-30] MEDS: LANSOPRAZOLE 15 MG TAB.RAP.DR PO SCH (05:14)
[2017-07-30] MEDS: ALBUTEROL SULFATE 0.083% NEB 2.5 MG/3 ML AMPUL NEB PRN ×4 (06:32→20:16)
[2017-07-30] MEDS: LISINOPRIL 10 MG TABLET PO SCH (09:36)
[2017-07-30] MEDS: TAMSULOSIN HCL 0.4 MG CAP.SR.24H PO SCH (09:36)
[2017-07-30] MEDS: ENOXAPARIN SODIUM INJ 40 MG/0.4 ML DISP.SYRIN SUBCUT SCH (09:36)
[2017-07-30] MEDS: ASPIRIN 81 MG TABLET, ENT COATED PO SCH (09:36)
[2017-07-30] MEDS: FLUTICASONE/SALMETEROL DISKUS 250-50 MCG/DOSE IH SCH ×2 (09:37→21:05)
[2017-07-30] MEDS: TIOTROPIUM BROMIDE DPI 5 CAP/KIT (18 MCG/CAP) IH SCH (09:37)
[2017-07-30] MEDS: MEMANTINE HCL 10 MG TABLET PO SCH (09:38)
[2017-07-30] MEDS: OXYCODONE-ACETAMINOPHEN 5-325 MG TABLET PO PRN ×3 (09:41→21:04)
[2017-07-30] MEDS: OXYCODONE HCL IR 5 MG TABLET PO PRN ×3 (09:54→21:02)
[2017-07-30] MEDS ORDERED: OXYCODONE HCL IR 5 MG TABLET ONE (09:54)
[2017-07-30] MEDS: CALCIUM CARBONATE 500 MG TAB.CHEW PO PRN ×2 (11:20→18:19)
--- NOTE | 2017-07-30 13:39 | PDOC PROGRESS REPORT ---
Subjective Progress Note for:: 07/30/17 Subjective:: Patient reported some improvement in his breathing. No significant coughing. No chest pain. No nausea or vomiting. No abdominal pain. No fever or chills. Improved sleep patten reported by on duty nursing staff. Physical Exam Vital Signs: Temp Pulse Resp BP Pulse Ox 98.0 F 78 18 155/71 H 96 07/30/17 11:47 07/30/17 11:47 07/30/17 11:47 07/30/17 11:47 07/30/17 11:47 Intake & Output 07/29/17 07/30/17 07/31/17 06:59 06:59 05:59 Intake Total 1525 1470 Output Total 860 2575 Balance 665 -1105 General appearance: PRESENT: no acute distress Head exam: PRESENT: atraumatic, normocephalic Eye exam: PRESENT: conjunctiva pink, EOMI, PERRLA. ABSENT: scleral icterus Mouth exam: PRESENT: moist Respiratory exam: PRESENT: decreased breath sounds, rhonchi - minimally with expiratory phase Cardiovascular exam: PRESENT: RRR. ABSENT: diastolic murmur, rubs, systolic murmur GI/Abdominal exam: PRESENT: normal bowel sounds, soft. ABSENT: distended, guarding, mass, organolmegaly, rebound, tenderness Neurological exam: PRESENT: alert, awake, oriented to person, oriented to place , oriented to time, oriented to situation, CN II-XII grossly intact. ABSENT: motor sensory deficit Psychiatric exam: PRESENT: appropriate affect, normal mood. ABSENT: homicidal ideation, suicidal ideation Skin exam: PRESENT: dry, warm, other - right leg unna boot in use. Results Laboratory Results: 07/29/17 05:47 07/29/17 05:47 Impressions: Chest X-Ray 07/26/17 03:53 IMPRESSION: NO ACUTE RADIOGRAPHIC FINDING IN THE CHEST. Assessment & Plan - Diagnosis (1) Acute hypoxemic respiratory failure Is this a current diagnosis for this admission?: Yes Plan: Continue current medication management. (2) COPD with acute exacerbation Is this a current diagnosis for this admission?: Yes Plan: maintain on bronchodilators and IV Solu Medrol therapy. I will decrease Solu Medrol to 60 mg IV [id number]. (3) Chronic kidney disease, stage III (moderate) Is this a current diagnosis for this admission?: Yes Plan: Improving renal indices. continue current medication management. (4) HTN (hypertension) Qualifiers: Hypertension type: essential hypertension Qualified Code(s): I10 - Essential (primary) hypertension Is this a current diagnosis for this admission?: Yes Plan: Continue current medication management. (5) HLD (hyperlipidemia) Qualifiers: Hyperlipidemia type: pure hypercholesterolemia Qualified Code(s): E78.00 - Pure hypercholesterolemia, unspecified; E78.0 - Pure hypercholesterolemia Is this a current diagnosis for this admission?: Yes Plan: Continue current medication management. - Time Time Spent with patient: 25-34 minutes Medications reviewed and adjusted accordingly: Yes Anticipated discharge: Other - RESIDENTIAL upon discharge. Within: Other - Inpatient Certification Based on my medical assessment, after consideration of the patient's comorbidities, presenting symptoms, or acuity I expect that the services needed warrant INPATIENT care.: Yes I certify that my determination is in accordance with my understanding of Medicare's requirements for reasonable and necessary INPATIENT services [42 CFR 412.3e].: Yes Medical Necessity: Need Close Monitoring Due to Risk of Patient Decompensation, Need For Continuous Telemetry Monitoring, Need for Nebulizer Therapy and Monitoring of Response, Risk of Complication if Not Cared For in Hospital 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
[2017-07-30] MEDS: DIVALPROEX SODIUM 250 MG TAB.SR.24H PO SCH (21:03)
[2017-07-30] MEDS: ZOLPIDEM TARTRATE 5 MG TABLET PO PRN (21:04)
[2017-07-30] MEDS: ATORVASTATIN CALCIUM 40 MG TABLET PO SCH (21:04)
[2017-07-30] MEDS: DONEPEZIL HCL 5 MG TABLET PO SCH (21:04)
[2017-07-30] MEDS: HYDROXYZINE PAMOATE 50 MG CAPSULE PO PRN (21:05)
[2017-07-31] MEDS: ACETAMINOPHEN 325 MG TABLET PO PRN (03:25)
[2017-07-31] MEDS: OXYCODONE-ACETAMINOPHEN 5-325 MG TABLET PO PRN ×5 (03:25→22:03)
[2017-07-31] MEDS: METHYLPREDNISOLONE INJ 125 MG/2 ML SDV IV SCH ×2 (03:26→09:34)
[2017-07-31] MEDS: OXYCODONE HCL IR 5 MG TABLET PO PRN ×5 (03:26→22:04)
[2017-07-31] MEDS: HYDROXYZINE PAMOATE 50 MG CAPSULE PO PRN (03:26)
[2017-07-31] MEDS: LANSOPRAZOLE 15 MG TAB.RAP.DR PO SCH (05:12)
[2017-07-31] MEDS: ALBUTEROL SULFATE 0.083% NEB 2.5 MG/3 ML AMPUL NEB PRN ×4 (05:40→23:38)
[2017-07-31] MEDS: ENOXAPARIN SODIUM INJ 40 MG/0.4 ML DISP.SYRIN SUBCUT SCH (09:32)
[2017-07-31] MEDS: ASPIRIN 81 MG TABLET, ENT COATED PO SCH (09:33)
[2017-07-31] MEDS: CALCIUM CARBONATE 500 MG TAB.CHEW PO PRN ×3 (09:33→22:03)
[2017-07-31] MEDS: TAMSULOSIN HCL 0.4 MG CAP.SR.24H PO SCH (09:33)
[2017-07-31] MEDS: MEMANTINE HCL 10 MG TABLET PO SCH (09:33)
[2017-07-31] MEDS: LISINOPRIL 10 MG TABLET PO SCH (09:35)
[2017-07-31] MEDS: TIOTROPIUM BROMIDE DPI 5 CAP/KIT (18 MCG/CAP) IH SCH (09:37)
[2017-07-31] MEDS: FLUTICASONE/SALMETEROL DISKUS 250-50 MCG/DOSE IH SCH ×2 (09:42→22:03)
--- NOTE | 2017-07-31 13:18 | PDOC PROGRESS REPORT ---
Subjective Progress Note for:: 07/31/17 Subjective:: Patient continue to express improvement in his breathing. No chest pain. No abdominal pain, nausea or vomiting. Tolerating oral intake. No fever or chills. Physical Exam Vital Signs: Temp Pulse Resp BP Pulse Ox 97.6 F 77 19 160/87 H 95 07/31/17 11:52 07/31/17 11:52 07/31/17 11:52 07/31/17 11:52 07/31/17 11:52 Intake & Output 07/30/17 07/31/17 08/01/17 07:59 06:59 06:59 Intake Total Output Total Balance Weight Physical Exam: General appearance: PRESENT: no acute distress Head exam: PRESENT: atraumatic, normocephalic Eye exam: PRESENT: conjunctiva pink, EOMI, PERRLA. ABSENT: scleral icterus Mouth exam: PRESENT: moist Respiratory exam: PRESENT: decreased breath sounds, rhonchi - minimally with expiratory phase Cardiovascular exam: PRESENT: RRR. ABSENT: diastolic murmur, rubs, systolic murmur GI/Abdominal exam: PRESENT: normal bowel sounds, soft. ABSENT: distended, guarding, mass, organomegaly, rebound, tenderness Neurological exam: PRESENT: alert, awake, oriented to person, oriented to place , oriented to time, oriented to situation, CN II-XII grossly intact. ABSENT: motor sensory deficit Psychiatric exam: PRESENT: appropriate affect, normal mood. ABSENT: homicidal ideation, suicidal ideation Skin exam: PRESENT: dry, warm, other - bilateral unna boot wraps in use. Results Laboratory Results: 07/29/17 05:47 07/29/17 05:47 Impressions: Chest X-Ray 07/26/17 03:53 IMPRESSION: NO ACUTE RADIOGRAPHIC FINDING IN THE CHEST. Assessment & Plan - Diagnosis (1) Acute hypoxemic respiratory failure Is this a current diagnosis for this admission?: Yes (2) COPD with acute exacerbation Is this a current diagnosis for this admission?: Yes (3) Chronic kidney disease, stage III (moderate) Is this a current diagnosis for this admission?: Yes (4) HTN (hypertension) Qualifiers: Hypertension type: essential hypertension Qualified Code(s): I10 - Essential (primary) hypertension Is this a current diagnosis for this admission?: Yes (5) HLD (hyperlipidemia) Qualifiers: Hyperlipidemia type: pure hypercholesterolemia Qualified Code(s): E78.00 - Pure hypercholesterolemia, unspecified; E78.0 - Pure hypercholesterolemia Is this a current diagnosis for this admission?: Yes - Time Time Spent with patient: 25-34 minutes Medications reviewed and adjusted accordingly: Yes Anticipated discharge: Other - LONG-TERM - Inpatient Certification Based on my medical assessment, after consideration of the patient's comorbidities, presenting symptoms, or acuity I expect that the services needed warrant INPATIENT care.: Yes I certify that my determination is in accordance with my understanding of Medicare's requirements for reasonable and necessary INPATIENT services [42 CFR 412.3e].: Yes Medical Necessity: Need Close Monitoring Due to Risk of Patient Decompensation, Need For Continuous Telemetry Monitoring, Need for Nebulizer Therapy and Monitoring of Response, Risk of Complication if Not Cared For in Hospital Post Hospital Care: D/C or Transfer Summary - Plan Summary Plan Summary: D/C IV Solu Medrol. Start on Prednisone 40 mg p.o daily. Continue other current medication management.
[2017-07-31] MEDS ORDERED: PREDNISONE 20 MG TABLET PO ONE (14:00)
[2017-07-31] MEDS: ATORVASTATIN CALCIUM 40 MG TABLET PO SCH (22:03)
[2017-07-31] MEDS: DIVALPROEX SODIUM 250 MG TAB.SR.24H PO SCH (22:03)
[2017-07-31] MEDS: DONEPEZIL HCL 5 MG TABLET PO SCH (22:03)
[2017-07-31] MEDS: ZOLPIDEM TARTRATE 5 MG TABLET PO PRN (22:04)
[2017-08-01] MEDS: ACETAMINOPHEN 325 MG TABLET PO PRN (01:32)
[2017-08-01] MEDS: LANSOPRAZOLE 15 MG TAB.RAP.DR PO SCH (05:37)
[2017-08-01] MEDS: ENOXAPARIN SODIUM INJ 40 MG/0.4 ML DISP.SYRIN SUBCUT SCH (10:13)
[2017-08-01] MEDS: TAMSULOSIN HCL 0.4 MG CAP.SR.24H PO SCH (10:14)
[2017-08-01] MEDS: ASPIRIN 81 MG TABLET, ENT COATED PO SCH (10:14)
[2017-08-01] MEDS: OXYCODONE-ACETAMINOPHEN 5-325 MG TABLET PO PRN ×3 (10:14→21:06)
[2017-08-01] MEDS: OXYCODONE HCL IR 5 MG TABLET PO PRN ×3 (10:15→21:06)
[2017-08-01] MEDS: MEMANTINE HCL 10 MG TABLET PO SCH (10:15)
[2017-08-01] MEDS: PREDNISONE 20 MG TABLET PO SCH (10:16)
[2017-08-01] MEDS: LISINOPRIL 10 MG TABLET PO SCH (10:17)
[2017-08-01] MEDS: TIOTROPIUM BROMIDE DPI 5 CAP/KIT (18 MCG/CAP) IH SCH (12:36)
[2017-08-01] MEDS: FLUTICASONE/SALMETEROL DISKUS 250-50 MCG/DOSE IH SCH ×2 (12:36→21:05)
[2017-08-01] MEDS ORDERED: PSEUDOEPHEDRINE PO PRN (12:42)
[2017-08-01] MEDS ORDERED: CETIRIZINE HCL PO PRN (12:42)
[2017-08-01] MEDS ORDERED: [UNRECOGNIZED DRUG - OTHER] PO PRN (12:42)
[2017-08-01] MEDS ORDERED: LORATADINE/PSEUDOEPHEDRINE SUL 10-240 MG TAB.SR.24H PO PRN (12:43)
[2017-08-01] MEDS: ALBUTEROL SULFATE 0.083% NEB 2.5 MG/3 ML AMPUL NEB PRN ×2 (14:28→18:05)
--- NOTE | 2017-08-01 17:45 | PDOC DISCHARGE SUMMARY ---
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 Is this a current diagnosis for this admission?: Yes - Additional Information Resuscitation Status: Full Code Discharge Diet: As Tolerated Discharge Activity: Activity As Tolerated Home Medications: Acetaminophen [Pain Relief] 650 mg PO Q6HP PRN 07/26/17 Albuterol Sulfate [Ventolin 0.083% Neb 2.5 mg/3 mL Ampul] 1 vial NEB Q6HP PRN Albuterol Sulfate [Ventolin Hfa] 2 puff IH Q4HP PRN 07/26/17 Aspirin [Aspirin EC] 81 mg PO DAILY 07/26/17 Atorvastatin Calcium [Lipitor 40 mg Tablet] 40 mg PO QHS 07/26/17 Calcium Carbonate/Vitamin D3 [Calcium 500 mg Chewable Tablet] 500 mg PO Q4HP PRN 07/26/17 Cetirizine HCl/Pseudoephedrine [Cetirizine-Pse ER 5-120 mg Tab] 1 each PO DAILYP PRN 07/26/17 Divalproex Sodium [Divalproex Sodium ER] 750 mg PO QHS 07/26/17 Docusate Sodium [Colace 100 mg Capsule] 200 mg PO DAILYP PRN 07/26/17 Donepezil HCl [Aricept 5 mg Tablet] 5 mg PO QHS 07/26/17 Esomeprazole Magnesium [Nexium] 20 mg PO DAILY 07/26/17 Fluticasone/Salmeterol [Advair 250-50 Diskus 28 dose] 1 puff IH Q12 07/26/17 Hydroxyzine HCl [Atarax 50 mg Tablet] 50 mg PO Q6HP PRN 07/26/17 Lisinopril [Prinivil 10 mg Tablet] 10 mg PO DAILY 07/26/17 Magnesium Hydroxide [Milk of Magnesia 30 ml Udcup] 30 ml PO DAILYP PRN 07/26/17 Memantine HCl [Namenda] 5 mg PO DAILY 07/26/17 Oxycodone HCl/Acetaminophen [Oxycodon-Acetaminophen 7.5-325] 1 each PO Q4HP PRN 07/26/17 Tamsulosin HCl [Flomax 0.4 mg Cap.sr] 0.4 mg PO DAILY 07/26/17 Tiotropium [place] [Spiriva Handihaler 5 Cap/Kit (18 Mcg/Cap)] 1 cap IH DAILY Zolpidem Tartrate [Ambien 5 mg Tablet] 5 mg PO HSP PRN 07/26/17 Prednisone [Deltasone 20 mg Tablet] 20 mg PO DAILY #30 tablet 08/01/17 History of Present Illness History of Present Illness: PRINCE PALAM is a 72 year old male, he has a history of chronic obstructive pulmonary disease, chronic kidney disease state that he, tobacco abuse, chronic venous hypertension of the lower extremities bilaterally, he came to the emergency room because of shortness of breath, wheezing. In the emergency room he was evaluated, he was found to be in respiratory distress, he was using accessory muscles of respiration to breathe, there was flaring of the nares, he was aggressively treated in the emergency room without resolution of his symptoms. The emergency room physician stated that patient was impending respiratory failure, in the emergency room he also had noninvasive positive pressure ventilation with BiPAP, hospital admission was advised by the ED physician. Patient is well-known to me, he is a resident of assisted living facility at [facility] in [facility]. He continues to smoke cigarettes despite very severe COPD, pulmonary hypertension with chronic venous hypertension of both lower extremities he also have chronic kidney disease stage III he was counseled on multiple times on the need for complete smoking cessation but he continues to smoke anyway. He was seen on the medical floor definitely is doing severe distress, is able to maintain adequate pH despite obvious respiratory distress. Hospital Course Hospital Course: Patient was admitted for the management of acute hypoxemic respiratory failure due to COPD exacerbation, he was treated with IV antibiotic, Solu-Medrol, bronchodilators. He has pulmonary hypertension associated with chronic venous hypertension of both lower extremities. He required compression stockings as well as a Unna boot. Patient was counseled for a long time regarding the danger of smoking. Patient is improved compared to when he was admitted, he is a resident of [facility], he will transfer back to the facility today. Physical Exam Vital Signs: Temp Pulse Resp BP Pulse Ox 98.2 F 84 22 H 143/78 H 94 08/01/17 15:38 08/01/17 15:38 08/01/17 15:38 08/01/17 15:38 08/01/17 15:38 Intake & Output 07/31/17 08/01/17 08/02/17 06:59 06:59 06:59 Intake Total 1201 Output Total 1500 Balance -299 Weight General appearance: PRESENT: no acute distress, well-developed, well-nourished Head exam: PRESENT: atraumatic, normocephalic Eye exam: PRESENT: conjunctiva pink, EOMI, PERRLA Ear exam: PRESENT: normal external ear exam Mouth exam: PRESENT: moist, tongue midline Respiratory exam: PRESENT: clear to auscultation mariia Cardiovascular exam: PRESENT: RRR, +S1, +S2 Vascular exam: PRESENT: normal capillary refill GI/Abdominal exam: PRESENT: normal bowel sounds, soft Rectal exam: PRESENT: deferred Neurological exam: PRESENT: alert, awake, oriented to person, oriented to place , oriented to time, oriented to situation, CN II-XII grossly intact Psychiatric exam: PRESENT: appropriate affect, normal mood Skin exam: PRESENT: dry, intact, warm Results Laboratory Results: 07/29/17 05:47 07/29/17 05:47 Impressions: Chest X-Ray 07/26/17 03:53 IMPRESSION: NO ACUTE RADIOGRAPHIC FINDING IN THE CHEST. Plan Discharge Plan: Unna boots should be applied to the lower extremities
[2017-08-01] MEDS: DIVALPROEX SODIUM 250 MG TAB.SR.24H PO SCH (21:05)
[2017-08-01] MEDS: ATORVASTATIN CALCIUM 40 MG TABLET PO SCH (21:05)
[2017-08-01] MEDS: DONEPEZIL HCL 5 MG TABLET PO SCH (21:06)
[2017-08-01] MEDS: ZOLPIDEM TARTRATE 5 MG TABLET PO PRN (21:06)
[2017-08-02] MEDS: ACETAMINOPHEN 325 MG TABLET PO PRN (03:42)
[2017-08-02] MEDS: ALBUTEROL SULFATE 0.083% NEB 2.5 MG/3 ML AMPUL NEB PRN ×2 (03:47→08:39)
[2017-08-02] MEDS: OXYCODONE HCL IR 5 MG TABLET PO PRN (05:32)
[2017-08-02] MEDS: OXYCODONE-ACETAMINOPHEN 5-325 MG TABLET PO PRN (05:32)
[2017-08-02] MEDS: LANSOPRAZOLE 15 MG TAB.RAP.DR PO SCH (05:32)
[2017-08-02] MEDS: ENOXAPARIN SODIUM INJ 40 MG/0.4 ML DISP.SYRIN SUBCUT SCH (09:30)
[2017-08-02] MEDS: FLUTICASONE/SALMETEROL DISKUS 250-50 MCG/DOSE IH SCH (09:31)
[2017-08-02] MEDS: TIOTROPIUM BROMIDE DPI 5 CAP/KIT (18 MCG/CAP) IH SCH (09:31)
[2017-08-02] MEDS: TAMSULOSIN HCL 0.4 MG CAP.SR.24H PO SCH (09:33)
[2017-08-02] MEDS: PREDNISONE 20 MG TABLET PO SCH (09:33)
[2017-08-02] MEDS: ASPIRIN 81 MG TABLET, ENT COATED PO SCH (09:33)
[2017-08-02] MEDS: MEMANTINE HCL 10 MG TABLET PO SCH (09:34)
[2017-08-02] MEDS: LISINOPRIL 10 MG TABLET PO SCH (09:34)
[2017-08-02 12:26] VITALS: BP 154/79
[2017-08-02] MEDS ORDERED: OXYCODONE HCL IR 5 MG TABLET PO ONE (13:15)
[2017-08-02] MEDS ORDERED: OXYCODONE-ACETAMINOPHEN 5-325 MG TABLET PO ONE (13:15)
== END 2017-08-02 14:00 | DRG 190 ==
LOC: ER 03:47 → UNDOADMOB 06:52 → EH 06:52 → 5 09:23 → EH 09:23 → 5 10:10 → OBSVTOIN 07-27 17:25
PROVIDERS: ADMIT Internal Medicine; ATTEND Internal Medicine
PROC: 5A09457 Assistance with Respiratory Ventilation, 24-96 Consecutive Hours, Continuous Positive Airway Pressure (ICD-10-PCS; principal; 2017-07-26)
PROC: 3E0F73Z Introduction of Anti-inflammatory into Respiratory Tract, Via Natural or Artificial Opening (ICD-10-PCS; 2017-07-26)
DX: J44.1 Chronic obstructive pulmonary disease with (acute) exacerbation (principal); J96.01 Acute respiratory failure with hypoxia; I12.9 Hypertensive chronic kidney disease with stage 1 through stage 4 chronic kidney disease, or unspecified chronic kidney disease; D63.1 Anemia in chronic kidney disease; N18.3 Chronic kidney disease, stage 3 (moderate); E78.5 Hyperlipidemia, unspecified; K21.9 Gastro-esophageal reflux disease without esophagitis; M19.90 Unspecified osteoarthritis, unspecified site; Z66 Do not resuscitate; F32.9 Major depressive disorder, single episode, unspecified; F17.210 Nicotine dependence, cigarettes, uncomplicated; I87.303 Chronic venous hypertension (idiopathic) without complications of bilateral lower extremity; I27.20 Pulmonary hypertension, unspecified; Z79.82 Long term (current) use of aspirin; Z79.899 Other long term (current) drug therapy
CPT/HCPCS: 36415; 36600; 71010; 80053; 81001; 82550; 82553; 82565; 82803; 83880; 84484; 85025; 85027; 85610; 85730; 94640; 94660; 99285; G0378; J1650; J2930; J3475; J3490; J7512

== ENCOUNTER 2017-10-03 22:20 | Inpatient (IN) | payer MEDICARE, MEDICAID ==
[2017-10-03] MEDS ORDERED: IPRATROPIUM/ALBUTEROL 0.5-2.5 MG/3 ML AMPUL NEB ONE (22:30)
--- NOTE | 2017-10-03 22:54 | ER Document Report ---
ED Respiratory Problem - General Mode of Arrival: Medic Information source: Patient TRAVEL OUTSIDE OF THE [place] IN LAST 30 DAYS: No - HPI Patient complains to provider of: Chest pain, Cough, Short of breath Context: Hx COPD Associated symptoms: Other - see notes above <EWA WATSON - Last Filed: 10/04/17 01:40> <RAYAASHANTI RUEDA JES - Last Filed: 10/04/17 02:21> - General Chief Complaint: Shortness Of Breath Stated Complaint: SHORTNESS OF BREATH Time Seen by Provider: 10/03/17 22:24 Notes: 72 year old male with history of COPD and pneumonia presents to the ED via EMS complaining of shortness of breath and left sided chest pressure that started 2 days ago. Patient additionally complains of increasingly worsening cough, but denies any fever. EMS reports patient was saturating at 94% after a nebulizer treatment the patient took. EMS gave the patient albuterol. PCP: Dr. Cronin (EWA WATSON) - Related Data Allergies/Adverse Reactions: No Known Allergies Allergy (Verified 06/05/17 10:03) Past Medical History - General Information source: Patient - Social History Smoking Status: Unknown if Ever Smoked Family History: Reviewed & Not Pertinent - Past Medical History Cardiac Medical History: Reports: Hx Hypercholesterolemia, Hx Hypertension Pulmonary Medical History: Reports: Hx Asthma, Hx COPD, Hx Pneumonia Denies: Hx Bronchitis, Hx Intubation, Hx Respiratory Failure, Hx Sleep Apnea , Hx Tuberculosis GI Medical History: Reports: Hx Gastroesophageal Reflux Disease Musculoskeltal Medical History: Reports Hx Arthritis Psychiatric Medical History: Reports: Hx Depression <EWA WATSON - Last Filed: 10/04/17 01:40> Review of Systems - Review of Systems Constitutional: No symptoms reported. denies: Fever EENT: No symptoms reported Cardiovascular: See HPI, Chest pain Respiratory: See HPI, Cough, Short of breath Gastrointestinal: No symptoms reported Genitourinary: No symptoms reported Male Genitourinary: No symptoms reported Musculoskeletal: No symptoms reported Skin: No symptoms reported Hematologic/Lymphatic: No symptoms reported Neurological/Psychological: No symptoms reported -: Yes All other systems reviewed and negative <EWA WATSON - Last Filed: 10/04/17 01:40> Physical Exam - General General appearance: Alert, Other - appears uncomfortable In distress: Mild - HEENT Head: Normocephalic, Atraumatic Eyes: Normal Extraocular movements intact: Yes Pupils: PERRL Mucous membranes: Dry - Respiratory Respiratory status: Tachypnea - mild Breath sounds: Wheezing - coarse wheezing throughout. No: Normal - Cardiovascular Rhythm: Regular Heart sounds: Normal auscultation - Abdominal Inspection: Normal - Back Back: Normal - Extremities General upper extremity: Normal inspection, Normal color General lower extremity: Normal inspection, Normal color - Neurological Neuro grossly intact: Yes Cognition: Normal Orientation: AAOx4 [place] Coma Scale Eye Opening: Spontaneous [place] Coma Scale Verbal: Oriented [place] Coma Scale Motor: Obeys Commands Martina Coma Scale Total: 15 Speech: Normal - Psychological Associated symptoms: Normal affect, Normal mood - Skin Skin Temperature: Warm Skin Moisture: Dry Skin Color: Normal <EWA WATSON - Last Filed: 10/04/17 01:40> - Vital signs Vitals: Pulse Ox 94 10/03/17 22:41 Course - Laboratory Result Diagrams: 10/03/17 22:54 10/03/17 22:54 - Consults Dr. Cronin Time consulted: 01:35 <EWA WATSON - Last Filed: 10/04/17 01:40> - Laboratory Result Diagrams: 10/03/17 22:54 10/03/17 22:54 <ASHANTI SORIA - Last Filed: 10/04/17 02:21> - Re-evaluation Re-evalutation: 10/04/17 01:20 Patient is a 72-year-old male who comes in with difficulty breathing and wheezing. Patient is also had some left-sided chest pain for the last 2 days. Patient was given nebulizer treatments and Solu-Medrol by EMS. Received nebulizer treatment and magnesium here. Wheezing has improved although the patient is hypoxic when he is off oxygen. He does not have oxygen his facility. No evidence for pneumonia and the patient has remained afebrile. Patient also with some acute renal insufficiency, acute on chronic. Patient will be admitted for COPD exacerbation with hypoxia and acute renal insufficiency. Patient is DNR/DNI. Will be admitted to telemetry. Stable at the time of admission. (ASHANTI SORIA) - Vital Signs Vital signs: Temp Pulse Resp BP Pulse Ox 98.4 F 23 H 131/83 H 96 10/04/17 01:03 10/04/17 01:01 10/04/17 01:01 10/04/17 01:01 - Laboratory Laboratory results interpreted by me: 10/03/17 10/03/17 10/04/17 22:54 22:54 00:02 RBC 4.32 L Hgb 12.2 L Hct 36.4 L RDW 15.3 H Monocytes % 17.6 H Absolute Monocytes 1.8 H Carbon Dioxide 21 L BUN 24 H Creatinine 1.95 H Est GFR ( Amer) 41 L Est GFR (Non-Af Amer) 34 L Glucose 114 H POC Glucose 136 H ALT 19 L - Consults Dr. Cronin Reason for consultation: 10/04/17 01:35 Patient was discussed with Dr. Cronin and agrees to admit the patient in his care. (EWA WATSON) Critical Care Note - Critical Care Note Total time excluding time spent on procedures (mins): 35 - Evaluation and management of respiratory distress, management of COPD exacerbation, multiple re -evaluations, coordination of admission, counseling of patient <ASHANTI SORIA - Last Filed: 10/04/17 02:21> Discharge <EWA WATSON - Last Filed: 10/04/17 01:40> - Discharge Admitting Provider: Roseanne Unit Admitted: Telemetry <ASHANTI SORIA - Last Filed: 10/04/17 02:21> - Discharge Clinical Impression: COPD with acute exacerbation, Hypoxia, Acute on chronic renal insufficiency Condition: Stable Disposition: ADMITTED INPATIENT Scribe Attestation: 10/04/17 02:21 I personally performed the services described in the documentation, reviewed and edited the documentation which was dictated to the scribe in my presence, and it accurately records my words and actions. (ASHANTI SORIA) Scribe Documentation - Scribe Written by Luther:: Luther Godfrey, 10/03/2017 [id number] acting as scribe for :: Magui <EWA WATSON - Last Filed: 10/04/17 01:40>
[2017-10-03] MEDS: MAGNESIUM SULFATE/D5W 1 GM/100 ML RTUPB IV SCH (23:05)
[2017-10-03 23:15] LABS: VENOUS BLOOD BASE EXCESS -0.2 mmol/L; VENOUS BLOOD HCO3 25.8 mmol/L (20-32); VENOUS BLOOD PCO2 45.9 mmHg (35-63); VENOUS BLOOD PH 7.37 (7.30-7.42)
--- NOTE | 2017-10-03 23:20 | RADIOLOGY REPORT (SQ) ---
EXAM DESCRIPTION: CHEST SINGLE VIEW COMPLETED DATE/TIME: 10/03/2017 10:49 pm REASON FOR STUDY: Shortness of breath. COMPARISON: Chest x-ray 07/26/2017. EXAM PARAMETERS: NUMBER OF VIEWS: One view. TECHNIQUE: Single frontal radiographic view of the chest acquired. RADIATION DOSE: NA LIMITATIONS: None. FINDINGS: LUNGS AND PLEURA: No consolidation, pneumothorax or pleural effusion. MEDIASTINUM AND HILAR STRUCTURES: No masses. Contour normal. HEART AND VASCULAR STRUCTURES: Heart normal in size. No overt vascular congestion. BONES: No acute findings. HARDWARE: None in the chest. IMPRESSION: No acute radiographic finding in the chest. TECHNICAL DOCUMENTATION: JOB ID: [id number] [employer]- All Rights Reserved
[2017-10-03 23:22] LABS: ABSOLUTE BASOPHILS # (AUTO) 0.1 10^3/uL (0.0-0.2); ABSOLUTE EOSINOPHILS # (AUTO) 0.3 10^3/uL (0.0-0.6); ABSOLUTE LYMPHOCYTES (AUTO) 3.2 10^3/uL (0.5-4.7); ABSOLUTE MONOCYTES (AUTO) 1.8 10^3/uL (0.1-1.4); ABSOLUTE NEUT (AUTO) 4.9 10^3/uL (1.7-8.2); BASOPHILS % (AUTO) 0.6 % (0-2); EOSINOPHILS % (AUTO) 2.6 % (0-6); HEMATOCRIT 36.4 % (37.9-51.0); HEMOGLOBIN 12.2 g/dL (13.5-17.0); LYMPHOCYTES % (AUTO) 31.2 % (13-45); MEAN CORPUSCULAR HEMOGLOBIN 28.2 pg (27.0-33.4); MEAN CORPUSCULAR HGB CONC 33.5 g/dL (32.0-36.0); MEAN CORPUSCULAR VOLUME 84 fl (80-97); MONOCYTES % (AUTO) 17.6 % (3-13); PLATELET COUNT 244 10^3/uL (150-450); RED BLOOD COUNT 4.32 10^6/uL (4.35-5.55); RED CELL DISTRIBUTION WIDTH 15.3 % (11.5-14.0); TOTAL CELLS COUNTED % (AUTO) 100 %; WHITE BLOOD COUNT 10.2 10^3/uL (4.0-10.5)
[2017-10-03 23:30] LABS: INTERNATIONAL RATION (INR) 0.95; PROTHROMBIN TIME 13.4 SEC (11.4-15.4)
[2017-10-03 23:37] LABS: ALANINE AMINOTRANSFERASE 19 U/L (21-72); ALKALINE PHOSPHATASE 64 U/L (38-126); ANION GAP 14 (5-19); ASPARTATE AMINO TRANSFERASE 21 U/L (17-59); BILIRUBIN,DIRECT 0.2 mg/dL (0.0-0.4); BILIRUBIN,TOTAL 0.3 mg/dL (0.2-1.3); BLOOD UREA NITROGEN 24 mg/dL (7-20); CALCIUM 9.7 mg/dL (8.4-10.2); CARBON DIOXIDE 21 mmol/L (22-30); CHLORIDE 105 mmol/L (98-107); GLUCOSE 114 mg/dL (75-110); POTASSIUM 4.2 mmol/L (3.6-5.0); SODIUM 139.7 mmol/L (137-145); TOTAL PROTEIN 6.9 g/dL (6.3-8.2)
[2017-10-04] MEDS: MAGNESIUM SULFATE/D5W 1 GM/100 ML RTUPB IV SCH (00:47)
[2017-10-04] MEDS ORDERED: NORMAL SALINE 1000 ML 1,000 ML IV ONE (01:00)
[2017-10-04] MEDS ORDERED: DOXYCYCLINE HYCLATE INJ 100 MG VIAL IV ONE (02:45)
[2017-10-04 03:13] LABS: APPEARANCE,URINE CLEAR; BILIRUBIN,URINE NEGATIVE (NEGATIVE); COLOR,URINE YELLOW; GLUCOSE, URINE NEGATIVE (NEGATIVE); KETONES,URINE NEGATIVE (NEGATIVE); LEUKOCYTE ESTERASE,URINE NEGATIVE (NEGATIVE); NITRITE,URINE NEGATIVE (NEGATIVE); PROTEIN,URINE 100 mg/dL (NEGATIVE); URINE SPECIFIC GRAVITY 1.017; UROBILINOGEN,URINE NEGATIVE mg/dL (<2.0)
[2017-10-04] MEDS ORDERED: ACETAMINOPHEN 325 MG TABLET PO ONE (03:15)
[2017-10-04] MEDS ORDERED: IPRATROPIUM/ALBUTEROL 0.5-2.5 MG/3 ML AMPUL NEB ONE (03:15)
[2017-10-04 06:06] LABS: CREATINE KINASE MB 1.62 ng/mL (<4.55); TROPONIN I 0.016 ng/mL
--- NOTE | 2017-10-04 06:41 | EKG REPORT ---
SEVERITY:- ABNORMAL ECG - SINUS TACHYCARDIA MULTIPLE ATRIAL PREMATURE COMPLEXES : Confirmed by: Jerome Lyn MD 04-Oct-2017 06:40:12
[2017-10-04] MEDS: IPRATROPIUM/ALBUTEROL 0.5-2.5 MG/3 ML AMPUL NEB PRN ×3 (10:22→20:24)
[2017-10-04] MEDS: ACETAMINOPHEN 325 MG TABLET PO PRN ×3 (11:57→22:35)
[2017-10-04 13:40] LABS: CREATINE KINASE MB 1.63 ng/mL (<4.55)
[2017-10-04 13:45] LABS: TROPONIN I < 0.012 ng/mL
[2017-10-04] MEDS ORDERED: (PENDING PHARMACY ID) (Oxycodone Hcl/Acetaminophen [Endocet 7.5-325 Mg Tablet] 1 TAB) PO PRN (14:30)
[2017-10-04] MEDS ORDERED: CETIRIZINE HCL PO PRN (14:30)
[2017-10-04] MEDS ORDERED: ACETAMINOPHEN 325 MG TABLET PO PRN (14:30)
[2017-10-04] MEDS ORDERED: ALBUTEROL SULFATE HFA (90 MCG/PUFF) 8 GM MDI (1 MDI/ER DISP) IH PRN (14:30)
[2017-10-04] MEDS ORDERED: DOCUSATE SODIUM 100 MG CAPSULE PO PRN (14:30)
[2017-10-04] MEDS ORDERED: PSEUDOEPHEDRINE PO PRN (14:30)
[2017-10-04] MEDS ORDERED: MAGNESIUM HYDROXIDE SUSP 30 ML UDCUP PO PRN (14:30)
[2017-10-04] MEDS ORDERED: HYDROXYZINE HCL 10 MG TABLET PO PRN (14:58)
[2017-10-04] MEDS ORDERED: ALBUTEROL SULFATE HFA (90 MCG/PUFF) 200 PUFF/8.5 GM MDI IH PRN (15:16)
[2017-10-04] MEDS: CALCIUM CARBONATE 500 MG TAB.CHEW PO PRN ×2 (18:19→22:39)
[2017-10-04] MEDS: OXYCODONE-ACETAMINOPHEN 5-325 MG TABLET PO PRN (19:25)
[2017-10-04] MEDS: OXYCODONE HCL IR 5 MG TABLET PO PRN (19:26)
--- NOTE | 2017-10-04 21:04 | PDOC H&P ---
History of Present Illness Admission Date/PCP: 10/04/17 17:49 History of Present Illness: PRINCE PALMA is a 72 year old male,He came to the emergency room for evaluation of chest pain and shortness of breath, patient is well-known to me he has history of chronic obstructive pulmonary disease, still actively smoking , history of chronic kidney disease stage III, chronic venous hypertension of lower extremities partly due to pulmonary hypertension, in the emergency room he was evaluated he was found to be wheezing he was given nebulizer treatments and Solu-Medrol by EMS it was felt by the ED physician that patient needed to be admitted for COPD exacerbation with hypoxia and acute kidney injury. The last time he was admitted and transferred back to assisted living facility the serum creatinine was 1.6 that was on 08/02/2017. Patient continues to smoke despite very severe COPD, he is a DNR status Past Medical History Cardiac Medical History: Reports: Hyperlipidema, Hypertension Pulmonary Medical History: Reports: Asthma, Chronic Obstructive Pulmonary Disease (COPD), Pneumonia Renal/ Medical History: Reports: Other - Chronic kidney disease stage III GI Medical History: Reports: Gastroesophageal Reflux Disease Musculoskeltal Medical History: Reports: Arthritis Psychiatric Medical History: Reports: Depression Social History Smoking Status: Current Every Day Smoker Frequency of Alcohol Use: None Hx Recreational Drug Use: No Drugs: None Hx Prescription Drug Abuse: No - Advance Directive Resuscitation Status: Full Code Family History Family History: Reviewed & Not Pertinent Parental Family History Reviewed: Yes Children Family History Reviewed: Yes Sibling(s) Family History Reviewed.: Yes Medication/Allergy Home Medications: Acetaminophen [Tylenol 325 mg Tablet] 650 mg PO Q6HP PRN 10/04/17 Albuterol Sulfate [Ventolin HFA MDI 18 GM] 2 puff IH Q4HP PRN 10/04/17 Aspirin [Ecotrin 81 mg EC Tablet] 81 mg PO DAILY 10/04/17 Atorvastatin Calcium [Lipitor 40 mg Tablet] 40 mg PO QHS 10/04/17 Calcium Carbonate [Tums Chewable 500 mg Tab.chew] 50 mg PO Q4HP PRN 10/04/17 Cetirizine HCl/Pseudoephedrine [Zyrtec-D 12 Hour Tablet] 1 tab PO DAILYP PRN 06/13 Divalproex Sodium [Divalproex Sodium ER] 750 mg PO QHS 10/04/17 Docusate Sodium [Colace 100 mg Capsule] 200 mg PO DAILYP PRN 10/04/17 Donepezil HCl [Aricept 5 mg Tablet] 5 mg PO QHS 10/04/17 Esomeprazole Magnesium [Nexium] 20 mg PO DAILY 10/04/17 Fluticasone/Salmeterol [Advair 250-50 Diskus 14 Dose/Diskus] 1 puff IH Q12 10/04 Hydroxyzine HCl [Atarax 50 mg Tablet] 50 mg PO Q6HP PRN 10/04/17 Lisinopril [Prinivil 10 mg Tablet] 10 mg PO DAILY 10/04/17 Magnesium Hydroxide [Milk of Magnesia 30 ml Udcup] 30 ml PO DAILYP PRN 10/04/17 Memantine HCl [Namenda] 5 mg PO DAILY 10/04/17 Oxycodone HCl/Acetaminophen [Endocet 7.5-325 mg Tablet] 1 tab PO Q4HP PRN Tamsulosin HCl [Flomax 0.4 mg Cap.sr] 0.4 mg PO DAILY 10/04/17 Tiotropium [place] [Spiriva Handihaler 5 Cap/Kit (18 Mcg/Cap)] 1 puff IH DAILY 10/04/17 Zolpidem Tartrate [Ambien 5 mg Tablet] 5 mg PO HSP PRN 10/04/17 Allergies/Adverse Reactions: No Known Allergies Allergy (Verified 06/05/17 10:03) Review of Systems Constitutional: ABSENT: chills, fever(s), headache(s), weight gain, weight loss Eyes: ABSENT: visual disturbances Ears: ABSENT: hearing changes Cardiovascular: PRESENT: chest pain, dyspnea on exertion. ABSENT: edema, orthropnea, palpitations Respiratory: PRESENT: dyspnea. ABSENT: cough, hemoptysis Gastrointestinal: ABSENT: abdominal pain, constipation, diarrhea, hematemesis, hematochezia, nausea, vomiting Genitourinary: ABSENT: dysuria, hematuria Musculoskeletal: ABSENT: joint swelling Integumentary: ABSENT: rash, wounds Neurological: ABSENT: abnormal gait, abnormal speech, confusion, dizziness, focal weakness, syncope Psychiatric: ABSENT: anxiety, depression, homidical ideation, suicidal ideation Endocrine: ABSENT: cold intolerance, heat intolerance, menstrual abnormalities, polydipsia, polyuria Hematologic/Lymphatic: ABSENT: easy bleeding, easy bruising, lymphadenopathy Physical Exam Vital Signs: Temp Pulse Resp BP Pulse Ox 97.8 F 83 20 157/77 H 95 10/04/17 19:28 10/04/17 19:28 10/04/17 19:28 10/04/17 19:28 10/04/17 19:28 Intake & Output 10/03/17 10/04/17 10/05/17 06:59 06:59 06:59 Intake Total 0 Balance 0 General appearance: PRESENT: well-developed, well-nourished Head exam: PRESENT: atraumatic, normocephalic Eye exam: PRESENT: conjunctiva pink, EOMI, PERRLA Ear exam: PRESENT: normal external ear exam Mouth exam: PRESENT: moist, tongue midline Neck exam: PRESENT: full ROM Respiratory exam: PRESENT: wheezes Cardiovascular exam: PRESENT: RRR, +S1, +S2 Pulses: PRESENT: normal dorsalis pedis pul, +2 pedal pulses bilateral Vascular exam: PRESENT: normal capillary refill GI/Abdominal exam: PRESENT: normal bowel sounds, soft Rectal exam: PRESENT: deferred Extremities exam: PRESENT: other - There is swelling of both lower extremities Neurological exam: PRESENT: alert, awake, oriented to person, oriented to place , oriented to time, oriented to situation, CN II-XII grossly intact Psychiatric exam: PRESENT: appropriate affect, normal mood Skin exam: PRESENT: erythema - Chronic erythema of the skin of the lower extremities Results Impressions: Chest X-Ray 10/03/17 22:25 IMPRESSION: No acute radiographic finding in the chest. Assessment & Plan - Diagnosis (1) Chronic obstructive pulmonary disease Qualifiers: COPD type: COPD with acute exacerbation Qualified Code(s): J44.1 - Chronic obstructive pulmonary disease with (acute) exacerbation Is this a current diagnosis for this admission?: Yes Plan: Patient is admitted to the hospital he will continue inhaled steroid bronchodilators every 4 hours (2) Chest pain Is this a current diagnosis for this admission?: Yes (4) Chronic kidney disease, stage 3 Is this a current diagnosis for this admission?: Yes (5) Chronic diastolic (congestive) heart failure Is this a current diagnosis for this admission?: Yes (6) 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
[2017-10-04 21:49] LABS: CREATINE KINASE MB 1.66 ng/mL (<4.55)
[2017-10-04 21:57] LABS: TROPONIN I < 0.012 ng/mL
[2017-10-04] MEDS: DIVALPROEX SODIUM 250 MG TAB.SR.24H PO SCH (22:33)
[2017-10-04] MEDS: ATORVASTATIN CALCIUM 40 MG TABLET PO SCH (22:33)
[2017-10-04] MEDS: DONEPEZIL HCL 5 MG TABLET PO SCH (22:33)
[2017-10-04] MEDS: FLUTICASONE/SALMETEROL DISKUS 250-50 MCG/DOSE IH SCH (22:33)
[2017-10-04] MEDS: ZOLPIDEM TARTRATE 5 MG TABLET PO PRN (22:34)
[2017-10-04] MEDS ORDERED: LEVOFLOXACIN 500 MG TABLET PO ONE (23:30)
[2017-10-05] MEDS: OXYCODONE HCL IR 5 MG TABLET PO PRN ×6 (00:53→23:07)
[2017-10-05] MEDS: OXYCODONE-ACETAMINOPHEN 5-325 MG TABLET PO PRN ×6 (00:53→23:07)
[2017-10-05] MEDS: ACETAMINOPHEN 325 MG TABLET PO PRN ×2 (03:39→12:21)
[2017-10-05] MEDS: IPRATROPIUM/ALBUTEROL 0.5-2.5 MG/3 ML AMPUL NEB PRN ×3 (03:47→21:58)
[2017-10-05] MEDS: LANSOPRAZOLE 15 MG TAB.RAP.DR PO SCH (05:30)
[2017-10-05] MEDS: LORATADINE/PSEUDOEPHEDRINE SUL 10-240 MG TAB.SR.24H PO PRN ×2 (08:15→08:17)
[2017-10-05] MEDS: CALCIUM CARBONATE 500 MG TAB.CHEW PO PRN ×2 (09:17→23:07)
[2017-10-05] MEDS: MEMANTINE HCL 10 MG TABLET PO SCH (09:20)
[2017-10-05] MEDS: ASPIRIN 81 MG TABLET, ENT COATED PO SCH (09:21)
[2017-10-05] MEDS: LISINOPRIL 10 MG TABLET PO SCH (09:22)
[2017-10-05] MEDS: TAMSULOSIN HCL 0.4 MG CAP.SR.24H PO SCH (09:22)
[2017-10-05] MEDS: FLUTICASONE/SALMETEROL DISKUS 250-50 MCG/DOSE IH SCH ×2 (09:24→23:08)
[2017-10-05] MEDS: TIOTROPIUM BROMIDE DPI 5 CAP/KIT (18 MCG/CAP) IH SCH (09:28)
[2017-10-05] MEDS ORDERED: (PENDING PHARMACY ID) (Esomeprazole Magnesium [Nexium] 20 MG) PO SCH (10:00)
[2017-10-05] MEDS ORDERED: (PENDING PHARMACY ID) (Memantine Hcl [Namenda] 5 MG) PO SCH (10:00)
--- NOTE | 2017-10-05 20:39 | RADIOLOGY REPORT (SQ) ---
EXAM DESCRIPTION: MRI HEAD WITHOUT COMPLETED DATE/TIME: 10/05/2017 8:26 pm REASON FOR STUDY: headache COMPARISON: None. TECHNIQUE: Multiplanar imaging includes non-contrasted T1, T2, FLAIR, and diffusion with ADC map seq uences. Images stored on PACS. LIMITATIONS: None. FINDINGS: ANATOMY: No anomalies. Normal vascular flow voids. Pituitary fossa normal. CSF SPACES: Normal in size and contour. No hemorrhage. CEREBRUM: Sulci and gyri normal in size and contour. Normal white matter signal on FLAIR imaging. No evidence of hemorrhage, mass, or extraaxial fluid collection. POSTERIOR FOSSA: No signal alteration. No hemorrhage. No edema, masses or mass effect. Internal jc ry canals and cerebellopontine angles normal. Fluid signal in the mastoid air cells. DIFFUSION IMAGING: Negative for acute or sub-acute infarction. ORBITS: No masses. Globes normal. PARANASAL SINUSES: Diffuse mucous membrane thickening throughout the paranasal sinuses. OTHER: No other significant finding. IMPRESSION: NORMAL MRI OF THE BRAIN WITHOUT INTRAVENOUS GADOLINIUM CONTRAST. DIFFUSE CHRONIC SINUS DISEASE. FLUID IN THE MASTOID AIR CELLS. EVIDENCE OF ACUTE STROKE: NO. TECHNICAL DOCUMENTATION: JOB ID: [id number] [employer]- All Rights Reserved
--- NOTE | 2017-10-05 20:53 | RADIOLOGY REPORT (SQ) ---
EXAM DESCRIPTION: KNEE RIGHT 2 VIEWS COMPLETED DATE/TIME: 10/05/2017 8:39 pm REASON FOR STUDY: knee pain COMPARISON: None. NUMBER OF VIEWS: Two views. TECHNIQUE: AP and lateral radiographic images acquired of the right knee. LIMITATIONS: None. FINDINGS: MINERALIZATION: Normal. BONES: No acute fracture or dislocation. No worrisome bone lesions. Joint space narrowing with osteop hytes. JOINT: No effusion. No chondrocalcinosis. OTHER: No other significant finding. IMPRESSION: DEGENERATIVE CHANGES. NO ACUTE FINDINGS. TECHNICAL DOCUMENTATION: JOB ID: [id number] [employer]- All Rights Reserved
--- NOTE | 2017-10-05 21:09 | PDOC PROGRESS REPORT ---
Subjective Progress Note for:: 10/12/17 Subjective:: Patient was seen by the bedside, he complain of headache, knee pain especially the right knee, MRI head was done, it showed chronic sinusitis, no acute intraparenchymal disease of the brain Reason For Visit: ACUTE COPD EXACERBATION Physical Exam Vital Signs: Temp Pulse Resp BP Pulse Ox 97.7 F 100 20 125/79 98 10/05/17 15:38 10/05/17 15:38 10/05/17 15:38 10/05/17 15:38 10/05/17 15:38 Intake & Output 10/04/17 10/05/17 10/06/17 06:59 06:59 06:59 Intake Total 740 760 Output Total 1300 1100 Balance -560 -340 Weight 100.6 kg General appearance: PRESENT: well-developed Head exam: PRESENT: atraumatic, normocephalic Eye exam: PRESENT: conjunctiva pink, EOMI, PERRLA. ABSENT: scleral icterus Ear exam: PRESENT: normal external ear exam Mouth exam: PRESENT: moist, tongue midline Neck exam: PRESENT: full ROM Respiratory exam: PRESENT: wheezes Cardiovascular exam: PRESENT: RRR, +S1, +S2 Vascular exam: PRESENT: normal capillary refill GI/Abdominal exam: PRESENT: normal bowel sounds, soft Rectal exam: PRESENT: deferred Neurological exam: PRESENT: alert. ABSENT: motor sensory deficit Psychiatric exam: PRESENT: appropriate affect, normal mood Skin exam: PRESENT: dry, intact, warm Results Laboratory Results: 10/04/17 10/04/17 21:00 21:00 Creatine Kinase 114 CK-MB (CK-2) 1.66 Troponin I < 0.012 Impressions: Chest X-Ray 10/03/17 22:25 IMPRESSION: No acute radiographic finding in the chest. Head MRI 10/05/17 00:00 IMPRESSION: NORMAL MRI OF THE BRAIN WITHOUT INTRAVENOUS GADOLINIUM CONTRAST. DIFFUSE CHRONIC SINUS DISEASE. FLUID IN THE MASTOID AIR CELLS. EVIDENCE OF ACUTE STROKE: NO. Knee X-Ray 10/05/17 00:00 IMPRESSION: DEGENERATIVE CHANGES. NO ACUTE FINDINGS. Assessment & Plan - Diagnosis (1) Chronic obstructive pulmonary disease Qualifiers: COPD type: COPD with acute exacerbation Qualified Code(s): J44.1 - Chronic obstructive pulmonary disease with (acute) exacerbation Is this a current diagnosis for this admission?: Yes (2) Chest pain Is this a current diagnosis for this admission?: Yes (3) COPD with acute exacerbation Is this a current diagnosis for this admission?: Yes (4) Chronic kidney disease, stage 3 Is this a current diagnosis for this admission?: Yes (5) Chronic diastolic (congestive) heart failure Is this a current diagnosis for this admission?: Yes (6) 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
[2017-10-05] MEDS: DONEPEZIL HCL 5 MG TABLET PO SCH (23:07)
[2017-10-05] MEDS: ATORVASTATIN CALCIUM 40 MG TABLET PO SCH (23:07)
[2017-10-05] MEDS: ZOLPIDEM TARTRATE 5 MG TABLET PO PRN (23:07)
[2017-10-05] MEDS: LEVOFLOXACIN 500 MG TABLET PO SCH (23:07)
[2017-10-05] MEDS: DIVALPROEX SODIUM 250 MG TAB.SR.24H PO SCH (23:10)
--- NOTE | 2017-10-06 00:20 | PDOC CONSULTATION ---
Consultation Consult Date: 10/06/17 Consult reason:: mass on the back of rt side of neck History of Present Illness Admission Date/PCP: 10/04/17 17:49 Patient complains of: slightly painful mass on the right posterior neck History of Present Illness: Noted a gradually enlarging mass on the right posterior neck which patient claims having some mild discomfort. Past Medical History Cardiac Medical History: Reports: Hyperlipidema, Hypertension Pulmonary Medical History: Reports: Asthma, Chronic Obstructive Pulmonary Disease (COPD), Pneumonia Denies: Bronchitis, Intubation, Respiratory Failure, Sleep Apnea, Tuberculosis Renal/ Medical History: Reports: Other - Chronic kidney disease stage III GI Medical History: Reports: Gastroesophageal Reflux Disease Musculoskeltal Medical History: Reports: Arthritis Psychiatric Medical History: Reports: Depression Social History Smoking Status: Current Every Day Smoker Frequency of Alcohol Use: None Hx Recreational Drug Use: No Drugs: None Hx Prescription Drug Abuse: No - Advance Directive Resuscitation Status: Full Code Family History Family History: Reviewed & Not Pertinent Parental Family History Reviewed: Yes Children Family History Reviewed: No Sibling(s) Family History Reviewed.: No Medication/Allergy Home Medications: Acetaminophen [Tylenol 325 mg Tablet] 650 mg PO Q6HP PRN 10/04/17 Albuterol Sulfate [Ventolin HFA MDI 18 GM] 2 puff IH Q4HP PRN 10/04/17 Aspirin [Ecotrin 81 mg EC Tablet] 81 mg PO DAILY 10/04/17 Atorvastatin Calcium [Lipitor 40 mg Tablet] 40 mg PO QHS 10/04/17 Calcium Carbonate [Tums Chewable 500 mg Tab.chew] 50 mg PO Q4HP PRN 10/04/17 Cetirizine HCl/Pseudoephedrine [Zyrtec-D 12 Hour Tablet] 1 tab PO DAILYP PRN 06/13 Divalproex Sodium [Divalproex Sodium ER] 750 mg PO QHS 10/04/17 Docusate Sodium [Colace 100 mg Capsule] 200 mg PO DAILYP PRN 10/04/17 Donepezil HCl [Aricept 5 mg Tablet] 5 mg PO QHS 10/04/17 Esomeprazole Magnesium [Nexium] 20 mg PO DAILY 10/04/17 Fluticasone/Salmeterol [Advair 250-50 Diskus 14 Dose/Diskus] 1 puff IH Q12 10/04 Hydroxyzine HCl [Atarax 50 mg Tablet] 50 mg PO Q6HP PRN 10/04/17 Lisinopril [Prinivil 10 mg Tablet] 10 mg PO DAILY 10/04/17 Magnesium Hydroxide [Milk of Magnesia 30 ml Udcup] 30 ml PO DAILYP PRN 10/04/17 Memantine HCl [Namenda] 5 mg PO DAILY 10/04/17 Oxycodone HCl/Acetaminophen [Endocet 7.5-325 mg Tablet] 1 tab PO Q4HP PRN Tamsulosin HCl [Flomax 0.4 mg Cap.sr] 0.4 mg PO DAILY 10/04/17 Tiotropium [place] [Spiriva Handihaler 5 Cap/Kit (18 Mcg/Cap)] 1 puff IH DAILY 10/04/17 Zolpidem Tartrate [Ambien 5 mg Tablet] 5 mg PO HSP PRN 10/04/17 Allergies/Adverse Reactions: No Known Allergies Allergy (Verified 06/05/17 10:03) Review of Systems Eyes: PRESENT: other - No visual or hearing changes Nose, Mouth, and Throat: PRESENT: headache(s) Cardiovascular: PRESENT: other - no chest pains Respiratory: PRESENT: dyspnea Gastrointestinal: PRESENT: other - no abdominal pains Genitourinary: PRESENT: other - no dysuria Musculoskeletal: PRESENT: other - mass right posterior neck with mild discomfort Integumentary: PRESENT: other - mass on the posterior neck right side Physical Exam Vital Signs: Temp Pulse Resp BP Pulse Ox 97.3 F 103 H 20 145/76 H 94 10/05/17 20:00 10/05/17 21:58 10/05/17 21:58 10/05/17 20:00 10/05/17 21:58 Intake & Output 10/04/17 10/05/17 10/06/17 06:59 06:59 06:59 Intake Total 740 760 Output Total 1300 1100 Balance -560 -340 Weight 100.6 kg General appearance: PRESENT: cooperative Head exam: PRESENT: atraumatic Mouth exam: PRESENT: moist, tongue midline Neck exam: PRESENT: full ROM, other - Has a 3x5 cm right posterior base of neck , soft, movable and nontender. Respiratory exam: PRESENT: decreased breath sounds Cardiovascular exam: PRESENT: RRR Pulses: PRESENT: normal radial pulses Vascular exam: PRESENT: normal capillary refill GI/Abdominal exam: PRESENT: soft Rectal exam: PRESENT: deferred Neurological exam: PRESENT: alert, oriented to person, oriented to place, oriented to time, oriented to situation Psychiatric exam: PRESENT: appropriate affect Skin exam: PRESENT: normal color, warm Results Laboratory Results: 10/04/17 10/04/17 21:00 21:00 Creatine Kinase 114 CK-MB (CK-2) 1.66 Troponin I < 0.012 Impressions: Chest X-Ray 10/03/17 22:25 IMPRESSION: No acute radiographic finding in the chest. Head MRI 10/05/17 00:00 IMPRESSION: NORMAL MRI OF THE BRAIN WITHOUT INTRAVENOUS GADOLINIUM CONTRAST. DIFFUSE CHRONIC SINUS DISEASE. FLUID IN THE MASTOID AIR CELLS. EVIDENCE OF ACUTE STROKE: NO. Knee X-Ray 10/05/17 00:00 IMPRESSION: DEGENERATIVE CHANGES. NO ACUTE FINDINGS. Assessment & Plan - Diagnosis (1) Lipoma of neck Is this a current diagnosis for this admission?: Yes - Time Time Spent: 30 to 50 Minutes - Plan Summary Plan Summary: If it really bothers him wth pains then this lipoma could be excised on an elective basis under local anesthesia. Otherwise,if fairly comfortable with it then no reason to excise it.
[2017-10-06] MEDS: IPRATROPIUM/ALBUTEROL 0.5-2.5 MG/3 ML AMPUL NEB PRN ×3 (05:18→17:40)
[2017-10-06] MEDS: OXYCODONE-ACETAMINOPHEN 5-325 MG TABLET PO PRN ×3 (06:42→22:25)
[2017-10-06] MEDS: OXYCODONE HCL IR 5 MG TABLET PO PRN ×3 (06:42→22:24)
[2017-10-06] MEDS: LANSOPRAZOLE 15 MG TAB.RAP.DR PO SCH (06:42)
[2017-10-06] MEDS: ACETAMINOPHEN 325 MG TABLET PO PRN ×2 (07:49→12:13)
[2017-10-06] MEDS: FLUTICASONE/SALMETEROL DISKUS 250-50 MCG/DOSE IH SCH ×2 (11:26→22:25)
[2017-10-06] MEDS: LISINOPRIL 10 MG TABLET PO SCH (11:27)
[2017-10-06] MEDS: ASPIRIN 81 MG TABLET, ENT COATED PO SCH (11:27)
[2017-10-06] MEDS: MEMANTINE HCL 10 MG TABLET PO SCH (11:27)
[2017-10-06] MEDS: TAMSULOSIN HCL 0.4 MG CAP.SR.24H PO SCH (11:28)
[2017-10-06] MEDS: TIOTROPIUM BROMIDE DPI 5 CAP/KIT (18 MCG/CAP) IH SCH (11:29)
--- NOTE | 2017-10-06 14:56 | Physician Advisory Note ---
Physician Advisor ProgressNote .: Pursuant to the plan for [facility], I have reviewed the medical record for this patient. Physician Advisor Statement: Nice documentation of chronic diastolic CHF. Please consider documentin. "Chest pain, likely due to " 2. Medical necessity: each day's note needs to specify clinical reason(s) the patient must remain in hospital that night. - Ex: "patient is still working hard to breathe", "patient still needs O2", "patient is not back to baseline respiratory status", "I AM CONCERNED about ____ ", ... - A payer's reviewer, looking at chart but not pt, will say, "there are plenty of patients with COPD and wheezing who are treated outside of the hospital. This pt should have been managed outpatient. We will not pay for his hospitalization." - You have good reasons for which patients you keep in hospital; just please make them clear on chart! Thanks for all you do! CK
[2017-10-06] MEDS ORDERED: NITROGLYCERIN 0.4 MG/TAB 25 TAB/BOTTLE ONE (15:43)
[2017-10-06] MEDS ORDERED: NITROGLYCERIN 0.4 MG/TAB 25 TAB/BOTTLE SL ONE (15:45)
[2017-10-06] MEDS: DONEPEZIL HCL 5 MG TABLET PO SCH (22:24)
[2017-10-06] MEDS: ATORVASTATIN CALCIUM 40 MG TABLET PO SCH (22:24)
[2017-10-06] MEDS: ZOLPIDEM TARTRATE 5 MG TABLET PO PRN (22:24)
[2017-10-06] MEDS: LEVOFLOXACIN 500 MG TABLET PO SCH (22:24)
[2017-10-06] MEDS: DIVALPROEX SODIUM 250 MG TAB.SR.24H PO SCH (22:25)
[2017-10-06] MEDS: CALCIUM CARBONATE 500 MG TAB.CHEW PO PRN (22:25)
--- NOTE | 2017-10-06 22:37 | PDOC PROGRESS REPORT ---
Subjective Progress Note for:: 10/06/17 Subjective:: Patient is seen by the bedside, complaining of chest pain, the chest pain is most likely related to the COPD exacerbation, so far cardiac enzymes are negative for acute myocardial infarction Reason For Visit: ACUTE COPD EXACERBATION Physical Exam Vital Signs: Temp Pulse Resp BP Pulse Ox 98.4 F 93 21 H 129/67 H 98 10/06/17 19:43 10/06/17 19:43 10/06/17 19:43 10/06/17 19:43 10/06/17 19:43 Intake & Output 10/05/17 10/06/17 10/07/17 06:59 06:59 06:59 Intake Total 740 1160 Output Total 1300 1600 Balance -560 -440 Weight 100.6 kg General appearance: PRESENT: mild distress Eye exam: PRESENT: PERRLA Respiratory exam: PRESENT: wheezes Cardiovascular exam: PRESENT: +S1, +S2 GI/Abdominal exam: PRESENT: rebound Neurological exam: PRESENT: alert Results Laboratory Results: 10/04/17 10/04/17 21:00 21:00 Creatine Kinase 114 CK-MB (CK-2) 1.66 Troponin I < 0.012 Impressions: Chest X-Ray 10/03/17 22:25 IMPRESSION: No acute radiographic finding in the chest. Head MRI 10/05/17 00:00 IMPRESSION: NORMAL MRI OF THE BRAIN WITHOUT INTRAVENOUS GADOLINIUM CONTRAST. DIFFUSE CHRONIC SINUS DISEASE. FLUID IN THE MASTOID AIR CELLS. EVIDENCE OF ACUTE STROKE: NO. Knee X-Ray 10/05/17 00:00 IMPRESSION: DEGENERATIVE CHANGES. NO ACUTE FINDINGS. Assessment & Plan - Diagnosis (1) Chronic obstructive pulmonary disease Qualifiers: COPD type: COPD with acute exacerbation Qualified Code(s): J44.1 - Chronic obstructive pulmonary disease with (acute) exacerbation Is this a current diagnosis for this admission?: Yes (2) Chest pain Is this a current diagnosis for this admission?: Yes (3) COPD with acute exacerbation Is this a current diagnosis for this admission?: Yes (4) Chronic kidney disease, stage 3 Is this a current diagnosis for this admission?: Yes (5) Chronic diastolic (congestive) heart failure Is this a current diagnosis for this admission?: Yes (6) 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
[2017-10-07] MEDS: ACETAMINOPHEN 325 MG TABLET PO PRN ×3 (05:43→22:31)
[2017-10-07] MEDS: LANSOPRAZOLE 15 MG TAB.RAP.DR PO SCH (05:43)
[2017-10-07] MEDS: IPRATROPIUM/ALBUTEROL 0.5-2.5 MG/3 ML AMPUL NEB PRN ×2 (08:15→19:44)
[2017-10-07] MEDS: OXYCODONE HCL IR 5 MG TABLET PO PRN ×3 (09:10→23:17)
[2017-10-07] MEDS: OXYCODONE-ACETAMINOPHEN 5-325 MG TABLET PO PRN ×3 (09:10→23:17)
[2017-10-07] MEDS: MEMANTINE HCL 10 MG TABLET PO SCH (09:40)
[2017-10-07] MEDS: LISINOPRIL 10 MG TABLET PO SCH (09:40)
[2017-10-07] MEDS: ASPIRIN 81 MG TABLET, ENT COATED PO SCH (09:41)
[2017-10-07] MEDS: TAMSULOSIN HCL 0.4 MG CAP.SR.24H PO SCH (09:41)
[2017-10-07] MEDS: TIOTROPIUM BROMIDE DPI 5 CAP/KIT (18 MCG/CAP) IH SCH (09:42)
[2017-10-07] MEDS: FLUTICASONE/SALMETEROL DISKUS 250-50 MCG/DOSE IH SCH ×2 (09:45→22:31)
[2017-10-07] MEDS: DIVALPROEX SODIUM 250 MG TAB.SR.24H PO SCH (22:31)
[2017-10-07] MEDS: DONEPEZIL HCL 5 MG TABLET PO SCH (22:31)
[2017-10-07] MEDS: ATORVASTATIN CALCIUM 40 MG TABLET PO SCH (22:31)
[2017-10-07] MEDS: LEVOFLOXACIN 500 MG TABLET PO SCH (22:31)
--- NOTE | 2017-10-07 23:54 | PDOC PROGRESS REPORT ---
Subjective Progress Note for:: 10/07/17 Subjective:: Patient still complaining of pain, headache generalized body pain Reason For Visit: ACUTE COPD EXACERBATION Physical Exam Vital Signs: Temp Pulse Resp BP Pulse Ox 98.0 F 91 18 136/83 H 97 10/07/17 15:37 10/07/17 19:44 10/07/17 19:44 10/07/17 15:37 10/07/17 19:44 Intake & Output 10/06/17 10/07/17 10/08/17 06:59 06:59 06:59 Intake Total 1160 780 573 Output Total 1600 1000 990 Balance -440 -220 -417 General appearance: PRESENT: mild distress Eye exam: PRESENT: PERRLA Respiratory exam: PRESENT: wheezes Cardiovascular exam: PRESENT: +S1, +S2 GI/Abdominal exam: PRESENT: soft Neurological exam: PRESENT: alert Results Laboratory Results: 10/04/17 10/04/17 21:00 21:00 Creatine Kinase 114 CK-MB (CK-2) 1.66 Troponin I < 0.012 Impressions: Chest X-Ray 10/03/17 22:25 IMPRESSION: No acute radiographic finding in the chest. Head MRI 10/05/17 00:00 IMPRESSION: NORMAL MRI OF THE BRAIN WITHOUT INTRAVENOUS GADOLINIUM CONTRAST. DIFFUSE CHRONIC SINUS DISEASE. FLUID IN THE MASTOID AIR CELLS. EVIDENCE OF ACUTE STROKE: NO. Knee X-Ray 10/05/17 00:00 IMPRESSION: DEGENERATIVE CHANGES. NO ACUTE FINDINGS. Assessment & Plan - Diagnosis (1) Chronic obstructive pulmonary disease Qualifiers: COPD type: COPD with acute exacerbation Qualified Code(s): J44.1 - Chronic obstructive pulmonary disease with (acute) exacerbation Is this a current diagnosis for this admission?: Yes (2) Chest pain Is this a current diagnosis for this admission?: Yes (3) COPD with acute exacerbation Is this a current diagnosis for this admission?: Yes (4) Chronic kidney disease, stage 3 Is this a current diagnosis for this admission?: Yes (5) Chronic diastolic (congestive) heart failure Is this a current diagnosis for this admission?: Yes (6) 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
[2017-10-08] MEDS: ACETAMINOPHEN 325 MG TABLET PO PRN ×3 (02:34→20:43)
[2017-10-08] MEDS: OXYCODONE-ACETAMINOPHEN 5-325 MG TABLET PO PRN ×2 (03:35→10:23)
[2017-10-08] MEDS: OXYCODONE HCL IR 5 MG TABLET PO PRN ×3 (03:35→20:43)
[2017-10-08] MEDS: LANSOPRAZOLE 15 MG TAB.RAP.DR PO SCH (06:33)
[2017-10-08] MEDS: IPRATROPIUM/ALBUTEROL 0.5-2.5 MG/3 ML AMPUL NEB PRN (08:14)
[2017-10-08] MEDS: CALCIUM CARBONATE 500 MG TAB.CHEW PO PRN (08:33)
[2017-10-08] MEDS: TIOTROPIUM BROMIDE DPI 5 CAP/KIT (18 MCG/CAP) IH SCH (10:26)
[2017-10-08] MEDS: MEMANTINE HCL 10 MG TABLET PO SCH (10:27)
[2017-10-08] MEDS: ASPIRIN 81 MG TABLET, ENT COATED PO SCH (10:28)
[2017-10-08] MEDS: LISINOPRIL 10 MG TABLET PO SCH (10:28)
[2017-10-08] MEDS: TAMSULOSIN HCL 0.4 MG CAP.SR.24H PO SCH (10:28)
[2017-10-08] MEDS: FLUTICASONE/SALMETEROL DISKUS 250-50 MCG/DOSE IH SCH ×2 (10:29→20:42)
[2017-10-08] MEDS: LORATADINE/PSEUDOEPHEDRINE SUL 10-240 MG TAB.SR.24H PO PRN (10:31)
--- NOTE | 2017-10-08 16:23 | PDOC PROGRESS REPORT ---
Subjective Progress Note for:: 10/08/17 Subjective:: Patient was seen by the bedside, the breathing is improved Reason For Visit: ACUTE COPD EXACERBATION Physical Exam Vital Signs: Temp Pulse Resp BP Pulse Ox 97.6 F 113 H 20 127/70 H 98 10/08/17 12:00 10/08/17 14:00 10/08/17 12:00 10/08/17 12:00 10/08/17 12:00 Intake & Output 10/07/17 10/08/17 10/09/17 06:59 06:59 06:59 Intake Total 780 998 Output Total 1000 1850 Balance -220 -852 General appearance: PRESENT: no acute distress Head exam: PRESENT: atraumatic, normocephalic Eye exam: PRESENT: conjunctiva pink, EOMI, PERRLA Ear exam: PRESENT: normal external ear exam Mouth exam: PRESENT: moist, tongue midline Neck exam: PRESENT: full ROM Respiratory exam: PRESENT: rhonchi Cardiovascular exam: PRESENT: RRR, +S1, +S2 Pulses: PRESENT: normal dorsalis pedis pul, +2 pedal pulses bilateral Vascular exam: PRESENT: normal capillary refill GI/Abdominal exam: PRESENT: normal bowel sounds, soft Rectal exam: PRESENT: deferred Neurological exam: PRESENT: alert, awake, oriented to person, oriented to place , oriented to time, oriented to situation, CN II-XII grossly intact Psychiatric exam: PRESENT: appropriate affect, normal mood Skin exam: PRESENT: dry, intact, warm. ABSENT: cyanosis, rash Results Laboratory Results: 10/04/17 10/04/17 21:00 21:00 Creatine Kinase 114 CK-MB (CK-2) 1.66 Troponin I < 0.012 Impressions: Chest X-Ray 10/03/17 22:25 IMPRESSION: No acute radiographic finding in the chest. Head MRI 10/05/17 00:00 IMPRESSION: NORMAL MRI OF THE BRAIN WITHOUT INTRAVENOUS GADOLINIUM CONTRAST. DIFFUSE CHRONIC SINUS DISEASE. FLUID IN THE MASTOID AIR CELLS. EVIDENCE OF ACUTE STROKE: NO. Knee X-Ray 10/05/17 00:00 IMPRESSION: DEGENERATIVE CHANGES. NO ACUTE FINDINGS. Assessment & Plan - Diagnosis (1) Chronic obstructive pulmonary disease Qualifiers: COPD type: COPD with acute exacerbation Qualified Code(s): J44.1 - Chronic obstructive pulmonary disease with (acute) exacerbation Is this a current diagnosis for this admission?: Yes (2) Chest pain Qualifiers: Chest pain type: unspecified Qualified Code(s): R07.9 - Chest pain, unspecified Is this a current diagnosis for this admission?: Yes (3) COPD with acute exacerbation Is this a current diagnosis for this admission?: Yes (4) Chronic kidney disease, stage 3 Is this a current diagnosis for this admission?: Yes (5) Chronic diastolic (congestive) heart failure Is this a current diagnosis for this admission?: Yes (6) 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
[2017-10-08] MEDS: ATORVASTATIN CALCIUM 40 MG TABLET PO SCH (20:42)
[2017-10-08] MEDS: LEVOFLOXACIN 500 MG TABLET PO SCH (20:42)
[2017-10-08] MEDS: DONEPEZIL HCL 5 MG TABLET PO SCH (20:42)
[2017-10-08] MEDS: DIVALPROEX SODIUM 250 MG TAB.SR.24H PO SCH (20:42)
[2017-10-09] MEDS: ACETAMINOPHEN 325 MG TABLET PO PRN ×4 (00:45→17:58)
[2017-10-09] MEDS: IPRATROPIUM/ALBUTEROL 0.5-2.5 MG/3 ML AMPUL NEB PRN ×3 (00:51→15:12)
[2017-10-09] MEDS: OXYCODONE HCL IR 5 MG TABLET PO PRN ×4 (01:10→17:58)
[2017-10-09] MEDS: LANSOPRAZOLE 15 MG TAB.RAP.DR PO SCH (05:58)
[2017-10-09] MEDS: ASPIRIN 81 MG TABLET, ENT COATED PO SCH (11:57)
[2017-10-09] MEDS: MEMANTINE HCL 10 MG TABLET PO SCH (11:57)
[2017-10-09] MEDS: TAMSULOSIN HCL 0.4 MG CAP.SR.24H PO SCH (11:58)
[2017-10-09] MEDS: LISINOPRIL 10 MG TABLET PO SCH (11:58)
[2017-10-09] MEDS: FLUTICASONE/SALMETEROL DISKUS 250-50 MCG/DOSE IH SCH (11:59)
[2017-10-09] MEDS: TIOTROPIUM BROMIDE DPI 5 CAP/KIT (18 MCG/CAP) IH SCH (11:59)
--- NOTE | 2017-10-09 16:35 | PDOC TRANSFER SUMMARY ---
General - Admit/Disc Date/PCP Admission Date/Primary Care Provider: 10/04/17 17:49 Discharge Date: 10/09/17 - Discharge Diagnosis (1) Chronic obstructive pulmonary disease Is this a current diagnosis for this admission?: Yes (2) Chest pain Is this a current diagnosis for this admission?: Yes (3) COPD with acute exacerbation Is this a current diagnosis for this admission?: Yes (4) Chronic kidney disease, stage 3 Is this a current diagnosis for this admission?: Yes (5) Chronic diastolic (congestive) heart failure Is this a current diagnosis for this admission?: Yes (6) Chronic venous hypertension (idiopathic) with inflammation of bilateral lower extremity Is this a current diagnosis for this admission?: Yes (7) HTN (hypertension) Is this a current diagnosis for this admission?: Yes - Additional Information Resuscitation Status: Full Code Home Medications: RX: Acetaminophen [Tylenol 325 mg Tablet] 650 mg PO Q6HP PRN 10/04/17 RX: Albuterol Sulfate [Ventolin HFA MDI 18 GM] 2 puff IH Q4HP PRN 10/04/17 RX: Aspirin [Ecotrin 81 mg EC Tablet] 81 mg PO DAILY 10/04/17 RX: Atorvastatin Calcium [Lipitor 40 mg Tablet] 40 mg PO QHS 10/04/17 RX: Calcium Carbonate [Tums Chewable 500 mg Tab.chew] 50 mg PO Q4HP PRN RX: Cetirizine HCl/Pseudoephedrine [Zyrtec-D 12 Hour Tablet] 1 tab PO DAILYP PRN 10/04/17 RX: Divalproex Sodium [Divalproex Sodium ER] 750 mg PO QHS 10/04/17 RX: Docusate Sodium [Colace 100 mg Capsule] 200 mg PO DAILYP PRN 10/04/17 RX: Donepezil HCl [Aricept 5 mg Tablet] 5 mg PO QHS 10/04/17 RX: Esomeprazole Magnesium [Nexium] 20 mg PO DAILY 10/04/17 RX: Fluticasone/Salmeterol [Advair 250-50 Diskus 14 Dose/Diskus] 1 puff IH Q12 10/04/17 RX: Hydroxyzine HCl [Atarax 50 mg Tablet] 50 mg PO Q6HP PRN 10/04/17 RX: Lisinopril [Prinivil 10 mg Tablet] 10 mg PO DAILY 10/04/17 RX: Magnesium Hydroxide [Milk of Magnesia 30 ml Udcup] 30 ml PO DAILYP PRN 10/04 RX: Memantine HCl [Namenda] 5 mg PO DAILY 10/04/17 RX: Oxycodone HCl/Acetaminophen [Endocet 7.5-325 mg Tablet] 1 tab PO Q4HP PRN RX: Tamsulosin HCl [Flomax 0.4 mg Cap.sr] 0.4 mg PO DAILY 10/04/17 RX: Tiotropium [place] [Spiriva Handihaler 5 Cap/Kit (18 Mcg/Cap)] 1 puff IH DAILY 10/04/17 RX: Zolpidem Tartrate [Ambien 5 mg Tablet] 5 mg PO HSP PRN 10/04/17 History of Present Illness Admission Date/PCP: 10/04/17 17:49 History of Present Illness: Patient came to the emergency room for evaluation of chest pain, shortness of breath. Hospital Course Hospital Course: He was admitted for the management of acute exacerbation chronic obstructive pulmonary disease and chest pain. He was treated with bronchodilators DuoNeb every 4 hours. Sets of cardiac enzymes were negative for acute ME. He also had a headache, MRI brain was done, it was negative for an acute pathology. He has significant muscularskeletal pain involving multiple joints and extremities , he required opioid for pain control. He has chronic venous hypertension of the lower extremities this was managed with compressive stockings application to the lower extremities. Physical Exam Vital Signs: Temp Pulse Resp BP Pulse Ox 97.4 F 96 20 132/74 H 98 10/09/17 08:04 10/09/17 08:07 10/09/17 08:07 10/09/17 08:04 10/09/17 08:07 Intake & Output 10/08/17 10/09/17 10/10/17 06:59 06:59 06:59 Intake Total 998 340 Output Total 1850 1600 Balance -852 -1260 General appearance: PRESENT: no acute distress, well-developed, well-nourished Head exam: PRESENT: atraumatic, normocephalic Eye exam: PRESENT: conjunctiva pink, EOMI, PERRLA Mouth exam: PRESENT: moist, tongue midline Respiratory exam: PRESENT: clear to auscultation mariia Cardiovascular exam: PRESENT: RRR, +S1, +S2 Pulses: PRESENT: normal dorsalis pedis pul Vascular exam: PRESENT: normal capillary refill GI/Abdominal exam: PRESENT: normal bowel sounds, soft Rectal exam: PRESENT: deferred Extremities exam: PRESENT: full ROM Neurological exam: PRESENT: alert, CN II-XII grossly intact Psychiatric exam: PRESENT: appropriate affect, normal mood Skin exam: PRESENT: dry, intact, warm Results Laboratory Results: 10/04/17 10/04/17 21:00 21:00 Creatine Kinase 114 CK-MB (CK-2) 1.66 Troponin I < 0.012 Impressions: Chest X-Ray 10/03/17 22:25 IMPRESSION: No acute radiographic finding in the chest. Head MRI 10/05/17 00:00 IMPRESSION: NORMAL MRI OF THE BRAIN WITHOUT INTRAVENOUS GADOLINIUM CONTRAST. DIFFUSE CHRONIC SINUS DISEASE. FLUID IN THE MASTOID AIR CELLS. EVIDENCE OF ACUTE STROKE: NO. Knee X-Ray 10/05/17 00:00 IMPRESSION: DEGENERATIVE CHANGES. NO ACUTE FINDINGS.
[2017-10-09 17:17] VITALS: BP 135/68
== END 2017-10-09 18:35 | DRG 191 ==
LOC: ER 22:20 → OBSVTOIN 10-04 02:54 → EH 10-04 02:54 → UNDOADMIN 10-04 02:54 → INTOOBSV 10-04 02:54 → EH 10-04 09:14 → 4W 10-04 14:31 → EH 10-04 17:49 → 4W 10-04 17:49 → OBSVTOIN 10-04 17:49 → INTOOBSV 10-04 17:49
PROVIDERS: ADMIT Internal Medicine; ATTEND Internal Medicine
DX: J44.1 Chronic obstructive pulmonary disease with (acute) exacerbation (principal); N17.9 Acute kidney failure, unspecified; I13.0 Hypertensive heart and chronic kidney disease with heart failure and stage 1 through stage 4 chronic kidney disease, or unspecified chronic kidney disease; I50.32 Chronic diastolic (congestive) heart failure; Z66 Do not resuscitate; N18.3 Chronic kidney disease, stage 3 (moderate); R09.02 Hypoxemia; E78.00 Pure hypercholesterolemia, unspecified; D17.0 Benign lipomatous neoplasm of skin and subcutaneous tissue of head, face and neck; R07.9 Chest pain, unspecified; K21.9 Gastro-esophageal reflux disease without esophagitis; F17.210 Nicotine dependence, cigarettes, uncomplicated; M19.90 Unspecified osteoarthritis, unspecified site; F32.9 Major depressive disorder, single episode, unspecified; Z79.82 Long term (current) use of aspirin; Z79.891 Long term (current) use of opiate analgesic; Z79.51 Long term (current) use of inhaled steroids; Z79.899 Other long term (current) drug therapy
CPT/HCPCS: 36415; 70551; 71045; 80053; 81001; 82550; 82553; 82803; 82962; 83605; 84484; 85025; 85610; 87040; 87077; 87086; 87186; 93005; 93010; 94640; 96365; 96366; 99291; G0378; J3475; J3490; J7030; J7620

== ENCOUNTER 2017-11-01 02:53 | Inpatient (IN) | payer MEDICARE, MEDICAID ==
--- NOTE | 2017-11-01 03:45 | ER Document Report ---
ED General - General Chief Complaint: Leg Swelling Stated Complaint: SHORTNESS OF BREATH AND LEG PAIN Time Seen by Provider: 11/01/17 03:44 Mode of Arrival: Medic Information source: Patient Notes: 72-year-old male presents with history of COPD with concerns of bilateral lower extremity swelling weeping of 2 3 week duration which is worsened tonight. Patient denies any fevers or chills notes the pain has become unbearable TRAVEL OUTSIDE OF THE [place] IN LAST 30 DAYS: No - HPI Onset: Other Onset/Duration: Persistent Quality of pain: Achy Severity: Mild Pain Level: 1 Associated symptoms: Leg swelling Exacerbated by: Movement Relieved by: Denies Similar symptoms previously: No Recently seen / treated by doctor: No - Related Data Allergies/Adverse Reactions: No Known Allergies Allergy (Verified 06/05/17 10:03) Past Medical History - Social History Smoking Status: Never Smoker Cigarette use (# per day): No Chew tobacco use (# tins/day): No Smoking Education Provided: No Family History: Reviewed & Not Pertinent - Past Medical History Cardiac Medical History: Reports: Hx Hypercholesterolemia, Hx Hypertension Pulmonary Medical History: Reports: Hx Asthma, Hx COPD, Hx Pneumonia Denies: Hx Bronchitis, Hx Intubation, Hx Respiratory Failure, Hx Sleep Apnea , Hx Tuberculosis Renal/ Medical History: Denies: Hx Peritoneal Dialysis GI Medical History: Reports: Hx Gastroesophageal Reflux Disease Musculoskeltal Medical History: Reports Hx Arthritis Psychiatric Medical History: Reports: Hx Depression Review of Systems - Review of Systems Notes: REVIEW OF SYSTEMS: CONSTITUTIONAL : Denies fever, chills, or sweats. Denies recent illness. EENT: Denies eye, ear, throat, or mouth pain or symptoms. Denies nasal or sinus congestion or discharge. Denies throat, tongue, or mouth swelling or difficulty swallowing. CARDIOVASCULAR: Denies chest pain. Denies palpitations or racing or irregular heart beat. Denies ankle edema. RESPIRATORY: Denies cough, cold, or chest congestion. Denies shortness of breath, difficulty breathing, or wheezing. GASTROINTESTINAL: Denies abdominal pain or distention. Denies nausea, vomiting , or diarrhea. Denies blood in vomitus, stools, or per rectum. Denies black, tarry stools. Denies constipation. GENITOURINARY: Denies difficulty urinating, painful urination, burning, frequency, blood in urine, or discharge. MUSCULOSKELETAL:bilateral lower extremity edema SKIN: Denies rash, lesions or sores. HEMATOLOGIC : Denies easy bruising or bleeding. LYMPHATIC: Denies swollen, enlarged glands. NEUROLOGICAL: Denies confusion or altered mental status. Denies passing out or loss of consciousness. Denies dizziness or lightheadedness. Denies headache. Denies weakness or paralysis or loss of use of either side. Denies problems with gait or speech. Denies sensory loss, numbness, or tingling. Denies seizures. PSYCHIATRIC: Denies anxiety or stress. Denies depression, suicidal ideation, or homicidal ideation. ALL OTHER SYSTEMS REVIEWED AND NEGATIVE. Dictation was performed using [employer] voice recognition software PHYSICAL EXAMINATION: GENERAL: Chronically ill-appearing male HEAD: Atraumatic, normocephalic. EYES: Pupils equal round and reactive to light, extraocular movements intact, sclera anicteric, conjunctiva are normal. ENT: Nares patent, oropharynx clear without exudates. Moist mucous membranes. NECK: Normal range of motion, supple without lymphadenopathy LUNGS: Mild wheezing HEART: Regular rate and rhythm without murmurs ABDOMEN: Soft, nontender, nondistended abdomen. No guarding, no rebound. No masses appreciated. Musculoskeletal:bilateral lower extremity edema consistant with venous stasis changes with cellulitis of the left lower extremity NEUROLOGICAL: Cranial nerves grossly intact. Normal speech, normal gait. Normal sensory, motor exams PSYCH: Normal mood, normal affect. SKIN: Warm, Dry, normal turgor, no rashes or lesions noted. Physical Exam - Vital signs Vitals: Pulse Ox 91 L 11/01/17 03:04 Course - Re-evaluation Re-evalutation: 11/01/17 06:20 Patient's presentation is consistent with chronic venous stasis which unfortunately appears to have been infected, patient will be started on clindamycin, otherwise he looks well is in no distress, he does in fact have some wheezing and was given the breathing treatment by EMS and is at his baseline O2 sats at this time She will be admitted to his primary care physician - Vital Signs Vital signs: Temp Pulse Resp BP Pulse Ox 98.3 F 100 23 H 143/79 H 91 L 11/01/17 04:15 11/01/17 04:15 11/01/17 05:01 11/01/17 05:01 11/01/17 05:01 - Laboratory Result Diagrams: 11/01/17 04:02 11/01/17 04:02 Laboratory results interpreted by me: 11/01/17 11/01/17 04:02 04:02 WBC 11.6 H RBC 3.59 L Hgb 10.0 L Hct 30.6 L RDW 14.6 H Monocytes % 14.8 H Absolute Monocytes 1.7 H BUN 25 H Creatinine 2.01 H Est GFR ( Amer) 40 L Est GFR (Non-Af Amer) 33 L Glucose 127 H Direct Bilirubin 0.5 H ALT 20 L Discharge - Discharge Clinical Impression: Wheezing, Chronic venous stasis dermatitis HTN (hypertension) Qualifiers: Hypertension type: essential hypertension Qualified Code(s): I10 - Essential ( primary) hypertension Cellulitis Qualifiers: Site of cellulitis: extremity Site of cellulitis of extremity: lower extremity Laterality: left Qualified Code(s): L03.116 - Cellulitis of left lower limb
[2017-11-01] MEDS ORDERED: PIPERACILLIN/TAZOBACTAM 3.375 GM VIAL IV ONE (03:52)
[2017-11-01] MEDS ORDERED: VANCOMYCIN HCL INJ 1000 MG VIAL IV ONE (03:52)
[2017-11-01] MEDS ORDERED: MORPHINE SULFATE 10 MG/ML INJ IV ONE (03:58)
[2017-11-01 04:20] LABS: ABSOLUTE BASOPHILS # (AUTO) 0.1 10^3/uL (0.0-0.2); ABSOLUTE EOSINOPHILS # (AUTO) 0.3 10^3/uL (0.0-0.6); ABSOLUTE LYMPHOCYTES (AUTO) 2.8 10^3/uL (0.5-4.7); ABSOLUTE MONOCYTES (AUTO) 1.7 10^3/uL (0.1-1.4); ABSOLUTE NEUT (AUTO) 6.7 10^3/uL (1.7-8.2); BASOPHILS % (AUTO) 0.6 % (0-2); EOSINOPHILS % (AUTO) 2.9 % (0-6); HEMATOCRIT 30.6 % (37.9-51.0); LYMPHOCYTES % (AUTO) 23.8 % (13-45); MEAN CORPUSCULAR HGB CONC 32.8 g/dL (32.0-36.0); MEAN CORPUSCULAR VOLUME 85 fl (80-97); MONOCYTES % (AUTO) 14.8 % (3-13); PLATELET COUNT 283 10^3/uL (150-450); RED BLOOD COUNT 3.59 10^6/uL (4.35-5.55); RED CELL DISTRIBUTION WIDTH 14.6 % (11.5-14.0); SEGMENTED NEUTROPHILS % (AUTO) 57.9 % (42-78); TOTAL CELLS COUNTED % (AUTO) 100 %; WHITE BLOOD COUNT 11.6 10^3/uL (4.0-10.5)
[2017-11-01 04:42] LABS: ALANINE AMINOTRANSFERASE 20 U/L (21-72); ALKALINE PHOSPHATASE 60 U/L (38-126); ANION GAP 11 (5-19); ASPARTATE AMINO TRANSFERASE 39 U/L (17-59); BILIRUBIN,DIRECT 0.5 mg/dL (0.0-0.4); BILIRUBIN,TOTAL 0.5 mg/dL (0.2-1.3); BLOOD UREA NITROGEN 25 mg/dL (7-20); CALCIUM 9.4 mg/dL (8.4-10.2); CARBON DIOXIDE 26 mmol/L (22-30); CHLORIDE 105 mmol/L (98-107); GLUCOSE 127 mg/dL (75-110); POTASSIUM 4.2 mmol/L (3.6-5.0); SODIUM 141.7 mmol/L (137-145); TOTAL PROTEIN 7.4 g/dL (6.3-8.2)
[2017-11-01] MEDS ORDERED: HYDROMORPHONE HCL INJ/PF 2 MG/ML AMPULE IV ONE (04:53)
--- NOTE | 2017-11-01 08:35 | EKG REPORT ---
SEVERITY:- NORMAL ECG - SINUS RHYTHM : Confirmed by: Belén Kohli 01-Nov-2017 08:34:10
[2017-11-01] MEDS ORDERED: ALBUTEROL SULFATE HFA (90 MCG/PUFF) 8 GM MDI (1 MDI/ER DISP) IH PRN (13:12)
[2017-11-01] MEDS ORDERED: DOCUSATE SODIUM 100 MG CAPSULE PO PRN (13:12)
[2017-11-01] MEDS ORDERED: MAGNESIUM HYDROXIDE SUSP 30 ML UDCUP PO PRN (13:12)
[2017-11-01] MEDS ORDERED: CETIRIZINE HCL PO PRN (13:12)
[2017-11-01] MEDS ORDERED: (PENDING PHARMACY ID) (Oxycodone Hcl/Acetaminophen [Percocet 7.5-325 Mg Tablet] 1 TAB) PO PRN (13:12)
[2017-11-01] MEDS ORDERED: PSEUDOEPHEDRINE PO PRN (13:12)
[2017-11-01] MEDS ORDERED: CALCIUM CARBONATE 500 MG TAB.CHEW PO PRN (13:12)
[2017-11-01] MEDS ORDERED: (PENDING PHARMACY ID) (Esomeprazole Magnesium [Nexium] 20 MG) PO SCH (13:15)
[2017-11-01] MEDS ORDERED: (PENDING PHARMACY ID) (Memantine Hcl [Namenda] 5 MG) PO SCH (13:15)
[2017-11-01] MEDS ORDERED: VANCOMYCIN HCL 0 MG in DEXTROSE 5%-WATER 250 ML IV NR (13:15)
[2017-11-01] MEDS ORDERED: OXYCODONE HCL IR 5 MG TABLET PO PRN (13:27)
[2017-11-01] MEDS: ALBUTEROL SULFATE 0.083% NEB 2.5 MG/3 ML AMPUL NEB PRN (13:29)
[2017-11-01] MEDS: OXYCODONE-ACETAMINOPHEN 5-325 MG TABLET PO PRN ×2 (13:59→18:55)
[2017-11-01] MEDS ORDERED: HYDROXYZINE HCL 10 MG TABLET PO PRN (14:25)
[2017-11-01] MEDS ORDERED: HYDROXYZINE PAMOATE 25 MG CAPSULE PO PRN (15:08)
[2017-11-01] MEDS ORDERED: LORATADINE/PSEUDOEPHEDRINE SUL 10-240 MG TAB.SR.24H PO PRN (15:16)
[2017-11-01] MEDS: ASPIRIN 81 MG TABLET, ENT COATED PO SCH (18:30)
[2017-11-01] MEDS: TIOTROPIUM BROMIDE DPI 5 CAP/KIT (18 MCG/CAP) IH SCH (18:30)
[2017-11-01] MEDS: TAMSULOSIN HCL 0.4 MG CAP.SR.24H PO SCH (18:30)
[2017-11-01] MEDS: PIPERACILLIN SODIUM/TAZOBACTAM 3.375 GM in NORMAL SALINE 100 ML IV SCH (18:30)
[2017-11-01] MEDS: LISINOPRIL 10 MG TABLET PO SCH (18:32)
[2017-11-01] MEDS: OSELTAMIVIR PHOSPHATE 75 MG CAPSULE PO SCH (19:23)
[2017-11-01] MEDS: ACETAMINOPHEN 325 MG TABLET PO PRN (19:26)
[2017-11-01] MEDS: ATORVASTATIN CALCIUM 40 MG TABLET PO SCH (22:33)
[2017-11-01] MEDS: DIVALPROEX SODIUM 250 MG TAB.SR.24H PO SCH (22:33)
[2017-11-01] MEDS: GABAPENTIN 400 MG CAPSULE PO SCH (22:33)
[2017-11-01] MEDS: DONEPEZIL HCL 5 MG TABLET PO SCH (22:34)
[2017-11-01] MEDS: FLUTICASONE/SALMETEROL DISKUS 250-50 MCG/DOSE IH SCH (22:34)
[2017-11-02] MEDS: PIPERACILLIN SODIUM/TAZOBACTAM 3.375 GM in NORMAL SALINE 100 ML IV SCH ×4 (00:11→18:00)
[2017-11-02] MEDS: NORMAL SALINE 1000 ML 1,000 ML IV PRN (00:11)
[2017-11-02] MEDS: VANCOMYCIN HCL 1,500 MG in DEXTROSE 5%-WATER 250 ML IV SCH (06:07)
[2017-11-02] MEDS: GABAPENTIN 400 MG CAPSULE PO SCH ×2 (08:17→21:44)
[2017-11-02] MEDS: OXYCODONE-ACETAMINOPHEN 5-325 MG TABLET PO PRN ×2 (08:17→19:44)
[2017-11-02] MEDS: MEMANTINE HCL 10 MG TABLET PO SCH (09:54)
[2017-11-02] MEDS: LANSOPRAZOLE 15 MG TAB.RAP.DR PO SCH (09:54)
[2017-11-02] MEDS: OSELTAMIVIR PHOSPHATE 75 MG CAPSULE PO SCH (09:54)
[2017-11-02] MEDS: FLUTICASONE/SALMETEROL DISKUS 250-50 MCG/DOSE IH SCH ×2 (09:54→21:44)
[2017-11-02] MEDS: ACETAMINOPHEN 325 MG TABLET PO PRN ×2 (12:16→17:58)
[2017-11-02] MEDS: ALBUTEROL SULFATE 0.083% NEB 2.5 MG/3 ML AMPUL NEB PRN ×2 (13:28→23:58)
--- NOTE | 2017-11-02 17:57 | PDOC H&P ---
History of Present Illness Admission Date/PCP: 11/01/17 08:24 History of Present Illness: PRINCE PALMA is a 72 year old male, he has multiple comorbid conditions including chronic obstructive pulmonary disease, chronic kidney disease stage III, pulmonary hypertension, chronic venous hypertension with chronic inflammation of the lower extremities, tobacco dependence and he continued to smoke cigarettes despite very severe COPD he was just admitted and discharged from this hospital on 10/04/2017 when he was admitted for the evaluation of chest pain and COPD. He is a resident of [facility] he came to the emergency room for evaluation of worsening redness of the extremities with exfoliation and extreme weeping of the lower extremities the emergency room he was evaluated it was felt that he has severe cellulitis and he needed to be admitted for management. He has penchant for opioid use to control pain he has chronic back pain for which he uses opioid therapy, Percocet. Past Medical History Cardiac Medical History: Reports: Hyperlipidema, Hypertension Pulmonary Medical History: Reports: Asthma, Chronic Obstructive Pulmonary Disease (COPD), Pneumonia, Other - Pulmonary hypertension Renal/ Medical History: Reports: Other - Chronic kidney disease stage 3 GI Medical History: Reports: Gastroesophageal Reflux Disease Musculoskeltal Medical History: Reports: Arthritis Psychiatric Medical History: Reports: Depression Social History Smoking Status: Current Every Day Smoker Cigarettes Packs Per Day: 1 Frequency of Alcohol Use: None Hx Recreational Drug Use: No Drugs: None Hx Prescription Drug Abuse: No Family History Family History: Reviewed & Not Pertinent Parental Family History Reviewed: Yes Children Family History Reviewed: Yes Sibling(s) Family History Reviewed.: Yes Medication/Allergy Home Medications: Acetaminophen [Tylenol 325 mg Tablet] 650 mg PO Q6HP PRN 11/01/17 Albuterol Sulfate [Albuterol Sulfate 2.5mg/3 mL] 1 vial NEB Q6HP PRN 11/01/17 Albuterol Sulfate [Ventolin HFA MDI 18 GM] 2 puff IH Q4HP PRN 11/01/17 Aspirin [Aspirin EC] 81 mg PO DAILY 11/01/17 Atorvastatin Calcium [Lipitor 40 mg Tablet] 40 mg PO QHS 11/01/17 Calcium Carbonate [Tums Chewable 500 mg Tab.chew] 500 mg PO Q4HP PRN 11/01/17 Cetirizine HCl/Pseudoephedrine [Zyrtec-D Tablet] 1 tab PO DAILYP PRN 11/01/17 Diclofenac Sodium [Voltaren] 4 gm TOP QID 11/01/17 Divalproex Sodium [Depakote ER 250 mg Tablet] 750 mg PO QHS 11/01/17 Docusate Sodium [Colace 100 mg Capsule] 200 mg PO DAILYP PRN 11/01/17 Donepezil HCl [Aricept 5 mg Tablet] 5 mg PO QHS 11/01/17 Doxycycline Hyclate [Vibramycin] 100 mg PO BID 11/01/17 Esomeprazole Magnesium [Nexium] 20 mg PO DAILY 11/01/17 Fluticasone/Salmeterol [Advair 250-50 Diskus 28 dose] 1 puff IH Q12 11/01/17 Gabapentin [Neurontin 400 mg Capsule] 400 mg PO QAM 11/01/17 Gabapentin [Neurontin 400 mg Capsule] 800 mg PO QHS 11/01/17 Hydroxyzine HCl [Atarax 50 mg Tablet] 50 mg PO Q6HP PRN 11/01/17 Lisinopril [Prinivil 10 mg Tablet] 10 mg PO DAILY 11/01/17 Magnesium Hydroxide [Milk of Magnesia 30 ml Udcup] 30 ml PO DAILYP PRN 11/01/17 Memantine HCl [Namenda] 5 mg PO DAILY 11/01/17 Oseltamivir Phosphate [Tamiflu 75 mg Capsule] 75 mg PO BID 11/01/17 Oxycodone HCl/Acetaminophen [Percocet 7.5-325 mg Tablet] 1 tab PO Q6HP PRN 11/01 Tamsulosin HCl [Flomax 0.4 mg Cap.sr] 0.4 mg PO DAILY 11/01/17 Tiotropium [place] [Spiriva Handihaler 18 mcg/dose (30 Dose)] 1 puff IH DAILY Zolpidem Tartrate [Ambien 5 mg Tablet] 5 mg PO HSP PRN 11/01/17 Allergies/Adverse Reactions: No Known Allergies Allergy (Verified 06/05/17 10:03) Review of Systems Constitutional: PRESENT: chills Eyes: ABSENT: visual disturbances Ears: ABSENT: hearing changes Cardiovascular: ABSENT: chest pain, dyspnea on exertion, edema, orthropnea, palpitations Respiratory: ABSENT: cough, hemoptysis Gastrointestinal: ABSENT: abdominal pain, constipation, diarrhea, hematemesis, hematochezia, nausea, vomiting Genitourinary: ABSENT: dysuria, hematuria Musculoskeletal: PRESENT: back pain Integumentary: PRESENT: erythema Neurological: ABSENT: abnormal gait, abnormal speech, confusion, dizziness, focal weakness, syncope Psychiatric: ABSENT: anxiety, depression, homidical ideation, suicidal ideation Endocrine: ABSENT: cold intolerance, heat intolerance, menstrual abnormalities, polydipsia, polyuria Hematologic/Lymphatic: ABSENT: easy bleeding, easy bruising, lymphadenopathy Physical Exam Vital Signs: Temp Pulse Resp BP Pulse Ox 98.0 F 91 20 132/66 H 96 11/02/17 16:29 11/02/17 16:29 11/02/17 16:29 11/02/17 16:29 11/02/17 16:29 Intake & Output 11/01/17 11/02/17 11/03/17 06:59 06:59 06:59 Intake Total 1072 Output Total 1750 Balance -678 Weight 101.9 kg General appearance: PRESENT: mild distress Head exam: PRESENT: atraumatic, normocephalic Eye exam: PRESENT: PERRLA Ear exam: PRESENT: normal external ear exam Respiratory exam: PRESENT: wheezes Cardiovascular exam: PRESENT: RRR, +S1, +S2 Vascular exam: PRESENT: normal capillary refill GI/Abdominal exam: PRESENT: normal bowel sounds, soft, tenderness Rectal exam: PRESENT: deferred Extremities exam: PRESENT: other - There is lower extremity swelling, redness, severe erythema, with weeping Neurological exam: PRESENT: alert, CN II-XII grossly intact Psychiatric exam: PRESENT: appropriate affect, normal mood Skin exam: PRESENT: dry, intact, warm Assessment & Plan - Diagnosis (1) Cellulitis of both lower extremities Is this a current diagnosis for this admission?: Yes Plan: Patient with underlining chronic venous hypertension now present with cellulitis , we will treated with antibiotic to cover for MRSA, gram-negative organisms, he is from care facility, assisted living facility (2) Chronic venous hypertension (idiopathic) with inflammation of bilateral lower extremity Is this a current diagnosis for this admission?: Yes (3) Chronic obstructive pulmonary disease with (acute) exacerbation Is this a current diagnosis for this admission?: Yes (4) Chronic kidney disease, stage 3 Is this a current diagnosis for this admission?: Yes
[2017-11-02] MEDS: TAMSULOSIN HCL 0.4 MG CAP.SR.24H PO SCH (17:59)
[2017-11-02] MEDS: LISINOPRIL 10 MG TABLET PO SCH (17:59)
[2017-11-02] MEDS: TIOTROPIUM BROMIDE DPI 5 CAP/KIT (18 MCG/CAP) IH SCH (18:00)
[2017-11-02] MEDS: ASPIRIN 81 MG TABLET, ENT COATED PO SCH (18:00)
--- NOTE | 2017-11-02 18:00 | PDOC PROGRESS REPORT ---
Subjective Progress Note for:: 11/02/17 Subjective:: Patient was admitted for the management of severe cellulitis and acute COPD, he was seen by the bedside, complaining of pain of the legs Reason For Visit: WHEEZING,HYPERTENSION,CHRONIC VENOUS STASIS Physical Exam Vital Signs: Temp Pulse Resp BP Pulse Ox 98.0 F 91 20 132/66 H 96 11/02/17 16:29 11/02/17 16:29 11/02/17 16:29 11/02/17 16:29 11/02/17 16:29 Intake & Output 11/01/17 11/02/17 11/03/17 06:59 06:59 06:59 Intake Total 1072 Output Total 1750 Balance -678 Weight 101.9 kg Eye exam: PRESENT: PERRLA Respiratory exam: PRESENT: wheezes Cardiovascular exam: PRESENT: +S1, +S2 GI/Abdominal exam: PRESENT: soft Neurological exam: PRESENT: alert Assessment & Plan - Diagnosis (1) Cellulitis of both lower extremities Is this a current diagnosis for this admission?: Yes (2) Chronic venous hypertension (idiopathic) with inflammation of bilateral lower extremity Is this a current diagnosis for this admission?: Yes (3) Chronic obstructive pulmonary disease with (acute) exacerbation Is this a current diagnosis for this admission?: Yes (4) Chronic kidney disease, stage 3 Is this a current diagnosis for this admission?: Yes - Plan Summary Plan Summary: Continue IV antibiotic, continue bronchodilators
[2017-11-02 18:41] LABS: ABSOLUTE BASOPHILS # (AUTO) 0.1 10^3/uL (0.0-0.2); ABSOLUTE EOSINOPHILS # (AUTO) 0.4 10^3/uL (0.0-0.6); ABSOLUTE LYMPHOCYTES (AUTO) 1.8 10^3/uL (0.5-4.7); ABSOLUTE MONOCYTES (AUTO) 1.2 10^3/uL (0.1-1.4); ABSOLUTE NEUT (AUTO) 4.3 10^3/uL (1.7-8.2); EOSINOPHILS % (AUTO) 5.5 % (0-6); HEMATOCRIT 30.4 % (37.9-51.0); HEMOGLOBIN 10.1 g/dL (13.5-17.0); LYMPHOCYTES % (AUTO) 23.3 % (13-45); MEAN CORPUSCULAR HEMOGLOBIN 28.2 pg (27.0-33.4); MEAN CORPUSCULAR HGB CONC 33.2 g/dL (32.0-36.0); MEAN CORPUSCULAR VOLUME 85 fl (80-97); MONOCYTES % (AUTO) 15.1 % (3-13); PLATELET COUNT 251 10^3/uL (150-450); RED BLOOD COUNT 3.58 10^6/uL (4.35-5.55); RED CELL DISTRIBUTION WIDTH 14.8 % (11.5-14.0); SEGMENTED NEUTROPHILS % (AUTO) 55.1 % (42-78); TOTAL CELLS COUNTED % (AUTO) 100 %; WHITE BLOOD COUNT 7.7 10^3/uL (4.0-10.5)
[2017-11-02 18:58] LABS: ALANINE AMINOTRANSFERASE 18 U/L (21-72); ALKALINE PHOSPHATASE 56 U/L (38-126); ANION GAP 11 (5-19); ASPARTATE AMINO TRANSFERASE 25 U/L (17-59); BILIRUBIN,DIRECT 0.3 mg/dL (0.0-0.4); BILIRUBIN,TOTAL 0.3 mg/dL (0.2-1.3); BLOOD UREA NITROGEN 18 mg/dL (7-20); CALCIUM 8.9 mg/dL (8.4-10.2); CARBON DIOXIDE 24 mmol/L (22-30); CHLORIDE 106 mmol/L (98-107); GLUCOSE 147 mg/dL (75-110); SODIUM 140.5 mmol/L (137-145); TOTAL PROTEIN 5.8 g/dL (6.3-8.2)
[2017-11-02] MEDS: DONEPEZIL HCL 5 MG TABLET PO SCH (21:44)
[2017-11-02] MEDS: ATORVASTATIN CALCIUM 40 MG TABLET PO SCH (21:44)
[2017-11-02] MEDS: ZOLPIDEM TARTRATE 5 MG TABLET PO PRN (21:44)
[2017-11-02] MEDS: DIVALPROEX SODIUM 250 MG TAB.SR.24H PO SCH (21:44)
[2017-11-03] MEDS: PIPERACILLIN SODIUM/TAZOBACTAM 3.375 GM in NORMAL SALINE 100 ML IV SCH ×4 (00:21→16:43)
[2017-11-03] MEDS: VANCOMYCIN HCL 1,500 MG in DEXTROSE 5%-WATER 250 ML IV SCH (05:28)
[2017-11-03 07:57] LABS: ABSOLUTE BASOPHILS # (AUTO) 0.1 10^3/uL (0.0-0.2); ABSOLUTE EOSINOPHILS # (AUTO) 0.4 10^3/uL (0.0-0.6); ABSOLUTE LYMPHOCYTES (AUTO) 1.8 10^3/uL (0.5-4.7); ABSOLUTE MONOCYTES (AUTO) 1.3 10^3/uL (0.1-1.4); ABSOLUTE NEUT (AUTO) 4.1 10^3/uL (1.7-8.2); BASOPHILS % (AUTO) 0.9 % (0-2); EOSINOPHILS % (AUTO) 5.2 % (0-6); HEMATOCRIT 29.9 % (37.9-51.0); HEMOGLOBIN 9.9 g/dL (13.5-17.0); LYMPHOCYTES % (AUTO) 23.7 % (13-45); MEAN CORPUSCULAR HEMOGLOBIN 27.8 pg (27.0-33.4); MEAN CORPUSCULAR VOLUME 84 fl (80-97); MONOCYTES % (AUTO) 17.1 % (3-13); PLATELET COUNT 254 10^3/uL (150-450); RED BLOOD COUNT 3.54 10^6/uL (4.35-5.55); RED CELL DISTRIBUTION WIDTH 14.7 % (11.5-14.0); SEGMENTED NEUTROPHILS % (AUTO) 53.1 % (42-78); TOTAL CELLS COUNTED % (AUTO) 100 %; WHITE BLOOD COUNT 7.7 10^3/uL (4.0-10.5)
[2017-11-03 08:20] LABS: ALANINE AMINOTRANSFERASE 20 U/L (21-72); ALBUMIN 3.1 g/dL (3.5-5.0); ALKALINE PHOSPHATASE 56 U/L (38-126); ANION GAP 10 (5-19); ASPARTATE AMINO TRANSFERASE 25 U/L (17-59); BILIRUBIN,DIRECT 0.1 mg/dL (0.0-0.4); BILIRUBIN,TOTAL 0.2 mg/dL (0.2-1.3); BLOOD UREA NITROGEN 14 mg/dL (7-20); CALCIUM 8.7 mg/dL (8.4-10.2); CARBON DIOXIDE 24 mmol/L (22-30); CHLORIDE 107 mmol/L (98-107); GLUCOSE 137 mg/dL (75-110); SODIUM 140.6 mmol/L (137-145); TOTAL PROTEIN 5.7 g/dL (6.3-8.2)
[2017-11-03] MEDS: ALBUTEROL SULFATE 0.083% NEB 2.5 MG/3 ML AMPUL NEB PRN ×3 (08:41→20:32)
[2017-11-03] MEDS: MEMANTINE HCL 10 MG TABLET PO SCH (10:00)
[2017-11-03] MEDS: GABAPENTIN 400 MG CAPSULE PO SCH ×2 (10:01→21:34)
[2017-11-03] MEDS: LANSOPRAZOLE 15 MG TAB.RAP.DR PO SCH (10:01)
[2017-11-03] MEDS: FLUTICASONE/SALMETEROL DISKUS 250-50 MCG/DOSE IH SCH ×2 (10:01→21:34)
[2017-11-03] MEDS: OXYCODONE-ACETAMINOPHEN 5-325 MG TABLET PO PRN (11:17)
[2017-11-03] MEDS: TAMSULOSIN HCL 0.4 MG CAP.SR.24H PO SCH (16:42)
[2017-11-03] MEDS: LISINOPRIL 10 MG TABLET PO SCH (16:42)
[2017-11-03] MEDS: ASPIRIN 81 MG TABLET, ENT COATED PO SCH (16:42)
[2017-11-03] MEDS: TIOTROPIUM BROMIDE DPI 5 CAP/KIT (18 MCG/CAP) IH SCH (16:43)
[2017-11-03] MEDS: ATORVASTATIN CALCIUM 40 MG TABLET PO SCH (21:34)
[2017-11-03] MEDS: DIVALPROEX SODIUM 250 MG TAB.SR.24H PO SCH (21:34)
[2017-11-03] MEDS: ZOLPIDEM TARTRATE 5 MG TABLET PO PRN (21:34)
[2017-11-03] MEDS: DONEPEZIL HCL 5 MG TABLET PO SCH (21:34)
--- NOTE | 2017-11-03 22:11 | PDOC PROGRESS REPORT ---
Subjective Progress Note for:: 11/03/17 Subjective:: Patient was seen by the bedside admitted for the management of cellulitis Reason For Visit: WHEEZING,HYPERTENSION,CHRONIC VENOUS STASIS Physical Exam Vital Signs: Temp Pulse Resp BP Pulse Ox 98.7 F 92 18 156/76 H 97 11/03/17 15:16 11/03/17 20:35 11/03/17 20:35 11/03/17 15:16 11/03/17 15:16 Intake & Output 11/02/17 11/03/17 11/04/17 06:59 06:59 06:59 Intake Total 1072 3290 420 Output Total 1750 1750 900 Balance -678 1540 -480 Weight 101.9 kg 102 kg General appearance: PRESENT: no acute distress Eye exam: PRESENT: PERRLA Respiratory exam: PRESENT: clear to auscultation mariia Cardiovascular exam: PRESENT: +S1, +S2 GI/Abdominal exam: PRESENT: soft Neurological exam: PRESENT: alert Results Laboratory Results: 11/03/17 07:06 11/03/17 07:06 11/03/17 11/03/17 07:06 07:06 WBC 7.7 RBC 3.54 L Hgb 9.9 L Hct 29.9 L MCV 84 MCH 27.8 MCHC 33.0 RDW 14.7 H Plt Count 254 Seg Neutrophils % 53.1 Lymphocytes % 23.7 Monocytes % 17.1 H Eosinophils % 5.2 Basophils % 0.9 Absolute Neutrophils 4.1 Absolute Lymphocytes 1.8 Absolute Monocytes 1.3 Absolute Eosinophils 0.4 Absolute Basophils 0.1 Sodium 140.6 Potassium 4.0 Chloride 107 Carbon Dioxide 24 Anion Gap 10 BUN 14 Creatinine 1.63 H Est GFR ( Amer) 51 L Est GFR (Non-Af Amer) 42 L Glucose 137 H Calcium 8.7 Total Bilirubin 0.2 AST 25 ALT 20 L Alkaline Phosphatase 56 Total Protein 5.7 L Albumin 3.1 L Assessment & Plan - Diagnosis (1) Cellulitis of both lower extremities Is this a current diagnosis for this admission?: Yes (2) Chronic venous hypertension (idiopathic) with inflammation of bilateral lower extremity Is this a current diagnosis for this admission?: Yes (3) Chronic obstructive pulmonary disease with (acute) exacerbation Is this a current diagnosis for this admission?: Yes (4) Chronic kidney disease, stage 3 Is this a current diagnosis for this admission?: Yes
[2017-11-04] MEDS: PIPERACILLIN SODIUM/TAZOBACTAM 3.375 GM in NORMAL SALINE 100 ML IV SCH ×4 (02:54→18:39)
[2017-11-04] MEDS: ACETAMINOPHEN 325 MG TABLET PO PRN ×2 (05:09→13:28)
[2017-11-04] MEDS: VANCOMYCIN HCL 1,500 MG in DEXTROSE 5%-WATER 250 ML IV SCH (05:09)
[2017-11-04] MEDS: GABAPENTIN 400 MG CAPSULE PO SCH ×2 (08:35→21:53)
[2017-11-04] MEDS: ALBUTEROL SULFATE 0.083% NEB 2.5 MG/3 ML AMPUL NEB PRN ×3 (08:47→18:20)
[2017-11-04] MEDS: MEMANTINE HCL 10 MG TABLET PO SCH (10:18)
[2017-11-04] MEDS: LANSOPRAZOLE 15 MG TAB.RAP.DR PO SCH (10:18)
[2017-11-04] MEDS: FLUTICASONE/SALMETEROL DISKUS 250-50 MCG/DOSE IH SCH ×2 (10:20→21:53)
[2017-11-04] MEDS: NORMAL SALINE 1000 ML 1,000 ML IV PRN (10:58)
[2017-11-04] MEDS: ASPIRIN 81 MG TABLET, ENT COATED PO SCH (18:36)
[2017-11-04] MEDS: TAMSULOSIN HCL 0.4 MG CAP.SR.24H PO SCH (18:37)
[2017-11-04] MEDS: LISINOPRIL 10 MG TABLET PO SCH (18:37)
[2017-11-04] MEDS: TIOTROPIUM BROMIDE DPI 5 CAP/KIT (18 MCG/CAP) IH SCH (18:39)
--- NOTE | 2017-11-04 21:26 | PDOC PROGRESS REPORT ---
Subjective Progress Note for:: 11/04/17 Subjective:: Seen by the bedside no new complaints Reason For Visit: WHEEZING,HYPERTENSION,CHRONIC VENOUS STASIS Physical Exam Vital Signs: Temp Pulse Resp BP Pulse Ox 98.6 F 78 26 H 152/79 H 98 11/04/17 15:42 11/04/17 18:20 11/04/17 18:20 11/04/17 15:42 11/04/17 18:20 Intake & Output 11/03/17 11/04/17 11/05/17 06:59 06:59 06:59 Intake Total 3290 1480 2394 Output Total 1750 1800 1175 Balance 1540 -320 1219 Weight 102 kg General appearance: PRESENT: no acute distress Head exam: PRESENT: atraumatic, normocephalic Eye exam: PRESENT: conjunctiva pink, EOMI, PERRLA Ear exam: PRESENT: normal external ear exam Neck exam: PRESENT: full ROM Respiratory exam: PRESENT: clear to auscultation mariia Cardiovascular exam: PRESENT: RRR, +S1, +S2 Pulses: PRESENT: normal dorsalis pedis pul, +2 pedal pulses bilateral Vascular exam: PRESENT: normal capillary refill GI/Abdominal exam: PRESENT: normal bowel sounds, soft Rectal exam: PRESENT: deferred Neurological exam: PRESENT: alert, CN II-XII grossly intact. ABSENT: motor sensory deficit Psychiatric exam: PRESENT: appropriate affect, normal mood. ABSENT: homicidal ideation, suicidal ideation Skin exam: PRESENT: dry, intact, warm. ABSENT: cyanosis, rash Results Laboratory Results: 11/03/17 07:06 11/03/17 07:06 Assessment & Plan - Diagnosis (1) Cellulitis of both lower extremities Is this a current diagnosis for this admission?: Yes (2) Chronic venous hypertension (idiopathic) with inflammation of bilateral lower extremity Is this a current diagnosis for this admission?: Yes (3) Chronic obstructive pulmonary disease with (acute) exacerbation Is this a current diagnosis for this admission?: Yes (4) Chronic kidney disease, stage 3 Is this a current diagnosis for this admission?: Yes
[2017-11-04] MEDS: OXYCODONE-ACETAMINOPHEN 5-325 MG TABLET PO PRN (21:52)
[2017-11-04] MEDS: ATORVASTATIN CALCIUM 40 MG TABLET PO SCH (21:53)
[2017-11-04] MEDS: DONEPEZIL HCL 5 MG TABLET PO SCH (21:53)
[2017-11-04] MEDS: DIVALPROEX SODIUM 250 MG TAB.SR.24H PO SCH (21:53)
[2017-11-05] MEDS: PIPERACILLIN SODIUM/TAZOBACTAM 3.375 GM in NORMAL SALINE 100 ML IV SCH ×4 (00:51→18:46)
[2017-11-05] MEDS: ACETAMINOPHEN 325 MG TABLET PO PRN ×3 (02:45→23:03)
[2017-11-05] MEDS: OXYCODONE-ACETAMINOPHEN 5-325 MG TABLET PO PRN (06:37)
[2017-11-05] MEDS: VANCOMYCIN HCL 1,500 MG in DEXTROSE 5%-WATER 250 ML IV SCH (06:37)
[2017-11-05 07:13] LABS: VANCOMYCIN,TROUGH 8.9 ug/mL (5.0-20.0)
[2017-11-05] MEDS: GABAPENTIN 400 MG CAPSULE PO SCH (08:16)
[2017-11-05] MEDS: ALBUTEROL SULFATE 0.083% NEB 2.5 MG/3 ML AMPUL NEB PRN ×2 (09:14→14:20)
[2017-11-05] MEDS: MEMANTINE HCL 10 MG TABLET PO SCH (09:48)
[2017-11-05] MEDS: FLUTICASONE/SALMETEROL DISKUS 250-50 MCG/DOSE IH SCH (09:48)
[2017-11-05] MEDS: LANSOPRAZOLE 15 MG TAB.RAP.DR PO SCH (09:48)
--- NOTE | 2017-11-05 16:59 | PDOC TRANSFER SUMMARY ---
General - Admit/Disc Date/PCP Admission Date/Primary Care Provider: 11/01/17 08:24 Discharge Date: 11/05/17 - Discharge Diagnosis (1) Cellulitis of both lower extremities Is this a current diagnosis for this admission?: Yes (2) Chronic venous hypertension (idiopathic) with inflammation of bilateral lower extremity Is this a current diagnosis for this admission?: Yes (3) Chronic obstructive pulmonary disease with (acute) exacerbation Is this a current diagnosis for this admission?: Yes (4) Chronic kidney disease, stage 3 Is this a current diagnosis for this admission?: Yes - Additional Information Home Medications: Acetaminophen [Tylenol 325 mg Tablet] 650 mg PO Q6HP PRN 11/01/17 Albuterol Sulfate [Albuterol Sulfate 2.5mg/3 mL] 1 vial NEB Q6HP PRN 11/01/17 Albuterol Sulfate [Ventolin HFA MDI 18 GM] 2 puff IH Q4HP PRN 11/01/17 Aspirin [Aspirin EC] 81 mg PO DAILY 11/01/17 Atorvastatin Calcium [Lipitor 40 mg Tablet] 40 mg PO QHS 11/01/17 Calcium Carbonate [Tums Chewable 500 mg Tab.chew] 500 mg PO Q4HP PRN 11/01/17 Cetirizine HCl/Pseudoephedrine [Zyrtec-D Tablet] 1 tab PO DAILYP PRN 11/01/17 Divalproex Sodium [Depakote ER 250 mg Tablet] 750 mg PO QHS 11/01/17 Docusate Sodium [Colace 100 mg Capsule] 200 mg PO DAILYP PRN 11/01/17 Donepezil HCl [Aricept 5 mg Tablet] 5 mg PO QHS 11/01/17 Doxycycline Hyclate [Vibramycin] 100 mg PO BID 11/01/17 Esomeprazole Magnesium [Nexium] 20 mg PO DAILY 11/01/17 Fluticasone/Salmeterol [Advair 250-50 Diskus 28 dose] 1 puff IH Q12 11/01/17 Gabapentin [Neurontin 400 mg Capsule] 400 mg PO QAM 11/01/17 Gabapentin [Neurontin 400 mg Capsule] 800 mg PO QHS 11/01/17 Hydroxyzine HCl [Atarax 50 mg Tablet] 50 mg PO Q6HP PRN 11/01/17 Lisinopril [Prinivil 10 mg Tablet] 10 mg PO DAILY 11/01/17 Magnesium Hydroxide [Milk of Magnesia 30 ml Udcup] 30 ml PO DAILYP PRN 11/01/17 Memantine HCl [Namenda] 5 mg PO DAILY 11/01/17 Oxycodone HCl/Acetaminophen [Percocet 7.5-325 mg Tablet] 1 tab PO Q6HP PRN 11/01 Tamsulosin HCl [Flomax 0.4 mg Cap.sr] 0.4 mg PO DAILY 11/01/17 Tiotropium [place] [Spiriva Handihaler 18 mcg/dose (30 Dose)] 1 puff IH DAILY Zolpidem Tartrate [Ambien 5 mg Tablet] 5 mg PO HSP PRN 11/01/17 History of Present Illness Admission Date/PCP: 11/01/17 08:24 History of Present Illness: PRINCE PALMA is a 72 year old male, he has multiple comorbid conditions including chronic obstructive pulmonary disease, chronic kidney disease stage III, pulmonary hypertension, chronic venous hypertension with chronic inflammation of the lower extremities, tobacco dependence and he continued to smoke cigarettes despite very severe COPD he was just admitted and discharged from this hospital on 10/04/2017 when he was admitted for the evaluation of chest pain and COPD. He is a resident of [facility] he came to the emergency room for evaluation of worsening redness of the extremities with exfoliation and extreme weeping of the lower extremities the emergency room he was evaluated it was felt that he has severe cellulitis and he needed to be admitted for management. He has penchant for opioid use to control pain he has chronic back pain for which he uses opioid therapy, Percocet. Hospital Course Hospital Course: Patient was admitted for the management of bilateral lower extremities cellulitis ,he has chronic venous hypertension of both legs, he was empirically treated with IV antibiotic to cover MRSA, gram-negative organisms with vancomycin and Zosyn. He has COPD, actively abusing tobacco.He wants to be discharge today ,there is still some redness of the extremity. he will be discharged back to assisted living facility today Physical Exam Vital Signs: Temp Pulse Resp BP Pulse Ox 98.9 F 81 19 153/73 H 96 11/05/17 16:31 11/05/17 16:31 11/05/17 16:31 11/05/17 16:31 11/05/17 16:31 Intake & Output 11/04/17 11/05/17 11/06/17 06:59 06:59 06:59 Intake Total 1480 4144 Output Total 1800 2135 Balance -320 2008 General appearance: PRESENT: no acute distress Head exam: PRESENT: atraumatic, normocephalic Eye exam: PRESENT: PERRLA Respiratory exam: PRESENT: clear to auscultation mariia Cardiovascular exam: PRESENT: RRR, +S1, +S2 Vascular exam: PRESENT: normal capillary refill GI/Abdominal exam: PRESENT: normal bowel sounds, soft Rectal exam: PRESENT: deferred Extremities exam: PRESENT: full ROM, pedal edema, other Neurological exam: PRESENT: alert Psychiatric exam: PRESENT: appropriate affect, normal mood Skin exam: PRESENT: dry, intact, warm Results Laboratory Results: 11/03/17 07:06 11/05/17 05:53 11/05/17 05:53 Creatinine 1.56 H Est GFR ( Amer) 53 L Est GFR (Non-Af Amer) 44 L
[2017-11-05] MEDS ORDERED: VANCOMYCIN HCL 1,000 MG in DEXTROSE 5%-WATER 250 ML IV SCH (18:00)
[2017-11-05] MEDS: LISINOPRIL 10 MG TABLET PO SCH (18:52)
[2017-11-05] MEDS: ASPIRIN 81 MG TABLET, ENT COATED PO SCH (18:52)
[2017-11-05] MEDS: TAMSULOSIN HCL 0.4 MG CAP.SR.24H PO SCH (18:53)
[2017-11-05] MEDS: TIOTROPIUM BROMIDE DPI 5 CAP/KIT (18 MCG/CAP) IH SCH (18:53)
[2017-11-05 21:19] VITALS: BP 153/62
== END 2017-11-05 23:10 | DRG 603 ==
LOC: ER 02:53 → EH 08:24 → 5 16:59
PROVIDERS: ADMIT Internal Medicine; ATTEND Internal Medicine
DX: L03.116 Cellulitis of left lower limb (principal); J44.1 Chronic obstructive pulmonary disease with (acute) exacerbation; L03.115 Cellulitis of right lower limb; I27.20 Pulmonary hypertension, unspecified; E78.00 Pure hypercholesterolemia, unspecified; K21.9 Gastro-esophageal reflux disease without esophagitis; F32.9 Major depressive disorder, single episode, unspecified; I87.8 Other specified disorders of veins; I12.9 Hypertensive chronic kidney disease with stage 1 through stage 4 chronic kidney disease, or unspecified chronic kidney disease; N18.3 Chronic kidney disease, stage 3 (moderate); F17.210 Nicotine dependence, cigarettes, uncomplicated; Z79.82 Long term (current) use of aspirin; Z79.51 Long term (current) use of inhaled steroids; Z79.899 Other long term (current) drug therapy
CPT/HCPCS: 36415; 80053; 80202; 82565; 83605; 85025; 87040; 93005; 93010; 96365; 96375; 99285; J1170; J2543; J3370; J3490; J7030; J7060

== ENCOUNTER 2017-12-19 06:21 | Emergency (ER) | payer MEDICARE, MEDICAID ==
[2017-12-19] MEDS ORDERED: FENTANYL CITRATE INJ/PF 100 MCG/2 ML AMPUL IV ONE (07:05)
[2017-12-19] MEDS ORDERED: IPRATROPIUM/ALBUTEROL 0.5-2.5 MG/3 ML AMPUL NEB ONE (07:05)
[2017-12-19] MEDS ORDERED: METHYLPREDNISOLONE INJ 125 MG/2 ML SDV IV ONE (07:06)
--- NOTE | 2017-12-19 07:30 | ER Document Report ---
ED GI/ - General Chief Complaint: Flank Pain Stated Complaint: FLANK PAIN Time Seen by Provider: 12/19/17 07:02 Mode of Arrival: Ambulatory Notes: HPI-72 years old male with a history of COPD woke up this morning, early this morning with sharp pain over the left lower chest left flank region. Which was sharp in nature, nonradiating, not relieved by any change of position, exacerbated by taking deep breath or changing position. He has been having on and off cough and wheezing. Continuously smoking. No fever chills or other constitutional symptoms. Has lower extremity swelling which is chronic. REVIEW OF SYSTEMS: CONSTITUTIONAL : Denies fever, chills, or sweats. Denies recent illness. EENT: Denies eye, ear, throat, or mouth pain or symptoms. Denies nasal or sinus congestion or discharge. Denies throat, tongue, or mouth swelling or difficulty swallowing. CARDIOVASCULAR: Denies chest pain. Denies palpitations or racing or irregular heart beat. Denies ankle edema. RESPIRATORY: As per history of complain GASTROINTESTINAL: Denies abdominal pain or distention. Denies nausea, vomiting , or diarrhea. Denies blood in vomitus, stools, or per rectum. Denies black, tarry stools. Denies constipation. GENITOURINARY: Denies difficulty urinating, painful urination, burning, frequency, blood in urine, or discharge. MUSCULOSKELETAL: Denies back or neck pain or stiffness. Denies joint pain or swelling. SKIN: Denies rash, lesions or sores. HEMATOLOGIC : Denies easy bruising or bleeding. LYMPHATIC: Denies swollen, enlarged glands. NEUROLOGICAL: Denies confusion or altered mental status. Denies passing out or loss of consciousness. Denies dizziness or lightheadedness. Denies headache. Denies weakness or paralysis or loss of use of either side. Denies problems with gait or speech. Denies sensory loss, numbness, or tingling. Denies seizures. PSYCHIATRIC: Denies anxiety or stress. Denies depression, suicidal ideation, or homicidal ideation. ALL OTHER SYSTEMS REVIEWED AND NEGATIVE. Dictation was performed using [employer] recognition software PHYSICAL EXAMINATION: GENERAL: Seems to be in moderate pain, unhygienic, obese HEAD: Atraumatic, normocephalic. EYES: Pupils equal round and reactive to light, extraocular movements intact, sclera anicteric, conjunctiva are normal. ENT: Nares patent, oropharynx clear without exudates. Moist mucous membranes. NECK: Normal range of motion, supple without lymphadenopathy LUNGS: Bilaterally decreased breath sounds with scattered wheezing throughout the lung field. Chest wall: Sharp tenderness over the left posterior axillary line along the 10th and 11th ribs. No flank tenderness. HEART: Regular rate and rhythm without murmurs ABDOMEN: Soft, nontender, nondistended abdomen. No guarding, no rebound. No masses appreciated. Musculoskeletal: Normal range of motion, no pitting or edema. No cyanosis. NEUROLOGICAL: Cranial nerves grossly intact. Normal speech, normal gait. Normal sensory, motor exams PSYCH: Normal mood, normal affect. SKIN: Warm, Dry, normal turgor, no rashes or lesions noted. TRAVEL OUTSIDE OF THE [place] IN LAST 30 DAYS: No - Related Data Allergies/Adverse Reactions: No Known Allergies Allergy (Verified 06/05/17 10:03) Past Medical History - Social History Smoking Status: Current Every Day Smoker Frequency of alcohol use: None Family History: Reviewed & Not Pertinent Patient has suicidal ideation: No Patient has homicidal ideation: No - Past Medical History Cardiac Medical History: Reports: Hx Hypercholesterolemia, Hx Hypertension Pulmonary Medical History: Reports: Hx Asthma, Hx COPD, Hx Pneumonia Denies: Hx Bronchitis, Hx Intubation, Hx Respiratory Failure, Hx Sleep Apnea , Hx Tuberculosis Renal/ Medical History: Denies: Hx Peritoneal Dialysis GI Medical History: Reports: Hx Gastroesophageal Reflux Disease Musculoskeltal Medical History: Reports Hx Arthritis Psychiatric Medical History: Reports: Hx Depression Past Surgical History: Reports: Hx Cholecystectomy - states "Im pretty sure" Physical Exam - Vital signs Vitals: Temp Pulse Resp BP Pulse Ox 97.9 F 90 20 152/85 H 94 12/19/17 06:25 12/19/17 06:25 12/19/17 06:25 12/19/17 06:25 12/19/17 06:25 Course - Re-evaluation Re-evalutation: 12/19/17 09:53 Patient condition improved after the treatment - Vital Signs Vital signs: Temp Pulse Resp BP Pulse Ox 97.9 F 90 14 142/79 H 97 12/19/17 06:25 12/19/17 06:25 12/19/17 08:01 12/19/17 08:01 12/19/17 08:01 - Laboratory Result Diagrams: 12/19/17 07:30 12/19/17 07:30 Laboratory results interpreted by me: 12/19/17 12/19/17 07:30 07:30 RBC 4.01 L Hgb 11.1 L Hct 33.4 L RDW 14.9 H Monocytes % 15.1 H Chloride 108 H BUN 21 H Creatinine 1.75 H Est GFR ( Amer) 47 L Est GFR (Non-Af Amer) 39 L ALT 16 L - Diagnostic Test Radiology reviewed: Reports reviewed - Chest x-ray reported by radiologist patchy pneumonitis as before no new changes. Discharge - Discharge Clinical Impression: Chest wall pain, COPD with acute exacerbation Condition: Critical Disposition: HOME, SELF-CARE Instructions: Chest Wall Pain ([facility]) Prescriptions: Prednisone 10 mg PO ASDIR PRN 6 Days #1 tab.ds.pk PRN Reason:
[2017-12-19 07:51] LABS: ABSOLUTE BASOPHILS # (AUTO) 0.1 10^3/uL (0.0-0.2); ABSOLUTE EOSINOPHILS # (AUTO) 0.4 10^3/uL (0.0-0.6); ABSOLUTE LYMPHOCYTES (AUTO) 2.5 10^3/uL (0.5-4.7); ABSOLUTE MONOCYTES (AUTO) 1.2 10^3/uL (0.1-1.4); BASOPHILS % (AUTO) 0.7 % (0-2); EOSINOPHILS % (AUTO) 5.5 % (0-6); HEMATOCRIT 33.4 % (37.9-51.0); HEMOGLOBIN 11.1 g/dL (13.5-17.0); LYMPHOCYTES % (AUTO) 30.3 % (13-45); MEAN CORPUSCULAR HEMOGLOBIN 27.8 pg (27.0-33.4); MEAN CORPUSCULAR HGB CONC 33.3 g/dL (32.0-36.0); MEAN CORPUSCULAR VOLUME 84 fl (80-97); MONOCYTES % (AUTO) 15.1 % (3-13); PLATELET COUNT 232 10^3/uL (150-450); RED BLOOD COUNT 4.01 10^6/uL (4.35-5.55); RED CELL DISTRIBUTION WIDTH 14.9 % (11.5-14.0); SEGMENTED NEUTROPHILS % (AUTO) 48.4 % (42-78); TOTAL CELLS COUNTED % (AUTO) 100 %; WHITE BLOOD COUNT 8.2 10^3/uL (4.0-10.5)
[2017-12-19 07:58] LABS: ALANINE AMINOTRANSFERASE 16 U/L (21-72); ALBUMIN 3.5 g/dL (3.5-5.0); ALKALINE PHOSPHATASE 54 U/L (38-126); ANION GAP 10 (5-19); ASPARTATE AMINO TRANSFERASE 17 U/L (17-59); BILIRUBIN,DIRECT 0.2 mg/dL (0.0-0.4); BILIRUBIN,TOTAL 0.2 mg/dL (0.2-1.3); BLOOD UREA NITROGEN 21 mg/dL (7-20); CALCIUM 8.6 mg/dL (8.4-10.2); CARBON DIOXIDE 26 mmol/L (22-30); CHLORIDE 108 mmol/L (98-107); GLUCOSE 102 mg/dL (75-110); LIPASE 153.2 U/L (23-300); TOTAL PROTEIN 6.6 g/dL (6.3-8.2)
--- NOTE | 2017-12-19 08:46 | RADIOLOGY REPORT (SQ) ---
EXAM DESCRIPTION: ACUTE ABDOMEN SERIES COMPLETED DATE/TIME: 12/19/2017 7:54 am REASON FOR STUDY: Abdominal pain COMPARISON: 10/03/2017 NUMBER OF VIEWS: Three views. TECHNIQUE: Frontal chest, supine abdomen and upright/decubitus abdomen radiographic images acquired. LIMITATIONS: None. FINDINGS: CHEST: Since the scattered areas of patchy opacities throughout the lungs. FREE AIR: None. No abnormal gas collections. BOWEL GAS PATTERN: Nonobstructive pattern. No dilated loops or air fluid levels. CALCIFICATIONS: No suspicious calcifications. HARDWARE: Hernia coils left lower quadrant. SOFT TISSUES: No gross mass or suggestion of organomegaly. BONES: Diffuse degenerative disc disease. OTHER: No other significant finding. IMPRESSION: There is consistent with patchy pneumonitis in the lungs. No radiographic evidence for acute abdominal disease. TECHNICAL DOCUMENTATION: JOB ID: [id number] [employer]- All Rights Reserved Reading location - IP/workstation name: [email or web address]
[2017-12-19 11:17] VITALS: BP 163/91
== END 2017-12-19 11:17 | disposition home or self-care (01) ==
LOC: ER 06:21
DX: J44.1 Chronic obstructive pulmonary disease with (acute) exacerbation (principal); R07.89 Other chest pain; R10.9 Unspecified abdominal pain; R05 Cough; R06.2 Wheezing; I10 Essential (primary) hypertension; F17.200 Nicotine dependence, unspecified, uncomplicated
CPT/HCPCS: 94640; 99284; 96374; 96375; 36415; 83690; 85025; 80076; 80048; 74022; J3010; J2930; A9270; J7620

== ENCOUNTER 2018-02-28 05:15 | Inpatient (IN) | payer MEDICARE, MEDICAID ==
[2018-02-28] MEDS ORDERED: METHYLPREDNISOLONE INJ 125 MG/2 ML SDV IV ONE ×2 (05:48→19:30)
[2018-02-28] MEDS ORDERED: IPRATROPIUM/ALBUTEROL 0.5-2.5 MG/3 ML AMPUL NEB ONE ×2 (05:48→10:50)
--- NOTE | 2018-02-28 06:38 | RADIOLOGY REPORT (SQ) ---
EXAM DESCRIPTION: XR CHEST 1 VIEW CLINICAL HISTORY: 73 years Male, dyspnea COMPARISON: 1.8.18. NUMBER OF VIEWS/TECHNIQUE: 1/AP FINDINGS: Adequate lung volume, clear parenchyma, prominent interstitium, normal cardiac silhouette, atherosclerosis, and intact bony thorax. IMPRESSION: No acute cardiopulmonary findings.
[2018-02-28] MEDS: MAGNESIUM SULFATE/D5W 1 GM/100 ML RTUPB IV SCH ×2 (06:43→07:00)
[2018-02-28] MEDS ORDERED: ALBUTEROL SULFATE 0.083% NEB 2.5 MG/3 ML AMPUL NEB ONE (07:07)
[2018-02-28 07:12] LABS: ABSOLUTE BASOPHILS # (AUTO) 0.1 10^3/uL (0.0-0.2); ABSOLUTE EOSINOPHILS # (AUTO) 0.6 10^3/uL (0.0-0.6); ABSOLUTE MONOCYTES (AUTO) 1.2 10^3/uL (0.1-1.4); BASOPHILS % (AUTO) 0.9 % (0-2); EOSINOPHILS % (AUTO) 7.7 % (0-6); HEMATOCRIT 33.2 % (37.9-51.0); HEMOGLOBIN 11.4 g/dL (13.5-17.0); LYMPHOCYTES % (AUTO) 25.3 % (13-45); MEAN CORPUSCULAR HEMOGLOBIN 28.7 pg (27.0-33.4); MEAN CORPUSCULAR HGB CONC 34.2 g/dL (32.0-36.0); MEAN CORPUSCULAR VOLUME 84 fl (80-97); MONOCYTES % (AUTO) 15.1 % (3-13); PLATELET COUNT 186 10^3/uL (150-450); RED BLOOD COUNT 3.96 10^6/uL (4.35-5.55); RED CELL DISTRIBUTION WIDTH 16.3 % (11.5-14.0); TOTAL CELLS COUNTED % (AUTO) 100 %; WHITE BLOOD COUNT 7.8 10^3/uL (4.0-10.5)
[2018-02-28 07:14] LABS: VENOUS BLOOD BASE EXCESS 2.1 mmol/L; VENOUS BLOOD HCO3 28.7 mmol/L (20-32); VENOUS BLOOD PCO2 53.6 mmHg (35-63); VENOUS BLOOD PH 7.35 (7.30-7.42)
[2018-02-28 07:35] LABS: ALANINE AMINOTRANSFERASE 18 U/L (21-72); ALBUMIN 3.7 g/dL (3.5-5.0); ALKALINE PHOSPHATASE 42 U/L (38-126); ANION GAP 10 (5-19); ASPARTATE AMINO TRANSFERASE 23 U/L (17-59); BILIRUBIN,DIRECT 0.4 mg/dL (0.0-0.4); BILIRUBIN,TOTAL 0.4 mg/dL (0.2-1.3); BLOOD UREA NITROGEN 25 mg/dL (7-20); CALCIUM 9.6 mg/dL (8.4-10.2); CARBON DIOXIDE 30 mmol/L (22-30); CHLORIDE 104 mmol/L (98-107); GLUCOSE 157 mg/dL (75-110); POTASSIUM 4.8 mmol/L (3.6-5.0); SODIUM 143.6 mmol/L (137-145); TOTAL PROTEIN 6.5 g/dL (6.3-8.2)
[2018-02-28] MEDS ORDERED: RINGERS SOLUTION,LACTATED 1,000 ML IV ONE (07:51)
--- NOTE | 2018-02-28 08:19 | ER Document Report ---
ED General - General Chief Complaint: Shortness Of Breath Stated Complaint: BREATHING DIFFICULTY Time Seen by Provider: 02/28/18 05:48 TRAVEL OUTSIDE OF THE [place] IN LAST 30 DAYS: No - HPI Patient complains to provider of: Shortness of breath Notes: Patient coming in for local fpc for shortness of breath. By EMS arrival patient was found hypoxic with SPO2 proximal and 85-88. Patient was placed on breathing treatment transported to the ER. Patient has a history significant for dementia and COPD. Upon my evaluation patient resting comfortably with audible wheezes heard upon entering the room. Patient sleeping easily aroused states that he feels better however does still feel short of breath. Patient denies any chest pain or abdominal pain. Denies fevers chills nausea vomiting diarrhea. retirement records sent with the patient were reviewed - Related Data Allergies/Adverse Reactions: No Known Allergies Allergy (Verified 06/05/17 10:03) Past Medical History - Social History Smoking Status: Current Some Day Smoker Chew tobacco use (# tins/day): No Frequency of alcohol use: None Drug Abuse: None Family History: Reviewed & Not Pertinent Patient has suicidal ideation: No Patient has homicidal ideation: No - Past Medical History Cardiac Medical History: Reports: Hx Hypercholesterolemia, Hx Hypertension Pulmonary Medical History: Reports: Hx Asthma, Hx COPD, Hx Pneumonia Denies: Hx Bronchitis, Hx Intubation, Hx Respiratory Failure, Hx Sleep Apnea , Hx Tuberculosis Renal/ Medical History: Denies: Hx Peritoneal Dialysis GI Medical History: Reports: Hx Gastroesophageal Reflux Disease Musculoskeltal Medical History: Reports Hx Arthritis Psychiatric Medical History: Reports: Hx Depression Past Surgical History: Reports: Hx Cholecystectomy - states "Im pretty sure" Review of Systems - Review of Systems Constitutional: No symptoms reported EENT: No symptoms reported Cardiovascular: No symptoms reported Respiratory: Short of breath Gastrointestinal: No symptoms reported Genitourinary: No symptoms reported Male Genitourinary: No symptoms reported Musculoskeletal: No symptoms reported Skin: No symptoms reported Hematologic/Lymphatic: No symptoms reported Neurological/Psychological: No symptoms reported -: Yes All other systems reviewed and negative Physical Exam - Vital signs Vitals: Temp Pulse Resp BP Pulse Ox 98.4 F 105 H 22 H 155/93 H 97 02/28/18 05:16 02/28/18 05:16 02/28/18 05:16 02/28/18 05:16 02/28/18 05:16 Interpretation: Normal - General General appearance: Appears well, Alert - HEENT Head: Normocephalic, Atraumatic Eyes: Normal Pupils: PERRL - Respiratory Respiratory status: No respiratory distress Chest status: Nontender Breath sounds: Normal Chest palpation: Normal - Cardiovascular Rhythm: Regular Heart sounds: Normal auscultation Murmur: No - Abdominal Inspection: Normal Distension: No distension Bowel sounds: Normal Tenderness: Nontender Organomegaly: No organomegaly - Back Back: Normal, Nontender - Extremities General upper extremity: Normal inspection, Nontender, Normal color, Normal ROM , Normal temperature General lower extremity: Normal inspection, Nontender, Normal color, Normal ROM , Normal temperature, Normal weight bearing. No: Amy's sign - Neurological Neuro grossly intact: Yes Cognition: Normal Rohwer Coma Scale Eye Opening: Spontaneous Rohwer Coma Scale Verbal: Oriented Martina Coma Scale Motor: Obeys Commands Rohwer Coma Scale Total: 15 Speech: Normal Motor strength normal: LUE, RUE, LLE, RLE Sensory: Normal - Psychological Associated symptoms: Normal affect, Normal mood - Skin Skin Temperature: Warm Skin Moisture: Dry Skin Color: Normal Course - Re-evaluation Re-evalutation: 02/28/18 15:40 Patient continued had wheezing with minimal improvement breathing treatments did require placement of nasal cannula oxygen to keep saturation above 87%. Patient does have a history of significant COPD. No signs of infection seen on examination or on the patient's chest x-ray. Discussed with PCP will admit for COPD exacerbation. - Vital Signs Vital signs: Temp Pulse Resp BP Pulse Ox 98.4 F 93 16 131/98 H 96 02/28/18 05:16 02/28/18 14:22 02/28/18 14:22 02/28/18 11:01 02/28/18 14:22 - Laboratory Result Diagrams: 02/28/18 06:45 02/28/18 06:45 Laboratory results interpreted by me: 02/28/18 02/28/18 06:45 06:45 RBC 3.96 L Hgb 11.4 L Hct 33.2 L RDW 16.3 H Monocytes % 15.1 H Eosinophils % 7.7 H BUN 25 H Creatinine 2.01 H Est GFR ( Amer) 40 L Est GFR (Non-Af Amer) 33 L Glucose 157 H ALT 18 L Discharge - Discharge Clinical Impression: COPD with acute exacerbation, Hypoxemia Condition: Good Disposition: ADMITTED INPATIENT Admitting Provider: Roseanne Unit Admitted: Telemetry
--- NOTE | 2018-02-28 09:54 | EKG REPORT ---
SEVERITY:- BORDERLINE ECG - SINUS TACHYCARDIA PROBABLE LEFT ATRIAL ABNORMALITY : Confirmed by: Sonya Castillo MD 28-Feb-2018 09:53:56
[2018-02-28] MEDS ORDERED: ACETAMINOPHEN 325 MG TABLET PO ONE (10:54)
[2018-02-28] MEDS: IPRATROPIUM/ALBUTEROL 0.5-2.5 MG/3 ML AMPUL NEB PRN ×4 (14:22→23:13)
[2018-02-28 14:39] LABS: INTERNATIONAL RATION (INR) 1.01; PROTHROMBIN TIME 13.9 SEC (11.4-15.4)
[2018-02-28 14:40] LABS: PARTIAL THROMBOPLASTIN TIME 31.7 SEC (23.5-35.8)
[2018-02-28 14:50] LABS: LIPASE 52.8 U/L (23-300)
[2018-02-28 15:05] LABS: CREATINE KINASE MB 2.07 ng/mL (<4.55)
[2018-02-28 15:07] LABS: TROPONIN I < 0.012 ng/mL
[2018-02-28 15:08] LABS: FREE T4 (FREE THYROXINE) 0.73 ng/dL (0.78-2.19)
[2018-02-28 15:22] LABS: THYROID STIMULATING HORMONE 0.81 uIU/mL (0.47-4.68)
[2018-02-28] MEDS: HEPARIN SOD (PORCINE) 5,000 UNIT/ML 1 ML SYRINGE SUBCUT SCH ×2 (17:40→20:37)
[2018-02-28] MEDS ORDERED: DOCUSATE SODIUM 100 MG CAPSULE PO PRN (17:57)
[2018-02-28] MEDS ORDERED: MAGNESIUM HYDROXIDE SUSP 30 ML UDCUP PO PRN (17:57)
[2018-02-28] MEDS ORDERED: PSEUDOEPHEDRINE PO PRN (17:57)
[2018-02-28] MEDS ORDERED: CETIRIZINE HCL PO PRN (17:57)
[2018-02-28] MEDS ORDERED: (PENDING PHARMACY ID) (Esomeprazole Magnesium [Nexium] 20 MG) PO SCH (18:00)
[2018-02-28] MEDS ORDERED: (PENDING PHARMACY ID) (Memantine Hcl [Namenda] 5 MG) PO SCH (18:00)
[2018-02-28] MEDS ORDERED: (PENDING PHARMACY ID) (Oxycodone Hcl/Acetaminophen [Percocet 7.5-325 Mg Tablet] 1 TAB) PO SCH (18:00)
--- NOTE | 2018-02-28 18:45 | RADIOLOGY REPORT (SQ) ---
EXAM DESCRIPTION: CT CHEST WITHOUT COMPLETED DATE/TIME: 02/28/2018 6:33 pm REASON FOR STUDY: pneumonia J18.8 OTHER PNEUMONIA, UNSPECIFIED ORGANISM N19 UNSPECIFIED KIDNEY FA ILURE COMPARISON: None. TECHNIQUE: CT scan performed of the chest without intravenous contrast. Images reviewed with lung, soft tissue and bone windows. Reconstructed coronal and sagittal MPR images reviewed. All images st ored on PACS. All CT scanners at this facility use dose modulation, iterative reconstruction, and/or weight based d osing when appropriate to reduce radiation dose to as low as reasonably achievable (ALARA). [facility]: Dose Right [facility]: CareDose [facility]: Dose Right [facility]: Teradose 4D [facility]: [employer] RADIATION DOSE: CT Rad equipment meets quality standard of care and radiation dose reduction techniq ues were employed. CTDIvol: 18.0 mGy. DLP: 686 mGy-cm. mGy. LIMITATIONS: No technical limitations. FINDINGS: LUNGS AND PLEURA: Centrilobular emphysema. No masses, infiltrates, pneumothorax. No pleu ral effusions, calcifications. HILAR AND MEDIASTINAL STRUCTURES: No identified masses or abnormal nodes. No obvious aneurysm. HEART AND VASCULAR STRUCTURES: No aneurysm. No pericardial effusion. UPPER ABDOMEN: Large hiatal hernia. No acute findings peer Limited exam. THYROID AND OTHER SOFT TISSUES: No masses. No adenopathy. BONES: No significant finding. HARDWARE: None in the chest. OTHER: No other significant findings. IMPRESSION: NO ACUTE INTRATHORACIC PROCESS. EMPHYSEMA. HIATAL HERNIA. TECHNICAL DOCUMENTATION: JOB ID: [id number] Quality ID # [id number]: Final reports with documentation of one or more dose reduction techniques (e.g., Au tomated exposure control, adjustment of the mA and/or kV according to patient size, use of iterative reconstruction technique) 2010 [employer]- All Rights Reserved Reading location - IP/workstation name: [email or web address]
[2018-02-28] MEDS ORDERED: TAMSULOSIN HCL 0.4 MG CAP.SR.24H PO ONE (19:00)
[2018-02-28] MEDS ORDERED: ASPIRIN 81 MG TABLET, ENT COATED PO ONE ×2 (19:00→20:00)
--- NOTE | 2018-02-28 19:07 | RADIOLOGY REPORT (SQ) ---
EXAM DESCRIPTION: [employer] COMPLETED DATE/TIME: 02/28/2018 6:56 pm REASON FOR STUDY: acute kidney injury J18.8 OTHER PNEUMONIA, UNSPECIFIED ORGANISM N19 UNSPECIFIED KIDNEY FAILURE COMPARISON: 04/20/2017 TECHNIQUE: Dynamic and static grayscale images acquired of the kidneys and bladder and recorded on P ACS. Additional selected color Doppler and spectral images recorded. LIMITATIONS: None. FINDINGS: RIGHT KIDNEY: Normal size. Normal echogenicity. No solid or suspicious masses. No h ydronephrosis. No calcifications. LEFT KIDNEY: Normal size. Normal echogenicity. No solid or suspicious masses. No hydronephrosi s. No calcifications. BLADDER: No masses. OTHER FINDINGS: No other significant finding. IMPRESSION: NORMAL RENAL AND BLADDER ULTRASOUND. TECHNICAL DOCUMENTATION: JOB ID: [id number] [employer]- All Rights Reserved Reading location - IP/workstation name: [email or web address]
[2018-02-28] MEDS ORDERED: LISINOPRIL 10 MG TABLET PO ONE (19:15)
[2018-02-28] MEDS ORDERED: MEMANTINE HCL 10 MG TABLET PO ONE (19:15)
[2018-02-28] MEDS ORDERED: LANSOPRAZOLE 15 MG TAB.RAP.DR PO ONE (19:15)
[2018-02-28] MEDS ORDERED: LORATADINE/PSEUDOEPHEDRINE SUL 10-240 MG TAB.SR.24H PO PRN (19:20)
[2018-02-28] MEDS ORDERED: FUROSEMIDE 20 MG TABLET PO ONE (19:30)
[2018-02-28 19:56] LABS: APPEARANCE,URINE CLEAR; BILIRUBIN,URINE NEGATIVE (NEGATIVE); COLOR,URINE YELLOW; GLUCOSE, URINE >=500 mg/dL (NEGATIVE); KETONES,URINE NEGATIVE (NEGATIVE); LEUKOCYTE ESTERASE,URINE NEGATIVE (NEGATIVE); NITRITE,URINE NEGATIVE (NEGATIVE); PROTEIN,URINE 100 mg/dL (NEGATIVE); URINE SPECIFIC GRAVITY 1.014; UROBILINOGEN,URINE NEGATIVE mg/dL (<2.0)
[2018-02-28 19:59] LABS: CREATINE KINASE MB 2.75 ng/mL (<4.55)
[2018-02-28] MEDS ORDERED: OXYCODONE-ACETAMINOPHEN 5-325 MG TABLET PO ONE (20:00)
[2018-02-28] MEDS ORDERED: OXYCODONE HCL IR 5 MG TABLET PO ONE (20:00)
[2018-02-28 20:01] LABS: TROPONIN I < 0.012 ng/mL
[2018-02-28 20:20] LABS: ARTERIAL BLOOD BASE EXCESS 0.5 mmol/L; ARTERIAL BLOOD H2CO3 1.03 mmol/L (1.05-1.35); ARTERIAL BLOOD O2 SATURATION 96.8 % (94-98); ARTERIAL BLOOD PCO2 34.3 mmHg (35-45); ARTERIAL BLOOD PH 7.46 (7.35-7.45); ARTERIAL BLOOD PO2 83.2 mmHg (80-100)
[2018-02-28 20:21] LABS: ARTERIAL BLOOD FIO2 3L
[2018-02-28 20:26] LABS: URINE AMPHETAMINES SCREEN NEGATIVE; URINE BARBITURATES SCREEN NEGATIVE; URINE BENZODIAZEPINES SCREEN NEGATIVE; URINE COCAINE SCREEN NEGATIVE; URINE MARIJUANA (THC) SCREEN NEGATIVE; URINE METHADONE SCREEN NEGATIVE; URINE PHENCYCLIDINE SCREEN NEGATIVE
[2018-02-28] MEDS: ATORVASTATIN CALCIUM 40 MG TABLET PO SCH (20:35)
[2018-02-28] MEDS: DONEPEZIL HCL 5 MG TABLET PO SCH (20:36)
--- NOTE | 2018-02-28 20:53 | PDOC H&P ---
History of Present Illness Admission Date/PCP: 02/28/18 09:20 JONATHAN WHITESIDE MD History of Present Illness: PRINCE PALMA is a 73 year old male,Resident of assisted living facility at [facility], he has multiple comorbid conditions including chronic obstructive pulmonary disease complicated with secondary pulmonary hypertension with chronic venous hypertension of both lower extremities, tobacco abuse still smoking cigarettes, chronic kidney disease stage III he came to the emergency room for evaluation of shortness of breath, he was evaluated in the emergency room, he was treated with bronchodilators, Solu-Medrol intravenously, magnesium sulfate intravenously despite all these interventions patient continued to be symptomatic with shortness of breath and wheezing, the emergency room physician wants patient admitted to the hospital for further management. I saw him today in the hospital patient is well-known to me from prior encounters, on auscultation of his chest there is diffuse bilateral wheezing ABG on FiO2 of 3 L was done PO2 was 83.2 pH 7.4 cc bicarbonate 24 PCO2 34.3, the pO2/FiO2 ratio is less than 200 suggesting hypoxemia. Past Medical History Cardiac Medical History: Reports: Hyperlipidema, Hypertension Pulmonary Medical History: Reports: Asthma, Chronic Obstructive Pulmonary Disease (COPD), Pneumonia, Respiratory Failure - Chronic respiratory failure, Other - Pulmonary hypertension Renal/ Medical History: Reports: Chronic Kidney Disease GI Medical History: Reports: Gastroesophageal Reflux Disease Musculoskeltal Medical History: Reports: Arthritis Psychiatric Medical History: Reports: Depression Past Surgical History Past Surgical History: Reports: Cholecystectomy - states "Im pretty sure" Social History Smoking Status: Current Some Day Smoker Number of Years Smokin Frequency of Alcohol Use: None Hx Recreational Drug Use: No Drugs: None Hx Prescription Drug Abuse: No Family History Family History: Reviewed & Not Pertinent Parental Family History Reviewed: Yes Children Family History Reviewed: Yes Sibling(s) Family History Reviewed.: Yes Medication/Allergy Home Medications: Acetaminophen [Tylenol 325 mg Tablet] 650 mg PO Q6HP PRN 11/01/17 Aspirin [Aspirin EC] 81 mg PO DAILY 11/01/17 Atorvastatin Calcium [Lipitor 40 mg Tablet] 40 mg PO QHS 11/01/17 Calcium Carbonate [Tums Chewable 500 mg Tab.chew] 500 mg PO Q4HP PRN 11/01/17 Cetirizine HCl/Pseudoephedrine [Zyrtec-D Tablet] 1 tab PO DAILYP PRN 02/06/18 Divalproex Sodium [Depakote ER 250 mg Tablet] 750 mg PO QHS 11/01/17 Docusate Sodium [Colace 100 mg Capsule] 200 mg PO DAILYP PRN 11/01/17 Donepezil HCl [Aricept 5 mg Tablet] 5 mg PO QHS 11/01/17 Esomeprazole Magnesium [Nexium] 20 mg PO DAILY 11/01/17 Fluticasone/Salmeterol [Advair 250-50 Diskus 28 dose] 1 puff IH Q12 11/01/17 Gabapentin [Neurontin 400 mg Capsule] 400 mg PO QAM 11/01/17 Gabapentin [Neurontin 400 mg Capsule] 800 mg PO QHS 11/01/17 Hydroxyzine HCl [Atarax 50 mg Tablet] 50 mg PO Q6HP PRN 11/01/17 Lisinopril [Prinivil 10 mg Tablet] 10 mg PO DAILY 11/01/17 Magnesium Hydroxide [Milk of Magnesia 30 ml Udcup] 30 ml PO DAILYP PRN 11/01/17 Memantine HCl [Namenda] 5 mg PO DAILY 11/01/17 Oxycodone HCl/Acetaminophen [Percocet 7.5-325 mg Tablet] 1 tab PO Q8 11/01/17 Tamsulosin HCl [Flomax 0.4 mg Cap.sr] 0.4 mg PO DAILY 11/01/17 Zolpidem Tartrate [Ambien 5 mg Tablet] 5 mg PO HSP PRN 11/01/17 Furosemide [Lasix 20 mg Tablet] 50 mg PO QAM 02/28/18 Ipratropium/Albuterol Sulfate [Combivent Respimat 4 gm Mdi] 1 puff IH Q8 Allergies/Adverse Reactions: No Known Allergies Allergy (Verified 06/05/17 10:03) Review of Systems Constitutional: ABSENT: chills, fever(s), headache(s), weight gain, weight loss Eyes: ABSENT: visual disturbances Ears: ABSENT: hearing changes Cardiovascular: PRESENT: dyspnea on exertion. ABSENT: chest pain, edema, orthropnea, palpitations Respiratory: PRESENT: cough, dyspnea. ABSENT: hemoptysis Gastrointestinal: ABSENT: abdominal pain, constipation, diarrhea, hematemesis, hematochezia, nausea, vomiting Genitourinary: ABSENT: dysuria, hematuria Musculoskeletal: ABSENT: joint swelling Integumentary: ABSENT: rash, wounds Neurological: ABSENT: abnormal gait, abnormal speech, confusion, dizziness, focal weakness, syncope Psychiatric: ABSENT: anxiety, depression, homidical ideation, suicidal ideation Endocrine: ABSENT: cold intolerance, heat intolerance, menstrual abnormalities, polydipsia, polyuria Hematologic/Lymphatic: ABSENT: easy bleeding, easy bruising, lymphadenopathy Physical Exam Vital Signs: Temp Pulse Resp BP Pulse Ox 98.3 F 99 19 158/83 H 98 02/28/18 20:00 02/28/18 20:00 02/28/18 20:00 02/28/18 20:00 02/28/18 20:00 Intake & Output 02/27/18 02/28/18 03/01/18 06:59 06:59 06:59 Intake Total 240 Output Total 475 Balance -235 General appearance: PRESENT: severe distress Head exam: PRESENT: atraumatic, normocephalic Eye exam: PRESENT: conjunctiva pink, EOMI, PERRLA Ear exam: PRESENT: normal external ear exam Mouth exam: PRESENT: moist, tongue midline Neck exam: PRESENT: full ROM Respiratory exam: PRESENT: wheezes Cardiovascular exam: PRESENT: RRR, +S1, +S2 Pulses: PRESENT: normal dorsalis pedis pul, +2 pedal pulses bilateral Vascular exam: PRESENT: normal capillary refill GI/Abdominal exam: PRESENT: normal bowel sounds, soft Rectal exam: PRESENT: deferred Extremities exam: PRESENT: pedal edema, other - Chronic venous hypertension of both lower extremities Neurological exam: PRESENT: alert, awake, oriented to person, oriented to place , oriented to time, oriented to situation, CN II-XII grossly intact Psychiatric exam: PRESENT: appropriate affect, normal mood Skin exam: PRESENT: dry, intact, warm Results Laboratory Results: 02/28/18 02/28/18 02/28/18 14:05 14:05 14:05 Carbonic Acid HCO3/H2CO3 Ratio ABG pH ABG pCO2 ABG pO2 ABG HCO3 ABG O2 Saturation ABG Base Excess FiO2 Magnesium 2.3 Ammonia < 8.7 L Amylase 40 Lipase 52.8 TSH 0.81 Free T4 0.73 L Urine Color Urine Appearance Urine pH Ur Specific [place] Urine Protein Urine Glucose (UA) Urine Ketones Urine Blood Urine Nitrite Ur Leukocyte Esterase Urine WBC (Auto) Urine RBC (Auto) 02/28/18 02/28/18 19:04 19:55 Carbonic Acid 1.03 L HCO3/H2CO3 Ratio 23:1 ABG pH 7.46 H ABG pCO2 34.3 L ABG pO2 83.2 ABG HCO3 24.0 ABG O2 Saturation 96.8 ABG Base Excess 0.5 FiO2 3L Magnesium Ammonia Amylase Lipase TSH Free T4 Urine Color YELLOW Urine Appearance CLEAR Urine pH 7.0 Ur Specific [place] 1.014 Urine Protein 100 H Urine Glucose (UA) >=500 H Urine Ketones NEGATIVE Urine Blood NEGATIVE Urine Nitrite NEGATIVE Ur Leukocyte Esterase NEGATIVE Urine WBC (Auto) 0 Urine RBC (Auto) 0 02/28/18 02/28/18 02/28/18 14:05 14:05 19:20 Creatine Kinase 330 H 381 H CK-MB (CK-2) 2.07 Troponin I < 0.012 02/28/18 19:20 Creatine Kinase CK-MB (CK-2) 2.75 Troponin I < 0.012 Impressions: Chest CT 02/28/18 00:00 IMPRESSION: NO ACUTE INTRATHORACIC PROCESS. EMPHYSEMA. HIATAL HERNIA. Renal Ultrasound 02/28/18 00:00 IMPRESSION: NORMAL RENAL AND BLADDER ULTRASOUND. Chest X-Ray 02/28/18 05:48 IMPRESSION: No acute cardiopulmonary findings. Assessment & Plan - Diagnosis (1) COPD with acute exacerbation Is this a current diagnosis for this admission?: Yes Plan: He has acute COPD exacerbation patient to be treated with IV Solu-Medrol bronchodilators (2) Acute hypoxemic respiratory failure Is this a current diagnosis for this admission?: Yes Plan: He has acute hypoxemic respiratory failure patient presently on supplemental oxygen, maintaining adequate oxygen saturation not presently requiring noninvasive ventilation (3) Chronic kidney disease, stage 3 Is this a current diagnosis for this admission?: Yes Plan: Kidney ultrasound negative for any hydronephrosis kidneys size normal on ultrasound (4) Chronic venous hypertension (idiopathic) with inflammation of bilateral lower extremity Is this a current diagnosis for this admission?: Yes
[2018-02-28] MEDS: DIVALPROEX SODIUM 250 MG TAB.SR.24H PO SCH (21:31)
[2018-02-28] MEDS: FLUTICASONE/SALMETEROL DISKUS 250-50 MCG/DOSE IH SCH (21:32)
[2018-02-28] MEDS: ACETAMINOPHEN 325 MG TABLET PO PRN (21:32)
[2018-03-01 01:57] LABS: CREATINE KINASE MB 2.74 ng/mL (<4.55); TROPONIN I 0.012 ng/mL
[2018-03-01] MEDS: ACETAMINOPHEN 325 MG TABLET PO PRN ×3 (02:35→21:29)
[2018-03-01] MEDS: METHYLPREDNISOLONE INJ 125 MG/2 ML SDV IV SCH ×3 (02:35→17:57)
[2018-03-01] MEDS: OXYCODONE-ACETAMINOPHEN 5-325 MG TABLET PO SCH ×3 (06:20→21:29)
[2018-03-01] MEDS: IPRATROPIUM/ALBUTEROL 0.5-2.5 MG/3 ML AMPUL NEB PRN ×3 (06:20→11:32)
[2018-03-01] MEDS: LANSOPRAZOLE 15 MG TAB.RAP.DR PO SCH (06:20)
[2018-03-01] MEDS: OXYCODONE HCL IR 5 MG TABLET PO SCH ×3 (06:20→21:29)
[2018-03-01 06:34] LABS: ABSOLUTE LYMPHOCYTES (AUTO) 1.3 10^3/uL (0.5-4.7); ABSOLUTE MONOCYTES (AUTO) 0.6 10^3/uL (0.1-1.4); ABSOLUTE NEUT (AUTO) 8.1 10^3/uL (1.7-8.2); BASOPHILS % (AUTO) 0.3 % (0-2); HEMATOCRIT 31.1 % (37.9-51.0); HEMOGLOBIN 10.6 g/dL (13.5-17.0); LYMPHOCYTES % (AUTO) 13.1 % (13-45); MEAN CORPUSCULAR HEMOGLOBIN 28.6 pg (27.0-33.4); MEAN CORPUSCULAR HGB CONC 34.3 g/dL (32.0-36.0); MEAN CORPUSCULAR VOLUME 84 fl (80-97); MONOCYTES % (AUTO) 5.8 % (3-13); PLATELET COUNT 198 10^3/uL (150-450); RED BLOOD COUNT 3.72 10^6/uL (4.35-5.55); RED CELL DISTRIBUTION WIDTH 15.8 % (11.5-14.0); SEGMENTED NEUTROPHILS % (AUTO) 80.8 % (42-78); TOTAL CELLS COUNTED % (AUTO) 100 %
[2018-03-01 06:54] LABS: ALANINE AMINOTRANSFERASE 17 U/L (21-72); ALBUMIN 3.5 g/dL (3.5-5.0); ALKALINE PHOSPHATASE 44 U/L (38-126); ANION GAP 14 (5-19); ASPARTATE AMINO TRANSFERASE 21 U/L (17-59); BILIRUBIN,DIRECT 0.2 mg/dL (0.0-0.4); BILIRUBIN,TOTAL 0.2 mg/dL (0.2-1.3); BLOOD UREA NITROGEN 38 mg/dL (7-20); CALCIUM 9.8 mg/dL (8.4-10.2); CARBON DIOXIDE 24 mmol/L (22-30); CHLORIDE 101 mmol/L (98-107); GLUCOSE 238 mg/dL (75-110); POTASSIUM 5.4 mmol/L (3.6-5.0); SODIUM 138.9 mmol/L (137-145); TOTAL PROTEIN 6.1 g/dL (6.3-8.2); TRIGLYCERIDES 114 mg/dL (<150)
[2018-03-01 07:06] LABS: DIRECT LDL 93 mg/dL (<100)
[2018-03-01] MEDS: HEPARIN SOD (PORCINE) 5,000 UNIT/ML 1 ML SYRINGE SUBCUT SCH ×3 (09:09→21:28)
[2018-03-01] MEDS: FLUTICASONE/SALMETEROL DISKUS 250-50 MCG/DOSE IH SCH ×2 (09:22→21:29)
[2018-03-01] MEDS: ASPIRIN 81 MG TABLET, ENT COATED PO SCH (09:23)
[2018-03-01] MEDS: LISINOPRIL 10 MG TABLET PO SCH (09:23)
[2018-03-01] MEDS: FUROSEMIDE 20 MG TABLET PO SCH (09:24)
[2018-03-01] MEDS: MEMANTINE HCL 10 MG TABLET PO SCH (09:24)
[2018-03-01] MEDS: IPRATROPIUM BROMIDE 0.02% NEB 0.5 MG/2.5 ML AMPUL NEB SCH ×2 (13:56→19:49)
[2018-03-01] MEDS: LEVALBUTEROL HCL NEB 1.25 MG/3 ML AMPUL NEB SCH ×2 (13:56→19:49)
--- NOTE | 2018-03-01 17:25 | PDOC PROGRESS REPORT ---
Subjective Progress Note for:: 03/01/18 Subjective:: Patient was seen by the bedside, he is still wheezing still short of breath, continues to require supplemental oxygen, complained of a headache Reason For Visit: COPD WITH ACUTE EXACERBATION,ACUTE HYPOXEMIC Physical Exam Vital Signs: Temp Pulse Resp BP Pulse Ox 98.2 F 106 H 20 156/88 H 95 03/01/18 12:06 03/01/18 14:00 03/01/18 13:56 03/01/18 12:06 03/01/18 13:56 Intake & Output 02/28/18 03/01/18 03/02/18 06:59 06:59 06:59 Intake Total 840 300 Output Total 475 1875 Balance 365 -1575 Weight 96.6 kg General appearance: PRESENT: mild distress Eye exam: PRESENT: PERRLA Respiratory exam: PRESENT: wheezes Neurological exam: PRESENT: alert, CN II-XII grossly intact Results Laboratory Results: 03/01/18 06:01 03/01/18 06:01 02/28/18 02/28/18 03/01/18 19:04 19:55 06:01 WBC 10.0 RBC 3.72 L Hgb 10.6 L Hct 31.1 L MCV 84 MCH 28.6 MCHC 34.3 RDW 15.8 H Plt Count 198 Seg Neutrophils % 80.8 H Lymphocytes % 13.1 Monocytes % 5.8 Eosinophils % 0.0 Basophils % 0.3 Absolute Neutrophils 8.1 Absolute Lymphocytes 1.3 Absolute Monocytes 0.6 Absolute Eosinophils 0.0 Absolute Basophils 0.0 Carbonic Acid 1.03 L HCO3/H2CO3 Ratio 23:1 ABG pH 7.46 H ABG pCO2 34.3 L ABG pO2 83.2 ABG HCO3 24.0 ABG O2 Saturation 96.8 ABG Base Excess 0.5 FiO2 3L Sodium Potassium Chloride Carbon Dioxide Anion Gap BUN Creatinine Est GFR ( Amer) Est GFR (Non-Af Amer) Glucose Calcium Total Bilirubin AST ALT Alkaline Phosphatase Total Protein Albumin Triglycerides Cholesterol LDL Cholesterol Direct VLDL Cholesterol HDL Cholesterol Urine Color YELLOW Urine Appearance CLEAR Urine pH 7.0 Ur Specific [place] 1.014 Urine Protein 100 H Urine Glucose (UA) >=500 H Urine Ketones NEGATIVE Urine Blood NEGATIVE Urine Nitrite NEGATIVE Ur Leukocyte Esterase NEGATIVE Urine WBC (Auto) 0 Urine RBC (Auto) 0 03/01/18 06:01 WBC RBC Hgb Hct MCV MCH MCHC RDW Plt Count Seg Neutrophils % Lymphocytes % Monocytes % Eosinophils % Basophils % Absolute Neutrophils Absolute Lymphocytes Absolute Monocytes Absolute Eosinophils Absolute Basophils Carbonic Acid HCO3/H2CO3 Ratio ABG pH ABG pCO2 ABG pO2 ABG HCO3 ABG O2 Saturation ABG Base Excess FiO2 Sodium 138.9 Potassium 5.4 H Chloride 101 Carbon Dioxide 24 Anion Gap 14 BUN 38 H Creatinine 2.11 H Est GFR ( Amer) 37 L Est GFR (Non-Af Amer) 31 L Glucose 238 H Calcium 9.8 Total Bilirubin 0.2 AST 21 ALT 17 L Alkaline Phosphatase 44 Total Protein 6.1 L Albumin 3.5 Triglycerides 114 Cholesterol 147.20 LDL Cholesterol Direct 93 VLDL Cholesterol 23.0 HDL Cholesterol 39 L Urine Color Urine Appearance Urine pH Ur Specific [place] Urine Protein Urine Glucose (UA) Urine Ketones Urine Blood Urine Nitrite Ur Leukocyte Esterase Urine WBC (Auto) Urine RBC (Auto) 02/28/18 02/28/18 02/28/18 14:05 14:05 19:20 Creatine Kinase 330 H 381 H CK-MB (CK-2) 2.07 Troponin I < 0.012 02/28/18 03/01/18 03/01/18 19:20 01:08 01:08 Creatine Kinase 368 H CK-MB (CK-2) 2.75 2.74 Troponin I < 0.012 0.012 Impressions: Chest CT 02/28/18 00:00 IMPRESSION: NO ACUTE INTRATHORACIC PROCESS. EMPHYSEMA. HIATAL HERNIA. Renal Ultrasound 02/28/18 00:00 IMPRESSION: NORMAL RENAL AND BLADDER ULTRASOUND. Chest X-Ray 02/28/18 05:48 IMPRESSION: No acute cardiopulmonary findings. Assessment & Plan - Diagnosis (1) COPD with acute exacerbation Is this a current diagnosis for this admission?: Yes Plan: Continue IV Solu-Medrol, bronchodilators (2) Acute hypoxemic respiratory failure Is this a current diagnosis for this admission?: Yes (3) Chronic kidney disease, stage 3 Is this a current diagnosis for this admission?: Yes (4) Chronic venous hypertension (idiopathic) with inflammation of bilateral lower extremity Is this a current diagnosis for this admission?: Yes
[2018-03-01] MEDS: TAMSULOSIN HCL 0.4 MG CAP.SR.24H PO SCH (17:57)
[2018-03-01] MEDS: DONEPEZIL HCL 5 MG TABLET PO SCH (21:29)
[2018-03-01] MEDS: ATORVASTATIN CALCIUM 40 MG TABLET PO SCH (21:29)
[2018-03-01] MEDS: DIVALPROEX SODIUM 250 MG TAB.SR.24H PO SCH (21:29)
[2018-03-02] MEDS: IPRATROPIUM BROMIDE 0.02% NEB 0.5 MG/2.5 ML AMPUL NEB SCH ×4 (01:00→20:24)
[2018-03-02] MEDS: LEVALBUTEROL HCL NEB 1.25 MG/3 ML AMPUL NEB SCH ×4 (01:00→20:24)
[2018-03-02] MEDS: ACETAMINOPHEN 325 MG TABLET PO PRN ×2 (02:37→18:03)
[2018-03-02] MEDS: METHYLPREDNISOLONE INJ 125 MG/2 ML SDV IV SCH ×3 (02:37→17:16)
[2018-03-02] MEDS: ZOLPIDEM TARTRATE 5 MG TABLET PO PRN ×2 (02:37→21:30)
[2018-03-02] MEDS: HEPARIN SOD (PORCINE) 5,000 UNIT/ML 1 ML SYRINGE SUBCUT SCH ×3 (05:02→21:05)
[2018-03-02] MEDS: LANSOPRAZOLE 15 MG TAB.RAP.DR PO SCH (05:55)
[2018-03-02] MEDS: OXYCODONE HCL IR 5 MG TABLET PO SCH ×3 (05:55→21:30)
[2018-03-02] MEDS: OXYCODONE-ACETAMINOPHEN 5-325 MG TABLET PO SCH ×3 (05:55→21:30)
[2018-03-02] MEDS: LEVALBUTEROL HCL NEB 1.25 MG/3 ML AMPUL NEB PRN ×3 (06:04→18:08)
[2018-03-02 07:10] LABS: ABSOLUTE MONOCYTES (AUTO) 0.7 10^3/uL (0.1-1.4); ABSOLUTE NEUT (AUTO) 6.6 10^3/uL (1.7-8.2); HEMOGLOBIN 10.1 g/dL (13.5-17.0); LYMPHOCYTES % (AUTO) 11.8 % (13-45); MEAN CORPUSCULAR HEMOGLOBIN 29.2 pg (27.0-33.4); MEAN CORPUSCULAR HGB CONC 34.9 g/dL (32.0-36.0); MEAN CORPUSCULAR VOLUME 84 fl (80-97); MONOCYTES % (AUTO) 8.3 % (3-13); PLATELET COUNT 199 10^3/uL (150-450); RED BLOOD COUNT 3.47 10^6/uL (4.35-5.55); RED CELL DISTRIBUTION WIDTH 15.8 % (11.5-14.0); SEGMENTED NEUTROPHILS % (AUTO) 79.9 % (42-78); TOTAL CELLS COUNTED % (AUTO) 100 %; WHITE BLOOD COUNT 8.2 10^3/uL (4.0-10.5)
[2018-03-02 07:38] LABS: ALANINE AMINOTRANSFERASE 20 U/L (21-72); ALBUMIN 3.6 g/dL (3.5-5.0); ALKALINE PHOSPHATASE 46 U/L (38-126); ANION GAP 15 (5-19); ASPARTATE AMINO TRANSFERASE 28 U/L (17-59); BILIRUBIN,DIRECT 0.3 mg/dL (0.0-0.4); BILIRUBIN,TOTAL 0.3 mg/dL (0.2-1.3); BLOOD UREA NITROGEN 49 mg/dL (7-20); CALCIUM 9.6 mg/dL (8.4-10.2); CARBON DIOXIDE 24 mmol/L (22-30); CHLORIDE 99 mmol/L (98-107); GLUCOSE 253 mg/dL (75-110); POTASSIUM 4.6 mmol/L (3.6-5.0); SODIUM 138.4 mmol/L (137-145); TOTAL PROTEIN 6.2 g/dL (6.3-8.2)
[2018-03-02] MEDS: MEMANTINE HCL 10 MG TABLET PO SCH (09:15)
[2018-03-02] MEDS: ASPIRIN 81 MG TABLET, ENT COATED PO SCH (09:16)
[2018-03-02] MEDS: LISINOPRIL 10 MG TABLET PO SCH (09:16)
[2018-03-02] MEDS: FUROSEMIDE 20 MG TABLET PO SCH (09:16)
[2018-03-02] MEDS: FLUTICASONE/SALMETEROL DISKUS 250-50 MCG/DOSE IH SCH ×2 (09:17→21:30)
[2018-03-02] MEDS: TAMSULOSIN HCL 0.4 MG CAP.SR.24H PO SCH (17:16)
[2018-03-02] MEDS: CALCIUM CARBONATE 500 MG TAB.CHEW PO PRN (18:59)
--- NOTE | 2018-03-02 20:35 | PDOC PROGRESS REPORT ---
Subjective Progress Note for:: 03/02/18 Subjective:: Patient was admitted for the management of severe COPD exacerbation, still actively wheezing on IV Solu-Medrol, bronchodilators Reason For Visit: COPD WITH ACUTE EXACERBATION,ACUTE HYPOXEMIC Physical Exam Vital Signs: Temp Pulse Resp BP Pulse Ox 98.3 F 85 20 166/72 H 98 03/02/18 15:05 03/02/18 19:00 03/02/18 18:08 03/02/18 15:05 03/02/18 18:08 Intake & Output 03/01/18 03/02/18 03/03/18 06:59 06:59 06:59 Intake Total 840 1066 775 Output Total 475 2900 1000 Balance 589 -7783 -202 Weight 96.6 kg 96.6 kg General appearance: PRESENT: severe distress Eye exam: PRESENT: PERRLA Respiratory exam: PRESENT: wheezes Cardiovascular exam: PRESENT: +S1, +S2 GI/Abdominal exam: PRESENT: soft Neurological exam: PRESENT: alert Results Laboratory Results: 03/02/18 06:32 03/02/18 06:32 03/02/18 03/02/18 06:32 06:32 WBC 8.2 RBC 3.47 L Hgb 10.1 L Hct 29.0 L MCV 84 MCH 29.2 MCHC 34.9 RDW 15.8 H Plt Count 199 Seg Neutrophils % 79.9 H Lymphocytes % 11.8 L Monocytes % 8.3 Eosinophils % 0.0 Basophils % 0.0 Absolute Neutrophils 6.6 Absolute Lymphocytes 1.0 Absolute Monocytes 0.7 Absolute Eosinophils 0.0 Absolute Basophils 0.0 Sodium 138.4 Potassium 4.6 Chloride 99 Carbon Dioxide 24 Anion Gap 15 BUN 49 H Creatinine 2.07 H Est GFR ( Amer) 38 L Est GFR (Non-Af Amer) 32 L Glucose 253 H Calcium 9.6 Total Bilirubin 0.3 AST 28 ALT 20 L Alkaline Phosphatase 46 Total Protein 6.2 L Albumin 3.6 02/28/18 19:04 Catheterized Urine Urine Culture - Final 5,000 col/ml 02/28/18 02/28/18 02/28/18 14:05 14:05 19:20 Creatine Kinase 330 H 381 H CK-MB (CK-2) 2.07 Troponin I < 0.012 02/28/18 03/01/18 03/01/18 19:20 01:08 01:08 Creatine Kinase 368 H CK-MB (CK-2) 2.75 2.74 Troponin I < 0.012 0.012 Impressions: Chest CT 02/28/18 00:00 IMPRESSION: NO ACUTE INTRATHORACIC PROCESS. EMPHYSEMA. HIATAL HERNIA. Renal Ultrasound 02/28/18 00:00 IMPRESSION: NORMAL RENAL AND BLADDER ULTRASOUND. Chest X-Ray 02/28/18 05:48 IMPRESSION: No acute cardiopulmonary findings. Assessment & Plan - Diagnosis (1) COPD with acute exacerbation Is this a current diagnosis for this admission?: Yes (2) Acute hypoxemic respiratory failure Is this a current diagnosis for this admission?: Yes (3) Chronic kidney disease, stage 3 Is this a current diagnosis for this admission?: Yes (4) Chronic venous hypertension (idiopathic) with inflammation of bilateral lower extremity Is this a current diagnosis for this admission?: Yes
[2018-03-02] MEDS: ATORVASTATIN CALCIUM 40 MG TABLET PO SCH (21:30)
[2018-03-02] MEDS: DONEPEZIL HCL 5 MG TABLET PO SCH (21:30)
[2018-03-02] MEDS: DIVALPROEX SODIUM 250 MG TAB.SR.24H PO SCH (21:30)
[2018-03-03] MEDS: METHYLPREDNISOLONE INJ 125 MG/2 ML SDV IV SCH ×3 (00:50→17:24)
[2018-03-03] MEDS: ACETAMINOPHEN 325 MG TABLET PO PRN ×2 (00:51→06:25)
[2018-03-03] MEDS: IPRATROPIUM BROMIDE 0.02% NEB 0.5 MG/2.5 ML AMPUL NEB SCH ×4 (02:16→20:14)
[2018-03-03] MEDS: LEVALBUTEROL HCL NEB 1.25 MG/3 ML AMPUL NEB SCH ×4 (02:16→20:14)
[2018-03-03] MEDS: HEPARIN SOD (PORCINE) 5,000 UNIT/ML 1 ML SYRINGE SUBCUT SCH ×3 (05:10→20:51)
[2018-03-03] MEDS: LANSOPRAZOLE 15 MG TAB.RAP.DR PO SCH (05:52)
[2018-03-03] MEDS: CALCIUM CARBONATE 500 MG TAB.CHEW PO PRN (06:25)
[2018-03-03] MEDS: OXYCODONE-ACETAMINOPHEN 5-325 MG TABLET PO SCH ×3 (06:25→20:51)
[2018-03-03] MEDS: OXYCODONE HCL IR 5 MG TABLET PO SCH ×3 (06:25→21:08)
[2018-03-03 07:25] LABS: ABSOLUTE LYMPHOCYTES (AUTO) 0.8 10^3/uL (0.5-4.7); ABSOLUTE MONOCYTES (AUTO) 0.5 10^3/uL (0.1-1.4); ABSOLUTE NEUT (AUTO) 5.4 10^3/uL (1.7-8.2); HEMATOCRIT 31.8 % (37.9-51.0); LYMPHOCYTES % (AUTO) 11.9 % (13-45); MEAN CORPUSCULAR HEMOGLOBIN 28.5 pg (27.0-33.4); MEAN CORPUSCULAR HGB CONC 34.5 g/dL (32.0-36.0); MEAN CORPUSCULAR VOLUME 83 fl (80-97); PLATELET COUNT 224 10^3/uL (150-450); RED BLOOD COUNT 3.85 10^6/uL (4.35-5.55); RED CELL DISTRIBUTION WIDTH 15.6 % (11.5-14.0); SEGMENTED NEUTROPHILS % (AUTO) 81.1 % (42-78); TOTAL CELLS COUNTED % (AUTO) 100 %; WHITE BLOOD COUNT 6.6 10^3/uL (4.0-10.5)
[2018-03-03 07:50] LABS: ALANINE AMINOTRANSFERASE 21 U/L (21-72); ALBUMIN 3.7 g/dL (3.5-5.0); ALKALINE PHOSPHATASE 41 U/L (38-126); ANION GAP 16 (5-19); ASPARTATE AMINO TRANSFERASE 30 U/L (17-59); BILIRUBIN,DIRECT 0.3 mg/dL (0.0-0.4); BILIRUBIN,TOTAL 0.3 mg/dL (0.2-1.3); BLOOD UREA NITROGEN 52 mg/dL (7-20); CALCIUM 9.6 mg/dL (8.4-10.2); CARBON DIOXIDE 27 mmol/L (22-30); CHLORIDE 97 mmol/L (98-107); GLUCOSE 281 mg/dL (75-110); POTASSIUM 4.5 mmol/L (3.6-5.0); SODIUM 139.7 mmol/L (137-145); TOTAL PROTEIN 6.3 g/dL (6.3-8.2)
[2018-03-03] MEDS: FLUTICASONE/SALMETEROL DISKUS 250-50 MCG/DOSE IH SCH ×2 (08:47→20:51)
[2018-03-03] MEDS: MEMANTINE HCL 10 MG TABLET PO SCH (08:47)
[2018-03-03] MEDS: FUROSEMIDE 20 MG TABLET PO SCH (08:47)
[2018-03-03] MEDS: LISINOPRIL 10 MG TABLET PO SCH (08:47)
[2018-03-03] MEDS: ASPIRIN 81 MG TABLET, ENT COATED PO SCH (08:48)
[2018-03-03] MEDS: LEVALBUTEROL HCL NEB 1.25 MG/3 ML AMPUL NEB PRN ×4 (11:29→23:59)
[2018-03-03] MEDS: TAMSULOSIN HCL 0.4 MG CAP.SR.24H PO SCH (17:23)
--- NOTE | 2018-03-03 20:43 | PDOC PROGRESS REPORT ---
Subjective Progress Note for:: 03/03/18 Subjective:: Patient was admitted for the management of severe COPD exacerbation, still actively wheezing on IV Solu-Medrol, bronchodilators Reason For Visit: COPD WITH ACUTE EXACERBATION,ACUTE HYPOXEMIC Physical Exam Vital Signs: Temp Pulse Resp BP Pulse Ox 97.6 F 96 20 144/81 H 92 03/03/18 15:15 03/03/18 20:14 03/03/18 20:14 03/03/18 15:15 03/03/18 20:14 Intake & Output 03/02/18 03/03/18 03/04/18 06:59 06:59 06:59 Intake Total 1066 1095 990 Output Total 2900 1900 900 Balance -1834 -805 90 Weight 96.6 kg 100 kg General appearance: PRESENT: severe distress Head exam: PRESENT: atraumatic, normocephalic Eye exam: PRESENT: PERRLA Neck exam: PRESENT: full ROM Respiratory exam: PRESENT: wheezes Cardiovascular exam: PRESENT: RRR, +S1, +S2 Vascular exam: PRESENT: normal capillary refill GI/Abdominal exam: PRESENT: normal bowel sounds, soft Rectal exam: PRESENT: deferred Neurological exam: PRESENT: alert, awake, oriented to person, oriented to place , oriented to time, oriented to situation, CN II-XII grossly intact Psychiatric exam: PRESENT: appropriate affect, normal mood Skin exam: PRESENT: dry, intact, warm Results Laboratory Results: 03/03/18 06:25 03/03/18 06:25 03/03/18 03/03/18 06:25 06:25 WBC 6.6 RBC 3.85 L Hgb 11.0 L Hct 31.8 L MCV 83 MCH 28.5 MCHC 34.5 RDW 15.6 H Plt Count 224 Seg Neutrophils % 81.1 H Lymphocytes % 11.9 L Monocytes % 7.0 Eosinophils % 0.0 Basophils % 0.0 Absolute Neutrophils 5.4 Absolute Lymphocytes 0.8 Absolute Monocytes 0.5 Absolute Eosinophils 0.0 Absolute Basophils 0.0 Sodium 139.7 Potassium 4.5 Chloride 97 L Carbon Dioxide 27 Anion Gap 16 BUN 52 H Creatinine 2.12 H Est GFR ( Amer) 37 L Est GFR (Non-Af Amer) 31 L Glucose 281 H Calcium 9.6 Total Bilirubin 0.3 AST 30 ALT 21 Alkaline Phosphatase 41 Total Protein 6.3 Albumin 3.7 02/28/18 02/28/18 02/28/18 14:05 14:05 19:20 Creatine Kinase 330 H 381 H CK-MB (CK-2) 2.07 Troponin I < 0.012 02/28/18 03/01/18 03/01/18 19:20 01:08 01:08 Creatine Kinase 368 H CK-MB (CK-2) 2.75 2.74 Troponin I < 0.012 0.012 Impressions: Chest CT 02/28/18 00:00 IMPRESSION: NO ACUTE INTRATHORACIC PROCESS. EMPHYSEMA. HIATAL HERNIA. Renal Ultrasound 02/28/18 00:00 IMPRESSION: NORMAL RENAL AND BLADDER ULTRASOUND. Chest X-Ray 02/28/18 05:48 IMPRESSION: No acute cardiopulmonary findings. Assessment & Plan - Diagnosis (1) COPD with acute exacerbation Is this a current diagnosis for this admission?: Yes Plan: Continue IV Solu-Medrol for another day (2) Acute hypoxemic respiratory failure Is this a current diagnosis for this admission?: Yes (3) Chronic kidney disease, stage 3 Is this a current diagnosis for this admission?: Yes (4) Chronic venous hypertension (idiopathic) with inflammation of bilateral lower extremity Is this a current diagnosis for this admission?: Yes
[2018-03-03] MEDS: ATORVASTATIN CALCIUM 40 MG TABLET PO SCH (20:50)
[2018-03-03] MEDS: DIVALPROEX SODIUM 250 MG TAB.SR.24H PO SCH (20:50)
[2018-03-03] MEDS: DONEPEZIL HCL 5 MG TABLET PO SCH (20:51)
[2018-03-03] MEDS: ZOLPIDEM TARTRATE 5 MG TABLET PO PRN (21:08)
[2018-03-04] MEDS: IPRATROPIUM BROMIDE 0.02% NEB 0.5 MG/2.5 ML AMPUL NEB SCH ×4 (02:03→19:52)
[2018-03-04] MEDS: LEVALBUTEROL HCL NEB 1.25 MG/3 ML AMPUL NEB SCH ×4 (02:03→19:52)
[2018-03-04] MEDS: ACETAMINOPHEN 325 MG TABLET PO PRN (02:37)
[2018-03-04] MEDS: METHYLPREDNISOLONE INJ 125 MG/2 ML SDV IV SCH ×2 (02:38→09:21)
[2018-03-04] MEDS: HEPARIN SOD (PORCINE) 5,000 UNIT/ML 1 ML SYRINGE SUBCUT SCH ×3 (05:41→21:32)
[2018-03-04] MEDS: OXYCODONE HCL IR 5 MG TABLET PO SCH ×3 (05:41→21:32)
[2018-03-04] MEDS: OXYCODONE-ACETAMINOPHEN 5-325 MG TABLET PO SCH ×3 (05:41→21:32)
[2018-03-04] MEDS: LANSOPRAZOLE 15 MG TAB.RAP.DR PO SCH (05:41)
[2018-03-04] MEDS: FUROSEMIDE 20 MG TABLET PO SCH (09:21)
[2018-03-04] MEDS: CALCIUM CARBONATE 500 MG TAB.CHEW PO PRN (09:22)
[2018-03-04] MEDS: ASPIRIN 81 MG TABLET, ENT COATED PO SCH (09:22)
[2018-03-04] MEDS: MEMANTINE HCL 10 MG TABLET PO SCH (09:23)
[2018-03-04] MEDS: LISINOPRIL 10 MG TABLET PO SCH (09:23)
[2018-03-04] MEDS: FLUTICASONE/SALMETEROL DISKUS 250-50 MCG/DOSE IH SCH ×2 (09:25→21:31)
[2018-03-04] MEDS: LEVALBUTEROL HCL NEB 1.25 MG/3 ML AMPUL NEB PRN ×3 (12:03→23:18)
[2018-03-04] MEDS ORDERED: PREDNISONE 20 MG TABLET PO ONE (14:30)
--- NOTE | 2018-03-04 15:04 | PDOC PROGRESS REPORT ---
Subjective Progress Note for:: 03/04/18 Subjective:: Patient seen by the bedside, it is very out of character for this patient to want to stay in the hospital, typically whenever he is admitted he wans to be discharged home very quickly but is very short of breath always asking for breathing treatment like every minute, the respiratory therapist is suggesting we should treat with Pulmicort nebulizer if that will improve his symptoms, he has been on Solu-Medrol for the last 4 days intravenously, this be discontinued and transition to p.o. prednisone, is not as wheezy as he was the last few days Reason For Visit: COPD WITH ACUTE EXACERBATION,ACUTE HYPOXEMIC Physical Exam Vital Signs: Temp Pulse Resp BP Pulse Ox 98.4 F 85 18 144/72 H 97 03/04/18 12:31 03/04/18 14:09 03/04/18 14:09 03/04/18 12:31 03/04/18 14:09 Intake & Output 03/03/18 03/04/18 03/05/18 06:59 06:59 06:59 Intake Total 1095 1437 Output Total 1900 1625 Balance -805 -188 Weight 100 kg 100 kg General appearance: PRESENT: mild distress Head exam: PRESENT: atraumatic, normocephalic Eye exam: PRESENT: conjunctiva pink, EOMI, PERRLA Ear exam: PRESENT: normal external ear exam Mouth exam: PRESENT: moist, tongue midline Neck exam: PRESENT: full ROM Respiratory exam: PRESENT: decreased breath sounds Cardiovascular exam: PRESENT: RRR, +S1, +S2 Vascular exam: PRESENT: normal capillary refill GI/Abdominal exam: PRESENT: normal bowel sounds, soft Rectal exam: PRESENT: deferred Neurological exam: PRESENT: alert, awake, oriented to person, oriented to place , oriented to time, oriented to situation, CN II-XII grossly intact Psychiatric exam: PRESENT: appropriate affect, normal mood Skin exam: PRESENT: dry, intact, warm Results Laboratory Results: 03/03/18 06:25 03/03/18 06:25 02/28/18 02/28/18 02/28/18 14:05 14:05 19:20 Creatine Kinase 330 H 381 H CK-MB (CK-2) 2.07 Troponin I < 0.012 02/28/18 03/01/18 03/01/18 19:20 01:08 01:08 Creatine Kinase 368 H CK-MB (CK-2) 2.75 2.74 Troponin I < 0.012 0.012 Impressions: Chest CT 02/28/18 00:00 IMPRESSION: NO ACUTE INTRATHORACIC PROCESS. EMPHYSEMA. HIATAL HERNIA. Renal Ultrasound 02/28/18 00:00 IMPRESSION: NORMAL RENAL AND BLADDER ULTRASOUND. Chest X-Ray 02/28/18 05:48 IMPRESSION: No acute cardiopulmonary findings. Assessment & Plan - Diagnosis (1) COPD with acute exacerbation Is this a current diagnosis for this admission?: Yes Plan: Start p.o. prednisone, Pulmicort nebulizer (2) Acute hypoxemic respiratory failure Is this a current diagnosis for this admission?: Yes (3) Chronic kidney disease, stage 3 Is this a current diagnosis for this admission?: Yes (4) Chronic venous hypertension (idiopathic) with inflammation of bilateral lower extremity Is this a current diagnosis for this admission?: Yes
[2018-03-04] MEDS: BUDESONIDE NEB 0.5 MG/2 ML AMPUL NEB SCH (19:53)
[2018-03-04] MEDS: DIVALPROEX SODIUM 250 MG TAB.SR.24H PO SCH (21:32)
[2018-03-04] MEDS: TAMSULOSIN HCL 0.4 MG CAP.SR.24H PO SCH (21:32)
[2018-03-04] MEDS: DONEPEZIL HCL 5 MG TABLET PO SCH (21:32)
[2018-03-04] MEDS: ATORVASTATIN CALCIUM 40 MG TABLET PO SCH (21:32)
[2018-03-04] MEDS: ZOLPIDEM TARTRATE 5 MG TABLET PO PRN (21:32)
[2018-03-05] MEDS: IPRATROPIUM BROMIDE 0.02% NEB 0.5 MG/2.5 ML AMPUL NEB SCH ×4 (02:10→19:22)
[2018-03-05] MEDS: LEVALBUTEROL HCL NEB 1.25 MG/3 ML AMPUL NEB SCH ×4 (02:10→19:22)
[2018-03-05] MEDS: HEPARIN SOD (PORCINE) 5,000 UNIT/ML 1 ML SYRINGE SUBCUT SCH ×3 (06:43→21:49)
[2018-03-05] MEDS: OXYCODONE-ACETAMINOPHEN 5-325 MG TABLET PO SCH ×3 (06:44→21:49)
[2018-03-05] MEDS: OXYCODONE HCL IR 5 MG TABLET PO SCH ×3 (06:44→21:49)
[2018-03-05] MEDS: LANSOPRAZOLE 15 MG TAB.RAP.DR PO SCH (06:44)
[2018-03-05] MEDS: BUDESONIDE NEB 0.5 MG/2 ML AMPUL NEB SCH ×2 (08:03→19:22)
[2018-03-05] MEDS: FUROSEMIDE 20 MG TABLET PO SCH (08:36)
[2018-03-05] MEDS: ASPIRIN 81 MG TABLET, ENT COATED PO SCH (10:23)
[2018-03-05] MEDS: PREDNISONE 20 MG TABLET PO SCH (10:23)
[2018-03-05] MEDS: LISINOPRIL 10 MG TABLET PO SCH (10:23)
[2018-03-05] MEDS: MEMANTINE HCL 10 MG TABLET PO SCH (10:23)
[2018-03-05] MEDS: FLUTICASONE/SALMETEROL DISKUS 250-50 MCG/DOSE IH SCH ×2 (10:24→21:49)
[2018-03-05] MEDS: LEVALBUTEROL HCL NEB 1.25 MG/3 ML AMPUL NEB PRN (11:08)
--- NOTE | 2018-03-05 16:50 | PDOC PROGRESS REPORT ---
Subjective Progress Note for:: 03/05/18 Subjective:: Patient is very obsessed with breathing treatments, whenever I get into his room he has for breathing treatments, the treating nurse has the same experience whenever she gets into his room he wants breathing treatment. Reason For Visit: COPD WITH ACUTE EXACERBATION,ACUTE HYPOXEMIC Physical Exam Vital Signs: Temp Pulse Resp BP Pulse Ox 97.9 F 70 20 132/64 H 100 03/05/18 16:00 03/05/18 16:00 03/05/18 16:00 03/05/18 16:00 03/05/18 16:00 Intake & Output 03/04/18 03/05/18 03/06/18 06:59 06:59 06:59 Intake Total 1437 1590 Output Total 1625 1475 Balance -188 115 Weight 100 kg 100.6 kg General appearance: PRESENT: mild distress Eye exam: PRESENT: PERRLA Respiratory exam: PRESENT: decreased breath sounds, wheezes Cardiovascular exam: PRESENT: +S1, +S2 GI/Abdominal exam: PRESENT: soft Neurological exam: PRESENT: alert Results Laboratory Results: 03/03/18 06:25 03/03/18 06:25 02/28/18 14:16 Blood Blood Culture - Final NO GROWTH IN 5 DAYS 02/28/18 14:05 Blood Blood Culture - Final NO GROWTH IN 5 DAYS 02/28/18 02/28/18 02/28/18 14:05 14:05 19:20 Creatine Kinase 330 H 381 H CK-MB (CK-2) 2.07 Troponin I < 0.012 02/28/18 03/01/18 03/01/18 19:20 01:08 01:08 Creatine Kinase 368 H CK-MB (CK-2) 2.75 2.74 Troponin I < 0.012 0.012 Impressions: Chest CT 02/28/18 00:00 IMPRESSION: NO ACUTE INTRATHORACIC PROCESS. EMPHYSEMA. HIATAL HERNIA. Renal Ultrasound 02/28/18 00:00 IMPRESSION: NORMAL RENAL AND BLADDER ULTRASOUND. Chest X-Ray 02/28/18 05:48 IMPRESSION: No acute cardiopulmonary findings. Assessment & Plan - Diagnosis (1) COPD with acute exacerbation Is this a current diagnosis for this admission?: Yes (2) Acute hypoxemic respiratory failure Is this a current diagnosis for this admission?: Yes (3) Chronic kidney disease, stage 3 Is this a current diagnosis for this admission?: Yes (4) Chronic venous hypertension (idiopathic) with inflammation of bilateral lower extremity Is this a current diagnosis for this admission?: Yes - Plan Summary Plan Summary: Patient will continue present treatment
[2018-03-05 17:44] LABS: ABSOLUTE LYMPHOCYTES (AUTO) 0.8 10^3/uL (0.5-4.7); ABSOLUTE MONOCYTES (AUTO) 0.8 10^3/uL (0.1-1.4); ABSOLUTE NEUT (AUTO) 7.3 10^3/uL (1.7-8.2); BASOPHILS % (AUTO) 0.2 % (0-2); EOSINOPHILS % (AUTO) 0.1 % (0-6); HEMATOCRIT 35.7 % (37.9-51.0); HEMOGLOBIN 12.3 g/dL (13.5-17.0); LYMPHOCYTES % (AUTO) 8.9 % (13-45); MEAN CORPUSCULAR HEMOGLOBIN 28.6 pg (27.0-33.4); MEAN CORPUSCULAR HGB CONC 34.5 g/dL (32.0-36.0); MEAN CORPUSCULAR VOLUME 83 fl (80-97); MONOCYTES % (AUTO) 9.3 % (3-13); PLATELET COUNT 273 10^3/uL (150-450); RED CELL DISTRIBUTION WIDTH 15.4 % (11.5-14.0); SEGMENTED NEUTROPHILS % (AUTO) 81.5 % (42-78); TOTAL CELLS COUNTED % (AUTO) 100 %
[2018-03-05] MEDS: ACETAMINOPHEN 325 MG TABLET PO PRN (17:44)
[2018-03-05] MEDS: TAMSULOSIN HCL 0.4 MG CAP.SR.24H PO SCH (17:44)
[2018-03-05 18:00] LABS: ALANINE AMINOTRANSFERASE 30 U/L (21-72); ALKALINE PHOSPHATASE 45 U/L (38-126); ANION GAP 16 (5-19); ASPARTATE AMINO TRANSFERASE 36 U/L (17-59); BILIRUBIN,DIRECT 0.4 mg/dL (0.0-0.4); BILIRUBIN,TOTAL 0.6 mg/dL (0.2-1.3); BLOOD UREA NITROGEN 56 mg/dL (7-20); CALCIUM 9.1 mg/dL (8.4-10.2); CARBON DIOXIDE 31 mmol/L (22-30); CHLORIDE 92 mmol/L (98-107); GLUCOSE 311 mg/dL (75-110); SODIUM 138.6 mmol/L (137-145); TOTAL PROTEIN 6.5 g/dL (6.3-8.2)
[2018-03-05] MEDS: DONEPEZIL HCL 5 MG TABLET PO SCH (21:49)
[2018-03-05] MEDS: ATORVASTATIN CALCIUM 40 MG TABLET PO SCH (21:49)
[2018-03-05] MEDS: DIVALPROEX SODIUM 250 MG TAB.SR.24H PO SCH (21:49)
[2018-03-05] MEDS: ZOLPIDEM TARTRATE 5 MG TABLET PO PRN (23:24)
[2018-03-06] MEDS: IPRATROPIUM BROMIDE 0.02% NEB 0.5 MG/2.5 ML AMPUL NEB SCH ×4 (02:17→19:54)
[2018-03-06] MEDS: LEVALBUTEROL HCL NEB 1.25 MG/3 ML AMPUL NEB SCH ×4 (02:17→19:54)
[2018-03-06] MEDS: ACETAMINOPHEN 325 MG TABLET PO PRN (04:03)
[2018-03-06] MEDS: LANSOPRAZOLE 15 MG TAB.RAP.DR PO SCH (06:17)
[2018-03-06] MEDS: HEPARIN SOD (PORCINE) 5,000 UNIT/ML 1 ML SYRINGE SUBCUT SCH ×3 (06:17→22:05)
[2018-03-06] MEDS: OXYCODONE HCL IR 5 MG TABLET PO SCH ×3 (06:17→22:05)
[2018-03-06] MEDS: OXYCODONE-ACETAMINOPHEN 5-325 MG TABLET PO SCH ×3 (06:17→22:05)
[2018-03-06 07:30] LABS: ABSOLUTE LYMPHOCYTES (AUTO) 1.7 10^3/uL (0.5-4.7); ABSOLUTE MONOCYTES (AUTO) 0.8 10^3/uL (0.1-1.4); ABSOLUTE NEUT (AUTO) 4.3 10^3/uL (1.7-8.2); BASOPHILS % (AUTO) 0.1 % (0-2); EOSINOPHILS % (AUTO) 0.6 % (0-6); HEMATOCRIT 33.6 % (37.9-51.0); HEMOGLOBIN 11.7 g/dL (13.5-17.0); LYMPHOCYTES % (AUTO) 24.4 % (13-45); MEAN CORPUSCULAR HEMOGLOBIN 28.7 pg (27.0-33.4); MEAN CORPUSCULAR HGB CONC 34.7 g/dL (32.0-36.0); MEAN CORPUSCULAR VOLUME 83 fl (80-97); MONOCYTES % (AUTO) 11.9 % (3-13); PLATELET COUNT 208 10^3/uL (150-450); RED BLOOD COUNT 4.06 10^6/uL (4.35-5.55); RED CELL DISTRIBUTION WIDTH 15.6 % (11.5-14.0); TOTAL CELLS COUNTED % (AUTO) 100 %; WHITE BLOOD COUNT 6.8 10^3/uL (4.0-10.5)
[2018-03-06] MEDS: BUDESONIDE NEB 0.5 MG/2 ML AMPUL NEB SCH ×2 (07:36→19:53)
[2018-03-06] MEDS: FUROSEMIDE 20 MG TABLET PO SCH (07:43)
[2018-03-06 08:06] LABS: ALANINE AMINOTRANSFERASE 27 U/L (21-72); ALBUMIN 3.4 g/dL (3.5-5.0); ALKALINE PHOSPHATASE 39 U/L (38-126); ANION GAP 11 (5-19); ASPARTATE AMINO TRANSFERASE 28 U/L (17-59); BILIRUBIN,DIRECT 0.4 mg/dL (0.0-0.4); BILIRUBIN,TOTAL 0.5 mg/dL (0.2-1.3); BLOOD UREA NITROGEN 52 mg/dL (7-20); CALCIUM 8.7 mg/dL (8.4-10.2); CARBON DIOXIDE 35 mmol/L (22-30); CHLORIDE 94 mmol/L (98-107); GLUCOSE 168 mg/dL (75-110); POTASSIUM 3.7 mmol/L (3.6-5.0); SODIUM 139.8 mmol/L (137-145); TOTAL PROTEIN 5.7 g/dL (6.3-8.2)
[2018-03-06] MEDS: LISINOPRIL 10 MG TABLET PO SCH (09:31)
[2018-03-06] MEDS: PREDNISONE 20 MG TABLET PO SCH (09:32)
[2018-03-06] MEDS: ASPIRIN 81 MG TABLET, ENT COATED PO SCH (09:32)
[2018-03-06] MEDS: MEMANTINE HCL 10 MG TABLET PO SCH (09:32)
[2018-03-06] MEDS: FLUTICASONE/SALMETEROL DISKUS 250-50 MCG/DOSE IH SCH ×2 (09:33→22:06)
[2018-03-06] MEDS: LEVALBUTEROL HCL NEB 1.25 MG/3 ML AMPUL NEB PRN ×2 (10:46→18:12)
[2018-03-06] MEDS: TAMSULOSIN HCL 0.4 MG CAP.SR.24H PO SCH (18:01)
--- NOTE | 2018-03-06 21:42 | PDOC PROGRESS REPORT ---
Subjective Progress Note for:: 03/06/18 Subjective:: Patient was seen by the bedside, he continues to request for bronchodilators almost on a continuous basis. Reason For Visit: COPD WITH ACUTE EXACERBATION,ACUTE HYPOXEMIC Physical Exam Vital Signs: Temp Pulse Resp BP Pulse Ox 97.9 F 70 20 131/62 H 95 03/06/18 16:00 03/06/18 19:54 03/06/18 19:54 03/06/18 16:00 03/06/18 19:54 Intake & Output 03/05/18 03/06/18 03/07/18 06:59 06:59 06:59 Intake Total 1590 1830 472 Output Total 1475 1825 1450 Balance 115 5 -978 Weight 100.6 kg 101.2 kg General appearance: PRESENT: mild distress Head exam: PRESENT: atraumatic, normocephalic Eye exam: PRESENT: conjunctiva pink, EOMI, PERRLA Ear exam: PRESENT: normal external ear exam Mouth exam: PRESENT: moist, tongue midline Neck exam: PRESENT: full ROM Respiratory exam: PRESENT: wheezes Cardiovascular exam: PRESENT: RRR, +S1, +S2 Vascular exam: PRESENT: normal capillary refill GI/Abdominal exam: PRESENT: normal bowel sounds, soft Rectal exam: PRESENT: deferred Neurological exam: PRESENT: alert Psychiatric exam: PRESENT: appropriate affect, normal mood Skin exam: PRESENT: dry, intact, warm Results Laboratory Results: 03/06/18 06:40 03/06/18 06:40 03/06/18 03/06/18 06:40 06:40 WBC 6.8 RBC 4.06 L Hgb 11.7 L Hct 33.6 L MCV 83 MCH 28.7 MCHC 34.7 RDW 15.6 H Plt Count 208 Seg Neutrophils % 63.0 Lymphocytes % 24.4 Monocytes % 11.9 Eosinophils % 0.6 Basophils % 0.1 Absolute Neutrophils 4.3 Absolute Lymphocytes 1.7 Absolute Monocytes 0.8 Absolute Eosinophils 0.0 Absolute Basophils 0.0 Sodium 139.8 Potassium 3.7 Chloride 94 L Carbon Dioxide 35 H Anion Gap 11 BUN 52 H Creatinine 1.99 H Est GFR ( Amer) 40 L Est GFR (Non-Af Amer) 33 L Glucose 168 H Calcium 8.7 Total Bilirubin 0.5 AST 28 ALT 27 Alkaline Phosphatase 39 Total Protein 5.7 L Albumin 3.4 L 02/28/18 02/28/18 02/28/18 14:05 14:05 19:20 Creatine Kinase 330 H 381 H CK-MB (CK-2) 2.07 Troponin I < 0.012 02/28/18 03/01/18 03/01/18 19:20 01:08 01:08 Creatine Kinase 368 H CK-MB (CK-2) 2.75 2.74 Troponin I < 0.012 0.012 Impressions: Chest CT 02/28/18 00:00 IMPRESSION: NO ACUTE INTRATHORACIC PROCESS. EMPHYSEMA. HIATAL HERNIA. Renal Ultrasound 02/28/18 00:00 IMPRESSION: NORMAL RENAL AND BLADDER ULTRASOUND. Chest X-Ray 02/28/18 05:48 IMPRESSION: No acute cardiopulmonary findings. Assessment & Plan - Diagnosis (1) COPD with acute exacerbation Is this a current diagnosis for this admission?: Yes Plan: Continue present treatment including prednisone (2) Acute hypoxemic respiratory failure Is this a current diagnosis for this admission?: Yes (3) Chronic kidney disease, stage 3 Is this a current diagnosis for this admission?: Yes (4) Chronic venous hypertension (idiopathic) with inflammation of bilateral lower extremity Is this a current diagnosis for this admission?: Yes
[2018-03-06] MEDS: ATORVASTATIN CALCIUM 40 MG TABLET PO SCH (22:05)
[2018-03-06] MEDS: ZOLPIDEM TARTRATE 5 MG TABLET PO PRN (22:05)
[2018-03-06] MEDS: DONEPEZIL HCL 5 MG TABLET PO SCH (22:05)
[2018-03-06] MEDS: DIVALPROEX SODIUM 250 MG TAB.SR.24H PO SCH (22:06)
[2018-03-07] MEDS: LEVALBUTEROL HCL NEB 1.25 MG/3 ML AMPUL NEB SCH ×4 (01:47→19:30)
[2018-03-07] MEDS: IPRATROPIUM BROMIDE 0.02% NEB 0.5 MG/2.5 ML AMPUL NEB SCH ×4 (01:47→19:31)
[2018-03-07] MEDS: OXYCODONE-ACETAMINOPHEN 5-325 MG TABLET PO SCH ×3 (05:40→21:30)
[2018-03-07] MEDS: LANSOPRAZOLE 15 MG TAB.RAP.DR PO SCH (05:40)
[2018-03-07] MEDS: HEPARIN SOD (PORCINE) 5,000 UNIT/ML 1 ML SYRINGE SUBCUT SCH ×3 (05:40→21:31)
[2018-03-07] MEDS: OXYCODONE HCL IR 5 MG TABLET PO SCH ×3 (05:40→21:30)
[2018-03-07] MEDS: BUDESONIDE NEB 0.5 MG/2 ML AMPUL NEB SCH ×2 (08:02→19:31)
[2018-03-07] MEDS: FLUTICASONE/SALMETEROL DISKUS 250-50 MCG/DOSE IH SCH (10:48)
[2018-03-07] MEDS: PREDNISONE 20 MG TABLET PO SCH (10:48)
[2018-03-07] MEDS: LISINOPRIL 10 MG TABLET PO SCH (10:48)
[2018-03-07] MEDS: FUROSEMIDE 20 MG TABLET PO SCH (10:48)
[2018-03-07] MEDS: MEMANTINE HCL 10 MG TABLET PO SCH (10:48)
[2018-03-07] MEDS: ASPIRIN 81 MG TABLET, ENT COATED PO SCH (10:48)
[2018-03-07] MEDS: TAMSULOSIN HCL 0.4 MG CAP.SR.24H PO SCH (19:19)
--- NOTE | 2018-03-07 21:02 | PDOC PROGRESS REPORT ---
Subjective Progress Note for:: 03/07/18 Subjective:: Patient seen by the bedside, he has less shortness of breath, will decrease prednisone dosing, start trelegy Reason For Visit: COPD WITH ACUTE EXACERBATION,ACUTE HYPOXEMIC Physical Exam Vital Signs: Temp Pulse Resp BP Pulse Ox 98.4 F 78 19 135/74 H 94 03/07/18 07:36 03/07/18 19:00 03/07/18 13:41 03/07/18 07:36 03/07/18 07:36 Intake & Output 03/06/18 03/07/18 03/08/18 06:59 06:59 06:59 Intake Total 1830 472 Output Total 1825 1450 Balance 5 -978 Weight 101.2 kg 101.2 kg General appearance: PRESENT: no acute distress Eye exam: PRESENT: PERRLA Respiratory exam: PRESENT: wheezes Cardiovascular exam: PRESENT: +S1, +S2 GI/Abdominal exam: PRESENT: soft Neurological exam: PRESENT: alert Results Laboratory Results: 03/06/18 06:40 03/06/18 06:40 02/28/18 02/28/18 02/28/18 14:05 14:05 19:20 Creatine Kinase 330 H 381 H CK-MB (CK-2) 2.07 Troponin I < 0.012 02/28/18 03/01/18 03/01/18 19:20 01:08 01:08 Creatine Kinase 368 H CK-MB (CK-2) 2.75 2.74 Troponin I < 0.012 0.012 Impressions: Chest CT 02/28/18 00:00 IMPRESSION: NO ACUTE INTRATHORACIC PROCESS. EMPHYSEMA. HIATAL HERNIA. Renal Ultrasound 02/28/18 00:00 IMPRESSION: NORMAL RENAL AND BLADDER ULTRASOUND. Chest X-Ray 02/28/18 05:48 IMPRESSION: No acute cardiopulmonary findings. Assessment & Plan - Diagnosis (1) COPD with acute exacerbation Is this a current diagnosis for this admission?: Yes Plan: Start trelegy (2) Acute hypoxemic respiratory failure Is this a current diagnosis for this admission?: Yes (3) Chronic kidney disease, stage 3 Is this a current diagnosis for this admission?: Yes (4) Chronic venous hypertension (idiopathic) with inflammation of bilateral lower extremity Is this a current diagnosis for this admission?: Yes
[2018-03-07] MEDS: ATORVASTATIN CALCIUM 40 MG TABLET PO SCH (21:30)
[2018-03-07] MEDS: DONEPEZIL HCL 5 MG TABLET PO SCH (21:31)
[2018-03-07] MEDS: DIVALPROEX SODIUM 250 MG TAB.SR.24H PO SCH (21:31)
[2018-03-07] MEDS: FLUTICASONE/UMECLIDIN/VILANTER 100-62.5-25 MCG/DOSE IH SCH (21:39)
[2018-03-08] MEDS: LEVALBUTEROL HCL NEB 1.25 MG/3 ML AMPUL NEB SCH ×4 (02:04→20:53)
[2018-03-08] MEDS: IPRATROPIUM BROMIDE 0.02% NEB 0.5 MG/2.5 ML AMPUL NEB SCH ×4 (02:04→20:53)
[2018-03-08] MEDS: HEPARIN SOD (PORCINE) 5,000 UNIT/ML 1 ML SYRINGE SUBCUT SCH ×3 (06:00→21:34)
[2018-03-08] MEDS: LANSOPRAZOLE 15 MG TAB.RAP.DR PO SCH (06:00)
[2018-03-08] MEDS: BUDESONIDE NEB 0.5 MG/2 ML AMPUL NEB SCH ×2 (07:56→20:53)
[2018-03-08] MEDS: LISINOPRIL 10 MG TABLET PO SCH (11:23)
[2018-03-08] MEDS: ASPIRIN 81 MG TABLET, ENT COATED PO SCH (11:24)
[2018-03-08] MEDS: FUROSEMIDE 20 MG TABLET PO SCH (11:24)
[2018-03-08] MEDS: PREDNISONE 20 MG TABLET PO SCH (11:24)
[2018-03-08] MEDS: MEMANTINE HCL 10 MG TABLET PO SCH (11:24)
[2018-03-08] MEDS: OXYCODONE HCL IR 5 MG TABLET PO SCH ×2 (15:05→21:34)
[2018-03-08] MEDS: OXYCODONE-ACETAMINOPHEN 5-325 MG TABLET PO SCH ×2 (15:06→21:34)
[2018-03-08] MEDS: TAMSULOSIN HCL 0.4 MG CAP.SR.24H PO SCH (18:56)
[2018-03-08] MEDS: ATORVASTATIN CALCIUM 40 MG TABLET PO SCH (21:34)
[2018-03-08] MEDS: DIVALPROEX SODIUM 250 MG TAB.SR.24H PO SCH (21:34)
[2018-03-08] MEDS: FLUTICASONE/UMECLIDIN/VILANTER 100-62.5-25 MCG/DOSE IH SCH (21:34)
[2018-03-08] MEDS: DONEPEZIL HCL 5 MG TABLET PO SCH (21:39)
[2018-03-08] MEDS ORDERED: FUROSEMIDE 20 MG TABLET PO SCH (21:45)
--- NOTE | 2018-03-08 21:46 | PDOC PROGRESS REPORT ---
Subjective Progress Note for:: 03/08/18 Subjective:: Patient continues to improve Reason For Visit: COPD WITH ACUTE EXACERBATION,ACUTE HYPOXEMIC Physical Exam Vital Signs: Temp Pulse Resp BP Pulse Ox 98.4 F 69 16 120/59 L 98 03/08/18 08:00 03/08/18 19:00 03/08/18 13:48 03/08/18 08:00 03/08/18 13:48 Intake & Output 03/07/18 03/08/18 03/09/18 06:59 06:59 06:59 Intake Total 472 522 390 Output Total 1450 1585 250 Balance -978 -1063 140 Weight 101.2 kg 101.2 kg General appearance: PRESENT: mild distress Eye exam: PRESENT: PERRLA Respiratory exam: PRESENT: rhonchi Cardiovascular exam: PRESENT: +S1, +S2 GI/Abdominal exam: PRESENT: soft Results Laboratory Results: 03/06/18 06:40 03/06/18 06:40 02/28/18 02/28/18 02/28/18 14:05 14:05 19:20 Creatine Kinase 330 H 381 H CK-MB (CK-2) 2.07 Troponin I < 0.012 02/28/18 03/01/18 03/01/18 19:20 01:08 01:08 Creatine Kinase 368 H CK-MB (CK-2) 2.75 2.74 Troponin I < 0.012 0.012 Impressions: Chest CT 02/28/18 00:00 IMPRESSION: NO ACUTE INTRATHORACIC PROCESS. EMPHYSEMA. HIATAL HERNIA. Renal Ultrasound 02/28/18 00:00 IMPRESSION: NORMAL RENAL AND BLADDER ULTRASOUND. Chest X-Ray 02/28/18 05:48 IMPRESSION: No acute cardiopulmonary findings. Assessment & Plan - Diagnosis (1) COPD with acute exacerbation Is this a current diagnosis for this admission?: Yes (2) Acute hypoxemic respiratory failure Is this a current diagnosis for this admission?: Yes (3) Chronic kidney disease, stage 3 Is this a current diagnosis for this admission?: Yes (4) Chronic venous hypertension (idiopathic) with inflammation of bilateral lower extremity Is this a current diagnosis for this admission?: Yes
[2018-03-09] MEDS: ACETAMINOPHEN 325 MG TABLET PO PRN (00:55)
[2018-03-09] MEDS: IPRATROPIUM BROMIDE 0.02% NEB 0.5 MG/2.5 ML AMPUL NEB SCH ×4 (02:31→20:28)
[2018-03-09] MEDS: LEVALBUTEROL HCL NEB 1.25 MG/3 ML AMPUL NEB SCH ×4 (02:31→20:28)
[2018-03-09] MEDS: OXYCODONE-ACETAMINOPHEN 5-325 MG TABLET PO SCH ×3 (05:41→21:29)
[2018-03-09] MEDS: OXYCODONE HCL IR 5 MG TABLET PO SCH ×3 (05:41→21:29)
[2018-03-09] MEDS: LANSOPRAZOLE 15 MG TAB.RAP.DR PO SCH (05:41)
[2018-03-09] MEDS: HEPARIN SOD (PORCINE) 5,000 UNIT/ML 1 ML SYRINGE SUBCUT SCH ×3 (05:41→21:29)
[2018-03-09] MEDS: BUDESONIDE NEB 0.5 MG/2 ML AMPUL NEB SCH ×2 (07:57→20:28)
[2018-03-09] MEDS: LISINOPRIL 10 MG TABLET PO SCH (12:01)
[2018-03-09] MEDS: ASPIRIN 81 MG TABLET, ENT COATED PO SCH (12:05)
[2018-03-09] MEDS: MEMANTINE HCL 10 MG TABLET PO SCH (12:05)
[2018-03-09] MEDS: FUROSEMIDE 40 MG TABLET PO SCH (12:06)
[2018-03-09] MEDS: PREDNISONE 20 MG TABLET PO SCH (12:06)
[2018-03-09] MEDS: TAMSULOSIN HCL 0.4 MG CAP.SR.24H PO SCH (18:09)
--- NOTE | 2018-03-09 20:04 | PDOC PROGRESS REPORT ---
Subjective Progress Note for:: 03/09/18 Subjective:: Patient continues to improve, Patient is somewhat confused Reason For Visit: COPD WITH ACUTE EXACERBATION,ACUTE HYPOXEMIC Physical Exam Vital Signs: Temp Pulse Resp BP Pulse Ox 98.4 F 78 16 115/75 96 03/09/18 11:51 03/09/18 14:00 03/09/18 13:45 03/09/18 11:51 03/09/18 13:45 Intake & Output 03/08/18 03/09/18 03/10/18 06:59 06:59 06:59 Intake Total 522 950 717 Output Total 1585 600 600 Balance -1063 350 117 Weight 101.2 kg 91 kg General appearance: PRESENT: no acute distress Head exam: PRESENT: atraumatic, normocephalic Eye exam: PRESENT: conjunctiva pink, EOMI, PERRLA. ABSENT: scleral icterus Ear exam: PRESENT: normal external ear exam Mouth exam: PRESENT: moist, tongue midline Neck exam: PRESENT: full ROM Respiratory exam: PRESENT: rhonchi Cardiovascular exam: PRESENT: RRR, +S1, +S2 Pulses: PRESENT: normal dorsalis pedis pul, +2 pedal pulses bilateral Vascular exam: PRESENT: normal capillary refill GI/Abdominal exam: PRESENT: normal bowel sounds, soft Rectal exam: PRESENT: deferred Neurological exam: PRESENT: alert, awake, oriented to person, oriented to place , oriented to time, oriented to situation, CN II-XII grossly intact Psychiatric exam: PRESENT: appropriate affect, normal mood Skin exam: PRESENT: dry, intact, warm Results Laboratory Results: 03/06/18 06:40 03/06/18 06:40 02/28/18 02/28/18 02/28/18 14:05 14:05 19:20 Creatine Kinase 330 H 381 H CK-MB (CK-2) 2.07 Troponin I < 0.012 02/28/18 03/01/18 03/01/18 19:20 01:08 01:08 Creatine Kinase 368 H CK-MB (CK-2) 2.75 2.74 Troponin I < 0.012 0.012 Impressions: Chest CT 02/28/18 00:00 IMPRESSION: NO ACUTE INTRATHORACIC PROCESS. EMPHYSEMA. HIATAL HERNIA. Renal Ultrasound 02/28/18 00:00 IMPRESSION: NORMAL RENAL AND BLADDER ULTRASOUND. Chest X-Ray 02/28/18 05:48 IMPRESSION: No acute cardiopulmonary findings. Assessment & Plan - Diagnosis (1) COPD with acute exacerbation Is this a current diagnosis for this admission?: Yes (2) Acute hypoxemic respiratory failure Is this a current diagnosis for this admission?: Yes (3) Chronic kidney disease, stage 3 Is this a current diagnosis for this admission?: Yes (4) Chronic venous hypertension (idiopathic) with inflammation of bilateral lower extremity Is this a current diagnosis for this admission?: Yes (5) Confusion Is this a current diagnosis for this admission?: Yes Plan: MRI brain
[2018-03-09] MEDS: DONEPEZIL HCL 5 MG TABLET PO SCH (21:28)
[2018-03-09] MEDS: FLUTICASONE/UMECLIDIN/VILANTER 100-62.5-25 MCG/DOSE IH SCH (21:29)
[2018-03-09] MEDS: ATORVASTATIN CALCIUM 40 MG TABLET PO SCH (21:29)
[2018-03-09] MEDS: DIVALPROEX SODIUM 250 MG TAB.SR.24H PO SCH (21:29)
[2018-03-10] MEDS: LEVALBUTEROL HCL NEB 1.25 MG/3 ML AMPUL NEB SCH ×4 (03:44→20:19)
[2018-03-10] MEDS: IPRATROPIUM BROMIDE 0.02% NEB 0.5 MG/2.5 ML AMPUL NEB SCH ×4 (03:44→20:19)
[2018-03-10] MEDS: ACETAMINOPHEN 325 MG TABLET PO PRN (03:55)
[2018-03-10] MEDS: OXYCODONE HCL IR 5 MG TABLET PO SCH ×3 (05:30→21:30)
[2018-03-10] MEDS: OXYCODONE-ACETAMINOPHEN 5-325 MG TABLET PO SCH ×3 (05:30→21:29)
[2018-03-10] MEDS: HEPARIN SOD (PORCINE) 5,000 UNIT/ML 1 ML SYRINGE SUBCUT SCH ×3 (05:30→21:32)
[2018-03-10] MEDS: LANSOPRAZOLE 15 MG TAB.RAP.DR PO SCH (05:30)
[2018-03-10] MEDS: BUDESONIDE NEB 0.5 MG/2 ML AMPUL NEB SCH ×2 (08:04→20:19)
[2018-03-10] MEDS: FUROSEMIDE 40 MG TABLET PO SCH (09:16)
[2018-03-10] MEDS: LISINOPRIL 10 MG TABLET PO SCH (09:17)
[2018-03-10] MEDS: PREDNISONE 20 MG TABLET PO SCH (09:17)
[2018-03-10] MEDS: ASPIRIN 81 MG TABLET, ENT COATED PO SCH (09:17)
[2018-03-10] MEDS: MEMANTINE HCL 10 MG TABLET PO SCH (09:17)
--- NOTE | 2018-03-10 10:25 | RADIOLOGY REPORT (SQ) ---
EXAM DESCRIPTION: MRI HEAD WITHOUT COMPLETED DATE/TIME: 03/10/2018 10:11 am REASON FOR STUDY: confusion J18.8 OTHER PNEUMONIA, UNSPECIFIED ORGANISM N19 UNSPECIFIED KIDNEY SHIRA LURE COMPARISON: 10/05/2017. TECHNIQUE: Multiplanar imaging includes non-contrasted T1, T2, FLAIR, and diffusion with ADC map seq uences. Images stored on PACS. LIMITATIONS: None. FINDINGS: ANATOMY: No anomalies. Normal vascular flow voids. Pituitary fossa normal. CSF SPACES: Atrophy induced prominence of ventricles and CSF spaces. CEREBRUM: High signal intensity lesions scattered throughout the white matter on FLAIR imaging with d istribution suggesting micro-vascular ischemic changes. No evidence of hemorrhage, mass, or extraaxi al fluid collection. POSTERIOR FOSSA: No signal alteration. No hemorrhage. No edema, masses or mass effect. Internal frank tory canals and cerebello-pontine angles normal. Mild fluid signal in the mastoid air cells which triplett s improved. DIFFUSION IMAGING: Negative for acute or sub-acute infarction. ORBITS: No masses. Globes normal. PARANASAL SINUSES: No fluid levels. Mild mucous membrane thickening. OTHER: No other significant finding. IMPRESSION: 1. ATROPHY AND CHRONIC MICRO-VASCULAR ISCHEMIC CHANGES. No acute findings. 2. IMPROVEMENT IN THE CHRONIC SINUS DISEASE AND IN THE MASTOID FLUID. EVIDENCE OF ACUTE STROKE: NO. TECHNICAL DOCUMENTATION: JOB ID: [id number] [employer]- All Rights Reserved Reading location - IP/workstation name: [email or web address]
[2018-03-10] MEDS: LEVALBUTEROL HCL NEB 1.25 MG/3 ML AMPUL NEB PRN (12:05)
[2018-03-10] MEDS: TAMSULOSIN HCL 0.4 MG CAP.SR.24H PO SCH (17:09)
[2018-03-10] MEDS: ATORVASTATIN CALCIUM 40 MG TABLET PO SCH (21:29)
[2018-03-10] MEDS: DONEPEZIL HCL 5 MG TABLET PO SCH (21:29)
[2018-03-10] MEDS: DIVALPROEX SODIUM 250 MG TAB.SR.24H PO SCH (21:30)
[2018-03-10] MEDS: FLUTICASONE/UMECLIDIN/VILANTER 100-62.5-25 MCG/DOSE IH SCH (21:31)
[2018-03-11] MEDS: IPRATROPIUM BROMIDE 0.02% NEB 0.5 MG/2.5 ML AMPUL NEB SCH ×4 (02:04→19:53)
[2018-03-11] MEDS: LEVALBUTEROL HCL NEB 1.25 MG/3 ML AMPUL NEB SCH ×4 (02:04→19:54)
[2018-03-11] MEDS: HEPARIN SOD (PORCINE) 5,000 UNIT/ML 1 ML SYRINGE SUBCUT SCH ×3 (05:31→22:25)
[2018-03-11] MEDS: LANSOPRAZOLE 15 MG TAB.RAP.DR PO SCH (05:42)
[2018-03-11] MEDS: OXYCODONE-ACETAMINOPHEN 5-325 MG TABLET PO SCH ×3 (05:42→22:22)
[2018-03-11] MEDS: OXYCODONE HCL IR 5 MG TABLET PO SCH ×3 (05:42→22:21)
[2018-03-11] MEDS: BUDESONIDE NEB 0.5 MG/2 ML AMPUL NEB SCH ×2 (08:34→19:53)
[2018-03-11] MEDS: LISINOPRIL 10 MG TABLET PO SCH (11:10)
[2018-03-11] MEDS: FUROSEMIDE 40 MG TABLET PO SCH (11:10)
[2018-03-11] MEDS: PREDNISONE 20 MG TABLET PO SCH (11:14)
[2018-03-11] MEDS: MEMANTINE HCL 10 MG TABLET PO SCH (11:14)
[2018-03-11] MEDS: ASPIRIN 81 MG TABLET, ENT COATED PO SCH (11:14)
[2018-03-11] MEDS: ACETAMINOPHEN 325 MG TABLET PO PRN (11:19)
--- NOTE | 2018-03-11 12:06 | PDOC DISCHARGE SUMMARY ---
General - Admit/Disc Date/PCP Admission Date/Primary Care Provider: 02/28/18 09:20 JONATHAN WHITESIDE MD Discharge Date: 03/11/18 - Discharge Diagnosis (1) COPD with acute exacerbation Is this a current diagnosis for this admission?: Yes (2) Acute hypoxemic respiratory failure Is this a current diagnosis for this admission?: Yes (3) Chronic kidney disease, stage 3 Is this a current diagnosis for this admission?: Yes (4) Chronic venous hypertension (idiopathic) with inflammation of bilateral lower extremity Is this a current diagnosis for this admission?: Yes (5) Confusion Is this a current diagnosis for this admission?: Yes - Additional Information Prescriptions: Fluticasone/Umeclidin/Vilanter [Trelegy 100-62.5-25 Mcg Ellipta 14 Dose/Dpi] 1 inh IH QHS #12 inhaler Compr.stocking,Thigh,Reg,Large [Compression Thigh Stocking] 1 each MC DAILY #12 each Prednisone [Deltasone 20 mg Tablet] 10 mg PO DAILY #5 tablet Home Medications: Aspirin [Aspirin EC] 81 mg PO DAILY 11/01/17 Atorvastatin Calcium [Lipitor 40 mg Tablet] 40 mg PO QHS 11/01/17 Calcium Carbonate [Tums Chewable 500 mg Tab.chew] 500 mg PO Q4HP PRN 11/01/17 Cetirizine HCl/Pseudoephedrine [Zyrtec-D Tablet] 1 tab PO DAILYP PRN 11/01/17 Divalproex Sodium [Depakote ER 250 mg Tablet] 750 mg PO QHS 11/01/17 Docusate Sodium [Colace 100 mg Capsule] 200 mg PO DAILYP PRN 11/01/17 Donepezil HCl [Aricept 5 mg Tablet] 5 mg PO QHS 11/01/17 Esomeprazole Magnesium [Nexium] 20 mg PO DAILY 11/01/17 Lisinopril [Prinivil 10 mg Tablet] 10 mg PO DAILY 11/01/17 Magnesium Hydroxide [Milk of Magnesia 30 ml Udcup] 30 ml PO DAILYP PRN 11/01/17 Memantine HCl [Namenda] 5 mg PO DAILY 11/01/17 Tamsulosin HCl [Flomax 0.4 mg Cap.sr] 0.4 mg PO DAILY 11/01/17 Compr.stocking,Thigh,Reg,Large [Compression Thigh Stocking] 1 each MC DAILY #12 each 03/11/18 Fluticasone/Umeclidin/Vilanter [Trelegy 100-62.5-25 Mcg Ellipta 14 Dose/Dpi] 1 inh IH QHS #12 inhaler 03/11/18 Oxycodone HCl/Acetaminophen [Percocet 7.5-325 mg Tablet] 1 tab PO Q8 #21 Prednisone [Deltasone 20 mg Tablet] 10 mg PO DAILY #5 tablet 03/11/18 History of Present Illness History of Present Illness: PRINCE PALMA is a 73 year old male,Resident of assisted living facility at [facility], he has multiple comorbid conditions including chronic obstructive pulmonary disease complicated with secondary pulmonary hypertension with chronic venous hypertension of both lower extremities, tobacco abuse still smoking cigarettes, chronic kidney disease stage III he came to the emergency room for evaluation of shortness of breath, he was evaluated in the emergency room, he was treated with bronchodilators, Solu-Medrol intravenously, magnesium sulfate intravenously despite all these interventions patient continued to be symptomatic with shortness of breath and wheezing, the emergency room physician wants patient admitted to the hospital for further management. I saw him today in the hospital patient is well-known to me from prior encounters, on auscultation of his chest there is diffuse bilateral wheezing ABG on FiO2 of 3 L was done PO2 was 83.2 pH 7.4 cc bicarbonate 24 PCO2 34.3, the pO2/FiO2 ratio is less than 200 suggesting hypoxemia. Hospital Course Hospital Course: Patient was admitted for the management of acute COPD exacerbation, he was treated with IV Solu-Medrol, bronchodilators, antibiotic, He had prolonged COPD exacerbation requiring frequent DuoNeb nebulizer treatment. Patient is also very confused with severe memory impairment he has a history of dementia he has very diminished memory to recent events, he tends to repeat himself over and over again for example in the hospital he would ask for DuoNeb every minutes despite the fact that he just had a treatment earlier, the nurses were concerned about his memory impairment MRI brain was done for evaluation of his dementia and confusion, it showed severe cerebral atrophy with chronic microvascular ischemic changes there was no acute findings. He was taken off some medication on this admission including gabapentin, he has severe chronic venous hypertension of the lower extremities the swelling is exacerbated with Neurontin, patient need to have compressive stockings of the lower extremities, he is a resident of [facility] assisted living facility. Physical Exam Vital Signs: Temp Pulse Resp BP Pulse Ox 97.6 F 90 21 H 105/73 97 03/11/18 11:44 03/11/18 11:44 03/11/18 11:44 03/11/18 11:44 03/11/18 11:44 Intake & Output 03/10/18 03/11/18 03/12/18 06:59 06:59 06:59 Intake Total 1342 680 Output Total 1025 1100 Balance 317 -420 Weight 92.6 kg 93.8 kg General appearance: PRESENT: no acute distress Head exam: PRESENT: atraumatic, normocephalic Eye exam: PRESENT: PERRLA Ear exam: PRESENT: normal external ear exam Mouth exam: PRESENT: moist, tongue midline Neck exam: PRESENT: full ROM Respiratory exam: PRESENT: clear to auscultation mariia Cardiovascular exam: PRESENT: RRR, +S1, +S2 Vascular exam: PRESENT: normal capillary refill GI/Abdominal exam: PRESENT: normal bowel sounds, soft Rectal exam: PRESENT: deferred Neurological exam: PRESENT: alert, CN II-XII grossly intact Psychiatric exam: PRESENT: appropriate affect, normal mood Skin exam: PRESENT: dry, intact, warm Results Laboratory Results: 03/06/18 06:40 03/06/18 06:40 02/28/18 02/28/18 02/28/18 14:05 14:05 19:20 Creatine Kinase 330 H 381 H CK-MB (CK-2) 2.07 Troponin I < 0.012 02/28/18 03/01/18 03/01/18 19:20 01:08 01:08 Creatine Kinase 368 H CK-MB (CK-2) 2.75 2.74 Troponin I < 0.012 0.012 Impressions: Chest CT 02/28/18 00:00 IMPRESSION: NO ACUTE INTRATHORACIC PROCESS. EMPHYSEMA. HIATAL HERNIA. Renal Ultrasound 02/28/18 00:00 IMPRESSION: NORMAL RENAL AND BLADDER ULTRASOUND. Chest X-Ray 02/28/18 05:48 IMPRESSION: No acute cardiopulmonary findings. Head MRI 03/10/18 00:00 IMPRESSION: 1. ATROPHY AND CHRONIC MICRO-VASCULAR ISCHEMIC CHANGES. No acute findings. 2. IMPROVEMENT IN THE CHRONIC SINUS DISEASE AND IN THE MASTOID FLUID. EVIDENCE OF ACUTE STROKE: NO. Qualifiers - * PATIENT BEING DISCHARGED WITH ANY OF THE FOLLOWING DIAGNOSIS: No
[2018-03-11 13:16] LABS: HEMATOCRIT 39.6 % (37.9-51.0); HEMOGLOBIN 13.4 g/dL (13.5-17.0); MEAN CORPUSCULAR HEMOGLOBIN 28.3 pg (27.0-33.4); MEAN CORPUSCULAR HGB CONC 33.7 g/dL (32.0-36.0); MEAN CORPUSCULAR VOLUME 84 fl (80-97); PLATELET COUNT 240 10^3/uL (150-450); RED BLOOD COUNT 4.72 10^6/uL (4.35-5.55); RED CELL DISTRIBUTION WIDTH 15.7 % (11.5-14.0); WHITE BLOOD COUNT 11.9 10^3/uL (4.0-10.5)
[2018-03-11 13:31] LABS: ALANINE AMINOTRANSFERASE 49 U/L (21-72); ALBUMIN 3.8 g/dL (3.5-5.0); ALKALINE PHOSPHATASE 43 U/L (38-126); ANION GAP 15 (5-19); ASPARTATE AMINO TRANSFERASE 27 U/L (17-59); BILIRUBIN,DIRECT 0.4 mg/dL (0.0-0.4); BILIRUBIN,TOTAL 0.7 mg/dL (0.2-1.3); BLOOD UREA NITROGEN 60 mg/dL (7-20); CALCIUM 9.4 mg/dL (8.4-10.2); CARBON DIOXIDE 30 mmol/L (22-30); CHLORIDE 94 mmol/L (98-107); GLUCOSE 228 mg/dL (75-110); POTASSIUM 4.1 mmol/L (3.6-5.0); SODIUM 138.8 mmol/L (137-145); TOTAL PROTEIN 6.5 g/dL (6.3-8.2)
[2018-03-11 13:33] LABS: ABSOLUTE LYMPHOCYTES# (MANUAL) 2.4 10^3/uL (0.5-4.7); ABSOLUTE MONOCYTES # (MANUAL) 0.8 10^3/uL (0.1-1.4); ABSOLUTE NEUTROPHILS# (MANUAL) 8.7 10^3/uL (1.7-8.2); ANISOCYTOSIS SLIGHT; BASOPHILS % (MANUAL) 0 % (0-2); EOSINOPHILS % (MANUAL) 0 % (0-6); LYMPHOCYTES % (MANUAL) 20 % (13-45); MONOCYTES % (MANUAL) 7 % (3-13); PLATELET COMMENT ADEQUATE; SEGMENTED NEUTROPHILS % (MAN) 73 % (42-78); TOTAL CELLS COUNTED 100
[2018-03-11] MEDS: TAMSULOSIN HCL 0.4 MG CAP.SR.24H PO SCH (18:36)
[2018-03-11] MEDS: DIVALPROEX SODIUM 250 MG TAB.SR.24H PO SCH (22:21)
[2018-03-11] MEDS: ATORVASTATIN CALCIUM 40 MG TABLET PO SCH (22:22)
[2018-03-11] MEDS: DONEPEZIL HCL 5 MG TABLET PO SCH (22:23)
[2018-03-11] MEDS: FLUTICASONE/UMECLIDIN/VILANTER 100-62.5-25 MCG/DOSE IH SCH (22:26)
[2018-03-12] MEDS: ACETAMINOPHEN 325 MG TABLET PO PRN
[2018-03-12] MEDS: LEVALBUTEROL HCL NEB 1.25 MG/3 ML AMPUL NEB SCH ×4 (02:05→20:06)
[2018-03-12] MEDS: IPRATROPIUM BROMIDE 0.02% NEB 0.5 MG/2.5 ML AMPUL NEB SCH ×4 (02:05→20:09)
[2018-03-12] MEDS: LANSOPRAZOLE 15 MG TAB.RAP.DR PO SCH (05:46)
[2018-03-12] MEDS: OXYCODONE HCL IR 5 MG TABLET PO SCH ×3 (05:46→21:11)
[2018-03-12] MEDS: OXYCODONE-ACETAMINOPHEN 5-325 MG TABLET PO SCH ×3 (05:47→21:12)
[2018-03-12] MEDS: HEPARIN SOD (PORCINE) 5,000 UNIT/ML 1 ML SYRINGE SUBCUT SCH ×3 (05:48→21:13)
[2018-03-12] MEDS: BUDESONIDE NEB 0.5 MG/2 ML AMPUL NEB SCH ×2 (07:57→20:06)
[2018-03-12] MEDS: MEMANTINE HCL 10 MG TABLET PO SCH (09:02)
[2018-03-12] MEDS: PREDNISONE 20 MG TABLET PO SCH (09:02)
[2018-03-12] MEDS: LISINOPRIL 10 MG TABLET PO SCH (09:02)
[2018-03-12] MEDS: FUROSEMIDE 40 MG TABLET PO SCH (09:02)
[2018-03-12] MEDS: ASPIRIN 81 MG TABLET, ENT COATED PO SCH (09:02)
[2018-03-12] MEDS: TAMSULOSIN HCL 0.4 MG CAP.SR.24H PO SCH (17:36)
[2018-03-12] MEDS: DIVALPROEX SODIUM 250 MG TAB.SR.24H PO SCH (21:12)
[2018-03-12] MEDS: ATORVASTATIN CALCIUM 40 MG TABLET PO SCH (21:12)
[2018-03-12] MEDS: FLUTICASONE/UMECLIDIN/VILANTER 100-62.5-25 MCG/DOSE IH SCH (21:12)
[2018-03-12] MEDS: DONEPEZIL HCL 5 MG TABLET PO SCH (21:12)
[2018-03-13] MEDS: ACETAMINOPHEN 325 MG TABLET PO PRN (00:55)
[2018-03-13] MEDS: LEVALBUTEROL HCL NEB 1.25 MG/3 ML AMPUL NEB SCH ×2 (01:42→08:09)
[2018-03-13] MEDS: IPRATROPIUM BROMIDE 0.02% NEB 0.5 MG/2.5 ML AMPUL NEB SCH ×2 (01:43→08:09)
[2018-03-13] MEDS: HEPARIN SOD (PORCINE) 5,000 UNIT/ML 1 ML SYRINGE SUBCUT SCH (05:05)
[2018-03-13] MEDS: OXYCODONE-ACETAMINOPHEN 5-325 MG TABLET PO SCH (05:29)
[2018-03-13] MEDS: LANSOPRAZOLE 15 MG TAB.RAP.DR PO SCH (05:29)
[2018-03-13] MEDS: OXYCODONE HCL IR 5 MG TABLET PO SCH (05:29)
[2018-03-13] MEDS: BUDESONIDE NEB 0.5 MG/2 ML AMPUL NEB SCH (08:09)
[2018-03-13 08:37] VITALS: BP 130/64
[2018-03-13] MEDS: FUROSEMIDE 40 MG TABLET PO SCH (08:46)
== END 2018-03-13 09:29 | DRG 190 ==
LOC: ER 05:15 → INTOOBSV 09:20 → OBSVTOIN 09:20 → UNDOADMIN 09:20 → EH 09:20 → 5 11:37 → EH 11:37 → 5 03-01 16:14 → UNDODISIN 03-13 09:29
PROVIDERS: ADMIT Internal Medicine; ATTEND Internal Medicine
PROC: 3E0F73Z Introduction of Anti-inflammatory into Respiratory Tract, Via Natural or Artificial Opening (ICD-10-PCS; principal; 2018-02-28)
DX: J43.9 Emphysema, unspecified (principal); J96.21 Acute and chronic respiratory failure with hypoxia; N18.3 Chronic kidney disease, stage 3 (moderate); I87.303 Chronic venous hypertension (idiopathic) without complications of bilateral lower extremity; R41.0 Disorientation, unspecified; I27.20 Pulmonary hypertension, unspecified; F03.90 Unspecified dementia, unspecified severity, without behavioral disturbance, psychotic disturbance, mood disturbance, and anxiety; K44.9 Diaphragmatic hernia without obstruction or gangrene; E78.00 Pure hypercholesterolemia, unspecified; I12.9 Hypertensive chronic kidney disease with stage 1 through stage 4 chronic kidney disease, or unspecified chronic kidney disease; F32.9 Major depressive disorder, single episode, unspecified; K21.9 Gastro-esophageal reflux disease without esophagitis; M19.90 Unspecified osteoarthritis, unspecified site; F17.210 Nicotine dependence, cigarettes, uncomplicated; Z79.82 Long term (current) use of aspirin; Z79.899 Other long term (current) drug therapy; Z90.49 Acquired absence of other specified parts of digestive tract
CPT/HCPCS: 36415; 36600; 70551; 71045; 71250; 76775; 80048; 80053; 80061; 80076; 80307; 81001; 82140; 82150; 82550; 82553; 82803; 83036; 83690; 83735; 84439; 84443; 84484; 85025; 85610; 85730; 87040; 87086; 93005; 93010; 94640; 96365; 96375; 99285; G0378; G8978-GP; G8979-GP; J1644; J2930; J3475; J3490; J7120; J7512; J7620

== ENCOUNTER 2018-05-04 01:48 | Inpatient (IN) | payer MEDICARE, MEDICAID ==
[2018-05-04] MEDS ORDERED: ALBUTEROL SULFATE 0.083% NEB 2.5 MG/3 ML AMPUL NEB ONE ×2 (01:59→03:21)
[2018-05-04] MEDS ORDERED: IPRATROPIUM/ALBUTEROL 0.5-2.5 MG/3 ML AMPUL NEB ONE ×2 (01:59→10:30)
--- NOTE | 2018-05-04 02:05 | ER Document Report ---
ED General - General Stated Complaint: RESPIRATORY Time Seen by Provider: 05/04/18 01:59 Notes: Patient is a 73-year-old male who presents with complaint of difficulty breathing. He also has some back pain and leg pain which he says is chronic and he takes Percocet for. No chest pain. Shortness of breath has been worsening but became much worse tonight. He was 87% on room air when paramedics arrived. He is given 2 DuoNeb treatments. He is given 125 mg of Solu-Medrol by the paramedics. Is having some slight improvement but still feels short of breath. He has a history of COPD and still smokes. TRAVEL OUTSIDE OF THE [place] IN LAST 30 DAYS: No - Related Data Allergies/Adverse Reactions: No Known Allergies Allergy (Verified 06/05/17 10:03) Past Medical History - Social History Smoking Status: Current Every Day Smoker Frequency of alcohol use: None Drug Abuse: None Family History: Reviewed & Not Pertinent - Past Medical History Cardiac Medical History: Reports: Hx Hypercholesterolemia, Hx Hypertension Pulmonary Medical History: Reports: Hx Asthma, Hx COPD, Hx Pneumonia, Hx Respiratory Failure - Chronic respiratory failure Denies: Hx Bronchitis, Hx Intubation, Hx Sleep Apnea, Hx Tuberculosis Renal/ Medical History: Denies: Hx Peritoneal Dialysis GI Medical History: Reports: Hx Gastroesophageal Reflux Disease Musculoskeletal Medical History: Reports Hx Arthritis Psychiatric Medical History: Reports: Hx Depression Past Surgical History: Reports: Hx Cholecystectomy - states "Im pretty sure" Review of Systems - Review of Systems Notes: My Normal Review Basic REVIEW OF SYSTEMS: CONSTITUTIONAL : Denies fever, chills, or sweats. Denies recent illness. EENT: Denies eye, ear, throat, or mouth pain or symptoms. Denies nasal or sinus congestion. CARDIOVASCULAR: Denies chest pain. RESPIRATORY: Difficulty breathing and wheezing. GASTROINTESTINAL: Denies abdominal pain. Denies nausea, vomiting, or diarrhea. GENITOURINARY: Denies difficulty urinating, painful urination, burning, frequency, or blood in urine. MUSCULOSKELETAL: Chronic leg and back pain SKIN: Denies rash or skin lesions. NEUROLOGICAL: Denies altered mental status or loss of consciousness. Denies headache. Denies weakness or paralysis or loss of use of either side. Denies problems with gait or speech. Denies sensory or motor loss. ALL OTHER SYSTEMS REVIEWED AND NEGATIVE. Physical Exam - Vital signs Vitals: Temp Pulse Resp BP Pulse Ox 97.5 F 106 H 29 H 136/85 H 81 L 05/04/18 01:48 05/04/18 01:48 05/04/18 01:48 05/04/18 01:48 05/04/18 01:48 - Notes Notes: General Appearance: Well nourished, alert, cooperative, no acute distress, no obvious discomfort. Vitals: reviewed, See vital signs table. Head: no swelling or tenderness to the head Eyes: PERRL, EOMI, Conjuctiva clear Mouth: No decreasd moisture Lungs: Diffuse wheezing and rhonchi. Moderate accessory muscle use. Decreased air exchange bilaterally. Moderate Heart: Normal rate, Regular rythm, No murmur, no rub Abdomen: Normal BS, soft, No rigidity, No abdominal tenderness, No guarding, no rebound, Back: No reproducible to pain palpation of lower back. Extremities: strength 5/5 in all extremities, good pulses in all extremities, chronic bilateral lower extremity swelling with darkening of the skin for chronic edema. No abnormal warmth. No fluctuance. Skin: warm, dry, appropriate color, no rash Neuro: speech clear, oriented x 3, normal affect, responds appropriately to questions. Course - Re-evaluation Re-evalutation: 05/04/18 03:21 Patient is not acidotic and is not hypercapnic. He does wear CPAP at night and therefore will place CPAP on him now. He does have a lot of tightness and wheezing and rhonchi throughout his lung amezquita. I will give another breathing treatment. His work of breathing is much improved as compared to when he first came in. Due to the patient's poor lung auscultation and the fact that he is only 93% on 3 L oxygen I feel that is appropriate to admit him to the hospital. I will speak with the hospitalist but potential admission. Patient's last admission was to Dr. Cronin with patient says he switched doctors and now sees Dr. Joy. I did speak with the hospitalist, Dr. Venegas, who agrees to evaluate the patient for admission. Dictation of this chart was performed using voice recognition software; therefore, there may be some unintended grammatical errors. 05/04/18 08:05 - Vital Signs Vital signs: Temp Pulse Resp BP Pulse Ox 97.5 F 106 H 25 H 120/76 97 08/09/18 01:48 05/04/18 01:48 05/04/18 07:31 05/04/18 07:31 05/04/18 07:31 - Laboratory Result Diagrams: 05/04/18 01:40 05/04/18 01:40 Laboratory results interpreted by me: 05/04/18 05/04/18 01:40 01:40 RBC 4.10 L Hgb 12.4 L Hct 36.4 L RDW 15.9 H Sodium 146.7 H Carbon Dioxide 31 H BUN 53 H Creatinine 2.42 H Est GFR ( Amer) 32 L Est GFR (Non-Af Amer) 26 L Glucose 125 H ALT 20 L - EKG Interpretation by Me Additional EKG results interpreted by me: 05/04/18 02:02 EKG is reviewed and interpreted by me. EKG shows sinus tachycardia with a rate of [address] segment elevation or depression. No ischemic T-wave inversions. IN interval, QRS duration, QTc intervals are within normal range. Old EKG for comparison is from February 28, 2018. Discharge - Discharge Clinical Impression: Hypoxemia, Wheezing, COPD with acute exacerbation Condition: Stable Disposition: ADMITTED OBSERVATION Admitting Provider: Hospitalist Unit Admitted: Telemetry
[2018-05-04] MEDS: MAGNESIUM SULFATE/D5W 1 GM/100 ML RTUPB IV SCH ×2 (02:12→03:10)
[2018-05-04 02:16] LABS: ABSOLUTE BASOPHILS # (AUTO) 0.1 10^3/uL (0.0-0.2); ABSOLUTE EOSINOPHILS # (AUTO) 0.1 10^3/uL (0.0-0.6); ABSOLUTE LYMPHOCYTES (AUTO) 2.5 10^3/uL (0.5-4.7); ABSOLUTE MONOCYTES (AUTO) 1.1 10^3/uL (0.1-1.4); ABSOLUTE NEUT (AUTO) 6.2 10^3/uL (1.7-8.2); BASOPHILS % (AUTO) 0.7 % (0-2); EOSINOPHILS % (AUTO) 1.4 % (0-6); HEMATOCRIT 36.4 % (37.9-51.0); HEMOGLOBIN 12.4 g/dL (13.5-17.0); LYMPHOCYTES % (AUTO) 25.2 % (13-45); MEAN CORPUSCULAR HEMOGLOBIN 30.2 pg (27.0-33.4); MEAN CORPUSCULAR VOLUME 89 fl (80-97); MONOCYTES % (AUTO) 10.7 % (3-13); PLATELET COUNT 211 10^3/uL (150-450); RED CELL DISTRIBUTION WIDTH 15.9 % (11.5-14.0); TOTAL CELLS COUNTED % (AUTO) 100 %
[2018-05-04 02:18] LABS: VENOUS BLOOD BASE EXCESS 1.7 mmol/L; VENOUS BLOOD HCO3 28.3 mmol/L (20-32); VENOUS BLOOD PCO2 51.3 mmHg (35-63); VENOUS BLOOD PH 7.36 (7.30-7.42)
[2018-05-04 02:31] LABS: ALANINE AMINOTRANSFERASE 20 U/L (21-72); ALBUMIN 3.9 g/dL (3.5-5.0); ALKALINE PHOSPHATASE 44 U/L (38-126); ANION GAP 13 (5-19); ASPARTATE AMINO TRANSFERASE 25 U/L (17-59); BILIRUBIN,DIRECT 0.4 mg/dL (0.0-0.4); BILIRUBIN,TOTAL 0.5 mg/dL (0.2-1.3); BLOOD UREA NITROGEN 53 mg/dL (7-20); CALCIUM 9.3 mg/dL (8.4-10.2); CARBON DIOXIDE 31 mmol/L (22-30); CHLORIDE 103 mmol/L (98-107); GLUCOSE 125 mg/dL (75-110); POTASSIUM 4.1 mmol/L (3.6-5.0); SODIUM 146.7 mmol/L (137-145); TOTAL PROTEIN 6.9 g/dL (6.3-8.2)
--- NOTE | 2018-05-04 02:34 | RADIOLOGY REPORT (SQ) ---
EXAM DESCRIPTION: XR CHEST 1 VIEW COMPLETED DATE/TME: 05/04/2018 02:00 CLINICAL HISTORY: 73 years Male, dyspnea COMPARISON: 1.8.18. CT 6.5.18 NUMBER OF VIEWS/TECHNIQUE: 1/AP FINDINGS: Increased lung volume, mild chronic interstitial markings, normal cardiac silhouette, and grossly intact bony thorax. IMPRESSION: Mild chronic interstitial lung disease pattern.
--- NOTE | 2018-05-04 11:36 | EKG REPORT ---
SEVERITY:- OTHERWISE NORMAL ECG - SINUS TACHYCARDIA : Confirmed by: Sonya Castillo MD 04-May-2018 11:35:49
[2018-05-04] MEDS ORDERED: OXYCODONE HCL IR 5 MG TABLET PO SCH ×2 (14:00→22:00)
[2018-05-04] MEDS ORDERED: OXYCODONE-ACETAMINOPHEN 5-325 MG TABLET PO SCH ×2 (14:00→22:00)
[2018-05-04] MEDS ORDERED: ACETAMINOPHEN 325 MG TABLET ONE (17:29)
[2018-05-04] MEDS ORDERED: (PENDING PHARMACY ID) (Memantine Hcl [Namenda] 5 MG) PO SCH (19:15)
[2018-05-04] MEDS ORDERED: (PENDING PHARMACY ID) (Oxycodone Hcl/Acetaminophen [Oxycodon-Acetaminophen 7.5-325] 1 EACH PO SCH (19:15)
[2018-05-04 20:17] LABS: ARTERIAL BLOOD BASE EXCESS 4.8 mmol/L; ARTERIAL BLOOD HCO3 29.4 mmol/L (20-26); ARTERIAL BLOOD O2 SATURATION 96.4 % (94-98); ARTERIAL BLOOD PCO2 43.2 mmHg (35-45); ARTERIAL BLOOD PH 7.45 (7.35-7.45); ARTERIAL BLOOD PO2 81.2 mmHg (80-100); ARTERIAL BLOOD TOTAL CO2 30.7 mmol/L (23-27)
[2018-05-04 20:20] LABS: ARTERIAL BLOOD FIO2 2L
[2018-05-04] MEDS: OXYCODONE HCL IR 5 MG TABLET PO PRN (20:26)
[2018-05-04] MEDS: OXYCODONE-ACETAMINOPHEN 5-325 MG TABLET PO PRN (20:27)
--- NOTE | 2018-05-04 21:00 | PDOC H&P ---
History of Present Illness Admission Date/PCP: 05/04/18 07:05 JONATHAN WHITESIDE MD History of Present Illness: PRINCE PALMA is a 73 year old male Past Medical History Cardiac Medical History: Reports: Hyperlipidema, Hypertension Pulmonary Medical History: Reports: Asthma, Chronic Obstructive Pulmonary Disease (COPD), Pneumonia, Respiratory Failure - Chronic respiratory failure Denies: Bronchitis, Intubation, Sleep Apnea, Tuberculosis GI Medical History: Reports: Gastroesophageal Reflux Disease Musculoskeltal Medical History: Reports: Arthritis Psychiatric Medical History: Reports: Depression Past Surgical History Past Surgical History: Reports: Cholecystectomy - states "Im pretty sure" Social History Smoking Status: Current Every Day Smoker Cigarettes Packs Per Day: 1 Cigars Per Day: 0 Pipes Per Day: 0 Number of Years Smokin Last Time Smoked: 05/04/2018 Frequency of Alcohol Use: None Hx Recreational Drug Use: No Drugs: None Hx Prescription Drug Abuse: No - Advance Directive Resuscitation Status: Full Code Family History Family History: Reviewed & Not Pertinent Medication/Allergy Home Medications: Acetaminophen [Tylenol 325 mg Tablet] 650 mg PO Q4HP PRN 05/04/18 Aspirin [Aspirin 81 mg Chewable Tablet] 81 mg PO DAILY 05/04/18 Atorvastatin Calcium [Lipitor 40 mg Tablet] 40 mg PO QHS 05/04/18 Calcium Carbonate [Tums Chewable 500 mg Tab.chew] 500 mg PO Q4HP PRN 05/04/18 Divalproex Sodium [Depakote Er 250 Mg Tablet] 750 mg PO Q12 05/04/18 Docusate Sodium [Colace 100 mg Capsule] 200 mg PO DAILY 05/04/18 Donepezil HCl [Aricept 5 mg Tablet] 5 mg PO QHS 05/04/18 Fluticasone/Umeclidin/Vilanter [Trelegy Ellipta 100-62.5-25] 1 puff IH QHS 05/04 Furosemide [Lasix] 60 mg PO DAILY 05/04/18 Ibuprofen [Motrin 800 mg Tablet] 800 mg PO BIDP PRN 05/04/18 Lisinopril [Prinivil 10 mg Tablet] 10 mg PO DAILY 05/04/18 Magnesium Hydroxide [Milk of Magnesia 30 ml Udcup] 30 ml PO DAILY 05/04/18 Memantine HCl [Namenda] 5 mg PO DAILY 05/04/18 Omeprazole 20 mg PO Q6AM 05/04/18 Oxycodone HCl/Acetaminophen [Oxycodon-Acetaminophen 7.5-325] 1 each PO Q8 Prednisone [Deltasone 20 mg Tablet] 20 mg PO DAILY 05/04/18 Tamsulosin HCl [Flomax 0.4 mg Cap.sr] 0.4 mg PO QHS 05/04/18 Allergies/Adverse Reactions: No Known Allergies Allergy (Verified 06/05/17 10:03) Physical Exam Vital Signs: Temp Pulse Resp BP Pulse Ox 98.2 F 91 15 154/75 H 98 05/04/18 20:11 05/04/18 20:11 05/04/18 20:11 05/04/18 20:11 05/04/18 20:11 Intake & Output 05/03/18 05/04/18 05/05/18 06:59 06:59 06:59 Output Total 475 Balance -475 Weight 97.2 kg Results Laboratory Results: 05/04/18 19:55 Carbonic Acid 1.30 HCO3/H2CO3 Ratio 22:1 ABG pH 7.45 ABG pCO2 43.2 ABG pO2 81.2 ABG HCO3 29.4 H ABG O2 Saturation 96.4 ABG Base Excess 4.8 FiO2 2L Impressions: Chest X-Ray 05/04/18 02:00 IMPRESSION: Mild chronic interstitial lung disease pattern.
[2018-05-04] MEDS: IPRATROPIUM/ALBUTEROL 0.5-2.5 MG/3 ML AMPUL NEB PRN (21:05)
[2018-05-04] MEDS: CALCIUM CARBONATE 500 MG TAB.CHEW PO PRN (22:25)
[2018-05-04] MEDS: DONEPEZIL HCL 5 MG TABLET PO SCH (22:25)
[2018-05-04] MEDS: FLUTICASONE/UMECLIDIN/VILANTER 100-62.5-25 MCG/DOSE IH SCH (22:26)
[2018-05-04] MEDS: ATORVASTATIN CALCIUM 40 MG TABLET PO SCH (22:28)
[2018-05-04] MEDS: TAMSULOSIN HCL 0.4 MG CAP.SR.24H PO SCH (22:29)
[2018-05-04] MEDS: DIVALPROEX SODIUM 250 MG TAB.SR.24H PO SCH (22:32)
[2018-05-05] MEDS: ACETAMINOPHEN 325 MG TABLET PO PRN ×2 (00:01→19:06)
[2018-05-05] MEDS: IPRATROPIUM/ALBUTEROL 0.5-2.5 MG/3 ML AMPUL NEB PRN ×5 (02:25→20:06)
[2018-05-05] MEDS: ASPIRIN 81 MG TABLET, CHEWABLE PO SCH ×2 (05:55→09:41)
[2018-05-05] MEDS: FUROSEMIDE 20 MG TABLET PO SCH ×2 (05:56→09:40)
[2018-05-05] MEDS: MAGNESIUM HYDROXIDE SUSP 30 ML UDCUP PO SCH ×2 (08:03→09:41)
[2018-05-05] MEDS: DOCUSATE SODIUM 100 MG CAPSULE PO SCH ×2 (08:04→09:40)
[2018-05-05] MEDS: LISINOPRIL 10 MG TABLET PO SCH ×2 (08:04→09:41)
[2018-05-05] MEDS: LANSOPRAZOLE 15 MG TAB.RAP.DR PO SCH (08:09)
[2018-05-05] MEDS: OXYCODONE-ACETAMINOPHEN 5-325 MG TABLET PO PRN ×3 (08:09→21:31)
[2018-05-05] MEDS: OXYCODONE HCL IR 5 MG TABLET PO PRN ×3 (08:09→21:32)
[2018-05-05] MEDS: MEMANTINE HCL 10 MG TABLET PO SCH (09:41)
[2018-05-05] MEDS: DIVALPROEX SODIUM 250 MG TAB.SR.24H PO SCH ×2 (09:56→21:32)
--- NOTE | 2018-05-05 19:37 | PDOC H&P ---
History of Present Illness Admission Date/PCP: 05/04/18 07:05 JONATHAN WHITESIDE MD History of Present Illness: Patient is a 73-year-old with end-stage COPD, chronic kidney disease still actively smoking he came to the emergency room for evaluation of shortness of breath, in bthe emergency room he was wheezing, he was treated, the emergency department provider felt patient needed to be admitted to the hospital for continuity of care. Past Medical History Cardiac Medical History: Reports: Hyperlipidema, Hypertension Pulmonary Medical History: Reports: Asthma, Chronic Obstructive Pulmonary Disease (COPD), Pneumonia, Respiratory Failure - Chronic respiratory failure Renal/ Medical History: Reports: Chronic Kidney Disease GI Medical History: Reports: Gastroesophageal Reflux Disease Musculoskeltal Medical History: Reports: Arthritis Psychiatric Medical History: Reports: Depression Past Surgical History Past Surgical History: Reports: Cholecystectomy - states "Im pretty sure" Social History Smoking Status: Current Every Day Smoker Cigarettes Packs Per Day: 1 Cigars Per Day: 0 Pipes Per Day: 0 Number of Years Smokin Last Time Smoked: 05/04/2018 Frequency of Alcohol Use: None Hx Recreational Drug Use: No Drugs: None Hx Prescription Drug Abuse: No - Advance Directive Resuscitation Status: Full Code Family History Family History: Reviewed & Not Pertinent Parental Family History Reviewed: Yes Children Family History Reviewed: Yes Sibling(s) Family History Reviewed.: Yes Medication/Allergy Home Medications: Acetaminophen [Tylenol 325 mg Tablet] 650 mg PO Q4HP PRN 05/04/18 Aspirin [Aspirin 81 mg Chewable Tablet] 81 mg PO DAILY 05/04/18 Atorvastatin Calcium [Lipitor 40 mg Tablet] 40 mg PO QHS 05/04/18 Calcium Carbonate [Tums Chewable 500 mg Tab.chew] 500 mg PO Q4HP PRN 05/04/18 Divalproex Sodium [Depakote Er 250 Mg Tablet] 750 mg PO Q12 05/04/18 Docusate Sodium [Colace 100 mg Capsule] 200 mg PO DAILY 05/04/18 Donepezil HCl [Aricept 5 mg Tablet] 5 mg PO QHS 05/04/18 Fluticasone/Umeclidin/Vilanter [Trelegy Ellipta 100-62.5-25] 1 puff IH QHS 05/04 Furosemide [Lasix] 60 mg PO DAILY 05/04/18 Ibuprofen [Motrin 800 mg Tablet] 800 mg PO BIDP PRN 05/04/18 Lisinopril [Prinivil 10 mg Tablet] 10 mg PO DAILY 05/04/18 Magnesium Hydroxide [Milk of Magnesia 30 ml Udcup] 30 ml PO DAILY 05/04/18 Memantine HCl [Namenda] 5 mg PO DAILY 05/04/18 Omeprazole 20 mg PO Q6AM 05/04/18 Oxycodone HCl/Acetaminophen [Oxycodon-Acetaminophen 7.5-325] 1 each PO Q8 Prednisone [Deltasone 20 mg Tablet] 20 mg PO DAILY 05/04/18 Tamsulosin HCl [Flomax 0.4 mg Cap.sr] 0.4 mg PO QHS 05/04/18 Allergies/Adverse Reactions: No Known Allergies Allergy (Verified 06/05/17 10:03) Review of Systems Constitutional: ABSENT: chills, fever(s), headache(s), weight gain, weight loss Eyes: ABSENT: visual disturbances Ears: ABSENT: hearing changes Cardiovascular: ABSENT: chest pain, dyspnea on exertion, edema, orthropnea, palpitations Respiratory: PRESENT: dyspnea. ABSENT: cough, hemoptysis Gastrointestinal: ABSENT: abdominal pain, constipation, diarrhea, hematemesis, hematochezia, nausea, vomiting Genitourinary: ABSENT: dysuria, hematuria Musculoskeletal: ABSENT: joint swelling Integumentary: ABSENT: rash, wounds Neurological: ABSENT: abnormal gait, abnormal speech, confusion, dizziness, focal weakness, syncope Psychiatric: ABSENT: anxiety, depression, homidical ideation, suicidal ideation Endocrine: ABSENT: cold intolerance, heat intolerance, menstrual abnormalities, polydipsia, polyuria Hematologic/Lymphatic: ABSENT: easy bleeding, easy bruising, lymphadenopathy Physical Exam Vital Signs: Temp Pulse Resp BP Pulse Ox 100.0 F 135 H 24 H 96/72 L 97 05/05/18 18:55 05/05/18 18:55 05/05/18 18:55 05/05/18 18:55 05/05/18 18:55 Intake & Output 05/04/18 05/05/18 05/06/18 06:59 06:59 06:59 Intake Total 755 472 Output Total 1250 800 Balance -495 -328 Weight 97.3 kg General appearance: PRESENT: mild distress Head exam: PRESENT: atraumatic, normocephalic Eye exam: PRESENT: PERRLA Ear exam: PRESENT: normal external ear exam Mouth exam: PRESENT: moist, tongue midline Neck exam: PRESENT: full ROM Respiratory exam: PRESENT: wheezes Cardiovascular exam: PRESENT: RRR, +S1, +S2 Pulses: PRESENT: normal dorsalis pedis pul, +2 pedal pulses bilateral Vascular exam: PRESENT: normal capillary refill GI/Abdominal exam: PRESENT: normal bowel sounds, soft Rectal exam: PRESENT: deferred Neurological exam: PRESENT: alert, awake, oriented to person, oriented to place , oriented to time, oriented to situation, CN II-XII grossly intact Psychiatric exam: PRESENT: appropriate affect, normal mood Skin exam: PRESENT: dry, intact, warm. ABSENT: cyanosis, rash Results Laboratory Results: 05/04/18 19:55 Carbonic Acid 1.30 HCO3/H2CO3 Ratio 22:1 ABG pH 7.45 ABG pCO2 43.2 ABG pO2 81.2 ABG HCO3 29.4 H ABG O2 Saturation 96.4 ABG Base Excess 4.8 FiO2 2L Impressions: Chest X-Ray 05/04/18 02:00 IMPRESSION: Mild chronic interstitial lung disease pattern. Assessment & Plan - Diagnosis (1) COPD with acute exacerbation Is this a current diagnosis for this admission?: Yes Plan: Patient is admitted for the management of acute COPD exacerbation (2) Chronic kidney disease, stage 3 Is this a current diagnosis for this admission?: Yes (3) Chronic venous hypertension (idiopathic) with inflammation of bilateral lower extremity Is this a current diagnosis for this admission?: Yes
[2018-05-05 20:15] LABS: ABSOLUTE BASOPHILS # (AUTO) 0.1 10^3/uL (0.0-0.2); ABSOLUTE EOSINOPHILS # (AUTO) 0.1 10^3/uL (0.0-0.6); ABSOLUTE LYMPHOCYTES (AUTO) 2.2 10^3/uL (0.5-4.7); ABSOLUTE MONOCYTES (AUTO) 1.7 10^3/uL (0.1-1.4); ABSOLUTE NEUT (AUTO) 6.5 10^3/uL (1.7-8.2); BASOPHILS % (AUTO) 1.2 % (0-2); EOSINOPHILS % (AUTO) 0.6 % (0-6); HEMATOCRIT 32.3 % (37.9-51.0); HEMOGLOBIN 11.3 g/dL (13.5-17.0); LYMPHOCYTES % (AUTO) 20.9 % (13-45); MEAN CORPUSCULAR HEMOGLOBIN 30.8 pg (27.0-33.4); MEAN CORPUSCULAR HGB CONC 34.9 g/dL (32.0-36.0); MEAN CORPUSCULAR VOLUME 88 fl (80-97); MONOCYTES % (AUTO) 16.1 % (3-13); PLATELET COUNT 193 10^3/uL (150-450); RED BLOOD COUNT 3.66 10^6/uL (4.35-5.55); RED CELL DISTRIBUTION WIDTH 15.6 % (11.5-14.0); SEGMENTED NEUTROPHILS % (AUTO) 61.2 % (42-78); TOTAL CELLS COUNTED % (AUTO) 100 %; WHITE BLOOD COUNT 10.7 10^3/uL (4.0-10.5)
[2018-05-05 20:21] LABS: ALANINE AMINOTRANSFERASE 19 U/L (21-72); ALBUMIN 3.4 g/dL (3.5-5.0); ALKALINE PHOSPHATASE 40 U/L (38-126); ANION GAP 11 (5-19); ASPARTATE AMINO TRANSFERASE 19 U/L (17-59); BILIRUBIN,DIRECT 0.3 mg/dL (0.0-0.4); BILIRUBIN,TOTAL 0.4 mg/dL (0.2-1.3); BLOOD UREA NITROGEN 43 mg/dL (7-20); CALCIUM 9.7 mg/dL (8.4-10.2); CARBON DIOXIDE 29 mmol/L (22-30); CHLORIDE 100 mmol/L (98-107); GLUCOSE 152 mg/dL (75-110); POTASSIUM 4.6 mmol/L (3.6-5.0); SODIUM 140.1 mmol/L (137-145); TOTAL PROTEIN 5.9 g/dL (6.3-8.2)
[2018-05-05] MEDS: ATORVASTATIN CALCIUM 40 MG TABLET PO SCH (21:31)
[2018-05-05] MEDS: TAMSULOSIN HCL 0.4 MG CAP.SR.24H PO SCH (21:31)
[2018-05-05] MEDS: DONEPEZIL HCL 5 MG TABLET PO SCH (21:32)
[2018-05-05] MEDS: FLUTICASONE/UMECLIDIN/VILANTER 100-62.5-25 MCG/DOSE IH SCH (21:33)
[2018-05-06] MEDS: ACETAMINOPHEN 325 MG TABLET PO PRN ×2 (00:40→22:33)
[2018-05-06] MEDS: IPRATROPIUM/ALBUTEROL 0.5-2.5 MG/3 ML AMPUL NEB PRN ×3 (02:05→20:27)
[2018-05-06] MEDS: OXYCODONE HCL IR 5 MG TABLET PO PRN ×3 (05:03→20:04)
[2018-05-06] MEDS: OXYCODONE-ACETAMINOPHEN 5-325 MG TABLET PO PRN ×3 (05:03→20:05)
[2018-05-06] MEDS: LANSOPRAZOLE 15 MG TAB.RAP.DR PO SCH (05:07)
[2018-05-06 06:54] LABS: HEMATOCRIT 30.4 % (37.9-51.0); HEMOGLOBIN 10.5 g/dL (13.5-17.0); RED BLOOD COUNT 3.42 10^6/uL (4.35-5.55); WHITE BLOOD COUNT 10.8 10^3/uL (4.0-10.5)
[2018-05-06 06:55] LABS: ABSOLUTE BASOPHILS # (AUTO) 0.1 10^3/uL (0.0-0.2); ABSOLUTE EOSINOPHILS # (AUTO) 0.1 10^3/uL (0.0-0.6); ABSOLUTE LYMPHOCYTES (AUTO) 2.9 10^3/uL (0.5-4.7); ABSOLUTE MONOCYTES (AUTO) 1.5 10^3/uL (0.1-1.4); ABSOLUTE NEUT (AUTO) 6.3 10^3/uL (1.7-8.2); BASOPHILS % (AUTO) 0.7 % (0-2); EOSINOPHILS % (AUTO) 0.9 % (0-6); LYMPHOCYTES % (AUTO) 26.5 % (13-45); MEAN CORPUSCULAR HEMOGLOBIN 30.6 pg (27.0-33.4); MEAN CORPUSCULAR HGB CONC 34.5 g/dL (32.0-36.0); MEAN CORPUSCULAR VOLUME 89 fl (80-97); MONOCYTES % (AUTO) 14.1 % (3-13); PLATELET COUNT 177 10^3/uL (150-450); RED CELL DISTRIBUTION WIDTH 15.9 % (11.5-14.0); SEGMENTED NEUTROPHILS % (AUTO) 57.8 % (42-78); TOTAL CELLS COUNTED % (AUTO) 100 %
[2018-05-06 07:02] LABS: ALANINE AMINOTRANSFERASE 23 U/L (21-72); ALBUMIN 3.1 g/dL (3.5-5.0); ALKALINE PHOSPHATASE 39 U/L (38-126); ANION GAP 11 (5-19); ASPARTATE AMINO TRANSFERASE 18 U/L (17-59); BILIRUBIN,DIRECT 0.3 mg/dL (0.0-0.4); BILIRUBIN,TOTAL 0.7 mg/dL (0.2-1.3); BLOOD UREA NITROGEN 47 mg/dL (7-20); CALCIUM 9.2 mg/dL (8.4-10.2); CARBON DIOXIDE 27 mmol/L (22-30); CHLORIDE 101 mmol/L (98-107); GLUCOSE 148 mg/dL (75-110); POTASSIUM 4.6 mmol/L (3.6-5.0); SODIUM 139.3 mmol/L (137-145); TOTAL PROTEIN 5.6 g/dL (6.3-8.2)
[2018-05-06] MEDS: DOCUSATE SODIUM 100 MG CAPSULE PO SCH (10:01)
[2018-05-06] MEDS: MEMANTINE HCL 10 MG TABLET PO SCH (10:01)
[2018-05-06] MEDS: DIVALPROEX SODIUM 250 MG TAB.SR.24H PO SCH ×2 (10:01→22:32)
[2018-05-06] MEDS: MAGNESIUM HYDROXIDE SUSP 30 ML UDCUP PO SCH (10:01)
[2018-05-06] MEDS: ASPIRIN 81 MG TABLET, CHEWABLE PO SCH (10:02)
[2018-05-06] MEDS: FUROSEMIDE 20 MG TABLET PO SCH (10:02)
[2018-05-06] MEDS: LISINOPRIL 10 MG TABLET PO SCH (10:02)
--- NOTE | 2018-05-06 12:35 | PDOC PROGRESS REPORT ---
Subjective Progress Note for:: 05/06/18 Subjective:: Patient is currently doing better Patient's denied any chest pain Patient's breathing is much better Reason For Visit: HYPOXEMIA,WHEEZING,CHRONIC OBSTRUCTIVE PULMONARY Physical Exam Vital Signs: Temp Pulse Resp BP Pulse Ox 98.7 F 96 21 H 99/56 L 96 05/06/18 08:09 05/06/18 08:09 05/06/18 08:09 05/06/18 08:09 05/06/18 08:09 Intake & Output 05/05/18 05/06/18 05/07/18 06:59 06:59 06:59 Intake Total 755 472 Output Total 1250 1475 Balance -495 -1003 Weight 97.3 kg 97.3 kg General appearance: PRESENT: no acute distress, well-developed, well-nourished Head exam: PRESENT: atraumatic, normocephalic Eye exam: PRESENT: conjunctiva pink, EOMI, PERRLA. ABSENT: scleral icterus Ear exam: PRESENT: normal external ear exam Mouth exam: PRESENT: moist, tongue midline Neck exam: PRESENT: full ROM. ABSENT: carotid bruit, JVD, lymphadenopathy, thyromegaly Respiratory exam: PRESENT: decreased breath sounds Cardiovascular exam: PRESENT: RRR. ABSENT: diastolic murmur, rubs, systolic murmur Pulses: PRESENT: normal dorsalis pedis pul, +2 pedal pulses bilateral Vascular exam: PRESENT: normal capillary refill GI/Abdominal exam: PRESENT: normal bowel sounds, soft. ABSENT: distended, guarding, mass, organolmegaly, rebound, tenderness Rectal exam: PRESENT: deferred Extremities exam: ABSENT: pedal edema Neurological exam: PRESENT: alert, awake, oriented to person, oriented to place , oriented to time, oriented to situation, CN II-XII grossly intact. ABSENT: motor sensory deficit Psychiatric exam: PRESENT: appropriate affect, normal mood. ABSENT: homicidal ideation, suicidal ideation Skin exam: PRESENT: dry, intact, warm. ABSENT: cyanosis, rash Results Laboratory Results: 05/06/18 06:36 05/06/18 06:36 05/05/18 05/05/18 05/06/18 19:58 19:58 06:36 WBC 10.7 H 10.8 H RBC 3.66 L 3.42 L Hgb 11.3 L 10.5 L Hct 32.3 L 30.4 L MCV 88 89 MCH 30.8 30.6 MCHC 34.9 34.5 RDW 15.6 H 15.9 H Plt Count 193 177 Seg Neutrophils % 61.2 57.8 Lymphocytes % 20.9 26.5 Monocytes % 16.1 H 14.1 H Eosinophils % 0.6 0.9 Basophils % 1.2 0.7 Absolute Neutrophils 6.5 6.3 Absolute Lymphocytes 2.2 2.9 Absolute Monocytes 1.7 H 1.5 H Absolute Eosinophils 0.1 0.1 Absolute Basophils 0.1 0.1 Sodium 140.1 Potassium 4.6 Chloride 100 Carbon Dioxide 29 Anion Gap 11 BUN 43 H Creatinine 1.91 H Est GFR ( Amer) 42 L Est GFR (Non-Af Amer) 35 L Glucose 152 H Calcium 9.7 Total Bilirubin 0.4 AST 19 ALT 19 L Alkaline Phosphatase 40 Total Protein 5.9 L Albumin 3.4 L 05/06/18 06:36 WBC RBC Hgb Hct MCV MCH MCHC RDW Plt Count Seg Neutrophils % Lymphocytes % Monocytes % Eosinophils % Basophils % Absolute Neutrophils Absolute Lymphocytes Absolute Monocytes Absolute Eosinophils Absolute Basophils Sodium 139.3 Potassium 4.6 Chloride 101 Carbon Dioxide 27 Anion Gap 11 BUN 47 H Creatinine 2.16 H Est GFR ( Amer) 36 L Est GFR (Non-Af Amer) 30 L Glucose 148 H Calcium 9.2 Total Bilirubin 0.7 AST 18 ALT 23 Alkaline Phosphatase 39 Total Protein 5.6 L Albumin 3.1 L Impressions: Chest X-Ray 05/04/18 02:00 IMPRESSION: Mild chronic interstitial lung disease pattern. Assessment & Plan - Diagnosis (1) COPD with acute exacerbation Is this a current diagnosis for this admission?: Yes (2) Chronic kidney disease, stage III (moderate) Is this a current diagnosis for this admission?: Yes (3) HLD (hyperlipidemia) Qualifiers: Hyperlipidemia type: pure hypercholesterolemia Qualified Code(s): E78.00 - Pure hypercholesterolemia, unspecified; E78.0 - Pure hypercholesterolemia Is this a current diagnosis for this admission?: Yes (4) HTN (hypertension) Qualifiers: Hypertension type: essential hypertension Qualified Code(s): I10 - Essential (primary) hypertension Is this a current diagnosis for this admission?: Yes - Time Time Spent with patient: 15-24 minutes Medications reviewed and adjusted accordingly: Yes Anticipated discharge: Home Within: Other - Inpatient Certification Medical Necessity: Need Close Monitoring Due to Risk of Patient Decompensation Post Hospital Care: D/C [employer] Documentation - Plan Summary Plan Summary: The current medication
[2018-05-06] MEDS: DONEPEZIL HCL 5 MG TABLET PO SCH (22:32)
[2018-05-06] MEDS: FLUTICASONE/UMECLIDIN/VILANTER 100-62.5-25 MCG/DOSE IH SCH (22:32)
[2018-05-06] MEDS: ATORVASTATIN CALCIUM 40 MG TABLET PO SCH (22:32)
[2018-05-06] MEDS: TAMSULOSIN HCL 0.4 MG CAP.SR.24H PO SCH (22:32)
[2018-05-07] MEDS: CALCIUM CARBONATE 500 MG TAB.CHEW PO PRN (03:34)
[2018-05-07] MEDS: OXYCODONE HCL IR 5 MG TABLET PO PRN ×3 (03:34→21:11)
[2018-05-07] MEDS: OXYCODONE-ACETAMINOPHEN 5-325 MG TABLET PO PRN ×3 (03:34→21:11)
[2018-05-07] MEDS: LANSOPRAZOLE 15 MG TAB.RAP.DR PO SCH (05:26)
[2018-05-07 06:27] LABS: ABSOLUTE BASOPHILS # (AUTO) 0.1 10^3/uL (0.0-0.2); ABSOLUTE EOSINOPHILS # (AUTO) 0.2 10^3/uL (0.0-0.6); ABSOLUTE LYMPHOCYTES (AUTO) 2.6 10^3/uL (0.5-4.7); ABSOLUTE MONOCYTES (AUTO) 1.3 10^3/uL (0.1-1.4); ABSOLUTE NEUT (AUTO) 5.8 10^3/uL (1.7-8.2); BASOPHILS % (AUTO) 0.5 % (0-2); EOSINOPHILS % (AUTO) 1.8 % (0-6); LYMPHOCYTES % (AUTO) 26.6 % (13-45); MEAN CORPUSCULAR HEMOGLOBIN 30.3 pg (27.0-33.4); MEAN CORPUSCULAR HGB CONC 34.4 g/dL (32.0-36.0); MEAN CORPUSCULAR VOLUME 88 fl (80-97); MONOCYTES % (AUTO) 12.7 % (3-13); PLATELET COUNT 176 10^3/uL (150-450); RED BLOOD COUNT 3.29 10^6/uL (4.35-5.55); RED CELL DISTRIBUTION WIDTH 15.6 % (11.5-14.0); SEGMENTED NEUTROPHILS % (AUTO) 58.4 % (42-78); TOTAL CELLS COUNTED % (AUTO) 100 %; WHITE BLOOD COUNT 9.9 10^3/uL (4.0-10.5)
[2018-05-07 07:15] LABS: ANION GAP 13 (5-19); BLOOD UREA NITROGEN 56 mg/dL (7-20); CARBON DIOXIDE 28 mmol/L (22-30); CHLORIDE 99 mmol/L (98-107); GLUCOSE 116 mg/dL (75-110); POTASSIUM 4.2 mmol/L (3.6-5.0); SODIUM 140.4 mmol/L (137-145)
[2018-05-07] MEDS: MEMANTINE HCL 10 MG TABLET PO SCH (10:26)
[2018-05-07] MEDS: MAGNESIUM HYDROXIDE SUSP 30 ML UDCUP PO SCH (10:26)
[2018-05-07] MEDS: DOCUSATE SODIUM 100 MG CAPSULE PO SCH (10:29)
[2018-05-07] MEDS: ASPIRIN 81 MG TABLET, CHEWABLE PO SCH (10:31)
[2018-05-07] MEDS: DIVALPROEX SODIUM 250 MG TAB.SR.24H PO SCH ×2 (10:31→21:10)
--- NOTE | 2018-05-07 10:47 | PDOC PROGRESS REPORT ---
Subjective Progress Note for:: 05/07/18 Subjective:: Patient is currently doing better Patient's denied any chest pain Patient's breathing is much better Reason For Visit: HYPOXEMIA,WHEEZING,CHRONIC OBSTRUCTIVE PULMONARY Physical Exam Vital Signs: Temp Pulse Resp BP Pulse Ox 97.9 F 90 20 92/47 L 97 05/07/18 07:35 05/07/18 07:35 05/07/18 07:35 05/07/18 07:35 05/07/18 07:35 Intake & Output 05/06/18 05/07/18 05/08/18 06:59 06:59 06:59 Intake Total 472 1384 Output Total 1475 1250 Balance -1003 134 Weight 97.3 kg 94.2 kg General appearance: PRESENT: no acute distress, well-developed, well-nourished Head exam: PRESENT: atraumatic, normocephalic Eye exam: PRESENT: conjunctiva pink, EOMI, PERRLA. ABSENT: scleral icterus Ear exam: PRESENT: normal external ear exam Mouth exam: PRESENT: moist, tongue midline Neck exam: PRESENT: full ROM. ABSENT: carotid bruit, JVD, lymphadenopathy, thyromegaly Respiratory exam: PRESENT: clear to auscultation mariia Cardiovascular exam: PRESENT: RRR. ABSENT: diastolic murmur, rubs, systolic murmur Pulses: PRESENT: normal dorsalis pedis pul, +2 pedal pulses bilateral Vascular exam: PRESENT: normal capillary refill GI/Abdominal exam: PRESENT: normal bowel sounds, soft. ABSENT: distended, guarding, mass, organolmegaly, rebound, tenderness Rectal exam: PRESENT: deferred Extremities exam: ABSENT: pedal edema Neurological exam: PRESENT: alert, awake, oriented to person, oriented to place , oriented to time, oriented to situation, CN II-XII grossly intact. ABSENT: motor sensory deficit Psychiatric exam: PRESENT: appropriate affect, normal mood. ABSENT: homicidal ideation, suicidal ideation Skin exam: PRESENT: dry, intact, warm. ABSENT: cyanosis, rash Results Laboratory Results: 05/07/18 05:04 05/07/18 05:04 05/07/18 05/07/18 05:04 05:04 WBC 9.9 RBC 3.29 L Hgb 10.0 L Hct 29.0 L MCV 88 MCH 30.3 MCHC 34.4 RDW 15.6 H Plt Count 176 Seg Neutrophils % 58.4 Lymphocytes % 26.6 Monocytes % 12.7 Eosinophils % 1.8 Basophils % 0.5 Absolute Neutrophils 5.8 Absolute Lymphocytes 2.6 Absolute Monocytes 1.3 Absolute Eosinophils 0.2 Absolute Basophils 0.1 Sodium 140.4 Potassium 4.2 Chloride 99 Carbon Dioxide 28 Anion Gap 13 BUN 56 H Creatinine 2.73 H Est GFR ( Amer) 28 L Est GFR (Non-Af Amer) 23 L Glucose 116 H Calcium 9.0 Impressions: Chest X-Ray 05/04/18 02:00 IMPRESSION: Mild chronic interstitial lung disease pattern. Assessment & Plan - Diagnosis (1) COPD with acute exacerbation Is this a current diagnosis for this admission?: Yes Plan: Continue to nebulizer treatment will get the chest x-ray (2) Chronic kidney disease, stage III (moderate) Is this a current diagnosis for this admission?: Yes Plan: Stable (3) HLD (hyperlipidemia) Qualifiers: Hyperlipidemia type: pure hypercholesterolemia Qualified Code(s): E78.00 - Pure hypercholesterolemia, unspecified; E78.0 - Pure hypercholesterolemia Is this a current diagnosis for this admission?: Yes (4) HTN (hypertension) Qualifiers: Hypertension type: essential hypertension Qualified Code(s): I10 - Essential (primary) hypertension Is this a current diagnosis for this admission?: Yes (5) Pain syndrome, chronic Is this a current diagnosis for this admission?: Yes - Time Time Spent with patient: 15-24 minutes Medications reviewed and adjusted accordingly: Yes Anticipated discharge: Other Within: Other - Inpatient Certification Medical Necessity: Need Close Monitoring Due to Risk of Patient Decompensation Post Hospital Care: D/C [employer] Documentation - Plan Summary Plan Summary: Current medication
[2018-05-07] MEDS: LISINOPRIL 10 MG TABLET PO SCH (11:59)
[2018-05-07] MEDS: FUROSEMIDE 20 MG TABLET PO SCH (11:59)
--- NOTE | 2018-05-07 13:38 | RADIOLOGY REPORT (SQ) ---
EXAM DESCRIPTION: CHEST 2 VIEWS COMPLETED DATE/TIME: 05/07/2018 10:51 am REASON FOR STUDY: sob E11.9 TYPE 2 DIABETES MELLITUS WITHOUT COMPLICATIONS COMPARISON: 04/02/2017 NUMBER OF VIEWS: Two view. TECHNIQUE: Frontal and lateral radiographic views of the chest acquired. LIMITATIONS: Positioning. FINDINGS: LUNGS AND PLEURA: No opacities, masses or pneumothorax. No pleural effusion. Attenuated bl ood vessels and flattened elgin-diaphragms. MEDIASTINUM AND HILAR STRUCTURES: No masses. No contour abnormalities. HEART AND VASCULAR STRUCTURES: Stable heart size. No evidence for failure. BONES: No acute findings. HARDWARE: None in the chest. OTHER: Unchanged round metal density overlying right posterior costophrenic angle. IMPRESSION: COPD. NO ACUTE RADIOGRAPHIC FINDING IN THE CHEST. TECHNICAL DOCUMENTATION: JOB ID: [id number] [employer]- All Rights Reserved Reading location - IP/workstation name: [email or web address]
[2018-05-07] MEDS: IPRATROPIUM/ALBUTEROL 0.5-2.5 MG/3 ML AMPUL NEB PRN ×2 (14:23→18:20)
[2018-05-07] MEDS: ATORVASTATIN CALCIUM 40 MG TABLET PO SCH (21:10)
[2018-05-07] MEDS: FLUTICASONE/UMECLIDIN/VILANTER 100-62.5-25 MCG/DOSE IH SCH (21:10)
[2018-05-07] MEDS: DONEPEZIL HCL 5 MG TABLET PO SCH (21:10)
[2018-05-07] MEDS: TAMSULOSIN HCL 0.4 MG CAP.SR.24H PO SCH (21:11)
[2018-05-08] MEDS: OXYCODONE HCL IR 5 MG TABLET PO PRN ×4 (03:41→23:09)
[2018-05-08] MEDS: OXYCODONE-ACETAMINOPHEN 5-325 MG TABLET PO PRN ×4 (03:41→23:11)
[2018-05-08 04:39] LABS: HEMATOCRIT 30.4 % (37.9-51.0); HEMOGLOBIN 10.4 g/dL (13.5-17.0); MEAN CORPUSCULAR HGB CONC 34.1 g/dL (32.0-36.0); MEAN CORPUSCULAR VOLUME 88 fl (80-97); PLATELET COUNT 190 10^3/uL (150-450); RED BLOOD COUNT 3.45 10^6/uL (4.35-5.55); RED CELL DISTRIBUTION WIDTH 15.4 % (11.5-14.0); WHITE BLOOD COUNT 9.3 10^3/uL (4.0-10.5)
[2018-05-08 05:24] LABS: ANION GAP 13 (5-19); BLOOD UREA NITROGEN 48 mg/dL (7-20); CALCIUM 8.7 mg/dL (8.4-10.2); CARBON DIOXIDE 29 mmol/L (22-30); CHLORIDE 99 mmol/L (98-107); GLUCOSE 102 mg/dL (75-110); POTASSIUM 4.4 mmol/L (3.6-5.0); SODIUM 140.6 mmol/L (137-145)
[2018-05-08] MEDS: LANSOPRAZOLE 15 MG TAB.RAP.DR PO SCH (05:30)
[2018-05-08 05:57] LABS: ABSOLUTE LYMPHOCYTES# (MANUAL) 2.9 10^3/uL (0.5-4.7); ABSOLUTE MONOCYTES # (MANUAL) 0.7 10^3/uL (0.1-1.4); ABSOLUTE NEUTROPHILS# (MANUAL) 5.6 10^3/uL (1.7-8.2); BAND NEUTROPHILS % (MANUAL) 1 % (3-5); BASOPHILS % (MANUAL) 0 % (0-2); EOSINOPHILS % (MANUAL) 2 % (0-6); LYMPHOCYTES % (MANUAL) 29 % (13-45); MONOCYTES % (MANUAL) 7 % (3-13); SEGMENTED NEUTROPHILS % (MAN) 59 % (42-78); TOTAL CELLS COUNTED 100
[2018-05-08 05:59] LABS: ANISOCYTOSIS SLIGHT
[2018-05-08 06:00] LABS: PLATELET COMMENT ADEQUATE
[2018-05-08] MEDS: IPRATROPIUM/ALBUTEROL 0.5-2.5 MG/3 ML AMPUL NEB PRN ×3 (08:06→20:06)
--- NOTE | 2018-05-08 08:46 | Physician Advisory Note ---
Physician Advisor ProgressNote .: Pursuant to the plan for [facility], I have reviewed the medical record for this patient. Physician Advisor Statement: Please consider documenting, if you agree: 1. "Acute Hypoxemic Respiratory Failure, evidenced by O2 sats 81-87% on RA initially with accessory muscle use" 2. What is pt's baseline Cr? Has he had "Acute Kidney Injury" during this stay ? Thanks! CK
[2018-05-08] MEDS: MAGNESIUM HYDROXIDE SUSP 30 ML UDCUP PO SCH (09:38)
[2018-05-08] MEDS: DOCUSATE SODIUM 100 MG CAPSULE PO SCH (09:39)
[2018-05-08] MEDS: MEMANTINE HCL 10 MG TABLET PO SCH (09:42)
[2018-05-08] MEDS: ASPIRIN 81 MG TABLET, CHEWABLE PO SCH (09:44)
[2018-05-08] MEDS: DIVALPROEX SODIUM 250 MG TAB.SR.24H PO SCH ×2 (09:47→21:40)
[2018-05-08] MEDS: FUROSEMIDE 20 MG TABLET PO SCH (10:34)
[2018-05-08] MEDS: LISINOPRIL 10 MG TABLET PO SCH (10:35)
--- NOTE | 2018-05-08 21:02 | PDOC PROGRESS REPORT ---
Subjective Progress Note for:: 05/08/18 Subjective:: Patient was seen by the bedside, he was admitted initially for observation for the management of acute COPD exacerbation. Patient continues to wheeze, using accessory muscle of breathing due to increased work of breathing Reason For Visit: HYPOXEMIA,ACUTE EXACERBATION COPD Physical Exam Vital Signs: Temp Pulse Resp BP Pulse Ox 97.8 F 99 17 127/80 H 96 05/08/18 19:55 05/08/18 19:55 05/08/18 19:55 05/08/18 19:55 05/08/18 19:55 Intake & Output 05/07/18 05/08/18 05/09/18 06:59 06:59 06:59 Intake Total 620 Output Total 675 Balance -55 Weight 93.5 kg General appearance: PRESENT: severe distress Eye exam: PRESENT: PERRLA Respiratory exam: PRESENT: accessory muscle use, wheezes Cardiovascular exam: PRESENT: +S1, +S2 GI/Abdominal exam: PRESENT: soft Neurological exam: PRESENT: alert Results Impressions: Chest X-Ray 05/07/18 00:00 IMPRESSION: COPD. NO ACUTE RADIOGRAPHIC FINDING IN THE CHEST. Assessment & Plan - Diagnosis (1) COPD with acute exacerbation Is this a current diagnosis for this admission?: Yes Plan: Patient with acute on chronic respiratory failure, continues to wheeze, struggling to breathe, Add prednisone 40 mg p.o. 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
[2018-05-08] MEDS: PREDNISONE 20 MG TABLET PO SCH (21:39)
[2018-05-08] MEDS: DONEPEZIL HCL 5 MG TABLET PO SCH (21:40)
[2018-05-08] MEDS: TAMSULOSIN HCL 0.4 MG CAP.SR.24H PO SCH (21:41)
[2018-05-08] MEDS: ATORVASTATIN CALCIUM 40 MG TABLET PO SCH (21:41)
[2018-05-08] MEDS: FLUTICASONE/UMECLIDIN/VILANTER 100-62.5-25 MCG/DOSE IH SCH (23:15)
[2018-05-09] MEDS: IPRATROPIUM/ALBUTEROL 0.5-2.5 MG/3 ML AMPUL NEB PRN ×3 (01:50→20:27)
[2018-05-09 06:29] LABS: ANION GAP 11 (5-19); BLOOD UREA NITROGEN 39 mg/dL (7-20); CALCIUM 8.5 mg/dL (8.4-10.2); CARBON DIOXIDE 26 mmol/L (22-30); CHLORIDE 101 mmol/L (98-107); GLUCOSE 201 mg/dL (75-110); POTASSIUM 5.4 mmol/L (3.6-5.0); SODIUM 137.8 mmol/L (137-145)
[2018-05-09] MEDS: LANSOPRAZOLE 15 MG TAB.RAP.DR PO SCH (06:47)
[2018-05-09] MEDS: LISINOPRIL 10 MG TABLET PO SCH (09:40)
[2018-05-09] MEDS: PREDNISONE 20 MG TABLET PO SCH (09:41)
[2018-05-09] MEDS: DIVALPROEX SODIUM 250 MG TAB.SR.24H PO SCH ×2 (09:41→22:05)
[2018-05-09] MEDS: MEMANTINE HCL 10 MG TABLET PO SCH (09:42)
[2018-05-09] MEDS: MAGNESIUM HYDROXIDE SUSP 30 ML UDCUP PO SCH (09:42)
[2018-05-09] MEDS: FUROSEMIDE 20 MG TABLET PO SCH (09:43)
[2018-05-09] MEDS: ASPIRIN 81 MG TABLET, CHEWABLE PO SCH (09:43)
[2018-05-09] MEDS: DOCUSATE SODIUM 100 MG CAPSULE PO SCH (09:44)
[2018-05-09] MEDS: OXYCODONE-ACETAMINOPHEN 5-325 MG TABLET PO PRN (09:49)
[2018-05-09] MEDS: OXYCODONE HCL IR 5 MG TABLET PO PRN (09:53)
--- NOTE | 2018-05-09 16:49 | PDOC TRANSFER SUMMARY ---
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 Is this a current diagnosis for this admission?: Yes - Additional Information Resuscitation Status: Full Code Prescriptions: Furosemide [Lasix 40 mg Tablet] 40 mg PO QAM #30 tablet Prednisone [Deltasone 20 mg Tablet] 40 mg PO DAILY #5 tablet Home Medications: Acetaminophen [Tylenol 325 mg Tablet] 650 mg PO Q4HP PRN 05/04/18 Aspirin [Aspirin 81 mg Chewable Tablet] 81 mg PO DAILY 05/04/18 Atorvastatin Calcium [Lipitor 40 mg Tablet] 40 mg PO QHS 05/04/18 Calcium Carbonate [Tums Chewable 500 mg Tab.chew] 500 mg PO Q4HP PRN 05/04/18 Divalproex Sodium [Depakote ER 250 mg Tablet] 750 mg PO Q12 05/04/18 Docusate Sodium [Colace 100 mg Capsule] 200 mg PO DAILY 05/04/18 Donepezil HCl [Aricept 5 mg Tablet] 5 mg PO QHS 05/04/18 Fluticasone/Umeclidin/Vilanter [Trelegy Ellipta 100-62.5-25] 1 puff IH QHS 05/04 Lisinopril [Prinivil 10 mg Tablet] 10 mg PO DAILY 05/04/18 Magnesium Hydroxide [Milk of Magnesia 30 ml Udcup] 30 ml PO DAILY 05/04/18 Memantine HCl [Namenda] 5 mg PO DAILY 05/04/18 Omeprazole 20 mg PO Q6AM 05/04/18 Oxycodone HCl/Acetaminophen [Oxycodon-Acetaminophen 7.5-325] 1 each PO Q8 Tamsulosin HCl [Flomax 0.4 mg Cap.sr] 0.4 mg PO QHS 05/04/18 Acetaminophen [Tylenol 325 mg Tablet] 650 mg PO Q6HP PRN tablet 05/09/18 Furosemide [Lasix 40 mg Tablet] 40 mg PO QAM #30 tablet 08/14/18 Prednisone [Deltasone 20 mg Tablet] 40 mg PO DAILY #5 tablet 05/09/18 History of Present Illness Admission Date/PCP: 05/08/18 10:29 JONATHAN WHITESIDE MD History of Present Illness: PRINCE PALMA is a 73 year old male ,he has severe COPD he presented with acute COPD exacerbation associated with respiratory distress Hospital Course Hospital Course: Patient was admitted for the management of COPD with acute exacerbation, he was treated with bronchodilators, inhaled corticosteroids, he has baseline chronic kidney disease, chronic venous hypertension of the lower extremities associated with secondary pulmonary hypertension from COPD. Patient continues to, smokes cigarettes, resident of assisted living facility. Physical Exam Vital Signs: Temp Pulse Resp BP Pulse Ox 98.6 F 77 17 91/49 L 94 05/09/18 15:25 05/09/18 15:25 05/09/18 15:25 05/09/18 15:25 05/09/18 15:25 Intake & Output 05/08/18 05/09/18 05/10/18 06:59 06:59 06:59 Intake Total 1064 904 Output Total 1375 875 Balance -311 29 Weight 93.5 kg General appearance: PRESENT: no acute distress Eye exam: PRESENT: PERRLA Respiratory exam: PRESENT: clear to auscultation mariia Cardiovascular exam: PRESENT: +S1, +S2 GI/Abdominal exam: PRESENT: soft Neurological exam: PRESENT: alert Results Laboratory Results: 05/09/18 05:01 05/09/18 05:01 Sodium 137.8 Potassium 5.4 H Chloride 101 Carbon Dioxide 26 Anion Gap 11 BUN 39 H Creatinine 2.13 H Est GFR ( Amer) 37 L Est GFR (Non-Af Amer) 31 L Glucose 201 H Calcium 8.5 Impressions: Chest X-Ray 05/07/18 00:00 IMPRESSION: COPD. NO ACUTE RADIOGRAPHIC FINDING IN THE CHEST. Qualifiers - * PATIENT BEING DISCHARGED WITH ANY OF THE FOLLOWING DIAGNOSIS: No
[2018-05-09] MEDS: FLUTICASONE/UMECLIDIN/VILANTER 100-62.5-25 MCG/DOSE IH SCH (22:04)
[2018-05-09] MEDS: DONEPEZIL HCL 5 MG TABLET PO SCH (22:05)
[2018-05-09] MEDS: TAMSULOSIN HCL 0.4 MG CAP.SR.24H PO SCH (22:05)
[2018-05-09] MEDS: ATORVASTATIN CALCIUM 40 MG TABLET PO SCH (22:05)
[2018-05-10] MEDS: IPRATROPIUM/ALBUTEROL 0.5-2.5 MG/3 ML AMPUL NEB PRN ×3 (04:14→13:46)
[2018-05-10] MEDS: OXYCODONE HCL IR 5 MG TABLET PO PRN ×2 (04:36→13:46)
[2018-05-10] MEDS: OXYCODONE-ACETAMINOPHEN 5-325 MG TABLET PO PRN ×2 (04:37→13:47)
[2018-05-10] MEDS: LANSOPRAZOLE 15 MG TAB.RAP.DR PO SCH (05:20)
[2018-05-10] MEDS: LISINOPRIL 10 MG TABLET PO SCH (10:58)
[2018-05-10] MEDS: PREDNISONE 20 MG TABLET PO SCH (10:59)
[2018-05-10] MEDS: MEMANTINE HCL 10 MG TABLET PO SCH (10:59)
[2018-05-10] MEDS: FUROSEMIDE 20 MG TABLET PO SCH (10:59)
[2018-05-10] MEDS: ASPIRIN 81 MG TABLET, CHEWABLE PO SCH (10:59)
[2018-05-10] MEDS: DIVALPROEX SODIUM 250 MG TAB.SR.24H PO SCH (11:00)
[2018-05-10] MEDS: DOCUSATE SODIUM 100 MG CAPSULE PO SCH (11:01)
[2018-05-10] MEDS: MAGNESIUM HYDROXIDE SUSP 30 ML UDCUP PO SCH (11:01)
[2018-05-10 14:05] VITALS: BP 122/69
== END 2018-05-10 17:00 | DRG 190 ==
LOC: ER 01:48 → EH 07:05 → 4N 16:57 → OBSVTOIN 05-08 10:29
PROVIDERS: ADMIT Internal Medicine; ATTEND Internal Medicine
PROC: 5A09457 Assistance with Respiratory Ventilation, 24-96 Consecutive Hours, Continuous Positive Airway Pressure (ICD-10-PCS; principal; 2018-05-04)
DX: J44.1 Chronic obstructive pulmonary disease with (acute) exacerbation (principal); J96.21 Acute and chronic respiratory failure with hypoxia; I87.323 Chronic venous hypertension (idiopathic) with inflammation of bilateral lower extremity; N18.3 Chronic kidney disease, stage 3 (moderate); I27.20 Pulmonary hypertension, unspecified; E78.00 Pure hypercholesterolemia, unspecified; I12.9 Hypertensive chronic kidney disease with stage 1 through stage 4 chronic kidney disease, or unspecified chronic kidney disease; K21.9 Gastro-esophageal reflux disease without esophagitis; F32.9 Major depressive disorder, single episode, unspecified; M19.90 Unspecified osteoarthritis, unspecified site; G89.4 Chronic pain syndrome; Z79.82 Long term (current) use of aspirin; Z79.52 Long term (current) use of systemic steroids; Z79.899 Other long term (current) drug therapy
CPT/HCPCS: 36415; 36600; 71045; 71046; 80048; 80053; 82803; 82962; 85025; 93005; 93010; 94640; 94660; 96365; 99285; G0378; J3475; J3490; J7512; J7620

== ENCOUNTER 2018-05-14 09:08 | Emergency (ER) | payer MEDICARE, MEDICAID ==
[2018-05-14] MEDS ORDERED: AZITHROMYCIN 250 MG TABLET PO ONE (09:35)
[2018-05-14] MEDS ORDERED: PREDNISONE 20 MG TABLET PO ONE (09:35)
[2018-05-14] MEDS ORDERED: IPRATROPIUM/ALBUTEROL 0.5-2.5 MG/3 ML AMPUL NEB PRN (09:36)
[2018-05-14 09:40] VITALS: BP 117/69
--- NOTE | 2018-05-14 10:14 | ER Document Report ---
ED Respiratory Problem - General Chief Complaint: Shortness Of Breath Stated Complaint: SHORTNESS OF BREATH Time Seen by Provider: 05/14/18 09:34 Mode of Arrival: Wheelchair TRAVEL OUTSIDE OF THE [place] IN LAST 30 DAYS: No - HPI Patient complains to provider of: COPD - This 73-year-old man presents for evaluation of shortness of breath and wheezing. He notes that he has been previously a 3 pack per day smoker is now down to half a pack per day, he has been using intermittently breathing treatments which seem to help with his symptoms. He denies any fevers or chills, does endorse his baseline cough which is productive of sputum. He denies any chest pain, abdominal pain diarrhea constipation dysuria rashes or other obvious symptoms he has had similar symptoms in the past none of which have required him to be hospitalized that he knows of. - Related Data Allergies/Adverse Reactions: No Known Allergies Allergy (Verified 05/14/18 09:44) Past Medical History - General Information source: Patient - Social History Smoking Status: Current Every Day Smoker Drug Abuse: None Family History: Reviewed & Not Pertinent - Past Medical History Cardiac Medical History: Reports: Hx Hypercholesterolemia, Hx Hypertension Pulmonary Medical History: Reports: Hx Asthma, Hx COPD, Hx Pneumonia, Hx Respiratory Failure - Chronic respiratory failure Denies: Hx Bronchitis, Hx Intubation, Hx Sleep Apnea, Hx Tuberculosis Renal/ Medical History: Denies: Hx Peritoneal Dialysis GI Medical History: Reports: Hx Gastroesophageal Reflux Disease Musculoskeletal Medical History: Reports Hx Arthritis Psychiatric Medical History: Reports: Hx Depression Past Surgical History: Reports: Hx Cholecystectomy - states "Im pretty sure" Review of Systems - Review of Systems -: Yes All other systems reviewed and negative Physical Exam - Vital signs Vitals: Resp Pulse Ox 25 H 95 05/14/18 09:21 05/14/18 09:21 - General General appearance: Appears well In distress: None - HEENT Head: Normocephalic Eyes: Normal Conjunctiva: Normal Cornea: Normal Extraocular movements intact: Yes Pupils: PERRL Ears: Normal External canal: Normal Mouth/Lips: Normal Pharynx: Normal - Respiratory Respiratory status: Tachypnea Chest status: Nontender Breath sounds: Wheezing, Other - Pursed lips with modest tachypnea and wheezes in all lung amezquita Chest palpation: Normal - Cardiovascular Rhythm: Regular Heart sounds: Normal auscultation Murmur: No - Abdominal Inspection: Normal Distension: No distension Tenderness: Nontender - Back Back: Normal - Extremities General upper extremity: Normal inspection General lower extremity: Normal inspection - Neurological Neuro grossly intact: Yes Cognition: Normal Orientation: AAOx4 - Psychological Associated symptoms: Normal affect Course - Re-evaluation Re-evalutation: 05/14/18 10:26 This 73-year-old gentleman with COPD presents for evaluation of worsening shortness of breath, he says this is stereotypical as far as an exacerbation of his COPD. He has been evaluated for this in the past, has never required hospitalization. 10 days ago he did receive a brief course of steroids which seemed to improve his symptoms, he says that today he was hoping to get a breathing treatment at which time they said it was too late and that he had to take EMS to the emergency room. Examination he does have some pursed lip breathing and wheezes in all lung amezquita he does not have any secondary signs of infection at this time no fevers no chills he is otherwise well-appearing. He denies any chest pain chest tightness, given his risk factors however will plan for obtaining EKG, troponin. At this time we will plan to treat presumptively circumflex for COPD exacerbation will administer DuoNeb as well as azithromycin and prednisone. Do not believe that at this time he likely has thromboembolic disease. Do not believe he is having active ND. Did speak at length about the importance of smoking cessation for this man, he does note that is cut down from 3 packs to half pack per day. We will plan to reassess following treatment. Patient is received 2 nebulization treatments in the emergency department as well as a prednisone dose, he notes that his breathing is improved since his time here, has been able to eat and drink. He remains well-appearing and his wheezing has improved. Believe this patient is safe for discharge home with return precautions, will plan for return to facility with increased frequency of DuoNeb's 3 times per day. Patient is agreeable, will also treat with a brief course of prednisone. 05/14/18 18:32 - Vital Signs Vital signs: Temp Pulse Resp BP Pulse Ox 98.2 F 94 24 H 117/69 97 05/14/18 10:45 05/14/18 09:38 05/14/18 15:00 05/14/18 09:38 05/14/18 15:00 - Laboratory Result Diagrams: 05/14/18 10:06 05/14/18 10:06 Laboratory results interpreted by me: 05/14/18 05/14/18 10:06 10:06 WBC 14.2 H RBC 4.03 L Hgb 12.2 L Hct 35.8 L RDW 15.6 H Band Neutrophils % 1 L Abs Neuts (Manual) 9.8 H Potassium 5.3 H BUN 58 H Creatinine 2.32 H Est GFR ( Amer) 34 L Est GFR (Non-Af Amer) 28 L Glucose 190 H - EKG Interpretation by Me EKG shows normal: Sinus rhythm - Sinus rhythm, 97 bpm, normal axis, slight ST segment depression in lead I change noted from previous EKG 05/04/2018 Discharge - Discharge Clinical Impression: COPD with acute exacerbation, Wheezing Condition: Stable Disposition: HOME, SELF-CARE Instructions: Bronchitis With Bronchospasm (Wheezing) ([facility]), Chronic Obstructive Lung Disease ([facility]) Prescriptions: Azithromycin [Zithromax] 250 mg PO DAILY #4 tablet Ipratropium/Albuterol Sulfate [Duoneb 3 ml Ampul] 3 ml NEB TID PRN #15 vial.neb PRN Reason: Prednisone [Deltasone 20 mg Tablet] 3 tab PO DAILY 5 Days #15 tablet Forms: Smoking Cessation Education Referrals: JONATHAN WHITESIDE MD [Primary Care Provider] - Follow up as needed
[2018-05-14 10:35] LABS: HEMATOCRIT 35.8 % (37.9-51.0); HEMOGLOBIN 12.2 g/dL (13.5-17.0); MEAN CORPUSCULAR HEMOGLOBIN 30.2 pg (27.0-33.4); MEAN CORPUSCULAR VOLUME 89 fl (80-97); PLATELET COUNT 310 10^3/uL (150-450); RED BLOOD COUNT 4.03 10^6/uL (4.35-5.55); RED CELL DISTRIBUTION WIDTH 15.6 % (11.5-14.0); WHITE BLOOD COUNT 14.2 10^3/uL (4.0-10.5)
--- NOTE | 2018-05-14 10:35 | RADIOLOGY REPORT (SQ) ---
EXAM DESCRIPTION: CHEST SINGLE VIEW COMPLETED DATE/TIME: 05/14/2018 10:22 am REASON FOR STUDY: shortness of breath COMPARISON: 05/07/2018 EXAM PARAMETERS: NUMBER OF VIEWS: One view. TECHNIQUE: Single frontal radiographic view of the chest acquired. RADIATION DOSE: NA LIMITATIONS: None. FINDINGS: LUNGS AND PLEURA: No opacities, masses or pneumothorax. No pleural effusion. Chronic appe aring changes are again identified. Again there is evidence for obstructive lung disease. MEDIASTINUM AND HILAR STRUCTURES: No masses. Contour normal. HEART AND VASCULAR STRUCTURES: The configuration of the heart mediastinal structures is unchanged. BONES: No acute findings. HARDWARE: None in the chest. OTHER: The previously described metallic foreign body projected in the right lower hemithorax is agai n identified. IMPRESSION: No significant interval change. No acute changes. Other findings as noted above TECHNICAL DOCUMENTATION: JOB ID: [id number] All Rights Reserved Reading location - IP/workstation name: [email or web address]
[2018-05-14 10:44] LABS: ALANINE AMINOTRANSFERASE 29 U/L (21-72); ALBUMIN 4.1 g/dL (3.5-5.0); ALKALINE PHOSPHATASE 42 U/L (38-126); ANION GAP 18 (5-19); ASPARTATE AMINO TRANSFERASE 23 U/L (17-59); BILIRUBIN,DIRECT 0.3 mg/dL (0.0-0.4); BILIRUBIN,TOTAL 0.5 mg/dL (0.2-1.3); BLOOD UREA NITROGEN 58 mg/dL (7-20); CALCIUM 9.7 mg/dL (8.4-10.2); CARBON DIOXIDE 22 mmol/L (22-30); CHLORIDE 104 mmol/L (98-107); GLUCOSE 190 mg/dL (75-110); POTASSIUM 5.3 mmol/L (3.6-5.0); SODIUM 143.6 mmol/L (137-145); TOTAL PROTEIN 7.5 g/dL (6.3-8.2)
[2018-05-14 10:58] LABS: ABSOLUTE LYMPHOCYTES# (MANUAL) 3.3 10^3/uL (0.5-4.7); ABSOLUTE MONOCYTES # (MANUAL) 1.1 10^3/uL (0.1-1.4); ABSOLUTE NEUTROPHILS# (MANUAL) 9.8 10^3/uL (1.7-8.2); BAND NEUTROPHILS % (MANUAL) 1 % (3-5); BASOPHILS % (MANUAL) 0 % (0-2); EOSINOPHILS % (MANUAL) 0 % (0-6); LYMPHOCYTES % (MANUAL) 23 % (13-45); MONOCYTES % (MANUAL) 8 % (3-13); SEGMENTED NEUTROPHILS % (MAN) 68 % (42-78); TOTAL CELLS COUNTED 100
[2018-05-14 10:59] LABS: ANISOCYTOSIS SLIGHT; OVALOCYTES SLIGHT; PLATELET CLUMPS PRESENT; PLATELET COMMENT ADEQUATE; POIKILOCYTOSIS SLIGHT; POLYCHROMASIA SLIGHT
[2018-05-14 11:24] LABS: APPEARANCE,URINE CLEAR; BILIRUBIN,URINE NEGATIVE (NEGATIVE); COLOR,URINE STRAW; GLUCOSE, URINE NEGATIVE (NEGATIVE); KETONES,URINE NEGATIVE (NEGATIVE); LEUKOCYTE ESTERASE,URINE NEGATIVE (NEGATIVE); NITRITE,URINE NEGATIVE (NEGATIVE); PROTEIN,URINE NEGATIVE (NEGATIVE); UROBILINOGEN,URINE NEGATIVE mg/dL (<2.0)
[2018-05-14] MEDS ORDERED: IPRATROPIUM/ALBUTEROL 0.5-2.5 MG/3 ML AMPUL NEB ONE (12:31)
--- NOTE | 2018-05-14 12:54 | EKG REPORT ---
SEVERITY:- NORMAL ECG - SINUS RHYTHM : Confirmed by: Jerome Lyn MD 14-May-2018 12:54:24
== END 2018-05-14 16:00 | disposition home or self-care (01) ==
LOC: ER 09:08
DX: J44.1 Chronic obstructive pulmonary disease with (acute) exacerbation (principal); I10 Essential (primary) hypertension; E78.00 Pure hypercholesterolemia, unspecified; F17.210 Nicotine dependence, cigarettes, uncomplicated
CPT/HCPCS: 93005; 94640 ×2; 99285; 36415; 85025; 80053; 81001; 84484; 71045; 93010; A9270 ×3; J7512; J7620